=== PATIENT | female | born 1940 | race Caucasian/White ===

== ENCOUNTER 2021-02-04 18:06 | Emergency (ER) | payer OTHER, SELFPAY ==
[2021-02-04 18:15] VITALS: BP 142/61; PULSE 86; RESP 18; TEMP 37; O2SAT 100
--- NOTE | 2021-02-04 18:15 | ED.LOWEXIN ---
HPI - Extremity Injury (Lower) General Chief Complaint: Skin/Abscess/Foreign Body Stated Complaint: INFECTED FOOT Time Seen by Provider: 02/04/21 18:15 Source: patient, family and RN notes reviewed Mode of arrival: ambulatory Limitations: no limitations History of Present Illness HPI Narrative: 80-year-old female presents to the [facility] with her with complaints of a foot infection. Patient states approximately 3 months ago started having issues with a callused when it opened up. Had seen her primary care provider and then was seeing a specialist multiple times in the last 3 months. Thought it was healing well and then noticed redness and swelling since yesterday. There is a yellow pus filled area that is 4 x 4-1/2 cm on the plantar aspect just proximal to the great toe. Redness noted circumferential of the toes and the foot with streaking noted up the foot and into the leg. Edema noted to the ankle and foot area. Related Data Home Medications Medication Instructions Recorded Confirmed isosorbide mononitrate 30 mg 30 mg PO DAILY 09/28/19 02/04/21 tablet,extended release 24 hr metoprolol succinate 50 mg 50 mg PO DAILY 09/28/19 02/04/21 tablet,extended release 24 hr nitroglycerin 0.4 mg sublingual 0.4 mg SUBLINGUAL Q5M PRN 09/28/19 02/04/21 tablet clopidogrel 75 mg PO DAILY 02/04/21 02/04/21 gabapentin 300 mg PO TID 02/04/21 02/04/21 levothyroxine 50 mcg PO DAILY 02/04/21 02/04/21 losartan 100 mg PO DAILY 02/04/21 02/04/21 omeprazole 20 mg PO DAILY 02/04/21 02/04/21 simvastatin 20 mg PO DAILY 02/04/21 02/04/21 Allergies Allergy/AdvReac Type Severity Reaction Status Date / Time adhesive tape Allergy Severe BLISTERS/SKIN Verified 02/04/21 20:00 TEARS latex Allergy Unknown Unknown Verified 02/04/21 20:00 Review of Systems Review of Systems: All systems reviewed & are unremarkable except as noted in HPI and below Constitutional: Constitutional: Reports no additional constitutional complaints, Denies chills and Denies fever(s) Eyes: Eyes: Reports no additional eye complaints ENT: Reports system reviewed and no additional complaints, except as documented Cardiovascular: Cardiovascular: Reports no additional cardiovascular complaints and Denies chest pain Respiratory: Respiratory: Reports no additional respiratory complaints, Denies cough, Denies dyspnea and Denies wheezing Gastrointestinal: Gastrointestinal: Reports no additional gastrointestinal complaints, Denies abdominal pain, Denies nausea and Denies vomiting Musculoskeletal: Musculoskeletal: Reports as per HPI, Denies back pain, Denies myalgias, Reports joint swelling (Right lower leg, ankle and foot) and Denies muscle cramps Integumentary/Breasts: Skin/Breast: Reports as per HPI and Denies rash Comments: Redness to the right foot with streaking up the leg. 4 x 4.5 area with pus Neurologic: Reports system reviewed and no additional complaints, except as documented, Denies vertigo, Denies dizziness, Denies syncope, Denies headache(s), Denies focal weakness and Denies numbness Psychiatric: Psychiatric: Reports no additional psychiatric complaints Endocrine: Endocrine: Reports no additional endocrine complaints Allergic/Immunologic: Allergic/Immunologic: Reports no additional allergic/immunologic complaints [facility] Surgical History Surgical History H/O colonoscopy H/O heart artery stent H/O tooth extraction H/O: hysterectomy History of hip replacement History of knee replacement Family History Family History Mother Family history of pancreatic cancer Grandparent Diabetes mellitus Father Diabetes mellitus Hypertension Family history of cardiovascular disease Family history of chronic obstructive pulmonary disease Other Family history of elevated blood lipids Social History Social History (Reviewed 02/04/21 @ 19:59 by
[2021-02-04 18:48] VITALS: BP 142/61; PULSE 86; RESP 18; TEMP 37; O2SAT 100
== END 2021-02-04 18:33 | disposition short-term general hospital (02) ==
PROVIDERS: Emergency Provider Nurse Practitioner; PCP Internal Medicine
DX: L03.116 Cellulitis of left lower limb (principal); L03.115 Cellulitis of right lower limb; Z95.5 Presence of coronary angioplasty implant and graft; Z96.649 Presence of unspecified artificial hip joint; Z96.659 Presence of unspecified artificial knee joint
CPT/HCPCS: 99212; G0463

== ENCOUNTER 2021-02-04 18:49 | Inpatient (IN) | payer OTHER, SELFPAY ==
--- NOTE | ~2021-02-04 | XR_ITS ---
EXAMINATION: XR foot RT min 3V DATE: 02/04/2021 21:11 INDICATION: Neuropathy presenting with wound at the plantar right foot. TECHNIQUE: Dorsoplantar, two oblique and lateral views of the right foot were obtained. COMPARISON: None. FINDINGS: Mild hallux valgus. Alignment is otherwise normal. No fracture. Polyarticular osteoarthritis, moderat e severity at the naviculocuneiform and second and third tarsal metatarsal joints with subarticular l ucencies suggesting associated degenerative subchondral cystic changes. Mild osteoarthritis at the ta lonavicular, first metatarsophalangeal, remaining tarsal metatarsal and multiple interphalangeal join ts. Moderate-sized plantar calcaneal spur and small Achilles calcaneal spur. No cortical erosions or periosteal reaction to suggest osteomyelitis. Soft tissue swelling about the great toe and head of th e first metatarsal. No soft tissue gas or radiopaque foreign bodies. IMPRESSION: 1. 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 No acute osseous abnormality or ev ident osteoarthritis. Reviewed, dictated and finalized at location A. IMPRESSION: 1. 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 No acute oss eous abnormality or evident osteoarthritis.
--- NOTE | ~2021-02-04 | MR_ITS ---
EXAMINATION: MR foot RT wo con DATE: 02/05/2021 14:02 INDICATION: Osteomyelitis at the right foot. Open wound at the ball of the right foot near the great toe. TECHNIQUE: Magnetic resonance imaging (MRI) of the right fore/mid foot was performed without intraven ous contrast. Sequences included sagittal T1-weighted FSE, sagittal fluid sensitive FSE STIR, coronal PD-weighted FS FSE, coronal T1-weighted FSE, axial PD-weighted FS FSE, and axial PD-weighted FSE. COMPARISON: Right foot radiographs dated 02/04/2021 FINDINGS: Hallux valgus. Bone alignment is otherwise normal. There is moderate to severe polyarticular osteoart hritis, severe at multiple joints in the midfoot with prominent subarticular cystic change and early destructive changes most prominent at the second-fourth tarsal metatarsal joints and the navicular cu neiform joint suggesting neuropathic arthropathy. Additional less severe mild to moderate osteoarthri tis of the first metatarsal joint and mild osteoarthritis at many of the remaining joints in the visu alized forefoot. Physiologic amount fluid in the joint spaces. No joint effusions. Shallow skin ulcer ation suggested plantar to the head of the first metatarsal. No evident deeper sinus tract or evident cortical erosion or marrow signal changes suspicious for osteomyelitis at the underlying bones. Visu alized portions of the flexor and extensor tendons appear normal. Moderate diffuse fatty atrophy of t he intrinsic musculature of the foot also suggestive of chronic neuropathic changes. IMPRESSION: 1. Shallow skin ulceration plantar to the head of the first metatarsal. No evident associated septic arthritis or osteoarthritis. 2. Moderate to severe polyarticular osteoarthritis most prominent in the midfoot with appearance as w ell as a moderate fatty atrophy and intrinsic musculature suggesting neuropathic arthropathy. Reviewed, dictated and finalized at location A. IMPRESSION: 1. Shallow skin ulceration plantar to the head of the first metatarsal. No evid ent associated septic arthritis or osteoarthritis. 2. Moderate to severe polyarticular osteoarthritis most prominent in the midfoo t with appearance as well as a moderate fatty atrophy and intrinsic musculature suggesting neuropathic arthropathy.
[2021-02-04 18:57] VITALS: BP 141/69; PULSE 88; RESP 18; TEMP 36.2; O2SAT 98
[2021-02-04] MEDS: TETANUS,DIPHTHERIA,AC PERTUSSIS ADULT (0.5 ML) BOOSTRIX IM (21:25)
[2021-02-04 21:28] LABS: Basophils Absolute Auto 0.1 K/mm3 (0.0-0.1); Basophils Percent Auto 1.1 % (0.2-1.2); Eosinophils Absolute Auto 0.4 K/mm3 (0-0.3); Eosinophils Percent Auto 4.2 % (0-4.4); Hematocrit 42.2 % (37.0-47.0); Immature Granulocyte Absolute 0.05 K/mm3 (0.00-0.031); Immature Granulocyte Percent A 0.6 % (0-0.5); Lymphocytes Percent Auto 29.4 % (18.3-44.2); Mean Corpuscular HGB Conc 33.2 g/dl (32-36); Mean Corpuscular Hemoglobin 30.5 pg (26-34); Mean Corpuscular Volume 91.9 fl (80-100); Mean Platelet Volume 9.6 fl (7.4-10.4); Monocytes Absolute Auto 1.1 K/mm3 (0.1-0.6); Monocytes Percent Auto 12.6 % (2.6-8.5); Neutrophils Absolute Auto 4.4 K/mm3 (1.3-6.7); Neutrophils Percent Auto 52.1 % (45.5-73.1); Platelet Count Result 305 k/mm3 (150-375); Red Blood Count 4.59 M/mm3 (4.2-5.4); Red Cell Distribution Width 12.4 % (11.5-14.5); White Blood Count 8.5 K/mm3 (4.5-10.0)
[2021-02-04 21:51] LABS: Erythrocyte Sedimentation Rate 25 mm/hr (0-20)
--- NOTE | 2021-02-04 22:11 | ED.GENADULT ---
HPI - General Adult General Chief complaint: Extremity Injury, Lower Stated complaint: i have an infected foot Time Seen by Provider: 02/04/21 19:39 Source: patient Mode of arrival: ambulatory Limitations: no limitations History of Present Illness HPI narrative: Patient presents for evaluation of wound to the MTP joint of the first digit of the right foot. She indicates she has a history of a callus to the affected area. She was receiving an office debridement by her primary care provider and then manager heavy equipment, Dr Reagan, approximately 2 months ago. She states that the area was healing well but she then needed to have cardiac stents placed by Dr. Byrd at [place]. Therefore, her debridements were placed on hold. She states over the course the last 2 days she has noted a worsening appearance to the affected area. She noticed redness going up her right lower extremity today. She denies any fever, chills, nausea, vomiting. She denies any associated pain but she has underlying peripheral neuropathy. She thinks her last tetanus was about three years ago but she is not certain She states she has borderline diabetes and was on metformin in the past. She is unsure whether she is still taking metformin. It is not on the home med list that she provided me tonight. Related Data Home Medications Medication Instructions Recorded Confirmed isosorbide mononitrate 30 mg 30 mg PO DAILY 09/28/19 02/04/21 tablet,extended release 24 hr metoprolol succinate 50 mg 50 mg PO DAILY 09/28/19 02/04/21 tablet,extended release 24 hr nitroglycerin 0.4 mg sublingual 0.4 mg SUBLINGUAL Q5M PRN 09/28/19 02/04/21 tablet clopidogrel 75 mg PO DAILY 02/04/21 02/04/21 gabapentin 300 mg PO TID 02/04/21 02/04/21 levothyroxine 50 mcg PO DAILY 02/04/21 02/04/21 losartan 100 mg PO DAILY 02/04/21 02/04/21 omeprazole 20 mg PO DAILY 02/04/21 02/04/21 simvastatin 20 mg PO DAILY 02/04/21 02/04/21 Allergies Allergy/AdvReac Type Severity Reaction Status Date / Time adhesive tape Allergy Severe BLISTERS/SKIN Verified 02/04/21 20:00 TEARS latex Allergy Unknown Unknown Verified 02/04/21 20:00 Review of Systems Review of Systems: Narrative: CONSTITUTIONAL: Denies fever, chills, or sweats. EYES: Denies visual changes, redness, or discharge. ENT: Denies rhinorrhea, congestion, sore throat, or otalgia. CARDIOVASCULAR: Denies chest pain, palpitations, or edema. RESPIRATORY: Denies cough or dyspnea. GASTROINTESTINAL: Denies abdominal pain, nausea, vomiting, or diarrhea. GENITOURINARY: Denies dysuria or hematuria. SKIN: Reports wound to the right foot. Denies rash or itching. MUSCULOSKELETAL: Denies back pain, joint pain, or myalgia. NEUROLOGIC: Denies headache, numbness, dizziness, or weakness. PSYCHIATRIC: Denies anxiety or depression. [facility] Past Medical History Medical History Borderline diabetes Coronary artery disease Hyperlipidemia Hypertension Peripheral neuropathy Surgical History Surgical History H/O colonoscopy H/O heart artery stent H/O tooth extraction H/O: hysterectomy History of hip replacement History of knee replacement Family History Family History Mother Family history of pancreatic cancer Grandparent Diabetes mellitus Father Diabetes mellitus Hypertension Family history of cardiovascular disease Family history of chronic obstructive pulmonary disease Other Family history of elevated blood lipids Social History Social History Smoking status: Never smoker Alcohol intake: never Substance use: never Living arrangements: with family Gender identity (if verbalized by the patient): Female Sexual Orientation (if Verbalized by the Patient): Straight or Heterosexual S
[2021-02-04 22:31] LABS: Alanine Aminotransferase 16 U/L (4-35); Albumin Level 4.1 g/dL (3.5-5.1); Alkaline Phosphatase 82 U/L (38-126); Anion Gap 11 mmol/L (8-16); Aspartate Amino Transferase 24 U/L (14-36); Bilirubin,Total 0.9 mg/dL (0.2-1.3); Blood Urea Nitrogen 29 mg/dL (7-17); CRP 1.6 mg/dL (<1.0); Calcium 9.8 mg/dL (8.4-10.2); Carbon Dioxide 21 mmol/L (22-30); Chloride 106 mmol/L (98-107); Estimated CRCL calculation 29 ml/min; Estimated Glomerular Filt Rate 40; Glucose 110 mg/dL (65-105); Potassium 4.1 mmol/L (3.4-5.0); Sodium 138 mmol/L (137-145)
[2021-02-04 22:42] VITALS: BP 158/82; PULSE 73; RESP 16; O2SAT 99
[2021-02-05] VITALS (7 sets, daily range): BP systolic 143–178; BP diastolic 66–97; PULSE 68–77; RESP 16–18; TEMP 36.4–36.7; O2SAT 96–100; BMI 28.5
--- NOTE | 2021-02-05 01:37 | PC.NURSE ---
This patient, Emelia Heath, was admitted to [facility] Room 329-01. Patient/family oriented to hospital policies and general routines including ID bracelet, bed and alarms, visiting hours, pain management, procedures, bathroom and other care routines, personal items, smoking policy, room service/diet, and visiting hours. Information on how to activate the Rapid Response Team has been discussed. Patient/Family are encouraged to report perceived risks to care and to ask questions if they do not understand what they are told or what they should do.
[2021-02-05] MEDS: LACTATED RINGERS 1,000 ML 60 ML IV CONT (02:08)
--- NOTE | 2021-02-05 02:33 | PM.IMHP ---
H&P: HPI History of Present Illness Date/Time: 02/05/21 02:33 Chief Complaint: Left lower extremity redness Narrative: This is a 80-year-old female with past medical history significant for coronary artery disease status post stent placement, hypertension, dyslipidemia, hypothyroidism, angina. Patient presented to the emergency room after she had been going to the manager air for a callus at the 1st metatarsal joint that has been shaved however patient in the last couple of days notice increasingly painful to the touch and be weight-bearing in that area as well as redness and swelling of the foot tracking up her calf. However she denies any chills fevers rigors nausea vomiting pain or burning with urination no general malaise no muscle aches or pains. Preliminary workup was essentially nonrevealing. Review of Systems Review of Systems: Narrative: Left foot redness Constitutional: Constitutional: Denies chills, Denies fever(s), Denies lethargy and Denies malaise Eyes: Eyes: Denies change in vision ENT: Denies nasal congestion, Denies nasal discharge and Denies nasal obstruction Cardiovascular: Cardiovascular: Denies irregular heart rhythm, Denies lightheadedness, Denies radiating jaw, neck or arm pain, Denies palpitations and Denies dyspnea on exertion Respiratory: Respiratory: Denies cough and Denies dyspnea Gastrointestinal: Gastrointestinal: Denies diarrhea, Denies nausea and Denies vomiting Genitourinary: Genitourinary: Denies dysuria Musculoskeletal: Musculoskeletal: Reports arthralgias and Reports joint swelling PMF Past Medical History Medical History Borderline diabetes Coronary artery disease Hyperlipidemia Hypertension Peripheral neuropathy Surgical History Surgical History H/O colonoscopy H/O heart artery stent H/O tooth extraction H/O: hysterectomy History of hip replacement History of knee replacement Family History Family History Mother Family history of pancreatic cancer Grandparent Diabetes mellitus Father Diabetes mellitus Hypertension Family history of cardiovascular disease Family history of chronic obstructive pulmonary disease Other Family history of elevated blood lipids Social History Social History Smoking status: Never smoker Alcohol intake: never Substance use: never Living arrangements: with family Gender identity (if verbalized by the patient): Female Sexual Orientation (if Verbalized by the Patient): Straight or Heterosexual Spiritual care concerns: No Meds Home Medications and Allergies Home Medications Medication Instructions Recorded Confirmed Type isosorbide mononitrate 30 mg 30 mg PO DAILY 09/28/19 02/05/21 History tablet,extended release 24 hr metoprolol succinate 50 mg 50 mg PO DAILY 09/28/19 02/05/21 History tablet,extended release 24 hr nitroglycerin 0.4 mg sublingual 0.4 mg SUBLINGUAL Q5M PRN 09/28/19 02/05/21 History tablet clopidogrel 75 mg PO DAILY 02/04/21 02/05/21 History gabapentin 300 mg PO BID 02/04/21 02/05/21 History levothyroxine 50 mcg PO DAILY 02/04/21 02/05/21 History losartan 150 mg PO DAILY 02/04/21 02/05/21 History omeprazole 20 mg PO DAILY 02/04/21 02/05/21 History simvastatin 20 mg PO DAILY 02/04/21 02/05/21 History aspirin [Aspirin Low Dose] 81 mg PO DAILY 02/05/21 02/05/21 History Allergies Allergy/AdvReac Type Severity Reaction Status Date / Time adhesive tape Allergy Severe BLISTERS/SKIN Verified 02/04/21 20:00 TEARS latex Allergy Unknown Unknown Verified 02/04/21 20:00 Vital Signs Vital Signs - 24 hr 02/04/21 18:57 02/04/21 22:42 02/05/21 00:16 Temperature 97.2 F L Pulse Rate 88 73 69 Respiratory Rate 18 16 17 Blood Pressure 141
[2021-02-05] MEDS: LEVOTHYROXINE SODIUM 50 MCG TABLET PO (06:29)
[2021-02-05 06:52] LABS: Basophils Absolute Auto 0.1 K/mm3 (0.0-0.1); Basophils Percent Auto 1.3 % (0.2-1.2); Eosinophils Absolute Auto 0.3 K/mm3 (0-0.3); Eosinophils Percent Auto 4.4 % (0-4.4); Hematocrit 38.7 % (37.0-47.0); Hemoglobin 12.8 g/dL (12.0-15.0); Immature Granulocyte Absolute 0.02 K/mm3 (0.00-0.031); Immature Granulocyte Percent A 0.3 % (0-0.5); Lymphocytes Absolute Auto 2.15 K/mm3 (0.9-3.2); Lymphocytes Percent Auto 30.7 % (18.3-44.2); Mean Corpuscular HGB Conc 33.1 g/dl (32-36); Mean Corpuscular Hemoglobin 30.9 pg (26-34); Mean Corpuscular Volume 93.5 fl (80-100); Mean Platelet Volume 9.3 fl (7.4-10.4); Monocytes Absolute Auto 0.8 K/mm3 (0.1-0.6); Neutrophils Absolute Auto 3.7 K/mm3 (1.3-6.7); Neutrophils Percent Auto 52.3 % (45.5-73.1); Platelet Count Result 271 k/mm3 (150-375); Red Blood Count 4.14 M/mm3 (4.2-5.4); Red Cell Distribution Width 12.3 % (11.5-14.5)
[2021-02-05 07:04] LABS: Anion Gap 11 mmol/L (8-16); Blood Urea Nitrogen 21 mg/dL (7-17); Calcium 9.2 mg/dL (8.4-10.2); Carbon Dioxide 19 mmol/L (22-30); Chloride 107 mmol/L (98-107); Estimated CRCL calculation 34 ml/min; Estimated Glomerular Filt Rate 48; Glucose 116 mg/dL (65-105); Potassium 4.2 mmol/L (3.4-5.0); Sodium 137 mmol/L (137-145)
[2021-02-05] MEDS: SIMVASTATIN 20 MG TABLET PO (08:31)
[2021-02-05] MEDS: LOSARTAN POTASSIUM 50 MG TABLET 150 MG PO (08:31)
[2021-02-05] MEDS: METOPROLOL SUCCINATE EXT REL 50 MG TABCR PO (08:31)
[2021-02-05] MEDS: PANTOPRAZOLE 40 MG TABLET PO (08:31)
[2021-02-05] MEDS: GABAPENTIN 300 MG CAPSULE PO ×2 (08:35→20:57)
--- NOTE | 2021-02-05 09:01 | PM.CNOR ---
Assessment and Plan Assessment and plan (1) Callus of foot: Code(s): L84 - Corns and callosities Status: Acute (2) Peripheral neuropathy: Qualifiers: Peripheral neuropathy type: polyneuropathy associated with underlying disease Qualified Code(s): G63 - Polyneuropathy in diseases classified elsewhere Code(s): G62.9 - Polyneuropathy, unspecified Status: Acute (3) Foot ulcer, right: Qualifiers: Non-pressure ulcer stage: with muscle involvement without evidence of necrosis Qualified Code(s): L97.515 - Non-pressure chronic ulcer of other part of right foot with muscle involvement without evidence of necrosis Code(s): L97.519 - Non-pressure chronic ulcer of other part of right foot with unspecified severity Status: Acute Assessment and Plan: 80-year-old woman with chronic plantar right foot ulcer. Previous local debridements by outside providers. Worsening over the past 2 weeks. Noted purulence drainage in the emergency room. No drainage at this time. Complicated by foot and leg cellulitis. Radiographs show no bony involvement at this time. Plan for MRI today to evaluate soft tissue. Patient with hallux valgus deformity. May need correction in the future to effect definitive healing. Plan for debridement of right foot. Further treatment based on MRI and healing response. Discussed nonoperative and operative treatment options with the patient. Risks and benefits of each as well as alternatives were reviewed. All of the patient's questions were answered. The risks of surgery reviewed including but not limited to: Neurovascular damage, wound complication, infection, blood clot, pulmonary embolus, stroke, myocardial infarction, and anesthetic risks up to and including . Continued pain and possible dysfunction were explained. Specific risks of the procedure including later recurrence of deformity. No guarantees were offered. If complications occur, the patient understands the need for further treatment, possible further surgery. Patient verbalizes understanding and wishes to proceed. PLAN: Right foot debridement (4) Cellulitis: Qualifiers: Laterality: right Site of cellulitis: extremity Site of cellulitis of extremity: lower extremity Qualified Code(s): L03.115 - Cellulitis of right lower limb Code(s): L03.90 - Cellulitis, unspecified Status: Acute Assessment and Plan: started on intravenous antibiotics. Appears to be responding well. History of Present Illness HPI Consult date: 02/05/21 Requesting physician: Phong Oscar, [employer], [place] Chief complaint: Cellulitis Right Lower Leg, Callus Right Foot Narrative: 80-year-old woman with peripheral neuropathy and chronic callus/ulceration plantar right 1st metatarsophalangeal joint. Previous debridements by technology risk intern in office. By history, worsening over the past several weeks. Patient had recent stent placement. Review of Systems Constitutional: Constitutional: Denies fever(s) Eyes: Eyes: Denies blurry vision ENT: Reports Normal hearing present Cardiovascular: Cardiovascular: Denies chest pain and Denies dyspnea Respiratory: Respiratory: Denies dyspnea and Denies wheezing Gastrointestinal: Gastrointestinal: Denies abdominal pain Genitourinary: Genitourinary: Denies urinary urgency Musculoskeletal: Musculoskeletal: Reports as per HPI and Denies numbness Integumentary/Breasts: Skin/Breast: Denies changing lesions and Denies sores Neurologic: Reports Normal hearing present, Denies behavioral changes, Denies confusion, Reports numbness ( Bilateral feet) and Denies convulsions Psychiatric: Psychiatric: Denies behavioral changes, Denies confusion and Denies hallucinations Endocrine: Endocrine: Denies heat intolerance Hematologic/Lymphatic: Hematologic/Lymphatic: Denies easy bleeding Allergic/Immunologic: Allergic/Immunologic: Denies wheezing PMFSH Past Med
--- NOTE | 2021-02-05 12:47 | PM.IMPN ---
Progress Note: A&P Assessment and Plan (1) Cellulitis: Qualifiers: Laterality: right Site of cellulitis: extremity Site of cellulitis of extremity: lower extremity Qualified Code(s): L03.115 - Cellulitis of right lower limb Code(s): L03.90 - Cellulitis, unspecified Status: Acute Assessment and Plan: Started on Zosyn and vancomycin CT of the left foot Ortho consult 02/05/21 12:47 This is a 80-year-old female with past medical history significant for coronary artery disease status post stent placement, hypertension, dyslipidemia, hypothyroidism, angina. Patient presented to the emergency room after she had been going to the office machine repair shop supervisor for a callus at the 1st metatarsal joint that has been shaved however patient in the last couple of days notice increasingly painful to the touch and be weight-bearing in that area as well as redness and swelling of the foot tracking up her calf. However she denies any chills fevers rigors nausea vomiting pain or burning with urination no general malaise no muscle aches or pains. Preliminary workup was essentially nonrevealing. 02/05 patient states right pain and redness has improved since the start of IV antibiotic, and erythema is receding, today patient was seen orthopedic surgeon recommend debridement of the wound and patient has agreed as scheduled for possibly tomorrow, patient denies any fever or chills, denies any chest pain shortness of breath palpitation. Will have a PT OT evaluate the patient and further recommendation to follow (2) Callus of foot: Code(s): L84 - Corns and callosities Status: Acute Assessment and Plan: Worsening pain on weight-bearing (3) Peripheral neuropathy: Qualifiers: Peripheral neuropathy type: polyneuropathy associated with underlying disease Qualified Code(s): G63 - Polyneuropathy in diseases classified elsewhere Code(s): G62.9 - Polyneuropathy, unspecified Status: Acute Assessment and Plan: Continue home meds Continue to monitor (4) Hyperlipidemia: Code(s): E78.5 - Hyperlipidemia, unspecified Status: Acute Assessment and Plan: Continue home meds Continue to monitor (5) Coronary artery disease: Code(s): I25.10 - Atherosclerotic heart disease of [place] coronary artery without angina pectoris Status: Acute Assessment and Plan: Stable Continue home meds (6) Hypertension: Code(s): I10 - Essential (primary) hypertension Status: Acute Assessment and Plan: Stable Continue home meds Subjective Date/time seen: 02/05/21 12:47 This is a 80-year-old female with past medical history significant for coronary artery disease status post stent placement, hypertension, dyslipidemia, hypothyroidism, angina. Patient presented to the emergency room after she had been going to the office machine repair shop supervisor for a callus at the 1st metatarsal joint that has been shaved however patient in the last couple of days notice increasingly painful to the touch and be weight-bearing in that area as well as redness and swelling of the foot tracking up her calf. However she denies any chills fevers rigors nausea vomiting pain or burning with urination no general malaise no muscle aches or pains. Preliminary workup was essentially nonrevealing. 02/05 patient states right pain and redness has improved since the start of IV antibiotic, and erythema is receding, today patient was seen orthopedic surgeon recommend debridement of the wound and patient has agreed as scheduled for possibly tomorrow, patient denies any fever or chills, denies any chest pain shortness of breath palpitation. Will have a PT OT evaluate the patient and further recommendation to follow Review of Systems Review of Systems: All systems reviewed & are unremarkable except as noted in HPI and below Exam Narrative: Exam Narrative: Patient is comfortable, NAD HEENT: eyes are clear and none icteric
[2021-02-05] MEDS: ISOSORBIDE MONONITRATE 30 MG TAB.ER.24H PO (15:05)
[2021-02-05] MEDS: CLOPIDOGREL BISULFATE 75 MG TABLET PO (15:05)
[2021-02-05] MEDS: amLODIPine BESYLATE 5 MG TABLET PO (17:27)
[2021-02-05] MEDS: SILVERGEL (ELTA) 45 ML 1 APPLIC TOPICAL (18:09)
[2021-02-06] VITALS (13 sets, daily range): BP systolic 104–183; BP diastolic 62–81; PULSE 62–80; RESP 13–20; TEMP 36–37; O2SAT 94–100
[2021-02-06 06:46] LABS: Hemoglobin 12.8 g/dL (12.0-15.0); Mean Corpuscular HGB Conc 33.7 g/dl (32-36); Mean Corpuscular Hemoglobin 30.8 pg (26-34); Mean Corpuscular Volume 91.3 fl (80-100); Mean Platelet Volume 9.4 fl (7.4-10.4); Platelet Count Result 304 k/mm3 (150-375); Red Blood Count 4.16 M/mm3 (4.2-5.4); Red Cell Distribution Width 12.2 % (11.5-14.5); White Blood Count 6.9 K/mm3 (4.5-10.0)
[2021-02-06 06:51] LABS: Anion Gap 10 mmol/L (8-16); Blood Urea Nitrogen 18 mg/dL (7-17); Calcium 9.1 mg/dL (8.4-10.2); Carbon Dioxide 21 mmol/L (22-30); Chloride 106 mmol/L (98-107); Estimated CRCL calculation 41 ml/min; Estimated Glomerular Filt Rate 60; Glucose 121 mg/dL (65-105); Potassium 4.3 mmol/L (3.4-5.0); Sodium 137 mmol/L (137-145)
[2021-02-06 06:56] LABS: Hemoglobin A1C 6.3 % (<5.7)
--- NOTE | 2021-02-06 06:57 | WPDHPUPDATE1 ---
History and Physical Update Update Date/Time: 02/06/21 06:57 History and Physical has been reviewed, including an updated exam of the patient. There are NO changes in the patient's condition. Risks, benefits, and alternatives have been discussed and questions answered. Patient agrees to proceed with procedure.
[2021-02-06] MEDS: LACTATED RINGERS 1,000 ML 30 ML IV CONT ×2 (07:35→09:35)
--- NOTE | 2021-02-06 07:39 | WPDANESEPPF ---
Anes - Initial Pre Proc Eval Procedure: Operation Date: 02/06/21 08:30 Proposed Procedures p Right Foot Debridement - Brian Sumner MD Date/Time: 02/06/21 07:39 Surgeon: Loly Aldana MD Pre Op Diagnosis: Cellulitis Right Lower Leg, Callus Right Foot Patient Data Age: 80 Gender: F Height: 1.57 m Weight: 70.7 kg Last Vital Signs Temp 36.1 C L 02/06/21 05:57 Pulse 78 02/06/21 05:57 Resp 16 02/06/21 05:57 BP 151/76 H 02/06/21 05:57 Pulse Ox 98 02/06/21 05:57 Allergies Allergy/AdvReac Type Severity Reaction Status Date / Time adhesive tape Allergy Severe BLISTERS/SKIN Verified 02/04/21 20:00 TEARS latex Allergy Unknown Unknown Verified 02/04/21 20:00 Home Medications Medication Instructions Recorded Confirmed Type isosorbide mononitrate 30 mg 30 mg PO DAILY 09/28/19 02/05/21 History tablet,extended release 24 hr metoprolol succinate 50 mg 50 mg PO DAILY 09/28/19 02/05/21 History tablet,extended release 24 hr nitroglycerin 0.4 mg sublingual 0.4 mg SUBLINGUAL Q5M PRN 09/28/19 02/05/21 History tablet clopidogrel 75 mg PO DAILY 02/04/21 02/05/21 History gabapentin 300 mg PO BID 02/04/21 02/05/21 History levothyroxine 50 mcg PO DAILY 02/04/21 02/05/21 History losartan 150 mg PO DAILY 02/04/21 02/05/21 History omeprazole 20 mg PO DAILY 02/04/21 02/05/21 History simvastatin 20 mg PO DAILY 02/04/21 02/05/21 History aspirin [Aspirin Low Dose] 81 mg PO DAILY 02/05/21 02/05/21 History Laboratory Tests 02/06/21 02/06/21 02/06/21 06:14 06:14 06:14 WBC 6.9 K/mm3 K/mm3 (4.5-10.0) RBC 4.16 M/mm3 L M/mm3 (4.2-5.4) Hgb 12.8 g/dL g/dL (12.0-15.0) Hct 38.0 % % (37.0-47.0) MCV 91.3 fl fl (80-100) MCH 30.8 pg pg (26-34) MCHC 33.7 g/dl g/dl (32-36) RDW 12.2 % % (11.5-14.5) Plt Count 304 k/mm3 k/mm3 (150-375) MPV 9.4 fl fl (7.4-10.4) Sodium 137 mmol/L mmol/L (137-145) Potassium 4.3 mmol/L mmol/L (3.4-5.0) Chloride 106 mmol/L mmol/L (98-107) Carbon Dioxide 21 mmol/L L mmol/L (22-30) Anion Gap 10 mmol/L mmol/L (8-16) BUN 18 mg/dL H mg/dL (7-17) Creatinine 0.90 mg/dL mg/dL (0.7-1.0) Estim Creat Clear Calc 41 ml/min ml/min Estimated GFR 60 (59 - ) Glucose 121 mg/dL H mg/dL (65-105) Hemoglobin A1c 6.3 % H % (<5.7) Calcium 9.1 mg/dL mg/dL (8.4-10.2) Patient hx anesthesia problems: none Family hx anesthesia problems: none PMFSH Past Medical History Medical History (Updated 02/05/21 @ 09:09 by Brian Sumner MD) Borderline diabetes Coronary artery disease Foot ulcer, right Hyperlipidemia Hypertension Peripheral neuropathy Surgical History Surgical History H/O colonoscopy H/O heart artery stent H/O tooth extraction H/O: hysterectomy History of hip replacement History of knee replacement Family History Family History Mother Family history of pancreatic cancer Grandparent Diabetes mellitus Father Diabetes mellitus Hypertension Family history of cardiovascular disease Family history of chronic obstructive pulmonary disease Other Family history of elevated blood lipids Social History Social History Smoking status: Never smoker Alcohol intake: never Substance use: never Living arrangements: with family Gender identity (if verbalized by the patient): Female Sexual Orientation (if Verbalized by the Patient): Straight or Heterosexual Spiritual care concerns: No Anes - Eval Final PreProcedure Day of Procedure 02/06/21 07:39 Patient weight: overweight Heart: regular rate and rhythm Lungs: clear to auscultat
--- NOTE | 2021-02-06 08:33 | SUR.PREOP ---
0830-DISCUSSED ANTIBIOTICS WITH DR. STOCKTON-HE WILL FOLLOW UP.
--- NOTE | 2021-02-06 09:14 | PCWOUND ---
WOCN NOTE received referral to see ulcer to patient foot, patient has consult for orthopedic surgeon and went to surgery.
[2021-02-06] MEDS: ceFAZolin SODIUM 1 GM VIAL 2 GM IV PUSH (09:16)
[2021-02-06] MEDS: BUPIVACAINE HCL 0.5% PF 30 ML VIAL INFILTRATE (09:23)
--- NOTE | 2021-02-06 09:47 | W.PM.PROC2 ---
Procedure Note - Detailed Date of Procedure 02/06/21 Pre-op Diagnosis Cellulitis Right Lower Leg, Callus Right Foot Right diabetic foot ulcer Post-op Diagnosis same Procedure Performed Incisional debridement right diabetic foot ulcer 4 x 3.5 cm Surgeon Brian Sumner MD [employer] 1st assistant front end manager Anesthesia MAC and local Indications 80-year-old woman with diabetes and peripheral neuropathy admitted with cellulitis of the right leg and right diabetic foot ulcer. Presents for operative debridement. Findings 4 x 3.5 cm x 0.2 cm depth ulcer right plantar 1st metatarsophalangeal joint. Involvement of skin, subcutaneous tissue and muscle. No exposed bone or tendon. Description of Procedure What was done: Patient identified in the preoperative holding. Informed consent given. Operative extremity marked. Patient received intravenous antibiotics. Patient brought to the operating room where underwent sedation by anesthesia team. Positioned supine on operating room table. Time-out performed confirming the patient, site of the surgery and the plan. Right foot prepped draped usual sterile surgical fashion using a Betadine prep solution. Fifteen blade knife used to sharply excise skin, subcutaneous tissue, muscle that was nonviable, devitalized, infected from the right plantar foot. All nonviable tissue sharply excised and passed off. Good bleeding viable tissue left in place. Adequate blood flow appeared to be present to the right foot. Final ulcer measured 4 x 3.5 cm with 0.2 cm depth. Antibiotic ointment and sterile dressing applied. The patient was then woken from anesthesia and taken to the recovery room in stable condition. All sponge, needle, instrument counts were correct at the end of the case. Estimated Blood Loss 2 Tourniquet Time 0 Drains No Packing Yes Pathology none sent Complications None Condition stable Disposition PACU
[2021-02-06] MEDS: GABAPENTIN 300 MG CAPSULE PO ×2 (10:20→21:29)
[2021-02-06] MEDS: CLOPIDOGREL BISULFATE 75 MG TABLET PO (10:20)
[2021-02-06] MEDS: SIMVASTATIN 20 MG TABLET PO (10:20)
[2021-02-06] MEDS: SILVERGEL (ELTA) 45 ML 1 APPLIC TOPICAL (10:21)
[2021-02-06] MEDS: LOSARTAN POTASSIUM 50 MG TABLET 150 MG PO (10:21)
[2021-02-06] MEDS: ISOSORBIDE MONONITRATE 30 MG TAB.ER.24H PO (10:22)
[2021-02-06] MEDS: METOPROLOL SUCCINATE EXT REL 50 MG TABCR PO (10:22)
[2021-02-06] MEDS: amLODIPine BESYLATE 5 MG TABLET PO (10:22)
[2021-02-06] MEDS: PANTOPRAZOLE 40 MG TABLET PO (10:22)
[2021-02-06] MEDS: KCL 20 MEQ/D5/0.45% SOD CHL 1,000 ML 80 ML IV CONT (10:22)
--- NOTE | 2021-02-06 11:17 | PM.IMPN ---
Progress Note: A&P Assessment and Plan (1) Cellulitis: Qualifiers: Laterality: right Site of cellulitis: extremity Site of cellulitis of extremity: lower extremity Qualified Code(s): L03.115 - Cellulitis of right lower limb Code(s): L03.90 - Cellulitis, unspecified Status: Acute Assessment and Plan: Started on Zosyn and vancomycin CT of the left foot Ortho consult 02/06/21 11:17 This is a 80-year-old female with past medical history significant for coronary artery disease status post stent placement, hypertension, dyslipidemia, hypothyroidism, angina. Patient presented to the emergency room after she had been going to the toolmaker helper for a callus at the 1st metatarsal joint that has been shaved however patient in the last couple of days notice increasingly painful to the touch and be weight-bearing in that area as well as redness and swelling of the foot tracking up her calf. However she denies any chills fevers rigors nausea vomiting pain or burning with urination no general malaise no muscle aches or pains. Preliminary workup was essentially nonrevealing. 02/05 patient states right pain and redness has improved since the start of IV antibiotic, and erythema is receding, today patient was seen orthopedic surgeon recommend debridement of the wound and patient has agreed as scheduled for possibly tomorrow, patient denies any fever or chills, denies any chest pain shortness of breath palpitation. Will have a PT OT evaluate the patient and further recommendation to follow. 02/06 patient had MRI of the foot did not show any osteomyelitis or any infection, showed superficial ulceration along 1st metatarsal patient was seen by orthopedic surgeon and had a debridement of the wound this morning, patient does not complain of any pain currently, will have PT OT work with the patient patient will benefit with acute rehab, patient with history of coronary artery disease her blood pressure was trending up added amlodipine to her regimen will continue to monitor (2) Callus of foot: Code(s): L84 - Corns and callosities Status: Acute Assessment and Plan: Worsening pain on weight-bearing (3) Peripheral neuropathy: Qualifiers: Peripheral neuropathy type: polyneuropathy associated with underlying disease Qualified Code(s): G63 - Polyneuropathy in diseases classified elsewhere Code(s): G62.9 - Polyneuropathy, unspecified Status: Acute Assessment and Plan: Continue home meds Continue to monitor (4) Hyperlipidemia: Code(s): E78.5 - Hyperlipidemia, unspecified Status: Acute Assessment and Plan: Continue home meds Continue to monitor (5) Coronary artery disease: Code(s): I25.10 - Atherosclerotic heart disease of [place] coronary artery without angina pectoris Status: Acute Assessment and Plan: Stable Continue home meds (6) Hypertension: Code(s): I10 - Essential (primary) hypertension Status: Acute Assessment and Plan: Stable Continue home meds Subjective Date/time seen: 02/06/21 11:17 This is a 80-year-old female with past medical history significant for coronary artery disease status post stent placement, hypertension, dyslipidemia, hypothyroidism, angina. Patient presented to the emergency room after she had been going to the toolmaker helper for a callus at the 1st metatarsal joint that has been shaved however patient in the last couple of days notice increasingly painful to the touch and be weight-bearing in that area as well as redness and swelling of the foot tracking up her calf. However she denies any chills fevers rigors nausea vomiting pain or burning with urination no general malaise no muscle aches or pains. Preliminary workup was essentially nonrevealing. 02/05 patient states right pain and redness has improved since the start of IV antibiotic, and erythema is receding, today patient was seen orthopedic s
[2021-02-07] MEDS: KCL 20 MEQ/D5/0.45% SOD CHL 1,000 ML 80 ML IV CONT (02:06)
[2021-02-07 03:50] VITALS: BP 153/74; PULSE 66; RESP 18; TEMP 36.5; O2SAT 97
[2021-02-07] MEDS: LEVOTHYROXINE SODIUM 50 MCG TABLET PO (05:47)
[2021-02-07 06:17] LABS: Hematocrit 37.1 % (37.0-47.0); Hemoglobin 12.6 g/dL (12.0-15.0); Mean Corpuscular Hemoglobin 30.7 pg (26-34); Mean Corpuscular Volume 90.3 fl (80-100); Mean Platelet Volume 9.2 fl (7.4-10.4); Platelet Count Result 285 k/mm3 (150-375); Red Blood Count 4.11 M/mm3 (4.2-5.4); Red Cell Distribution Width 11.9 % (11.5-14.5); White Blood Count 6.5 K/mm3 (4.5-10.0)
[2021-02-07 06:37] LABS: Anion Gap 9 mmol/L (8-16); Blood Urea Nitrogen 12 mg/dL (7-17); Calcium 9.3 mg/dL (8.4-10.2); Carbon Dioxide 23 mmol/L (22-30); Chloride 107 mmol/L (98-107); Estimated CRCL calculation 41 ml/min; Estimated Glomerular Filt Rate 60; Glucose 129 mg/dL (65-105); Potassium 4.5 mmol/L (3.4-5.0); Sodium 139 mmol/L (137-145)
--- NOTE | 2021-02-07 07:34 | WPDANESPN ---
Anes - Prog Note Post-Op Date/Time: 02/07/21 07:34 Cardiovascular status: normal Respiratory status: normal Airway patency: baseline Mental status: baseline Post-Op hydration status: normal Vital Signs: Last Vital Signs Temp 36.5 C 02/07/21 03:50 Pulse 66 02/07/21 03:50 Resp 18 02/07/21 03:50 BP 153/74 H 02/07/21 03:50 Pulse Ox 97 02/07/21 03:50 Pain Score (VAS): 0/10. Patient resting in bed at time of assessment, appears comfortable. I/O: Intake & Output 02/06/21 02/06/21 02/07/21 15:59 23:59 07:59 Intake Total 590 1840 250 Balance 590 1840 250 Laboratory Tests 02/07/21 05:55 02/07/21 05:55 02/07/21 02/07/21 05:55 05:55 WBC 6.5 RBC 4.11 L Hgb 12.6 Hct 37.1 MCV 90.3 MCH 30.7 MCHC 34.0 RDW 11.9 Plt Count 285 MPV 9.2 Sodium 139 Potassium 4.5 Chloride 107 Carbon Dioxide 23 Anion Gap 9 BUN 12 D Creatinine 0.90 Estim Creat Clear Calc 41 Estimated GFR 60 Glucose 129 H Calcium 9.3 Microbiology 02/04/21 22:28 Blood Blood Culture - Preliminary 02/04/21 22:28 Blood Blood Culture - Preliminary Post-procedural complaints: none Patient Feedback: Patient satisfied with anesthetic care.
[2021-02-07 07:50] VITALS: BP 167/68; PULSE 75; RESP 18; TEMP 36.5; O2SAT 95
--- NOTE | 2021-02-07 08:40 | PM.IMPN ---
Progress Note: A&P Assessment and Plan (1) Cellulitis: Qualifiers: Laterality: right Site of cellulitis: extremity Site of cellulitis of extremity: lower extremity Qualified Code(s): L03.115 - Cellulitis of right lower limb Code(s): L03.90 - Cellulitis, unspecified Status: Acute Assessment and Plan: Started on Zosyn and vancomycin CT of the left foot Ortho consult 02/06/21 11:17 This is a 80-year-old female with past medical history significant for coronary artery disease status post stent placement, hypertension, dyslipidemia, hypothyroidism, angina. Patient presented to the emergency room after she had been going to the marine habitat resource specialist for a callus at the 1st metatarsal joint that has been shaved however patient in the last couple of days notice increasingly painful to the touch and be weight-bearing in that area as well as redness and swelling of the foot tracking up her calf. However she denies any chills fevers rigors nausea vomiting pain or burning with urination no general malaise no muscle aches or pains. Preliminary workup was essentially nonrevealing. 02/05 patient states right pain and redness has improved since the start of IV antibiotic, and erythema is receding, today patient was seen orthopedic surgeon recommend debridement of the wound and patient has agreed as scheduled for possibly tomorrow, patient denies any fever or chills, denies any chest pain shortness of breath palpitation. Will have a PT OT evaluate the patient and further recommendation to follow. 02/06 patient had MRI of the foot did not show any osteomyelitis or any infection, showed superficial ulceration along 1st metatarsal patient was seen by orthopedic surgeon and had a debridement of the wound this morning, patient does not complain of any pain currently, will have PT OT work with the patient patient will benefit with acute rehab, patient with history of coronary artery disease her blood pressure was trending up added amlodipine to her regimen will continue to monitor 02/07: s/p operative debridement. ortho following. continue vancomycin and zosyn. eating well. will sto pivf. recent CAD s/p stents placement .on aspirin and plavix. cellulitis of righ leg is improving. blood cutlrues has been negative. i am not sure if operative cutlrues were taken. will have ID consult for antibitoics recommenations. further woudn care per orthopedics. (2) Callus of foot: Code(s): L84 - Corns and callosities Status: Acute Assessment and Plan: Worsening pain on weight-bearing (3) Peripheral neuropathy: Qualifiers: Peripheral neuropathy type: polyneuropathy associated with underlying disease Qualified Code(s): G63 - Polyneuropathy in diseases classified elsewhere Code(s): G62.9 - Polyneuropathy, unspecified Status: Acute Assessment and Plan: Continue home meds Continue to monitor (4) Hyperlipidemia: Code(s): E78.5 - Hyperlipidemia, unspecified Status: Acute Assessment and Plan: Continue home meds Continue to monitor (5) Coronary artery disease: Code(s): I25.10 - Atherosclerotic heart disease of [place] coronary artery without angina pectoris Status: Acute Assessment and Plan: Stable Continue home meds (6) Hypertension: Code(s): I10 - Essential (primary) hypertension Status: Acute Assessment and Plan: Stable Continue home meds Subjective Date/time seen: 02/07/21 08:40 Interval history: feels good. wound is wrapped. awaiti orth evaluatio nof wound today. no fever, chills. Review of Systems Review of Systems: All systems reviewed & are unremarkable except as noted in HPI and below Constitutional: Constitutional: Denies chills, Denies fever(s), Denies lethargy and Denies malaise Eyes: Eyes: Denies change in vision ENT: Denies nasal congestion, Denies nasal discharge and Denies nasal obstruction Cardiovascular: Card
[2021-02-07] MEDS: SIMVASTATIN 20 MG TABLET PO (08:47)
[2021-02-07] MEDS: ASPIRIN 81 MG ENTERIC TABLET PO (08:47)
[2021-02-07] MEDS: CLOPIDOGREL BISULFATE 75 MG TABLET PO (08:47)
[2021-02-07 08:48] VITALS: PULSE 73
[2021-02-07] MEDS: METOPROLOL SUCCINATE EXT REL 50 MG TABCR PO (08:48)
[2021-02-07] MEDS: LOSARTAN POTASSIUM 50 MG TABLET 150 MG PO (08:49)
[2021-02-07] MEDS: PANTOPRAZOLE 40 MG TABLET PO (08:50)
[2021-02-07] MEDS: amLODIPine BESYLATE 5 MG TABLET PO (08:50)
[2021-02-07] MEDS: GABAPENTIN 300 MG CAPSULE PO ×2 (08:50→20:02)
[2021-02-07] MEDS: SILVERGEL (ELTA) 45 ML 1 APPLIC TOPICAL (08:50)
[2021-02-07] MEDS: ISOSORBIDE MONONITRATE 30 MG TAB.ER.24H PO (08:50)
--- NOTE | 2021-02-07 13:05 | PM.PNORT ---
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 Okay to transition to oral antibiotics from ortho standpoint. Continue daily dressing changes with silver gel, transfer and cover dry. PWB with post op shoe. Follow up in the outpatient ortho clinic. Dispo: Home when medically cleared. (2) Peripheral neuropathy: Qualifiers: Peripheral neuropathy type: polyneuropathy associated with underlying disease Qualified Code(s): G63 - Polyneuropathy in diseases classified elsewhere Code(s): G62.9 - Polyneuropathy, unspecified Status: Acute (3) Callus of foot: Code(s): L84 - Corns and callosities Status: Acute (4) Cellulitis: Qualifiers: Laterality: right Site of cellulitis: extremity Site of cellulitis of extremity: lower extremity Qualified Code(s): L03.115 - Cellulitis of right lower limb Code(s): L03.90 - Cellulitis, unspecified Status: Acute Assessment and Plan: Okay to transition to oral antibiotics per medicine team. Follow up to be scheduled. Subjective Subjective Date/Time Seen: 02/07/21 13:05 Post Op day: 1 Interval history: POD#1: Incisional debridement right diabetic foot ulcer 4 x 3.5 cm No new complaints. Pain well controlled. Hopeful for discharge home today. Review of Systems Review of Systems: All systems reviewed & are unremarkable except as noted in HPI and below Constitutional: Constitutional: Denies chills, Denies fever(s), Denies lethargy and Denies malaise Eyes: Eyes: Denies change in vision ENT: Denies nasal congestion, Denies nasal discharge and Denies nasal obstruction Cardiovascular: Cardiovascular: Denies irregular heart rhythm, Denies lightheadedness, Denies radiating jaw, neck or arm pain, Denies palpitations, Denies dyspnea and Denies dyspnea on exertion Respiratory: Respiratory: Denies cough, Denies dyspnea and Denies dyspnea on exertion Gastrointestinal: Gastrointestinal: Denies diarrhea, Denies nausea and Denies vomiting Genitourinary: Genitourinary: Denies dysuria Musculoskeletal: Musculoskeletal: Reports arthralgias and Reports joint swelling Endocrine: Endocrine: Denies palpitations Exam Const: General: healthy appearing; No in distress or confusion Orientation/consciousness: oriented to person, oriented to place, oriented to time and No confusion HENMT: Head: normal to inspection, normocephalic and atraumatic Eyes: Conjunctivae: conjunctivae normal Sclera: sclerae normal Neck: Neck: supple and nontender Resp: Effort & Inspection: normal respiratory effort and no audible wheezes Cardio: Rhythm: regular rhythm Skin: General skin exam: no rashes or lesions noted Neuro: General: oriented to person, oriented to place, oriented to time and No confusion Extrem: Right upper extremity: normal to inspection Left upper extremity: normal to inspection Right lower extremity: ankle Details: normal to inspection, normal ROM ( dorsiflexion 5?, plantar flexion 45?, inversion 20?, eversion 10?) and other ( good stability all directions); no tenderness, no swelling and no ecchymosis and foot Details: abnormal to inspection Details: a deformity Location: of the hallux valgus ( moderate), abnormal ROM of toe ( hallux MTP dorsiflexion 20, plantar flexion 50?) Details: no pain with active ROM and no pain with passive ROM, vascular exam Details: normal capillary refill; posterior tibial pulse absent, tendon exam Details: active flexion abnormal Location: of the great toe and ac
[2021-02-07 14:00] VITALS: BP 113/57; PULSE 75; RESP 16; TEMP 36.2; O2SAT 96
[2021-02-07 22:00] VITALS: BP 180/81; PULSE 71; RESP 18; TEMP 36.5; O2SAT 98
[2021-02-07 23:31] VITALS: O2SAT 96
[2021-02-07 23:58] LABS: Vancomycin Trough < 5.0 ug/mL (10.0-20.0)
[2021-02-08] MEDS: LEVOTHYROXINE SODIUM 50 MCG TABLET PO (05:08)
[2021-02-08 06:00] VITALS: BP 153/84; PULSE 59; RESP 16; TEMP 36.4; O2SAT 99
[2021-02-08 06:04] LABS: Hematocrit 38.6 % (37.0-47.0); Mean Corpuscular HGB Conc 33.7 g/dl (32-36); Mean Corpuscular Hemoglobin 30.4 pg (26-34); Mean Corpuscular Volume 90.4 fl (80-100); Mean Platelet Volume 9.2 fl (7.4-10.4); Platelet Count Result 310 k/mm3 (150-375); Red Blood Count 4.27 M/mm3 (4.2-5.4); White Blood Count 6.7 K/mm3 (4.5-10.0)
[2021-02-08 07:07] LABS: Anion Gap 9 mmol/L (8-16); Blood Urea Nitrogen 12 mg/dL (7-17); Calcium 9.5 mg/dL (8.4-10.2); Carbon Dioxide 24 mmol/L (22-30); Chloride 105 mmol/L (98-107); Estimated CRCL calculation 41 ml/min; Estimated Glomerular Filt Rate 60; Glucose 110 mg/dL (65-105); Potassium 4.5 mmol/L (3.4-5.0); Sodium 138 mmol/L (137-145)
--- NOTE | 2021-02-08 08:54 | PM.DS ---
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 without evidence of necrosis Code(s): L97.519 - Non-pressure chronic ulcer of other part of right foot with unspecified severity Status: Acute (2) Cellulitis: Qualifiers: Laterality: right Site of cellulitis: extremity Site of cellulitis of extremity: lower extremity Qualified Code(s): L03.115 - Cellulitis of right lower limb Code(s): L03.90 - Cellulitis, unspecified Status: Acute (3) Callus of foot: Code(s): L84 - Corns and callosities Status: Acute (4) Peripheral neuropathy: Qualifiers: Peripheral neuropathy type: polyneuropathy associated with underlying disease Qualified Code(s): G63 - Polyneuropathy in diseases classified elsewhere Code(s): G62.9 - Polyneuropathy, unspecified Status: Acute (5) Hyperlipidemia: Code(s): E78.5 - Hyperlipidemia, unspecified Status: Acute (6) Borderline diabetes: Code(s): R73.03 - Prediabetes Status: Acute (7) Coronary artery disease: Code(s): I25.10 - Atherosclerotic heart disease of [place] coronary artery without angina pectoris Status: Acute (8) Hypertension: Code(s): I10 - Essential (primary) hypertension Status: Acute DS: Summary Hospital Course Hospital Course: This is a 80-year-old female with past medical history significant for coronary artery disease status post stent placement, hypertension, dyslipidemia, hypothyroidism, angina. Patient presented to the emergency room after she had been going to the insulation supervisor for a callus at the 1st metatarsal joint that has been shaved however patient in the last couple of days notice increasingly painful to the touch and be weight-bearing in that area as well as redness and swelling of the foot tracking up her calf. However she denies any chills fevers rigors nausea vomiting pain or burning with urination no general malaise no muscle aches or pains. Preliminary workup was essentially nonrevealing. The aptent started on iv antibioics. erythema for cellutils improved. orthopedic swas consulted an she underwent debridement with improvement in her owund. blood culture revealed no growth. no other operative cultures were taken but the wuond was healing well. carlos dto switch to oral antibtoics and dc for follow up as o pbaiss on oral antibioics planned. she is agreeable. MRI foot done and was negative for arthritis or osteomyelitis. she will continue with dressing changes on daily basis. Status at Discharge Overall status at discharge: patient is back to baseline Time Spent with Patient Time attestation: Total time spent providing and/or coordinating discharge services:35 mins Exam Narrative: Exam Narrative: Const: General: healthy appearing; No in distress or confusion Orientation/consciousness: oriented to person, oriented to place, oriented to time and No confusion HENMT: Head: normal to inspection, normocephalic and atraumatic Eyes: Conjunctivae: conjunctivae normal Sclera: sclerae normal Neck: Neck: supple and nontender Resp: Effort & Inspection: normal respiratory effort and no audible wheezes Cardio: Rhythm: regular rhythm Skin: General skin exam: no rashes or lesions noted Neuro: General: oriented to person, oriented to place, oriented to time and No confusion Extrem: right foot: 2st MTP joint of left foot with 01 x 0.1 x 0.1 cm size ulcer with sacnty serous drainage. no surrounding erythema, warmth. no sign sof cellulitis. Psych: Affect: normal affect DS: Data Data Completed and Pending Labs on day of discharge: Carly
[2021-02-08 09:18] VITALS: PULSE 64
[2021-02-08] MEDS: LOSARTAN POTASSIUM 50 MG TABLET 150 MG PO (09:18)
[2021-02-08] MEDS: METOPROLOL SUCCINATE EXT REL 50 MG TABCR PO (09:18)
[2021-02-08] MEDS: ISOSORBIDE MONONITRATE 30 MG TAB.ER.24H PO (09:19)
[2021-02-08] MEDS: amLODIPine BESYLATE 5 MG TABLET PO (09:19)
[2021-02-08] MEDS: SIMVASTATIN 20 MG TABLET PO (09:19)
[2021-02-08] MEDS: GABAPENTIN 300 MG CAPSULE PO (09:19)
[2021-02-08] MEDS: PANTOPRAZOLE 40 MG TABLET PO (09:20)
[2021-02-08] MEDS: CLOPIDOGREL BISULFATE 75 MG TABLET PO (09:20)
[2021-02-08] MEDS: ASPIRIN 81 MG ENTERIC TABLET PO (09:20)
--- NOTE | 2021-02-08 11:03 | WPDINFPN2 ---
Progress Note: A&P Assessment and Plan (1) Cellulitis: Qualifiers: Laterality: right Site of cellulitis: extremity Site of cellulitis of extremity: lower extremity Qualified Code(s): L03.115 - Cellulitis of right lower limb Code(s): L03.90 - Cellulitis, unspecified Status: Acute Assessment and Plan: cellulitis of R leg, nearly resolved REC Cephalexin x 3 days, ok home Subjective Date/time seen: 02/08/21 11:03 Objective Data Vital Signs Vital Signs: Vital Signs - 24 hr 02/07/21 14:00 02/07/21 22:00 02/07/21 23:31 Temperature 36.2 C L 36.5 C Pulse Rate 75 71 Respiratory Rate 16 18 Blood Pressure 113/57 L 180/81 H Pulse Oximetry 96 98 96 02/08/21 06:00 02/08/21 09:18 Temperature 36.4 C L Pulse Rate 59 L 64 Respiratory Rate 16 Blood Pressure 153/84 H Pulse Oximetry 99 Intake/Output Intake/Output: Intake & Output 02/05/21 02/06/21 02/07/21 02/08/21 23:59 23:59 23:59 23:59 Intake Total 2190 2730 1980 350 Balance 2190 2730 1980 350 Meds/Results Medications: Active Medications Generic Name Dose Route Start Last Admin Trade Name Freq PRN Reason Stop Dose Admin Acetaminophen 650 mg 02/04/21 22:47 Acetaminophen 325 Mg Tablet PO Q4H PRN Fever Acetaminophen 650 mg 02/06/21 10:05 Acetaminophen 325 Mg Tablet PO Q6H PRN Pain Rated 1-3 Amlodipine Besylate 5 mg 02/05/21 16:55 02/08/21 09:19 Amlodipine Besylate 5 Mg Tablet PO 5 mg QAM CASA Administration Aspirin 81 mg 02/05/21 09:00 02/08/21 09:20 Aspirin 81 Mg Enteric Tablet PO 81 mg DAILY [facility] Administration Cephalexin HCl 500 mg 02/08/21 12:00 Cephalexin 500 Mg Capsule PO 02/11/21 06:01 Q6HR CASA Clopidogrel Bisulfate 75 mg 02/05/21 09:00 02/08/21 09:20 Clopidogrel Bisulfate 75 Mg Tablet PO 75 mg DAILY [facility] Administration Gabapentin 300 mg 02/05/21 09:00 02/08/21 09:19 Gabapentin 300 Mg Capsule PO 300 mg Q12HR [facility] Administration Isosorbide Mononitrate 30 mg 02/05/21 09:00 02/08/21 09:19 Isosorbide Mononitrate 30 Mg Tab.Er.24h PO 30 mg DAILY [facility] Administration Levothyroxine Sodium 50 mcg 02/05/21 06:30 02/08/21 05:08 Levothyroxine Sodium 50 Mcg Tablet PO 50 mcg DAILY@0630 [facility] Administration Losartan Potassium 150 mg 02/05/21 09:00 02/08/21 09:18 Losartan Potassium 50 Mg Tablet PO 150 mg DAILY [facility] Administration Metoprolol Succinate 50 mg 02/05/21 09:00 02/08/21 09:18 Metoprolol Succinate Ext Rel 50 Mg Tabcr PO 50 mg DAILY [facility] Administration Nitroglycerin 0.4 mg 02/05/21 02:29 Nitroglycerin Sl 0.4 Mg Tablet SUBLINGUAL Q5M PRN Chest Pain Ondansetron HCl 4 mg 02/04/21 22:47 Ondansetron Inj 4 Mg/2 Ml Vial IV PUSH Q4H PRN Nausea Pantoprazole Sodium 40 mg 02/05/21 09:00 02/08/21 09:20 Pantoprazole 40 Mg Tablet PO 40 mg QAM [facility] Administration Silver Nitrate 1 applic 02/05/21 13:50 02/07/21 08:50 Silvergel (Elta) 45 Ml TOPICAL 1 applic DAILY [facility] Administration Simvastatin 20 mg 02/05/21 09:00 02/08/21 09:19 Simvastatin 20 Mg Tablet PO 20 mg DAILY [facility] Administration Wound Care/Dressing Products 1 patch 02/07/21 09:00 02/07/21 14:07 Mepilex Transfer Drsg 6x8 TOPICAL 1 patch QAM [facility] Administration Radiology Results: ITS Impressions Foot X-Ray 02/04/21 21:30 IMPRESSION: 1. 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 No acute osseous abnormality or evident osteoarthritis. Foot MRI 02/05/21 16:38 IMPRESSION: 1. Shallow skin ulceration plantar to the head of the first metatarsal. No evident associated septic arthritis or osteoarthritis. 2. Moderate to severe polyarticular osteoarthritis most prominent in the midfoot with appearance as well as a moderate fatty atrophy and intrinsic musculature suggesting neuropathic arthropathy. Labs Labs: Laboratory Results - last 24 h
--- NOTE | 2021-02-08 16:01 | CONS_ITS ---
DATE OF CONSULTATION: 02/08/2021 REASON FOR CONSULTATION: Cellulitis, right leg. HISTORY OF PRESENT ILLNESS: A 80-year-old female who has had a callus over her medial distal right foot for approximately 6 months. She has had debridement by her primary care physician as well as a health care aide that has been done in the office and apparently very superficial. She is on no antibiotics prior to admission. [facility] of [facility] with 2 days of a blood blister, which had opened draining cloudy fluid to the skin surface. Here she has been given vancomycin and consultation requested. She was taken to the operating room [address] Sumner and had superficial debridement of skin and subcutaneous tissue not violating the fascia. No operative cultures were collected. I was not notified of the consult until this morning. She denies fever, chills, or sweats. She did have some erythema over the distal right ramires in the day prior to admission. She had peripheral neuropathy at least in part, has had no pain in the foot nor the leg. She has had no previous surgery to the left foot, knows of no vascular compromise. She has had an opposite left total knee arthroplasty and hip replacement as well. No other prosthetic devices. ALLERGIES: NONE PERTINENT. HABITS: No tobacco. No alcohol. PRESENT MEDICATIONS: As above. No immunosuppressants. PAST MEDICAL HISTORY: Diabetes mellitus, hysterectomy, coronary stents, colonoscopy, hyperlipidemia, and hypertension. FAMILY HISTORY: Diabetes, hyperlipidemia, cancer, COPD. SOCIAL HISTORY: She is . Lives locally. Does not work outside the home. Has a garden with dennis and vegetables. She is never outside barefoot. REVIEW OF SYSTEMS: 14-point review otherwise negative. PHYSICAL EXAMINATION: GENERAL: Elderly female appears her actual age, in no acute distress. VITAL SIGNS: Afebrile since arrival, 153/84, 59, 16, 99% on room air. SKIN: Senescent changes. No rashes. Warm and dry. NODES: She has no right femoral nor axillary nor cervical adenopathy. EENT: The oropharynx, oral mucosa normal. Teeth in excellent repair. The conjunctivae are normal. No paranasal sinus erythema, edema or tenderness. NECK: No meningismus or mass. LUNGS: Clear to auscultation and percussion. Chest equal expansion. Normal AP diameter. CARDIAC: Regular rate and rhythm. No murmur, gallop, or rub. Dorsalis pedis pulses 1+. Radial pulses 2+. ABDOMEN: No bruits. Nontender. No masses. No organomegaly. Normal bowel sounds. EXTREMITIES: She has a superficial wound over the first metatarsal head, plantar aspect, right foot. There is no purulence, surrounding erythema, sinus tracts, necrosis, or odor. She has faint erythema over the right anterior ankle. Otherwise, no erythema, warmth, or tenderness over the foot nor the leg. LABORATORY DATA: Blood cultures, no growth 5 days. White count consistently normal. Chemistry panel normal other than glucose in the 110 to 129 range. CRP 1.6. Remainder of the CBC is also normal as is the differential. RADIOLOGY: Foot MRI was performed, which showed degenerative changes and neuropathic changes. No infection seen. Foot x-ray prior day same findings. ASSESSMENT: 1. Diabetic foot infection with cellulitis of the right leg and foot, now doing well other than minimal erythema. She has no evidence of infection at this time. There is no positive microbiology. No operative specimens sent for microbiology and I discussed with the patient that her organism cannot be identified, but likely is a cutaneous bacteria such as staphylococci or various streptococci. I doubt opportunistic pathogens, multidrug-resistant pathogens, deep space infection. 2. Di
== END 2021-02-08 12:40 | disposition home or self-care (01) | DRG 623 ==
LOC: ANHED 22:51 → ANH3MEDSUR 02-05 08:03
PROVIDERS: Family Medicine; Orthopaedic Surgery; Admitting Provider Internal Medicine; Emergency Provider Nurse Practitioner; PCP Internal Medicine; Visit Provider Internal Medicine
PROC: 0KBV0ZZ Excision of Right Foot Muscle, Open Approach (ICD-10-PCS; principal; 2021-02-06 08:30)
DX: E11.621 Type 2 diabetes mellitus with foot ulcer (principal); L03.115 Cellulitis of right lower limb; L97.515 Non-pressure chronic ulcer of other part of right foot with muscle involvement without evidence of necrosis; E11.628 Type 2 diabetes mellitus with other skin complications; L84 Corns and callosities; E11.42 Type 2 diabetes mellitus with diabetic polyneuropathy; E78.5 Hyperlipidemia, unspecified; J44.9 Chronic obstructive pulmonary disease, unspecified; I10 Essential (primary) hypertension; E03.9 Hypothyroidism, unspecified; I25.10 Atherosclerotic heart disease of native coronary artery without angina pectoris; Z96.652 Presence of left artificial knee joint; Z96.642 Presence of left artificial hip joint; Z95.5 Presence of coronary angioplasty implant and graft; Z90.710 Acquired absence of both cervix and uterus
CPT/HCPCS: 36415; 73630; 73718; 80048; 80053; 80202; 83036; 85025; 85027; 85652; 86140; 87040; 90471; 90715; 96361; 96365; 96375; 97110; 97116; 97161; 97165; 97535; 99285; A9270; G0378; J0690; J1100; J2405; J2543; J2704; J3010; J3370; J3480; J7120

== ENCOUNTER 2021-04-19 09:30 | Outpatient (RCR) | payer OTHER, SELFPAY ==
--- NOTE | 2021-02-23 14:00 | PC.NURSE ---
SPOKE TO NURSE AT DR. STOCKTON'S OFFICE ABOUT PATIENT ABILITY TO RETURN TO CARDIAC REHAB. PT DOES NOT HAVE ANY RESTRICTIONS FOR WEIGHT BEARING AND CAN UTILIZE TREADMILL EXERCISE TOLERATED. PT AWARE AND WILL RETURN TO CARDIAC REHAB NEXT Saturday03/01/21.
== END 2021-04-26 23:59 | disposition home or self-care (01) ==
PROVIDERS: PCP Internal Medicine; Visit Provider Internal Medicine Cardiovascular Disease
DX: Z95.5 Presence of coronary angioplasty implant and graft (principal)
CPT/HCPCS: 93798

== ENCOUNTER 2021-07-03 10:20 | Outpatient (CLI) | payer MEDICARE, SELFPAY ==
[2021-07-03 11:00] LABS: Anion Gap 6 mmol/L (8-16); Blood Urea Nitrogen 16 mg/dL (7-17); Calcium 9.6 mg/dL (8.4-10.2); Carbon Dioxide 29 mmol/L (22-30); Chloride 103 mmol/L (98-107); Estimated Glomerular Filt Rate 53; Glucose 110 mg/dL (65-110); Potassium 4.6 mmol/L (3.4-5.0); Sodium 138 mmol/L (137-145)
== END 2021-07-03 10:21 | disposition home or self-care (01) ==
LOC: ANHSURGERY 10:24
PROVIDERS: Anesthesiology; PCP Internal Medicine; Visit Provider Orthopaedic Surgery
DX: E11.9 Type 2 diabetes mellitus without complications (principal); Z01.818 Encounter for other preprocedural examination
CPT/HCPCS: 36415; 80048

== ENCOUNTER 2021-07-06 02:29 | Day surgery (SDC) | payer MEDICARE, SELFPAY ==
[2021-06-30 10:18] VITALS: BMI 29.7
--- NOTE | 2021-06-30 10:40 | PC.NURSE ---
Report to the Outpatient Waiting Room, entrance under the green pavilion located off [facility], at time _0600__ on date _07/06/21__. OR Time: _0730__. - You and your visitor will be asked a series of questions to screen for COVID 19 for your protection. - A mask is required within the hospital. - Only one visitor is allowed at this time. Patient visitors will be guided where to wait when not with patient. Preoperative COVID Testing Requirements: No COVID Test needed if: (proof is required; if not received patient will have Rapid Test prior to entry) - Patient has received COVID Vaccine at least 14 days prior to procedure date or - Patient has positive COVID test result within last 90 days of surgery date. COVID Test needed if above criteria is not met If not COVID vaccinated a COVID test must be conducted within 72 hours of surgery and patient is asked to isolate self from time of testing until procedure. You will go to the [facility] for your COVID testing. The [facility] site is located at the corner of [address] [facility]. You will only be called if COVID results are positive and your surgeon may reschedule your elective surgery date. Patients may have clear liquids (water, carbonated beverages, clear teas, apple juice) until 3 hours prior to surgery with a maximum of 20 ounces. - No food from midnight until time of surgery - Infants may have breast milk until 4 hours before surgery, infant formula 6 hours prior to surgery. - Children will be allowed to drink immediately following surgery. If applicable, please bring a bottle or sippy cup to assist with drinking. Juice, water, soda, and popsicles are readily available. For infants on formula, please bring formula the day of surgery. Pacifiers are allowed. Take the following medications with a SIP of water the morning of surgery: _AMLODIPINE, GABAPENTIN, NITROGLYCERIN IF NEEDED_ Medications to discontinue per physician __PLAVIX - PER DR. STOCKTON'S INSTRUCTIONS Date to take last dose Please no make-up, nail spanish, hairspray, perfume, deodorant, or body powder the day of surgery. No jewelry (including any body piercings) or valuables the day of surgery, leave them at home. Please take a shower or bath the night before, or the morning of, surgery with an antibacterial soap. Wear comfortable, loose fitting clothing. Children are encouraged to wear pajamas. - Jewelry must be removed prior to entering the operating room. Rings and piercings that are not removed may be cut off. - The hospital will not accept responsibility for valuables. - Please leave all valuables, including medications, at home the day of surgery. If you are going home after surgery, a licensed frontload driver must drive you home. - NO public transportation without another adult. - We recommend that an adult stay with you for 24 hours following discharge. - We also recommend that you do not drive, make important decision, drink alcoholic beverages, or take any drugs that were not prescribed by your health care provider for at least 24 hours after your discharge time. For Pediatric surgeries, we recommend two adults accompany the child home (only one inside the building at this time). Follow any additional instructions given to you from your surgeon. Telephone instructions given to __PT___and asked if any additional questions and then verbalized understanding. Patient advised to call surgeon office or pre surgery nurse liaison [phone] if any additional questions.
--- NOTE | ~2021-07-06 | XR_ITS ---
EXAMINATION: XR surgery orthopedic DATE: 07/06/2021 08:15 INDICATION: Right foot sesamoiditis. TECHNIQUE: 5 intraoperative fluoroscopic views of right foot were obtained. I was not present. Fluoro scopy exposure time was 5 seconds. COMPARISON: Right foot radiograph 02/04/2021 FINDINGS: There is moderate hallux valgus. Images demonstrate resection of the tibial sesamoid. IMPRESSION: 1. Resection of the tibial sesamoid. 2. Moderate hallux valgus. Reviewed, dictated and finalized at location A. TIC CNC MACHINE OPERATOR
[2021-07-06 06:42] LABS: Glucose Point of Care 116 mg/dl (65-105)
[2021-07-06] MEDS: KETOROLAC 15 MG/ML VIAL (*BKC) IV PUSH (06:50)
[2021-07-06] MEDS: ACETAMINOPHEN 500 MG TABLET 1000 MG PO (06:50)
[2021-07-06 07:03] VITALS: BP 157/68; PULSE 78; RESP 14; TEMP 36.6; O2SAT 99; BMI 29.5
[2021-07-06] MEDS: LACTATED RINGERS 1,000 ML 30 ML IV CONT (07:18)
--- NOTE | 2021-07-06 07:18 | PM.IMHP ---
H&P: HPI History of Present Illness Date/Time: 07/06/21 07:18 Chief Complaint: RT DFU Narrative: 81-year-old woman with chronic right diabetic foot ulcer plantar 1st metatarsophalangeal joint. Unable to heal with standard of care wound treatment. Exposed bone at this point. Risk of infection. Presents now for operative treatment. Current symptoms: Reports drainage, ulceration and numbness; Denies odor Location: foot ( Right) Duration: >1 year Review of Systems Review of Systems: All systems reviewed & are unremarkable except as noted in HPI and below Constitutional: Constitutional: Denies chills, Denies fever(s), Denies lethargy and Denies malaise Eyes: Eyes: Denies change in vision ENT: Denies nasal congestion, Denies nasal discharge and Denies nasal obstruction Cardiovascular: Cardiovascular: Denies irregular heart rhythm, Denies lightheadedness, Denies radiating jaw, neck or arm pain, Denies palpitations, Denies dyspnea and Denies dyspnea on exertion Respiratory: Respiratory: Denies cough, Denies dyspnea and Denies dyspnea on exertion Gastrointestinal: Gastrointestinal: Denies diarrhea, Denies nausea and Denies vomiting Genitourinary: Genitourinary: Denies dysuria Musculoskeletal: Musculoskeletal: Reports arthralgias and Reports joint swelling Endocrine: Endocrine: Denies palpitations PMFSH Past Medical History Medical History Borderline diabetes Coronary artery disease Foot ulcer, right Hyperlipidemia Hypertension Peripheral neuropathy Sesamoiditis of right foot Urinary frequency Surgical History Surgical History H/O colonoscopy H/O heart artery stent H/O tooth extraction H/O: hysterectomy History of breast surgery History of hip replacement History of knee replacement Family History Family History Mother Family history of pancreatic cancer Grandparent Diabetes mellitus Father Diabetes mellitus Hypertension Family history of cardiovascular disease Family history of chronic obstructive pulmonary disease Other Family history of elevated blood lipids Social History Social History Smoking status: Never smoker Second hand tobacco smoke exposure: No Alcohol intake: never Substance use: never Substance use type: does not use Living arrangements: with family Gender identity (if verbalized by the patient): Female Sexual Orientation (if Verbalized by the Patient): Straight or Heterosexual Spiritual care concerns: No Meds Home Medications and Allergies Home Medications Medication Instructions Recorded Confirmed Type isosorbide mononitrate 30 mg 30 mg PO HS 09/28/19 06/30/21 History tablet,extended release 24 hr metoprolol succinate 50 mg 75 mg PO HS 09/28/19 06/30/21 History tablet,extended release 24 hr nitroglycerin 0.4 mg sublingual 0.4 mg SUBLINGUAL Q5M PRN 09/28/19 06/30/21 History tablet clopidogrel 75 mg PO DAILY 02/04/21 06/30/21 History gabapentin 300 mg PO BID 02/04/21 06/30/21 History losartan 150 mg PO DAILY 02/04/21 06/30/21 History omeprazole 20 mg PO QAM 02/04/21 06/30/21 History simvastatin 20 mg PO DAILY 02/04/21 06/30/21 History aspirin [Aspirin Low Dose] 81 mg PO DAILY 02/05/21 06/30/21 History amlodipine [Norvasc] 5 mg PO QAM 30 Days #30 tablet 02/08/21 06/30/21 Rx metformin 500 mg PO TID 06/30/21 06/30/21 History Allergies Allergy/AdvReac Type Severity Reaction Status Date / Time adhesive tape Allergy Severe BLISTERS/SKIN Verified 06/05/21 09:30 TEARS latex Allergy Unknown Anaphylaxis Verified 06/30/21 10:08 Vital Signs Vital Signs - 24 hr 07/06/21 07:03 Temperature 98 F Pulse Rate 78 Respiratory Rate 14 Blood Pressure 157/68 H Pulse Oximetry 99 Exam Const: General: healthy appea
--- NOTE | 2021-07-06 07:22 | WPDANESEPPF ---
Anes - Initial Pre Proc Eval Procedure: Operation Date: 07/06/21 07:30 Proposed Procedures p Excision Right Foot Sesamoid And Debridement Ulcer Right Foot - Brian Sumner MD Date/Time: 07/06/21 07:22 Surgeon: Brian Sumner MD Pre Op Diagnosis: Rt Foot Sesamoiditis Patient Data Age: 81 Gender: F Height: 1.56 m Weight: 71.9 kg Last Vital Signs Temp 36.6 C 07/06/21 07:03 Pulse 78 07/06/21 07:03 Resp 14 07/06/21 07:03 BP 157/68 H 07/06/21 07:03 Pulse Ox 99 07/06/21 07:03 Allergies Allergy/AdvReac Type Severity Reaction Status Date / Time adhesive tape Allergy Severe BLISTERS/SKIN Verified 06/05/21 09:30 TEARS latex Allergy Unknown Anaphylaxis Verified 06/30/21 10:08 Home Medications Medication Instructions Recorded Confirmed Type isosorbide mononitrate 30 mg 30 mg PO HS 09/28/19 06/30/21 History tablet,extended release 24 hr metoprolol succinate 50 mg 75 mg PO HS 09/28/19 06/30/21 History tablet,extended release 24 hr nitroglycerin 0.4 mg sublingual 0.4 mg SUBLINGUAL Q5M PRN 09/28/19 06/30/21 History tablet clopidogrel 75 mg PO DAILY 02/04/21 06/30/21 History gabapentin 300 mg PO BID 02/04/21 06/30/21 History losartan 150 mg PO DAILY 02/04/21 06/30/21 History omeprazole 20 mg PO QAM 02/04/21 06/30/21 History simvastatin 20 mg PO DAILY 02/04/21 06/30/21 History aspirin [Aspirin Low Dose] 81 mg PO DAILY 02/05/21 06/30/21 History amlodipine [Norvasc] 5 mg PO QAM 30 Days #30 tablet 02/08/21 06/30/21 Rx metformin 500 mg PO TID 06/30/21 06/30/21 History Laboratory Tests 07/06/21 06:39 POC Capillary Glucose 116 mg/dl H mg/dl (65-105) Patient hx anesthesia problems: none Family hx anesthesia problems: none Results Review: All pre-operative results and documents have been reviewed as part of the pre-operative evaluation. [facility] Past Medical History Medical History Borderline diabetes Coronary artery disease Foot ulcer, right Hyperlipidemia Hypertension Peripheral neuropathy Sesamoiditis of right foot Urinary frequency Surgical History Surgical History H/O colonoscopy H/O heart artery stent H/O tooth extraction H/O: hysterectomy History of breast surgery History of hip replacement History of knee replacement Family History Family History Mother Family history of pancreatic cancer Grandparent Diabetes mellitus Father Diabetes mellitus Hypertension Family history of cardiovascular disease Family history of chronic obstructive pulmonary disease Other Family history of elevated blood lipids Social History Social History Smoking status: Never smoker Second hand tobacco smoke exposure: No Alcohol intake: never Substance use: never Substance use type: does not use Living arrangements: with family Gender identity (if verbalized by the patient): Female Sexual Orientation (if Verbalized by the Patient): Straight or Heterosexual Spiritual care concerns: No Anes - Eval Final PreProcedure Day of Procedure 07/06/21 07:22 Patient weight: obese Heart: regular rate and rhythm Lungs: clear to auscultation Airway: Mallampati scale class II Neurological: alert and oriented Last oral intake: >/= 8 hours ASA classification: III Emergent: no Anesthetic plan: proceed Anesthesia type and monitoring: general LMA and standard monitoring Results Review: All pre-operative results and documents have been reviewed as part of the pre-operative evaluation. Informed Consent: The patient's anesthetic plan and its attendant risks and benefits were discussed with the patient/family/POA. Questions were solicited and answers provided to the satisfaction of the patient/family/POA.
--- NOTE | 2021-07-06 07:25 | WPDHPUPDATE1 ---
History and Physical Update Update Date/Time: 07/06/21 07:25 History and Physical has been reviewed, including an updated exam of the patient. There are NO changes in the patient's condition. Risks, benefits, and alternatives have been discussed and questions answered. Patient agrees to proceed with procedure.
[2021-07-06] MEDS: ceFAZolin 2 GM/D5W 50 ML 2 GM/50 ML BAG IVPB (07:33)
[2021-07-06 08:20] VITALS: BP 158/82; PULSE 70; RESP 16; O2SAT 100
--- NOTE | 2021-07-06 08:37 | P.OP_ITS ---
Procedure Note - Detailed Date of Procedure 07/06/21 Pre-op Diagnosis Rt Foot Sesamoiditis, diabetic foot ulcer Post-op Diagnosis same Procedure Performed Excision right tibial sesamoid, excisional debridement diabetic foot ulcer 2 centimeter squared to muscle layer. 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 Pain of the foot with prominence of the tibial sesamoid and sesamoid itis. Failed conservative treatment. At risk for further ulceration and infection. Presents for operative treatment. Findings 1.5 x 1 cm ulcer plantar right foot 1st metatarsal. Prominence of tibial sesamoid. No evidence of infection. Description of Procedure What was done: Patient identified in the preoperative holding. Informed consent given. Operative extremity marked. Patient received intravenous antibiotics. Patient brought to the operating room where underwent IV sedation by anesthesia team. Positioned supine on operating room table. Time-out performed confirming the patient, site of the surgery and the plan. Right foot prepped and draped usual sterile surgical fashion using a ChloraPrep skin solution. An Esmarch bandage was used as a tourniquet at the ankle. The ulcer measured 1.5 x 1 cm with 9 mm depth. Fifteen blade knife used to sharply excise skin, subcutaneous tissue, muscle that was devitalized and nonviable. This was passed off. Rongeur used to finish the resection. Wound thoroughly irrigated with antibiotic solution. Closure with 0 Prolene interrupted suture. Tibial sesamoid then addressed. Longitudinal incision made over the sesamoid with a 15 blade knife. Hemostasis controlled electrocautery. Sharp dissection carried down around the sesamoid. Sesamoid further freed up from the soft tissue with care to avoid injury to the flexor hallucis longus tendon. Sesamoid completely removed and passed off. Fluoroscopy used to confirm the sesamoid and resection. Wound thoroughly irrigated with antibiotic solution. The soft tissue defect was meticulously repaired with 2-0 Vicryl interrupted suture. Skin repaired with 0 Prolene interrupted suture. Esmarch bandage released. Sterile dressing applied. The patient was then woken from anesthesia, extubated and taken to the recovery room in stable condition. All sponge, needle, instrument counts were correct at the end of the case. Estimated Blood Loss 10 Tourniquet Time 15 Drains No Packing No Pathology yes (Tibial sesamoid right foot) Complications None Condition stable Disposition PACU
[2021-07-06 08:50] VITALS: BP 171/79; PULSE 71; RESP 20
== END 2021-07-06 09:04 | disposition home or self-care (01) ==
PROVIDERS: PCP Internal Medicine; Visit Provider Orthopaedic Surgery
PROC: (CPT 11043; principal; 2021-07-06 07:30)
DX: M25.871 Other specified joint disorders, right ankle and foot (principal); E11.621 Type 2 diabetes mellitus with foot ulcer; L97.519 Non-pressure chronic ulcer of other part of right foot with unspecified severity; I25.10 Atherosclerotic heart disease of native coronary artery without angina pectoris; I10 Essential (primary) hypertension; E78.5 Hyperlipidemia, unspecified; E11.40 Type 2 diabetes mellitus with diabetic neuropathy, unspecified; Z95.5 Presence of coronary angioplasty implant and graft; E66.9 Obesity, unspecified; Z68.29 Body mass index [BMI] 29.0-29.9, adult; Z79.02 Long term (current) use of antithrombotics/antiplatelets; Z79.82 Long term (current) use of aspirin; Z79.84 Long term (current) use of oral hypoglycemic drugs
CPT/HCPCS: 11043; 28315; 36415; 80048; 82948; 88304; 88309; 88311; A9270; J0690; J1885; J2001; J2405; J2704; J3010; J3370; J7120

== ENCOUNTER 2021-07-17 07:35 | Outpatient (CLI) | payer MEDICARE, SELFPAY ==
--- NOTE | ~2021-07-17 | XR_ITS ---
EXAMINATION: XR foot RT min 3V DATE: 07/17/2021 07:53 INDICATION: Follow-up heart surgery at the right first metatarsal one week prior TECHNIQUE: Dorsoplantar, two oblique and lateral views of the right foot were obtained. COMPARISON: 02/04/2021 FINDINGS: Unchanged hallux valgus. Interval resection of the tibial sesamoid of the first metatarsal. Likely un related minimally distracted avulsion fracture at the lateral base of the first proximal phalanx whic h involves a minimal portion of the articular cortex. No other fractures identified. Polyarticular os teoarthritis, moderate to severe at the naviculocuneiform and second and third tarsal metatarsal join ts, moderate at the first tarsal metatarsal and first metatarsophalangeal joints and mild at many of the remaining joints in the mid and forefoot. Moderate-sized plantar calcaneal spur. Soft tissue swel ling in the forefoot greatest about the great toe. IMPRESSION: 1. Minimally displaced avulsion fracture at the lateral base of the right first metatarsal. 2. Interval resection of the first metatarsal tibial sesamoid. 2. 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 Reviewed, dictated and finalized at location A. ING TRACTOR OPERATOR
== END 2021-07-17 07:36 | disposition home or self-care (01) ==
LOC: CHSIMG 07:38
PROVIDERS: PCP Internal Medicine; Visit Provider Orthopaedic Surgery
DX: Z47.89 Encounter for other orthopedic aftercare (principal)
CPT/HCPCS: 73630

== ENCOUNTER 2021-10-31 07:32 | Outpatient (RCR) | payer MEDICARE, SELFPAY ==
[2021-08-15 12:10] VITALS: BMI 28.3
--- NOTE | 2021-08-15 12:52 | PM.PNORT ---
Progress Note: A&P Assessment and Plan (1) Postoperative wound dehiscence: Qualifiers: Encounter type: subsequent encounter Qualified Code(s): T81.31XD - Disruption of external operation (surgical) wound, not elsewhere classified, subsequent encounter Code(s): T81.31XA - Disruption of external operation (surgical) wound, not elsewhere classified, initial encounter Status: Acute Assessment and Plan: Patient presents to the [facility]. She has a nonhealing postoperative wound and ulcer on the right foot. Evaluated with the wound care team. Plan for dressing changes to switch to silver rope for packing in the wound and open space with Mepilex foam over this. Daily dressing change. May continue to wash and cleanse the area. One remaining suture removed today. Also indicated for debridement today given the amount of devitalized tissue and slough present. Follow-up in 1 week for re-evaluation. Continue with fracture boot offloading protected weight-bearing in the interim. (2) Sesamoiditis of right foot: Code(s): M25.871 - Other specified joint disorders, right ankle and foot Status: Acute (3) Peripheral neuropathy: Qualifiers: Peripheral neuropathy type: polyneuropathy associated with underlying disease Qualified Code(s): G63 - Polyneuropathy in diseases classified elsewhere Code(s): G62.9 - Polyneuropathy, unspecified Status: Acute (4) Foot ulcer, right: Qualifiers: Non-pressure ulcer stage: with necrosis of muscle Qualified Code(s): L97.513 - Non-pressure chronic ulcer of other part of right foot with necrosis of muscle Code(s): L97.519 - Non-pressure chronic ulcer of other part of right foot with unspecified severity Status: Acute Subjective Subjective Date/Time Seen: 08/15/21 12:52 Post Op day: 6 weeks Principal diagnosis: right diabetic foot ulcer Interval history: 6 weeks status post excision of medial sesamoid and debridement of foot ulcer. Patient presents to the [facility] wound clinic today for evaluation of her persistent wound dehiscence right foot. She has not noted any fever, chills or changes. She was seen yesterday in the orthopedic office were a sterile dressing was placed. She has left this in position. She is using a fracture boot for offloading with pressure on her heel only. Exam Const: General: healthy appearing; No in distress or confusion Orientation/consciousness: oriented to person, oriented to place, oriented to time and No confusion HENMT: Head: normal to inspection, normocephalic and atraumatic Eyes: Conjunctivae: conjunctivae normal Sclera: sclerae normal Neck: Neck: supple and nontender Resp: Effort & Inspection: normal respiratory effort and no audible wheezes Cardio: Rhythm: regular rhythm Skin: General skin exam: no rashes or lesions noted Neuro: General: oriented to person, oriented to place, oriented to time and No confusion Extrem: Right upper extremity: normal to inspection Left upper extremity: normal to inspection Right lower extremity: ankle Details: normal to inspection, normal ROM ( dorsiflexion 5?, plantar flexion 45?, inversion 20?, eversion 10?) and other ( good stability all directions); no tenderness, no swelling and no ecchymosis and foot Details: abnormal to inspection Details: a deformity Location: of the hallux valgus ( moderate), abnormal ROM of toe ( hallux MTP dorsiflexion 20, plantar flexion 50?) Details: no pain with active ROM and no pain with passive ROM, vascular exam Details: normal capillary refill; posterior tibial pulse absent, tendon exam Details: active flexion abnormal Location: of the great toe and active extension abnormal Location: of the great toe and motor-sensory exam Details: light-touch abnormal Location: in all toes; no tenderness Left lower extremity: ankle and foot Details: normal capillary refill, toes w
--- NOTE | 2021-08-22 13:37 | PM.PNORT ---
Progress Note: A&P Assessment and Plan (1) Postoperative wound dehiscence: Qualifiers: Encounter type: subsequent encounter Qualified Code(s): T81.31XD - Disruption of external operation (surgical) wound, not elsewhere classified, subsequent encounter Code(s): T81.31XA - Disruption of external operation (surgical) wound, not elsewhere classified, initial encounter Status: Acute Assessment and Plan: Seven weeks status post right foot surgery. Patient presents to the [facility] For re-evaluation. She has a nonhealing postoperative wound and ulcer on the right foot. Evaluated with the wound care team. continue with silver rope for packing in the wound and open space with Mepilex foam over this. Daily dressing change. May continue to wash and cleanse the area. Follow-up in 10days for re-evaluation. Continue with fracture boot offloading / protected weight-bearing in the interim. will add gentamicin ointment for double coverage. Notify office if any changes. (2) Sesamoiditis of right foot: Code(s): M25.871 - Other specified joint disorders, right ankle and foot Status: Acute (3) Peripheral neuropathy: Qualifiers: Peripheral neuropathy type: polyneuropathy associated with underlying disease Qualified Code(s): G63 - Polyneuropathy in diseases classified elsewhere Code(s): G62.9 - Polyneuropathy, unspecified Status: Acute (4) Foot ulcer, right: Qualifiers: Non-pressure ulcer stage: with necrosis of muscle Qualified Code(s): L97.513 - Non-pressure chronic ulcer of other part of right foot with necrosis of muscle Code(s): L97.519 - Non-pressure chronic ulcer of other part of right foot with unspecified severity Status: Acute Subjective Subjective Date/Time Seen: 08/22/21 13:37 Post Op day: 7weeks Principal diagnosis: right diabetic foot ulcer Interval history: 7 weeks status post excision of sesamoid and debridement right foot. Returns for follow-up in [facility]. One week ago started silver rope and Mepilex foam. Patient reports no interval problems. Exam Const: General: healthy appearing; No in distress or confusion Orientation/consciousness: oriented to person, oriented to place, oriented to time and No confusion HENMT: Head: normal to inspection, normocephalic and atraumatic Eyes: Conjunctivae: conjunctivae normal Sclera: sclerae normal Neck: Neck: supple and nontender Resp: Effort & Inspection: normal respiratory effort and no audible wheezes Cardio: Rhythm: regular rhythm Skin: General skin exam: no rashes or lesions noted Neuro: General: oriented to person, oriented to place, oriented to time and No confusion Extrem: Right upper extremity: normal to inspection Left upper extremity: normal to inspection Right lower extremity: ankle Details: normal to inspection, normal ROM ( dorsiflexion 5?, plantar flexion 45?, inversion 20?, eversion 10?) and other ( good stability all directions); no tenderness, no swelling and no ecchymosis and foot Details: abnormal to inspection Details: a deformity Location: of the hallux valgus ( moderate), abnormal ROM of toe ( hallux MTP dorsiflexion 20, plantar flexion 50?) Details: no pain with active ROM and no pain with passive ROM, vascular exam Details: normal capillary refill; posterior tibial pulse absent, tendon exam Details: active flexion abnormal Location: of the great toe and active extension abnormal Location: of the great toe and motor-sensory exam Details: light-touch abnormal Location: in all toes; no tenderness Left lower extremity: ankle and foot Details: normal capillary refill, toes with normal ROM, vascular exam (2+DP pulse, good cap refill all toes), tendon exam (FHL/EHL 5/5) and motor-sensory exam light-touch abnormal in all toes; no tenderness and no crepitus Other: Ulcer right plantar foot measures 2.0 x 1.5 cm wit
--- NOTE | 2021-09-01 08:59 | PM.PNORT ---
Progress Note: A&P Assessment and Plan (1) Postoperative wound dehiscence: Qualifiers: Encounter type: subsequent encounter Qualified Code(s): T81.31XD - Disruption of external operation (surgical) wound, not elsewhere classified, subsequent encounter Code(s): T81.31XA - Disruption of external operation (surgical) wound, not elsewhere classified, initial encounter Status: Acute (2) Encounter for postoperative care: Code(s): Z48.89 - Encounter for other specified surgical aftercare Status: Acute Assessment and Plan: Eight weeks status post right foot debridement. Still with wound dehiscence which probes through metatarsophalangeal joint to the dorsum foot. Overall, however, the swelling and erythema improved with use of gentamicin. The wound itself has improved granulation. No signs of infection. She is indicated for allograft application to the wound to assist with healing. Continue with silver rope and gentamicin in. Continue to offload with fracture boot. Discussed operative treatment with the patient however due to her postoperative care requirements she is unable to proceed at this time. Discussed urgent surgical indications if condition should worsen. She verbalizes understanding. Follow-up in 1 week for graft application. (3) Foot ulcer, right: Qualifiers: Non-pressure ulcer stage: with necrosis of muscle Qualified Code(s): L97.513 - Non-pressure chronic ulcer of other part of right foot with necrosis of muscle Code(s): L97.519 - Non-pressure chronic ulcer of other part of right foot with unspecified severity Status: Acute Subjective Subjective Date/Time Seen: 09/01/21 08:59 Post Op day: 8weeks Principal diagnosis: RT DFU Interval history: 8 weeks status post excision of sesamoid and debridement right foot. Returns for follow-up in [facility]. 2 weeks ago started silver rope and Mepilex foam. 1 week ago added gentamicin ointment. Patient reports no interval problems. Exam Const: General: healthy appearing; No in distress or confusion Orientation/consciousness: oriented to person, oriented to place, oriented to time and No confusion HENMT: Head: normal to inspection, normocephalic and atraumatic Eyes: Conjunctivae: conjunctivae normal Sclera: sclerae normal Neck: Neck: supple and nontender Resp: Effort & Inspection: normal respiratory effort and no audible wheezes Cardio: Rhythm: regular rhythm Skin: General skin exam: no rashes or lesions noted Neuro: General: oriented to person, oriented to place, oriented to time and No confusion Extrem: Right upper extremity: normal to inspection Left upper extremity: normal to inspection Right lower extremity: ankle Details: normal to inspection, normal ROM ( dorsiflexion 5?, plantar flexion 45?, inversion 20?, eversion 10?) and other ( good stability all directions); no tenderness, no swelling and no ecchymosis and foot Details: abnormal to inspection Details: a deformity Location: of the hallux valgus ( moderate), abnormal ROM of toe ( hallux MTP dorsiflexion 20, plantar flexion 50?) Details: no pain with active ROM and no pain with passive ROM, vascular exam Details: normal capillary refill; posterior tibial pulse absent, tendon exam Details: active flexion abnormal Location: of the great toe and active extension abnormal Location: of the great toe and motor-sensory exam Details: light-touch abnormal Location: in all toes; no tenderness Left lower extremity: ankle and foot Details: normal capillary refill, toes with normal ROM, vascular exam (2+DP pulse, good cap refill all toes), tendon exam (FHL/EHL 5/5) and motor-sensory exam light-touch abnormal in all toes; no tenderness and no crepitus Other: Ulcer right plantar foot measures 1.9 x 1.8 cm with 3.3cm depth to the plantar metatarsophalangeal joint. Devitalized tissue and slough Improved. 98% granulation tissue with mi
--- NOTE | 2021-09-08 10:09 | P.HP_ITS ---
H&P: HPI History of Present Illness Date/Time: 09/08/21 10:09 [facility] Past Medical History Medical History (Updated 08/14/21 @ 11:25 by Brian Sumner MD) Borderline diabetes Coronary artery disease Encounter for postoperative care Foot ulcer, right Hyperlipidemia Hypertension Peripheral neuropathy Postoperative wound dehiscence Sesamoiditis of right foot Urinary frequency Surgical History Surgical History H/O colonoscopy H/O heart artery stent H/O tooth extraction H/O: hysterectomy History of breast surgery History of hip replacement History of knee replacement Family History Family History Mother Family history of pancreatic cancer Grandparent Diabetes mellitus Father Diabetes mellitus Hypertension Family history of cardiovascular disease Family history of chronic obstructive pulmonary disease Other Family history of elevated blood lipids Social History Social History Second hand tobacco smoke exposure: No Alcohol intake: never Substance use: never Substance use type: does not use Gender identity (if verbalized by the patient): Female Sexual Orientation (if Verbalized by the Patient): Straight or Heterosexual Spiritual care concerns: No Meds Home Medications and Allergies Home Medications Medication Instructions Recorded Confirmed Type isosorbide mononitrate 30 mg 30 mg PO HS 09/28/19 08/14/21 History tablet,extended release 24 hr metoprolol succinate 50 mg 75 mg PO HS 09/28/19 08/14/21 History tablet,extended release 24 hr nitroglycerin 0.4 mg sublingual 0.4 mg SUBLINGUAL Q5M PRN 09/28/19 08/14/21 History tablet clopidogrel 75 mg PO DAILY 02/04/21 08/14/21 History gabapentin 300 mg PO BID 02/04/21 08/14/21 History losartan 150 mg PO DAILY 02/04/21 08/14/21 History omeprazole 20 mg PO QAM 02/04/21 08/14/21 History simvastatin 20 mg PO DAILY 02/04/21 08/14/21 History aspirin [Aspirin Low Dose] 81 mg PO DAILY 02/05/21 08/14/21 History amlodipine [Norvasc] 5 mg PO QAM 30 Days #30 tablet 02/08/21 08/14/21 Rx metformin 500 mg PO TID 06/30/21 08/14/21 History hydrocodone-acetaminophen 1 tablet PO Q6H PRN #14 tablet 07/06/21 08/14/21 Rx silver 200 mcg/gram topical gel 1 applic TOPICAL DAILY #90 g 07/17/21 08/14/21 Rx Allergies Allergy/AdvReac Type Severity Reaction Status Date / Time adhesive tape Allergy Severe BLISTERS/SKIN Verified 08/14/21 09:29 TEARS latex Allergy Unknown Anaphylaxis Verified 08/14/21 09:29
--- NOTE | 2021-09-08 13:52 | PM.PNORT ---
Progress Note: A&P Assessment and Plan (1) Postoperative wound dehiscence: Qualifiers: Encounter type: subsequent encounter Qualified Code(s): T81.31XD - Disruption of external operation (surgical) wound, not elsewhere classified, subsequent encounter Code(s): T81.31XA - Disruption of external operation (surgical) wound, not elsewhere classified, initial encounter Status: Acute (2) Encounter for postoperative care: Code(s): Z48.89 - Encounter for other specified surgical aftercare Status: Acute Assessment and Plan: Patient is now 9 weeks status post right foot debridement. She still has a wound dehiscence which probes through the 1st metatarsophalangeal joint at the dorsum of the foot. She has had only minimal improvement in swelling and erythema. She is currently using gentamicin, Aquacel rope, Mepilex foam and gauze and Kerlix for daily dressing changes. She has been indicated for graft application. After long discussion with patient and her , they are not comfortable moving forward with graft application due to [id number] costs. Plan to continue with daily dressing changes at this time and return to the operating room in approximately 3 weeks for 1st MTP joint fusion. Reviewed signs and symptoms of infection to report to the emergency room immediately. Patient to follow-up in 1 week for re-evaluation. (3) Foot ulcer, right: Qualifiers: Non-pressure ulcer stage: with necrosis of muscle Qualified Code(s): L97.513 - Non-pressure chronic ulcer of other part of right foot with necrosis of muscle Code(s): L97.519 - Non-pressure chronic ulcer of other part of right foot with unspecified severity Status: Acute Subjective Subjective Date/Time Seen: 09/08/21 13:52 Interval history: 9 weeks, 1 day status post excision of sesamoid and debridement right foot. Returns for follow-up in [facility]. 3 weeks ago started silver rope and Mepilex foam. 2 week ago added gentamicin ointment. Patient reports no interval problems. Presents today to discuss graft application. Review of Systems Review of Systems: All systems reviewed & are unremarkable except as noted in HPI and below Constitutional: Constitutional: Denies chills, Denies fever(s), Denies lethargy and Denies malaise Eyes: Eyes: Denies change in vision ENT: Denies nasal congestion, Denies nasal discharge and Denies nasal obstruction Cardiovascular: Cardiovascular: Denies irregular heart rhythm, Denies lightheadedness, Denies radiating jaw, neck or arm pain, Denies palpitations, Denies dyspnea and Denies dyspnea on exertion Respiratory: Respiratory: Denies cough, Denies dyspnea and Denies dyspnea on exertion Gastrointestinal: Gastrointestinal: Denies diarrhea, Denies nausea and Denies vomiting Genitourinary: Genitourinary: Denies dysuria Musculoskeletal: Musculoskeletal: Reports arthralgias and Reports joint swelling Endocrine: Endocrine: Denies palpitations Exam Const: General: healthy appearing; No in distress or confusion Orientation/consciousness: oriented to person, oriented to place, oriented to time and No confusion HENMT: Head: normal to inspection, normocephalic and atraumatic Eyes: Conjunctivae: conjunctivae normal Sclera: sclerae normal Neck: Neck: supple and nontender Resp: Effort & Inspection: normal respiratory effort and no audible wheezes Cardio: Rhythm: regular rhythm Skin: General skin exam: no rashes or lesions noted Neuro: General: oriented to person, oriented to place, oriented to time and No confusion Extrem: Right upper extremity: normal to inspection Left upper extremity: normal to inspection Right lower extremity: ankle Details: normal to inspection, normal ROM ( dorsiflexion 5?, plantar flexion 45?, inversion 20?, eversion 10?) and other ( good stability all directions); no tenderness, no swelling and no ecchymosis and foot Detai
--- NOTE | 2021-09-19 14:37 | PM.PNORT ---
Progress Note: A&P Assessment and Plan (1) Encounter for postoperative care: Code(s): Z48.89 - Encounter for other specified surgical aftercare Status: Acute Assessment and Plan: Patient is now 10 weeks status post right foot debridement. She still has a wound dehiscence which probes through the 1st metatarsophalangeal joint at the dorsum of the foot. marked improvement in swelling and erythema noted today. Abundant hypergranulation tissue extruding from the wound bed. Treated with silver nitrate. Patient to resume daily dressing changes in 2 days. Patient return turn in 1 week for re-evaluation. She would like to avoid surgical intervention however she understands that is a potential need to prevent refer current infection. Patient follow-up in 1 week for re-evaluation and discussion of surgical intervention options with Dr. Sumner. (2) Postoperative wound dehiscence: Qualifiers: Encounter type: subsequent encounter Qualified Code(s): T81.31XD - Disruption of external operation (surgical) wound, not elsewhere classified, subsequent encounter Code(s): T81.31XA - Disruption of external operation (surgical) wound, not elsewhere classified, initial encounter Status: Acute (3) Foot ulcer, right: Qualifiers: Non-pressure ulcer stage: with necrosis of muscle Qualified Code(s): L97.513 - Non-pressure chronic ulcer of other part of right foot with necrosis of muscle Code(s): L97.519 - Non-pressure chronic ulcer of other part of right foot with unspecified severity Status: Acute Time Spent With Patient Time with patient: less than 15 minutes Subjective Subjective Date/Time Seen: 09/19/21 0930 Interval history: 10 weeks, 5 days status post excision of sesamoid and debridement right foot. Returns for follow-up in [facility]. 4 weeks ago patient started silver rope and Mepilex foam. 3 weeks ago added gentamicin ointment. Patient reports no interval problems. Review of Systems Review of Systems: All systems reviewed & are unremarkable except as noted in HPI and below Constitutional: Constitutional: Denies chills, Denies fever(s), Denies lethargy and Denies malaise Eyes: Eyes: Denies change in vision ENT: Denies nasal congestion, Denies nasal discharge and Denies nasal obstruction Cardiovascular: Cardiovascular: Denies irregular heart rhythm, Denies lightheadedness, Denies radiating jaw, neck or arm pain, Denies palpitations, Denies dyspnea and Denies dyspnea on exertion Respiratory: Respiratory: Denies cough, Denies dyspnea and Denies dyspnea on exertion Gastrointestinal: Gastrointestinal: Denies diarrhea, Denies nausea and Denies vomiting Genitourinary: Genitourinary: Denies dysuria Musculoskeletal: Musculoskeletal: Reports arthralgias and Reports joint swelling Endocrine: Endocrine: Denies palpitations Exam Const: General: healthy appearing; No in distress or confusion Orientation/consciousness: oriented to person, oriented to place, oriented to time and No confusion HENMT: Head: normal to inspection, normocephalic and atraumatic Eyes: Conjunctivae: conjunctivae normal Sclera: sclerae normal Neck: Neck: supple and nontender Resp: Effort & Inspection: normal respiratory effort and no audible wheezes Cardio: Rhythm: regular rhythm Skin: General skin exam: no rashes or lesions noted Neuro: General: oriented to person, oriented to place, oriented to time and No confusion Extrem: Right upper extremity: normal to inspection Left upper extremity: normal to inspection Right lower extremity: ankle Details: normal to inspection, normal ROM ( dorsiflexion 5?, plantar flexion 45?, inversion 20?, eversion 10?) and other ( good stability all directions); no tenderness, no swelling and no ecchymosis and foot Details: abnormal to inspection Details: a deformity Location: of the hallux valgus ( moderate), abnormal ROM of toe ( robert
--- NOTE | 2021-09-26 10:14 | PM.PNORT ---
Progress Note: A&P Assessment and Plan (1) Encounter for postoperative care: Code(s): Z48.89 - Encounter for other specified surgical aftercare Status: Acute Assessment and Plan: Patient is now 11.5 weeks status post right foot debridement. She still has a wound dehiscence which probes through the 1st metatarsophalangeal joint at the dorsum of the foot. marked improvement in swelling and erythema noted today. Abundant hypergranulation tissue extruding from the wound bed. Treated with silver nitrate. Patient to resume daily dressing changes in 2 days. Patient return turn in 1 week for re-evaluation. Patient is indicated for graft application however due to neuropathy she does not feel like she would be able to tolerate this. Injection performed today for right ankle and tibial nerve to try and improve neuropathy. If this is successful she may be a candidate for graft application. We will re-evaluate in 1 week. In the interim continue with her dressing routine and fracture boot for offloading. Discussed risk for deep wound infection, osteomyelitis, septic arthritis. Discussed risk of loss of toe or foot. Discussed option prophylactic hallux amputation. Patient verbalized understanding of risk and has declined amputation at this time. (2) Postoperative wound dehiscence: Qualifiers: Encounter type: subsequent encounter Qualified Code(s): T81.31XD - Disruption of external operation (surgical) wound, not elsewhere classified, subsequent encounter Code(s): T81.31XA - Disruption of external operation (surgical) wound, not elsewhere classified, initial encounter Status: Acute (3) Foot ulcer, right: Qualifiers: Non-pressure ulcer stage: with necrosis of muscle Qualified Code(s): L97.513 - Non-pressure chronic ulcer of other part of right foot with necrosis of muscle Code(s): L97.519 - Non-pressure chronic ulcer of other part of right foot with unspecified severity Status: Acute Time Spent With Patient Time with patient: less than 15 minutes Subjective Subjective Date/Time Seen: 09/26/21 10:14 Post Op day: 11.5 wks Principal diagnosis: Right diabetic foot ulcer Interval history: patient returns to [facility] for follow-up of right foot. Outpatient surgery on July 06, 2021 with sesamoid excision debridement and graft application. Complicated by postoperative wound dehiscence. Patient has continued with the silver rope and Mepilex foam. No interval complaints. Fracture boot for protected weight-bearing. Exam Const: General: healthy appearing; No in distress or confusion Orientation/consciousness: oriented to person, oriented to place, oriented to time and No confusion HENMT: Head: normal to inspection, normocephalic and atraumatic Eyes: Conjunctivae: conjunctivae normal Sclera: sclerae normal Neck: Neck: supple and nontender Resp: Effort & Inspection: normal respiratory effort and no audible wheezes Cardio: Rhythm: regular rhythm Skin: General skin exam: no rashes or lesions noted Neuro: General: oriented to person, oriented to place, oriented to time and No confusion Extrem: Right upper extremity: normal to inspection Left upper extremity: normal to inspection Right lower extremity: ankle Details: normal to inspection, normal ROM ( dorsiflexion 5?, plantar flexion 45?, inversion 20?, eversion 10?) and other ( good stability all directions); no tenderness, no swelling and no ecchymosis and foot Details: abnormal to inspection Details: a deformity Location: of the hallux valgus ( moderate), abnormal ROM of toe ( hallux MTP dorsiflexion 20, plantar flexion 50?) Details: no pain with active ROM and no pain with passive ROM, vascular exam Details: normal capillary refill; posterior tibial pulse absent, tendon exam Details: active flexion abnormal Location: of the great toe and active extension abnormal Location: of the great toe
--- NOTE | 2021-09-26 10:21 | P.OP_ITS ---
Procedure Note - Detailed Date of Procedure 09/26/21 Pre-op Diagnosis L97.513 nonpres ulcer R foot w/necrosis of muscle Peripheral neuropathy, diabetes. Post-op Diagnosis same Procedure Performed Right ankle joint injection. . Surgeon Brian Sumner MD Anesthesia local ( 0.5% Marcaine 2 cc.) Indications 81-year-old with diabetes and peripheral neuropathy. Neuropathy pain right ankle and plantar foot. Indicated for cortisone injection to try and improve nerve pain and ankle. Description of Procedure Informed consent given. Correct procedure site verified. Sterilized with alcohol prep. 25 gauge needle used to inject right ankle with 80 mg of Depo- Medrol and Marcaine. Sterile dressing applied. Patient tolerated without incident. Complications None Condition stable Disposition other ( Home, home care)
--- NOTE | 2021-10-03 08:54 | PM.PNORT ---
Progress Note: A&P Assessment and Plan (1) Encounter for postoperative care: Code(s): Z48.89 - Encounter for other specified surgical aftercare Status: Acute Assessment and Plan: 12 weeks s/p debridement. Wound bed with improvement in dimensions today. Surrounding tissue with minimal erythema, swelling. Patient reports only 2 hours relief of pain s/p injection by Dr. Sumner last week for neuropathic pain. She refuses total contact case. Continues to refuse graft application. Hypergranulation tissue treated with silver nitrate today. Await 48 hours before resuming dressing changes. Recommend adding lisa to depth of wound and Aquacel AG rope tipped into wound bed. Discussed risk for deep wound infection, osteomyelitis, septic arthritis. Discussed risk of loss of toe or foot. Discussed option prophylactic hallux amputation. Patient verbalized understanding of risk and has declined amputation at this time. Follow up in 2 weeks. (2) Postoperative wound dehiscence: Qualifiers: Encounter type: subsequent encounter Qualified Code(s): T81.31XD - Disruption of external operation (surgical) wound, not elsewhere classified, subsequent encounter Code(s): T81.31XA - Disruption of external operation (surgical) wound, not elsewhere classified, initial encounter Status: Acute (3) Foot ulcer, right: Qualifiers: Non-pressure ulcer stage: with necrosis of muscle Qualified Code(s): L97.513 - Non-pressure chronic ulcer of other part of right foot with necrosis of muscle Code(s): L97.519 - Non-pressure chronic ulcer of other part of right foot with unspecified severity Status: Acute Subjective Subjective Date/Time Seen: 10/03/21 08:54 Interval history: Patient returns to [facility] for follow-up of right foot. Outpatient surgery on July 06, 2021 with sesamoid excision debridement and graft application. Complicated by postoperative wound dehiscence. Patient has continued with the silver rope and Mepilex foam. No interval complaints. Fracture boot for protected weight-bearing. Review of Systems Review of Systems: All systems reviewed & are unremarkable except as noted in HPI and below Exam Const: General: healthy appearing; No in distress or confusion Orientation/consciousness: oriented to person, oriented to place, oriented to time and No confusion HENMT: Head: normal to inspection, normocephalic and atraumatic Eyes: Conjunctivae: conjunctivae normal Sclera: sclerae normal Neck: Neck: supple and nontender Resp: Effort & Inspection: normal respiratory effort and no audible wheezes Cardio: Rhythm: regular rhythm Skin: General skin exam: no rashes or lesions noted Neuro: General: oriented to person, oriented to place, oriented to time and No confusion Extrem: Right upper extremity: normal to inspection Left upper extremity: normal to inspection Right lower extremity: ankle Details: normal to inspection, normal ROM ( dorsiflexion 5?, plantar flexion 45?, inversion 20?, eversion 10?) and other ( good stability all directions); no tenderness, no swelling and no ecchymosis and foot Details: abnormal to inspection Details: a deformity Location: of the hallux valgus ( moderate), abnormal ROM of toe ( hallux MTP dorsiflexion 20, plantar flexion 50?) Details: no pain with active ROM and no pain with passive ROM, vascular exam Details: normal capillary refill; posterior tibial pulse absent, tendon exam Details: active flexion abnormal Location: of the great toe and active extension abnormal Location: of the great toe and motor-sensory exam Details: light-touch abnormal Location: in all toes; no tenderness Left lower extremity: ankle and foot Details: normal capillary refill, toes with normal ROM, vascular exam (2+DP pulse, good cap refill all toes), tendon exam (FHL/EHL 5/5) and motor-sensory exam light-touch abnormal in all toes; no tenderness
--- NOTE | 2021-10-17 08:29 | PM.IMHP ---
H&P: HPI History of Present Illness Date/Time: 10/17/21 08:29 Chief Complaint: Right DFU Narrative: 81 year old woman follows up in the [facility] wound clinic for reevvaluation of the right foot ulcer. Patient has refused surgical intervention despite risks of infection. She is performing daily dressing changes without difficulty. No new concerns today. Review of Systems Review of Systems: All systems reviewed & are unremarkable except as noted in HPI and below PMFSH Past Medical History Medical History Borderline diabetes Coronary artery disease Encounter for postoperative care Foot ulcer, right Hyperlipidemia Hypertension Peripheral neuropathy Postoperative wound dehiscence Sesamoiditis of right foot Urinary frequency Surgical History Surgical History H/O colonoscopy H/O heart artery stent H/O tooth extraction H/O: hysterectomy History of breast surgery History of hip replacement History of knee replacement Family History Family History Mother Family history of pancreatic cancer Grandparent Diabetes mellitus Father Diabetes mellitus Hypertension Family history of cardiovascular disease Family history of chronic obstructive pulmonary disease Other Family history of elevated blood lipids Social History Social History Second hand tobacco smoke exposure: No Alcohol intake: never Substance use: never Substance use type: does not use Gender identity (if verbalized by the patient): Female Sexual Orientation (if Verbalized by the Patient): Straight or Heterosexual Spiritual care concerns: No Meds Home Medications and Allergies Home Medications Medication Instructions Recorded Confirmed Type isosorbide mononitrate 30 mg 30 mg PO HS 09/28/19 08/14/21 History tablet,extended release 24 hr metoprolol succinate 50 mg 75 mg PO HS 09/28/19 08/14/21 History tablet,extended release 24 hr nitroglycerin 0.4 mg sublingual 0.4 mg SUBLINGUAL Q5M PRN 09/28/19 08/14/21 History tablet clopidogrel 75 mg PO DAILY 02/04/21 08/14/21 History gabapentin 300 mg PO BID 02/04/21 08/14/21 History losartan 150 mg PO DAILY 02/04/21 08/14/21 History omeprazole 20 mg PO QAM 02/04/21 08/14/21 History simvastatin 20 mg PO DAILY 02/04/21 08/14/21 History aspirin [Aspirin Low Dose] 81 mg PO DAILY 02/05/21 08/14/21 History amlodipine [Norvasc] 5 mg PO QAM 30 Days #30 tablet 02/08/21 08/14/21 Rx metformin 500 mg PO TID 06/30/21 08/14/21 History hydrocodone-acetaminophen 1 tablet PO Q6H PRN #14 tablet 07/06/21 08/14/21 Rx silver 200 mcg/gram topical gel 1 applic TOPICAL DAILY #90 g 07/17/21 08/14/21 Rx Allergies Allergy/AdvReac Type Severity Reaction Status Date / Time adhesive tape Allergy Severe BLISTERS/SKIN Verified 08/14/21 09:29 TEARS latex Allergy Unknown Anaphylaxis Verified 08/14/21 09:29 Exam Const: General: healthy appearing; No in distress or confusion Orientation/consciousness: oriented to person, oriented to place, oriented to time and No confusion HENMT: Head: normal to inspection, normocephalic and atraumatic Eyes: Conjunctivae: conjunctivae normal Sclera: sclerae normal Neck: Neck: supple and nontender Resp: Effort & Inspection: normal respiratory effort and no audible wheezes Cardio: Rhythm: regular rhythm Skin: General skin exam: no rashes or lesions noted Neuro: General: oriented to person, oriented to place, oriented to time and No confusion Extrem: Right upper extremity: normal to inspection Left upper extremity: normal to inspection Right lower extremity: ankle Details: normal to inspection, normal ROM ( dorsiflexion 5?, plantar flexion 45?, inversion 20?, eversion 10?) and other ( good stability all directions); no tenderness, no swelling a
--- NOTE | 2021-10-31 09:33 | PM.IMHP ---
H&P: HPI History of Present Illness Date/Time: 10/31/21 09:33 Chief Complaint: Right DFU Narrative: 81 year old woman follows up in the [facility] wound clinic for reevvaluation of the right foot ulcer. Patient has refused surgical intervention despite risks of infection. She is performing daily dressing changes without difficulty. No new concerns today. Feels wound is improving. Review of Systems Review of Systems: All systems reviewed & are unremarkable except as noted in HPI and below PMFSH Past Medical History Medical History Borderline diabetes Coronary artery disease Encounter for postoperative care Foot ulcer, right Hyperlipidemia Hypertension Peripheral neuropathy Postoperative wound dehiscence Sesamoiditis of right foot Urinary frequency Surgical History Surgical History H/O colonoscopy H/O heart artery stent H/O tooth extraction H/O: hysterectomy History of breast surgery History of hip replacement History of knee replacement Family History Family History Mother Family history of pancreatic cancer Grandparent Diabetes mellitus Father Diabetes mellitus Hypertension Family history of cardiovascular disease Family history of chronic obstructive pulmonary disease Other Family history of elevated blood lipids Social History Social History Second hand tobacco smoke exposure: No Alcohol intake: never Substance use: never Substance use type: does not use Gender identity (if verbalized by the patient): Female Sexual Orientation (if Verbalized by the Patient): Straight or Heterosexual Spiritual care concerns: No Meds Home Medications and Allergies Home Medications Medication Instructions Recorded Confirmed Type isosorbide mononitrate 30 mg 30 mg PO HS 09/28/19 08/14/21 History tablet,extended release 24 hr metoprolol succinate 50 mg 75 mg PO HS 09/28/19 08/14/21 History tablet,extended release 24 hr nitroglycerin 0.4 mg sublingual 0.4 mg SUBLINGUAL Q5M PRN 09/28/19 08/14/21 History tablet clopidogrel 75 mg PO DAILY 02/04/21 08/14/21 History gabapentin 300 mg PO BID 02/04/21 08/14/21 History losartan 150 mg PO DAILY 02/04/21 08/14/21 History omeprazole 20 mg PO QAM 02/04/21 08/14/21 History simvastatin 20 mg PO DAILY 02/04/21 08/14/21 History aspirin [Aspirin Low Dose] 81 mg PO DAILY 02/05/21 08/14/21 History amlodipine [Norvasc] 5 mg PO QAM 30 Days #30 tablet 02/08/21 08/14/21 Rx metformin 500 mg PO TID 06/30/21 08/14/21 History hydrocodone-acetaminophen 1 tablet PO Q6H PRN #14 tablet 07/06/21 08/14/21 Rx silver 200 mcg/gram topical gel 1 applic TOPICAL DAILY #90 g 07/17/21 08/14/21 Rx Allergies Allergy/AdvReac Type Severity Reaction Status Date / Time adhesive tape Allergy Severe BLISTERS/SKIN Verified 08/14/21 09:29 TEARS latex Allergy Unknown Anaphylaxis Verified 08/14/21 09:29 Exam Const: General: healthy appearing; No in distress or confusion Orientation/consciousness: oriented to person, oriented to place, oriented to time and No confusion HENMT: Head: normal to inspection, normocephalic and atraumatic Eyes: Conjunctivae: conjunctivae normal Sclera: sclerae normal Neck: Neck: supple and nontender Resp: Effort & Inspection: normal respiratory effort and no audible wheezes Cardio: Rhythm: regular rhythm Skin: General skin exam: no rashes or lesions noted Neuro: General: oriented to person, oriented to place, oriented to time and No confusion Extrem: Right upper extremity: normal to inspection Left upper extremity: normal to inspection Right lower extremity: ankle Details: normal to inspection, normal ROM ( dorsiflexion 5?, plantar flexion 45?, inversion 20?, eversion 10?) and other ( good stability all directions);
== END 2021-11-13 23:59 | disposition home or self-care (01) ==
LOC: ANHWOC 07:32
PROVIDERS: PCP Internal Medicine; Visit Provider Nurse Practitioner Family
DX: L97.513 Non-pressure chronic ulcer of other part of right foot with necrosis of muscle (principal); G63 Polyneuropathy in diseases classified elsewhere
CPT/HCPCS: 11042; 99212; A9270; G0463

== ENCOUNTER 2021-11-28 07:57 | Outpatient (RCR) | payer MEDICARE, SELFPAY ==
[2021-11-14 00:04] VITALS: BMI 28.3
--- NOTE | 2021-11-14 09:33 | PM.IMHP ---
H&P: HPI History of Present Illness Date/Time: 11/14/21 09:33 Chief Complaint: Right diabetic foot ulcer Narrative: 81 year old woman follows up in the [facility] wound clinic for reevvaluation of the right foot ulcer. Patient has refused surgical intervention despite risks of infection. She is performing daily dressing changes without difficulty. No new concerns today. Feels wound is improving. Review of Systems Review of Systems: All systems reviewed & are unremarkable except as noted in HPI and below PMFSH Past Medical History Medical History Borderline diabetes Coronary artery disease Encounter for postoperative care Foot ulcer, right Hyperlipidemia Hypertension Peripheral neuropathy Postoperative wound dehiscence Sesamoiditis of right foot Urinary frequency Surgical History Surgical History H/O colonoscopy H/O heart artery stent H/O tooth extraction H/O: hysterectomy History of breast surgery History of hip replacement History of knee replacement Family History Family History Mother Family history of pancreatic cancer Grandparent Diabetes mellitus Father Diabetes mellitus Hypertension Family history of cardiovascular disease Family history of chronic obstructive pulmonary disease Other Family history of elevated blood lipids Social History Social History Second hand tobacco smoke exposure: No Alcohol intake: never Substance use: never Substance use type: does not use Gender identity (if verbalized by the patient): Female Sexual Orientation (if Verbalized by the Patient): Straight or Heterosexual Spiritual care concerns: No Meds Home Medications and Allergies Home Medications Medication Instructions Recorded Confirmed Type isosorbide mononitrate 30 mg 30 mg PO HS 09/28/19 08/14/21 History tablet,extended release 24 hr metoprolol succinate 50 mg 75 mg PO HS 09/28/19 08/14/21 History tablet,extended release 24 hr nitroglycerin 0.4 mg sublingual 0.4 mg SUBLINGUAL Q5M PRN 09/28/19 08/14/21 History tablet clopidogrel 75 mg PO DAILY 02/04/21 08/14/21 History gabapentin 300 mg PO BID 02/04/21 08/14/21 History losartan 150 mg PO DAILY 02/04/21 08/14/21 History omeprazole 20 mg PO QAM 02/04/21 08/14/21 History simvastatin 20 mg PO DAILY 02/04/21 08/14/21 History aspirin [Aspirin Low Dose] 81 mg PO DAILY 02/05/21 08/14/21 History amlodipine [Norvasc] 5 mg PO QAM 30 Days #30 tablet 02/08/21 08/14/21 Rx metformin 500 mg PO TID 06/30/21 08/14/21 History hydrocodone-acetaminophen 1 tablet PO Q6H PRN #14 tablet 07/06/21 08/14/21 Rx silver 200 mcg/gram topical gel 1 applic TOPICAL DAILY #90 g 07/17/21 08/14/21 Rx Allergies Allergy/AdvReac Type Severity Reaction Status Date / Time adhesive tape Allergy Severe BLISTERS/SKIN Verified 08/14/21 09:29 TEARS latex Allergy Unknown Anaphylaxis Verified 08/14/21 09:29 Exam Const: General: healthy appearing; No in distress or confusion Orientation/consciousness: oriented to person, oriented to place, oriented to time and No confusion HENMT: Head: normal to inspection, normocephalic and atraumatic Eyes: Conjunctivae: conjunctivae normal Sclera: sclerae normal Neck: Neck: supple and nontender Resp: Effort & Inspection: normal respiratory effort and no audible wheezes Cardio: Rhythm: regular rhythm Skin: General skin exam: no rashes or lesions noted Neuro: General: oriented to person, oriented to place, oriented to time and No confusion Extrem: Right upper extremity: normal to inspection Left upper extremity: normal to inspection Right lower extremity: ankle Details: normal to inspection, normal ROM ( dorsiflexion 5?, plantar flexion 45?, inversion 20?, eversion 10?) and other ( good stability
--- NOTE | 2021-11-28 09:35 | PM.IMHP ---
H&P: HPI History of Present Illness Date/Time: 11/28/21 09:35 Chief Complaint: Right diabetic foot ulcer Narrative: 81 year old woman follows up in the [facility] wound clinic for reevvaluation of the right foot ulcer. Patient has refused surgical intervention despite risks of infection. She is performing daily dressing changes without difficulty. No new concerns today. She has transitioned to a custom orthotics and shoes. Feels wound is improving. Review of Systems Review of Systems: All systems reviewed & are unremarkable except as noted in HPI and below PMFSH Past Medical History Medical History Borderline diabetes Coronary artery disease Encounter for postoperative care Foot ulcer, right Hyperlipidemia Hypertension Peripheral neuropathy Postoperative wound dehiscence Sesamoiditis of right foot Urinary frequency Surgical History Surgical History H/O colonoscopy H/O heart artery stent H/O tooth extraction H/O: hysterectomy History of breast surgery History of hip replacement History of knee replacement Family History Family History Mother Family history of pancreatic cancer Grandparent Diabetes mellitus Father Diabetes mellitus Hypertension Family history of cardiovascular disease Family history of chronic obstructive pulmonary disease Other Family history of elevated blood lipids Social History Social History Second hand tobacco smoke exposure: No Alcohol intake: never Substance use: never Substance use type: does not use Gender identity (if verbalized by the patient): Female Sexual Orientation (if Verbalized by the Patient): Straight or Heterosexual Spiritual care concerns: No Meds Home Medications and Allergies Home Medications Medication Instructions Recorded Confirmed Type isosorbide mononitrate 30 mg 30 mg PO HS 09/28/19 08/14/21 History tablet,extended release 24 hr metoprolol succinate 50 mg 75 mg PO HS 09/28/19 08/14/21 History tablet,extended release 24 hr nitroglycerin 0.4 mg sublingual 0.4 mg SUBLINGUAL Q5M PRN 09/28/19 08/14/21 History tablet clopidogrel 75 mg PO DAILY 02/04/21 08/14/21 History gabapentin 300 mg PO BID 02/04/21 08/14/21 History losartan 150 mg PO DAILY 02/04/21 08/14/21 History omeprazole 20 mg PO QAM 02/04/21 08/14/21 History simvastatin 20 mg PO DAILY 02/04/21 08/14/21 History aspirin [Aspirin Low Dose] 81 mg PO DAILY 02/05/21 08/14/21 History amlodipine [Norvasc] 5 mg PO QAM 30 Days #30 tablet 02/08/21 08/14/21 Rx metformin 500 mg PO TID 06/30/21 08/14/21 History hydrocodone-acetaminophen 1 tablet PO Q6H PRN #14 tablet 07/06/21 08/14/21 Rx silver 200 mcg/gram topical gel 1 applic TOPICAL DAILY #90 g 07/17/21 08/14/21 Rx Allergies Allergy/AdvReac Type Severity Reaction Status Date / Time adhesive tape Allergy Severe BLISTERS/SKIN Verified 08/14/21 09:29 TEARS latex Allergy Unknown Anaphylaxis Verified 08/14/21 09:29 Exam Const: General: healthy appearing; No in distress or confusion Orientation/consciousness: oriented to person, oriented to place, oriented to time and No confusion HENMT: Head: normal to inspection, normocephalic and atraumatic Eyes: Conjunctivae: conjunctivae normal Sclera: sclerae normal Neck: Neck: supple and nontender Resp: Effort & Inspection: normal respiratory effort and no audible wheezes Cardio: Rhythm: regular rhythm Skin: General skin exam: no rashes or lesions noted Neuro: General: oriented to person, oriented to place, oriented to time and No confusion Extrem: Right upper extremity: normal to inspection Left upper extremity: normal to inspection Right lower extremity: ankle Details: normal to inspection, normal ROM ( dorsiflexion 5?, plantar flexion 45?, inversi
== END 2022-01-29 08:28 | disposition home or self-care (01) ==
LOC: ANHWOC 07:57
PROVIDERS: PCP Internal Medicine; Visit Provider Nurse Practitioner Family
DX: L97.513 Non-pressure chronic ulcer of other part of right foot with necrosis of muscle (principal); G63 Polyneuropathy in diseases classified elsewhere
CPT/HCPCS: 99212; G0463

== ENCOUNTER 2022-05-09 14:28 | Outpatient (CLI) | payer MEDICARE, SELFPAY ==
--- NOTE | ~2022-05-09 | XR_ITS ---
EXAM: XR foot RT min 3V DATE: 05/09/2022 14:53 HISTORY: wound to base of RT first digit x 1 month, post bone removal . COMPARISON: 07/17/2021. FINDINGS: Decreased mineralization. No acute fracture or dislocation. No lytic or blastic lesion. Ex tensive midfoot arthropathy. Erosive changes on both sides of the first MTP joint. Soft tissue swelli ng about the first MTP joint, first digit, and medial forefoot. Likely soft tissue ulceration medial to the first MTP. Plantar enthesopathy. Surgically absent medial sesamoid bone. Old proximal and late ral first phalanx avulsion. IMPRESSION: Findings concerning for septic arthritis of the first MTP joint, with osteomyelitis of the distal fir st metatarsal and proximal first phalanx. Results reported telephonically to Dr. Jeffery by Dr. Arboleda at 5:36 PM on 05/09/2022. Reviewed, dictated and finalized at location K. IMPRESSION: Findings concerning for septic arthritis of the first MTP joint, with osteomyel itis of the distal first metatarsal and proximal first phalanx. Results reported telephonically to Dr. Jeffery by Dr. Arboleda at 5:36 PM on 05/09/20.
[2022-05-09 18:30] LABS: Hematocrit 40.1 % (37.0-47.0); Hemoglobin 13.6 g/dL (12.0-15.0); Mean Corpuscular HGB Conc 33.9 g/dl (32-36); Mean Corpuscular Hemoglobin 31.3 pg (26-34); Mean Corpuscular Volume 92.2 fl (80-100); Mean Platelet Volume 9.7 fl (7.4-10.4); Platelet Count Result 360 k/mm3 (150-375); Red Blood Count 4.35 M/mm3 (4.2-5.4); Red Cell Distribution Width 12.4 % (11.5-14.5); White Blood Count 8.3 K/mm3 (4.5-10.0)
[2022-05-09 18:38] LABS: Alanine Aminotransferase 18 U/L (6-35); Albumin Level 4.4 g/dL (3.5-5.1); Alkaline Phosphatase 63 U/L (38-126); Anion Gap 15 mmol/L (8-16); Aspartate Amino Transferase 82 U/L (14-36); Bilirubin,Total 0.9 mg/dL (0.2-1.3); Blood Urea Nitrogen 16 mg/dL (7-17); Calcium 8.8 mg/dL (8.4-10.2); Carbon Dioxide 24 mmol/L (22-30); Chloride 97 mmol/L (98-107); Cholesterol 104 mg/dL (0-200); Estimated Glomerular Filt Rate 48; Glucose 182 mg/dL (65-110); HDL Direct 31 mg/dL; Sodium 136 mmol/L (137-145); Triglycerides 187 mg/dL (<150)
[2022-05-09 18:41] LABS: Hemoglobin A1C 6.3 % (<5.7)
[2022-05-09 18:49] LABS: LDL Cholesterol Direct 37 mg/dL
[2022-05-09 19:03] LABS: MALB Creatinine Ratio 76.8 mg/g (0-30); Microalbumin Urine Random 14.6 mg/L (0-16.7)
[2022-05-12 01:55] LABS: Thyroid Peroxidase Antibodies 63 IU/mL (<9)
== END 2022-05-09 14:29 | disposition home or self-care (01) ==
PROVIDERS: PCP Family Medicine; Visit Provider Family Medicine
DX: Z00.00 Encounter for general adult medical examination without abnormal findings (principal); E78.5 Hyperlipidemia, unspecified; G63 Polyneuropathy in diseases classified elsewhere; I10 Essential (primary) hypertension; E11.9 Type 2 diabetes mellitus without complications; Z86.39 Personal history of other endocrine, nutritional and metabolic disease; I25.10 Atherosclerotic heart disease of native coronary artery without angina pectoris; I25.84 Coronary atherosclerosis due to calcified coronary lesion; L03.115 Cellulitis of right lower limb; L84 Corns and callosities; L97.513 Non-pressure chronic ulcer of other part of right foot with necrosis of muscle; M25.871 Other specified joint disorders, right ankle and foot; M79.671 Pain in right foot
CPT/HCPCS: 36415; 73630; 80053; 80061; 82043; 83036; 84443; 85027; 86376

== ENCOUNTER 2022-05-14 22:15 | Inpatient (IN) | payer MEDICARE, SELFPAY ==
--- NOTE | ~2022-05-14 | XR_ITS ---
EXAMINATION: XR foot RT min 3V DATE: 05/15/2022 02:03 INDICATION: Right foot osteomyelitis. TECHNIQUE: 4 views of right foot were obtained. COMPARISON: Right foot radiographs 05/09/2022, 07/17/2021 FINDINGS: Bone alignment is normal. No fracture. Again seen are erosions of base of first proximal ph alanx and head of first metatarsal. 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 There is mild osteoarthritis of some of the other midfoot joints and some of the interphalangeal bettina nts. There are enthesophytes at the posterior and plantar aspects of calcaneal tuberosity. IMPRESSION: 1. Osteomyelitis and septic arthritis at first metatarsophalangeal joint, stable from 05/09/2022. Reviewed, dictated and finalized at location A. IMPRESSION: 1. Osteomyelitis and septic arthritis at first metatarsophalangeal joint, stabl e from 05/09/2022.
[2022-05-14 23:31] VITALS: BP 134/68; PULSE 90; RESP 18; TEMP 36.6; O2SAT 98
[2022-05-15] VITALS (14 sets, daily range): BP systolic 128–157; BP diastolic 70–79; PULSE 65–81; RESP 13–22; TEMP 35.6–36.5; O2SAT 97–100; BMI 28.5
[2022-05-15 02:32] LABS: Basophils Absolute Auto 0.1 K/mm3 (0.0-0.1); Eosinophils Absolute Auto 0.3 K/mm3 (0-0.3); Eosinophils Percent Auto 4.4 % (0-4.4); Hematocrit 41.6 % (37.0-47.0); Immature Granulocyte Absolute 0.02 K/mm3 (0.00-0.031); Immature Granulocyte Percent A 0.3 % (0-0.5); Lymphocytes Absolute Auto 2.27 K/mm3 (0.9-3.2); Lymphocytes Percent Auto 29.5 % (18.3-44.2); Mean Corpuscular HGB Conc 33.7 g/dl (32-36); Mean Corpuscular Hemoglobin 31.2 pg (26-34); Mean Corpuscular Volume 92.7 fl (80-100); Mean Platelet Volume 9.4 fl (7.4-10.4); Monocytes Absolute Auto 0.8 K/mm3 (0.1-0.6); Monocytes Percent Auto 9.8 % (2.6-8.5); Neutrophils Absolute Auto 4.2 K/mm3 (1.3-6.7); Platelet Count Result 304 k/mm3 (150-375); Red Blood Count 4.49 M/mm3 (4.2-5.4); Red Cell Distribution Width 12.4 % (11.5-14.5); White Blood Count 7.7 K/mm3 (4.5-10.0)
[2022-05-15 02:47] LABS: Anion Gap 14 mmol/L (8-16); Blood Urea Nitrogen 20 mg/dL (7-17); CRP < 0.5 mg/dL (<1.0); Calcium 9.3 mg/dL (8.4-10.2); Carbon Dioxide 22 mmol/L (22-30); Chloride 100 mmol/L (98-107); Estimated CRCL calculation 32 ml/min; Estimated Glomerular Filt Rate 48; Glucose 121 mg/dL (65-110); Potassium 4.2 mmol/L (3.4-5.0); Sodium 136 mmol/L (137-145)
[2022-05-15 04:14] LABS: SARS-CoV-2 RNA PCR Negative
--- NOTE | 2022-05-15 04:57 | ADMGEN ---
This patient, Emelia Heath, was admitted to [facility] Surg Room 317-02. Patient/family oriented to hospital policies and general routines including ID bracelet, bed and alarms, visiting hours, pain management, procedures, bathroom and other care routines, personal items, smoking policy, room service/diet, and visiting hours. Information on how to activate the Rapid Response Team has been discussed. Patient/Family are encouraged to report perceived risks to care and to ask questions if they do not understand what they are told or what they should do.
--- NOTE | 2022-05-15 05:05 | ED.GENADULT ---
HPI - General Adult General Chief complaint: Extremity Injury, Lower Stated complaint: RIGHT FOOT INFECTION Time Seen by Provider: 05/15/22 01:39 History of Present Illness HPI narrative: This is an 82-year-old female presenting to ED after being sent to the hospital by her primary care physician for osteomyelitis. Patient has a nonhealing ulcer at the base of her great toe on the plantar surface of her foot. Outside x-rays were obtained which showed significant erosion at the MTP joint that is concerning for osteomyelitis. The patient has no physical complaints at this time. She denies fever, chills, nausea vomiting or diarrhea. She denies foot pain.. Related Data Home Medications Medication Instructions Recorded Confirmed isosorbide mononitrate 30 mg 30 mg PO HS 09/28/19 08/14/21 tablet,extended release 24 hr metoprolol succinate 50 mg 75 mg PO HS 09/28/19 08/14/21 tablet,extended release 24 hr nitroglycerin 0.4 mg sublingual 0.4 mg sublingual Q5M PRN Chest 09/28/19 08/14/21 tablet (Nitrostat) Pain clopidogrel 75 mg tablet 75 mg PO DAILY 02/04/21 08/14/21 gabapentin 300 mg capsule 300 mg PO BID 02/04/21 08/14/21 losartan 100 mg tablet 150 mg PO DAILY 02/04/21 08/14/21 omeprazole 20 mg capsule,delayed 20 mg PO QAM 02/04/21 08/14/21 release simvastatin 20 mg tablet 20 mg PO DAILY 02/04/21 08/14/21 aspirin 81 mg tablet,delayed 81 mg PO DAILY 02/05/21 08/14/21 release (Jocelyn Low Dose Aspirin) metformin 500 mg tablet 500 mg PO TID 06/30/21 08/14/21 Allergies Allergy/AdvReac Type Severity Reaction Status Date / Time adhesive tape Allergy Severe BLISTERS/SKIN Verified 05/14/22 23:37 TEARS latex Allergy Unknown Anaphylaxis Verified 05/14/22 23:37 Review of Systems Review of Systems: CONSTITUTIONAL: Denies night sweats. EYES: No eye pain ENT: Denies rhinorrhea CARDIOVASCULAR: Denies palpitations RESPIRATORY: Denies hemoptysis GASTROINTESTINAL: Denies hematemesis GENITOURINARY: Denies hematuria. SKIN: Denies rash MUSCULOSKELETAL: Denies myalgia. NEUROLOGIC: Denies weakness. PSYCHIATRIC: Denies delusions PMFSH Past Medical History Medical History Borderline diabetes Coronary artery disease Encounter for postoperative care Foot ulcer, right Hyperlipidemia Hypertension Peripheral neuropathy Postoperative wound dehiscence Sesamoiditis of right foot Urinary frequency Surgical History Surgical History H/O colonoscopy H/O heart artery stent H/O tooth extraction H/O: hysterectomy History of breast surgery History of hip replacement History of knee replacement Family History Family History Mother Family history of pancreatic cancer Grandparent Diabetes mellitus Father Diabetes mellitus Hypertension Family history of cardiovascular disease Family history of chronic obstructive pulmonary disease Other Family history of elevated blood lipids Social History Social History Smoking status: Never smoker Second hand tobacco smoke exposure: No Alcohol intake: never Substance use: never Substance use type: does not use Gender identity (if verbalized by the patient): Female Sexual Orientation (if Verbalized by the Patient): Straight or Heterosexual Spiritual care concerns: No Agree to blood products: Yes Exam Narrative: APPEARANCE: No apparent distress. Head atraumatic. EYES: PERRLA/EOMI, NOSE: Normal no drainage NECK: Supple, Trachea midline RESPIRATORY: CTAB, No increased work of breathing. CARDIOVASCULAR: S1S2 appreciated ABDOMINAL: Soft, nontender, nondistended, MUSCULOSKELETAl: No obvious deformities NEURO: Alert. Moving 4/4 extremities SKIN:: Patient has a small healing ulcer over the MTP joint of her right foot. There is
[2022-05-15 07:47] LABS: Glucose Point of Care 104 mg/dl (65-105)
--- NOTE | 2022-05-15 09:00 | PM.IMHP ---
H&P: HPI History of Present Illness Date/Time: 05/15/22 09:00 Chief Complaint: Abnormal foot xray Narrative: 82yo female with hx of borderline DM, HTN, peripheral neuropathy and CAD who was sent into the ED due to an abnormal xray of her right foot. In January of 2021, patient was hospitalized for cellulitis of the right foot after a callus at the 1st metatarsal joint had been shaved down. She did undergo incisional debridement during that hospital course. She was treated with IV antibiotics and completed a course. Wound however did not heal as expected. Patient was admitted in June 2021 for excision of a right tibial sesamoid and excisional debridement the diabetic foot ulcer. Patient was followed by Orthopedics. She did receive a right ankle injection in September 2021. She was refusing graft application. Risks were discussed including osteomyelitis and septic arthritis. Patient was last seen by Orthopedics on 11/28/2021. She again refused surgical intervention. Patient states since that time she has been doing daily dressing changes with the gauze. Initially there was large amount of drainage from the right plantar ulcer but this slowly has improved. She presented to her primary care doctor on 05/09/22 and he did routine lab work including an x-ray of the right foot. The right foot x-ray shows findings concerning septic arthritis of the 1st MTP joint with osteomyelitis of the distal 1st metatarsal and proximal 1st phalanx. For this reason patient was sent in to the emergency room for evaluation. Patient denies any fever or chills. She has a peripheral neuropathy with numbness in her feet. She denies any pain in her feet. She denies any excessive discharge from the right foot wound. No redness, warmth or strong odor. At present she only has asmall spot of blood noted on the dressing on a daily basis. Again patient has no complaints. Complete review of systems was negative. She does complain of hearing loss and tinnitus which is chronic. She also complains of dysuria but this also is been going on for several months but no hematuria. She has had urinalysis in the past that have been negative. In the emergency room, she was hemodynamically stable. Cbc was normal. CRP was negative. COVID test was negative. Right foot x-ray shows again osteomyelitis and septic arthritis of the 1st metatarsophalangeal joint without change from initial x-ray. Review of Systems Review of Systems: All systems reviewed & are unremarkable except as noted in HPI and below PMFSH Past Medical History Medical History Borderline diabetes Coronary artery disease Encounter for postoperative care Foot ulcer, right Hyperlipidemia Hypertension Peripheral neuropathy Postoperative wound dehiscence Sesamoiditis of right foot Urinary frequency Surgical History Surgical History H/O colonoscopy H/O heart artery stent H/O tooth extraction H/O: hysterectomy History of breast surgery History of hip replacement History of knee replacement Family History Family History Mother Family history of pancreatic cancer Grandparent Diabetes mellitus Father Diabetes mellitus Hypertension Family history of cardiovascular disease Family history of chronic obstructive pulmonary disease Other Family history of elevated blood lipids Social History Social History (Updated 05/15/22 @ 09:17 by Deepak Trevino MD) Social History: Lives with her , daughter and son-in-law. Son-in-law has dementia and they are helping the daughter care for him. She is a lifelong nonsmoker. No alcohol or drug use. She is a full code. She nominates her to be the individual would make medical decisions for her if she is unable Smoking status: Never smoker Second hand tobac
[2022-05-15] MEDS: LOSARTAN POTASSIUM 50 MG TABLET 150 MG PO (11:29)
[2022-05-15] MEDS: SIMVASTATIN 20 MG TABLET PO (11:29)
[2022-05-15 11:30] LABS: Glucose Point of Care 124 mg/dl (65-105)
[2022-05-15] MEDS: amLODIPine BESYLATE 5 MG TABLET PO (11:30)
[2022-05-15] MEDS: PANTOPRAZOLE 40 MG TABLET PO (11:30)
--- NOTE | 2022-05-15 15:36 | PC.NURSE ---
Today, 05/15/22, we had some communication issues regarding a new orthopedic consult order. ER Provider ordered a orthopedic consult at 0301 but did not contact the consulting provider. Patient was admitted to [address] [place] [address] around 0500. First attempt to contact Orthopedic provider, Dr. Cordon at 0924. Voicemail was left to Dr Cordon's cellphone (Contact # [employer] One). Dr. Cordon was in surgery at the time of contact. RN called Dr. Cordon's cell phone at 1445 to get an updated timeframe when consulting provider planned on visiting the patient. Dr. Cordon states that the patient was [facility] and not [facility]. RN called Burak for an update at 1449 but [facility] had been uninformed of consult and patient's reason for consultation. RN informed Burak of patient's situation. Burak stressed his concerns in regards to lack of communication, informing the correct provider, and consultations need to be provided to the provider in a timely manner. Dr. Sumner visited patient at 1526.
--- NOTE | 2022-05-15 15:45 | PM.CNOR ---
Assessment and Plan Assessment and plan (1) Foot ulcer, right: Qualifiers: Non-pressure ulcer stage: with necrosis of muscle Qualified Code(s): L97.513 - Non-pressure chronic ulcer of other part of right foot with necrosis of muscle Code(s): L97.519 - Non-pressure chronic ulcer of other part of right foot with unspecified severity Status: Acute Assessment and Plan: 82-year-old woman known to the Orthopedic service for right foot ulcer. Was last seen in the Wound Clinic and noted to have a healed callus on the plantar aspect of the metatarsophalangeal joint. Now with unchanged physical exam findings. No erythema or drainage. No other evidence of infection. Radiograph changes noted to be post surgical and from previous debridements. No new findings. Discussed with patient and her . No evidence of infection at this time. May be discharged home. Continue with conservative care for the foot including Betadine and a Band-Aid. Follow up in the Wound Clinic. (2) Callus of foot: Code(s): L84 - Corns and callosities Status: Acute History of Present Illness HPI Consult date: 05/15/22 Requesting physician: Deepak Trevino MD Chief complaint: Osteo Narrative: 82-year-old woman known to the Orthopedic service for right foot plantar hallux ulcer and prolonged healing time. At 1 point had quarter-sized ulceration which probed through the joint to the dorsum the foot. Has finally responded to surgical and conservative measures and at last visit in the wound clinic had a healed eschar on the plantar aspect. Patient notes no changes since then. She had a recent x-ray of the foot which showed changes of the metatarsophalangeal joint and she was admitted for further care. Review of Systems Review of Systems: All systems reviewed & are unremarkable except as noted in HPI and below Constitutional: Constitutional: Denies chills, Denies fever(s), Denies lethargy and Denies malaise Eyes: Eyes: Denies change in vision ENT: Denies nasal congestion, Denies nasal discharge and Denies nasal obstruction Cardiovascular: Cardiovascular: Denies irregular heart rhythm, Denies lightheadedness, Denies radiating jaw, neck or arm pain, Denies palpitations, Denies dyspnea and Denies dyspnea on exertion Respiratory: Respiratory: Denies cough, Denies dyspnea and Denies dyspnea on exertion Gastrointestinal: Gastrointestinal: Denies diarrhea, Denies nausea and Denies vomiting Genitourinary: Genitourinary: Denies dysuria Musculoskeletal: Musculoskeletal: Reports arthralgias and Reports joint swelling Endocrine: Endocrine: Denies palpitations PMFSH Past Medical History Medical History Borderline diabetes Coronary artery disease Encounter for postoperative care Foot ulcer, right Hyperlipidemia Hypertension Peripheral neuropathy Postoperative wound dehiscence Sesamoiditis of right foot Urinary frequency Surgical History Surgical History H/O colonoscopy H/O heart artery stent H/O tooth extraction H/O: hysterectomy History of breast surgery History of hip replacement History of knee replacement Family History Family History Mother Family history of pancreatic cancer Grandparent Diabetes mellitus Father Diabetes mellitus Hypertension Family history of cardiovascular disease Family history of chronic obstructive pulmonary disease Other Family history of elevated blood lipids Social History Social History Social History: Lives with her , daughter and son-in-law. Son-in-law has dementia and they are helping the daughter care for him. She is a lifelong nonsmoker. No alcohol or drug use. She is a full code. She nominates her to be the individu
[2022-05-15 16:20] LABS: Glucose Point of Care 106 mg/dl (65-105)
--- NOTE | 2022-05-15 16:34 | PM.DS ---
DS: Admitting Diagnosis Discharge Date 05/15/22 Admitting Diagnosis Foot ulcer DS: Discharge Diagnosis Discharge Diagnosis (1) Septic arthritis: Code(s): M00.9 - Pyogenic arthritis, unspecified Status: Acute (2) Osteomyelitis: Code(s): M86.9 - Osteomyelitis, unspecified Status: Acute (3) Borderline diabetes: Code(s): R73.03 - Prediabetes Status: Acute (4) Hypertension: Code(s): I10 - Essential (primary) hypertension Status: Acute (5) Coronary artery disease: Qualifiers: Coronary Disease-Associated Artery/Lesion type: due to calcified coronary lesion Qualified Code(s): I25.10 - Atherosclerotic heart disease of hoopa coronary artery without angina pectoris; I25.84 - Coronary atherosclerosis due to calcified coronary lesion Code(s): I25.10 - Atherosclerotic heart disease of ho[place] coronary artery without angina pectoris Status: Acute (6) Peripheral neuropathy: Qualifiers: Peripheral neuropathy type: polyneuropathy associated with underlying disease Qualified Code(s): G63 - Polyneuropathy in diseases classified elsewhere Code(s): G62.9 - Polyneuropathy, unspecified Status: Acute (7) Dysuria: Code(s): R30.0 - Dysuria Status: Acute DS: Summary Hospital Course Reason for hospitalization: 82yo female with hx of borderline DM, HTN, peripheral neuropathy and CAD who was sent into the ED due to an abnormal xray of her right foot.??Please see H&P for details Hospital Course: Patient was admitted to [address] [place] [address]. On routine x-ray, patient was found to have septic arthritis and osteomyelitis. She is asymptomatic from this. Antibiotics were not started. Orthopedics was consulted and did not feel the patietn had active infection but that these xray findings were chronic. She did well and was discharged home on 05/15/22 Status at Discharge Cognitive/behavioral status at discharge: stable Time Spent with Patient Time attestation: Total time spent providing and/or coordinating discharge services:45 minutes Time spent: Greater than 30 minutes Exam Narrative: AF 97.3 150/79 69 17 98% ra Gen - well-nourished, well-developed female in no acute respiratory distress who is nontoxic-appearing lying semi recumbent in bed HEENT - normocephalic. Atraumatic. Pupils equal round and reactive. Extraocular motions intact. Sclera clear and anicteric. Nares patent. Oropharynx was clear. No oral lesions. Moist mucous membranes. Tongue was midline. Palate hanny symmetrically. No facial asymmetry. Neck - neck was supple. No dominant adenopathy, thyromegaly or masses. Chest - lungs are clear to auscultation bilaterally. No wheezes or crackles. Breast exam was deferred. CV - heart was regular rate and rhythm. S1-S2. No murmurs gallops or rubs. Abd - abdomen was soft. Nontender. Nondistended. Positive bowel sounds. No organomegaly or masses. Ext - no clubbing, cyanosis or edema. 2+ DP pulses bilaterally. Neuro - patient is alert and oriented x4. Strength is 5/5 in both upper and lower extremities. Cranial nerves 2-12 are intact. Speech is clear. Psych - normal mood and affect. Patient is pleasant and cooperative. Skin - warm and dry. No rashes noted. Small dried right plantar eschar overlying the 1st MTP joint without drainage, redness or warmth. DS: Data Data Completed and Pending Labs on day of discharge: Labs from last 24 hours 05/15/22 05/15/22 05/15/22 16:17 11:27 07:44 WBC RBC Hgb Hct MCV MCH MCHC RDW Plt Count MPV Immature Gran % (Auto) Neut % (Auto) Lymph % (Auto) [place] % (Auto) Eos % (Auto) Baso % (Auto) Lymph # (Auto) [place] # (Auto) Eos # (Auto) Baso # (Auto) Abs Immat Gran (auto) Absolute Neuts (auto) Absolute Nucleated RBC Nucleated RBC % Sodium Potassium Chloride Carbon Dioxid
--- NOTE | 2022-05-23 07:57 | PC.NURSE ---
Blood cx is negative. Dr. Uriel huerta.
== END 2022-05-15 17:20 | disposition home or self-care (01) | DRG 540 ==
LOC: ANHED 05-15 02:03 → ANH3MEDSUR 05-15 05:10
PROVIDERS: Admitting Provider Internal Medicine; Emergency Provider Emergency Medicine; PCP Family Medicine; Visit Provider Internal Medicine
DX: M86.671 Other chronic osteomyelitis, right ankle and foot (principal); M00.871 Arthritis due to other bacteria, right ankle and foot; L97.519 Non-pressure chronic ulcer of other part of right foot with unspecified severity; R73.03 Prediabetes; I25.10 Atherosclerotic heart disease of native coronary artery without angina pectoris; G62.9 Polyneuropathy, unspecified; R30.0 Dysuria; I10 Essential (primary) hypertension; Z20.822 Contact with and (suspected) exposure to COVID-19; E78.5 Hyperlipidemia, unspecified; Z96.659 Presence of unspecified artificial knee joint; Z96.649 Presence of unspecified artificial hip joint; Z95.5 Presence of coronary angioplasty implant and graft; Z90.710 Acquired absence of both cervix and uterus
CPT/HCPCS: 36415; 73630; 80048; 82948; 85025; 86140; 87040; 99285; A9270; C9803; J1650; U0003; U0005

== ENCOUNTER 2022-06-29 07:44 | Outpatient (CLI) | payer MEDICARE, SELFPAY | END 2022-06-29 07:45 | disposition home or self-care (01) | LOC: ANHAUDASC 07:45 | PROVIDERS: PCP Family Medicine; Visit Provider Family Medicine | DX: Z01.10 Encounter for examination of ears and hearing without abnormal findings (principal); H90.3 Sensorineural hearing loss, bilateral | CPT/HCPCS: 92557; 92567 ==

== ENCOUNTER 2022-07-25 15:42 | Outpatient (CLI) | payer MEDICARE, SELFPAY ==
--- NOTE | ~2022-07-25 | MM_ITS ---
EXAMINATION: MM screening [place] BI w shaquille HISTORY: Screening mammogram TECHNIQUE: Craniocaudal and mediolateral oblique 3-D tomosynthesis images were obtained and synthetic 2-D images were generated. CAD analysis was submitted and interpreted. COMPARISON: 08/13/2019, 07/18/2019, 07/09/2018 BREAST PARENCHYMAL COMPOSITION: There are scattered areas of fibroglandular density. FINDINGS: Scattered benign-appearing calcifications are present. No suspicious mass, calcification, o r architectural distortion are identified in either breast to suggest malignancy. There has been no s uspicious interval change. IMPRESSION: 1. No mammographic evidence of malignancy. 2. Recommend routine screening mammography while the patient remains in good health. BI-RADS Category 2: Benign finding(s). Reviewed, dictated and finalized at location A. RAFT PAINTER IMPRESSION: 1. No mammographic evidence of malignancy. 2. Recommend routine screening mammography while the patient remains in good he alth. BI-RADS Category 2: Benign finding(s).
--- NOTE | ~2022-07-25 | DEXA_ITS ---
Bone Density Report Name: BRUCE VICTOR Age: 82 Sex: Female Ethnicity: White Date of : 1940 Indication: postmenopausal; screening for osteoporosis; height loss; hysterectomy; Referring Provider: ALLI LI Study: Bone densitometry was performed. Exam Date: July 25, 2022 Accession number: [id number] Bone Density: Region BMD T-score Z-score Classification AP Spine(L1-L4) 0.935 -1.0 1.7 Normal Femoral Neck (Right) 0.579 -2.4 -0.1 Osteopenia Total Hip (Right) 0.834 -0.9 1.3 Normal World Health Organization criteria for BMD impression classify patients as: Normal (T-score at or above -1.0), Osteopenia (T-score between -1.0 and -2.5), or Osteoporosis (T-score at or below -2.5). 10-year Fracture Risk(1): Major Osteoporotic Fracture 17% Hip Fracture 5.8% Reported Risk Factors: [place] (), Neck BMD=0.579, BMI=29.4 (1) FRAX(R) Version 3.08. Fracture probability calculated for an untreated patient. Fracture probability may be lower if the patient has received treatment. Previous Exams: Region Exam Age BMD T-score BMD Change BMD Change Date g/cm2 vs Baseline vs Previous AP Spine (L1-L4) 07/25/2022 82 0.935 -1.0 -0.023 (-2.4%) -0.023 (-2.4%) 02/22/2016 75 0.958 -0.8 Total Hip(Right) 07/25/2022 82 0.834 -0.9 -0.113 (-11.9% -0.113 (-11.9% 02/22/2016 75 0.947 0.0 *Denotes significance at 95% confidence level, LSC for AP Spine = 0.022 g/cm2, LSC for Total Hip = 0.027 g/cm2 Clinical Information Provided by Patient: Has the following medical conditions: Hysterectomy Patient maximum height was 62 Menopause Age: 46 Onset of menses at age 10 Number of children 2 Impression: The patient has low bone mass, based on the Right Femoral Neck T-score. The patient has an estimated ten-year risk of hip fracture of 5.8% and an estimated ten-year risk of major fracture of 17%, based on the WHO FRAX algorithm. The BMD for the AP Spine (L1-L4) decreased, changing by -2.4% since the last DXA exam. The BMD for the Total Hip(Right) decreased, changing by -11.9% since the last DXA exam. Discussion: BONE DENSITY IS LOW AT ONE OR MORE SKELETAL SITES. THE PATIENT'S BMD AND CLINICAL RISK FACTORS CONTRIBUTE TO THIS PATIENT'S INCREASED RISK OF FRACTURE. This patient's lowest T-score is low at one or more skeletal sites. It meets the World Health Organization's (WHO) criteria for ?low bone mass? (T-score between -1.0 and -2.5). The patient's 10-year risk of hip fracture as calculated by FRAX exceeds the threshold
== END 2022-07-25 15:43 | disposition home or self-care (01) ==
PROVIDERS: PCP Family Medicine; Visit Provider Family Medicine
DX: Z12.31 Encounter for screening mammogram for malignant neoplasm of breast (principal); Z78.0 Asymptomatic menopausal state; M85.851 Other specified disorders of bone density and structure, right thigh
CPT/HCPCS: 77063; 77067; 77080

== ENCOUNTER 2022-08-07 14:38 | Outpatient (CLI) | payer MEDICARE, SELFPAY ==
[2022-08-07 19:53] LABS: Alanine Aminotransferase 23 U/L (6-35); Albumin Level 4.7 g/dL (3.5-5.1); Alkaline Phosphatase 89 U/L (38-126); Aspartate Amino Transferase 65 U/L (14-36); Bilirubin,Total 1.4 mg/dL (0.2-1.3)
[2022-08-07 20:57] LABS: Hepatitis B Surface Antigen Negative (Negative)
[2022-08-07 21:02] LABS: HAV RESULT Negative (Negative); Hepatitis B Core IgM Result Negative (Negative)
[2022-08-07 21:14] LABS: Hepatitis C Virus Antibody Negative (Negative)
== END 2022-08-07 14:39 | disposition home or self-care (01) ==
PROVIDERS: PCP Family Medicine; Visit Provider Family Medicine
DX: R74.8 Abnormal levels of other serum enzymes (principal); R74.01 Elevation of levels of liver transaminase levels; Z68.39 Body mass index [BMI] 39.0-39.9, adult
CPT/HCPCS: 36415; 80074; 80076; 84443

== ENCOUNTER 2022-08-21 07:25 | Outpatient (CLI) | payer MEDICARE, SELFPAY ==
--- NOTE | ~2022-08-21 | US_ITS ---
EXAMINATION: US abdomen limited DATE: 08/21/2022 08:06 INDICATION: Right upper quadrant pain TECHNIQUE: Multiple grayscale and Doppler ultrasound images of the abdomen were obtained. COMPARISON: None available FINDINGS: The head and body of the pancreas are normal. The pancreatic tail is obscured by bowel gas. Pancreatic duct measures up to 5 mm. The liver is normal with normal echogenicity and echotexture. N o surface nodularity. Normal hepatopetal flow in the main portal vein. Stones are present in the nond istended gallbladder. There is no pericholecystic fluid or gallbladder wall thickening. The normal co mmon bile duct measures 5 mm. There was no sonographic Olivera sign. IMPRESSION: 1. Cholelithiasis without evidence of cholecystitis. 2. Mild enlargement of the pancreatic duct of unclear significance or etiology. Reviewed, dictated and finalized at location L. RY COOK APPRENTICE
== END 2022-08-21 07:26 | disposition home or self-care (01) ==
PROVIDERS: PCP Family Medicine; Visit Provider Family Medicine
DX: E03.9 Hypothyroidism, unspecified (principal); R74.01 Elevation of levels of liver transaminase levels; R74.8 Abnormal levels of other serum enzymes; K80.20 Calculus of gallbladder without cholecystitis without obstruction
CPT/HCPCS: 36415; 76705; 84443

== ENCOUNTER 2023-01-22 11:19 | Outpatient (CLI) | payer MEDICARE, SELFPAY ==
[2023-01-22 19:36] LABS: Basophils Absolute Auto 0.1 K/mm3 (0.0-0.1); Basophils Percent Auto 0.4 % (0.2-1.2); Eosinophils Absolute Auto 0.1 K/mm3 (0-0.3); Eosinophils Percent Auto 0.4 % (0-4.4); Hematocrit 45.5 % (37.0-47.0); Hemoglobin 15.1 g/dL (12.0-15.0); Immature Granulocyte Absolute 0.08 K/mm3 (0.00-0.031); Immature Granulocyte Percent A 0.6 % (0-0.5); Lymphocytes Absolute Auto 1.02 K/mm3 (0.9-3.2); Lymphocytes Percent Auto 7.5 % (18.3-44.2); Mean Corpuscular HGB Conc 33.2 g/dl (32-36); Mean Corpuscular Hemoglobin 31.1 pg (26-34); Mean Corpuscular Volume 93.6 fl (80-100); Mean Platelet Volume 10.3 fl (7.4-10.4); Monocytes Absolute Auto 1.4 K/mm3 (0.1-0.6); Monocytes Percent Auto 10.6 % (2.6-8.5); Neutrophils Absolute Auto 10.9 K/mm3 (1.3-6.7); Neutrophils Percent Auto 80.5 % (45.5-73.1); Platelet Count Result 292 k/mm3 (150-375); Red Blood Count 4.86 M/mm3 (4.2-5.4); Red Cell Distribution Width 13.2 % (11.5-14.5); White Blood Count 13.6 K/mm3 (4.5-10.0)
[2023-01-22 19:42] LABS: Alanine Aminotransferase 23 U/L (6-35); Albumin Level 4.4 g/dL (3.5-5.1); Alkaline Phosphatase 102 U/L (38-126); Anion Gap 16 mmol/L (8-16); Aspartate Amino Transferase 64 U/L (14-36); Blood Urea Nitrogen 33 mg/dL (7-17); Calcium 9.4 mg/dL (8.4-10.2); Carbon Dioxide 17 mmol/L (22-30); Chloride 96 mmol/L (98-107); Estimated Glomerular Filt Rate 24; Glucose 158 mg/dL (65-110); Lipase 64 U/L (23-300); Sodium 129 mmol/L (137-145)
[2023-01-22 20:09] LABS: Appearance Urine Cloudy (Clear); Bacteria Urine 4+ /hpf; Bilirubin Urine Negative (Negative); Blood Urine 1+ (Negative); Color Urine Yellow (Yellow); Glucose Urine UA Negative (Negative); Ketones Urine Trace mg/dL (Negative); Leukocyte Esterase Ur 2+ LEU/UL (NEGATIVE); Nitrate Urine Negative (Negative); Protein Urine 2+ mg/dL (Negative); RBC Urine 0-2 /hpf (0-2); Specific Grav Ur 1.014 (1.001-1.035); Squamous Epithelial Cell Urine Moderate /hpf (Few); Urobilinogen Urine 0.2 mg/dL (<2.0); WBC Urine 51-100 /hpf (0-3); pH Urine 5.5 (5.0-9.0)
[2023-01-22 20:17] LABS: Add Urine Microscopic? YES
== END 2023-01-22 11:20 | disposition home or self-care (01) ==
PROVIDERS: PCP Family Medicine; Visit Provider Nurse Practitioner
DX: R10.9 Unspecified abdominal pain (principal); R74.8 Abnormal levels of other serum enzymes; R11.2 Nausea with vomiting, unspecified
CPT/HCPCS: 36415; 80053; 81001; 83690; 85025

== ENCOUNTER 2023-02-06 15:08 | Outpatient (CLI) | payer MEDICARE, SELFPAY ==
--- NOTE | ~2023-02-06 | CT_ITS ---
CT of the Abdomen and Pelvis: Indication: Abdominal pain Technique: 2.5 mm axial scans were obtained through the abdomen and pelvis following intravenous adm inistration of 100 cc of Omnipaque 350. Dose reduction technique was used on this scan by utilizing a utomated exposure control and iterative reconstruction technique. The dose-length product (DLP) was 5 96.90 mGy-cm. Findings: Scans through the lung bases demonstrate small hiatal hernia. The liver, spleen, pancreas, adrenals and kidneys are within normal limits. Multiple small gallstones and layering gallbladder sludge are present. No gallbladder wall thickening or pericholecystic infla mmatory change. There are atherosclerotic calcifications of the aorta. No lymphadenopathy. No bowel obstruction or bowel wall thickening. There is no evidence to suggest acute appendicitis. Images through the pelvis are degraded by streak artifact from left hip arthroplasty. Urinary bladder appears unremarkable. No pelvic mass seen. No ascites. Impression: Cholelithiasis and gallbladder sludge. Small hiatal hernia. Reviewed, dictated and finalized at [facility]. Impression: Cholelithiasis and gallbladder sludge. Small hiatal hernia.
[2023-02-07 13:40] LABS: Estimated Glomerular Filt Rate 36
== END 2023-02-06 15:09 | disposition home or self-care (01) ==
LOC: ANHIMG 15:11
PROVIDERS: PCP Family Medicine; Visit Provider Nurse Practitioner
DX: E80.6 Other disorders of bilirubin metabolism (principal); K80.20 Calculus of gallbladder without cholecystitis without obstruction; K86.89 Other specified diseases of pancreas; R11.2 Nausea with vomiting, unspecified; R74.01 Elevation of levels of liver transaminase levels; K44.9 Diaphragmatic hernia without obstruction or gangrene
CPT/HCPCS: 74177; Q9967

== ENCOUNTER 2023-02-27 06:10 | Day surgery (SDC) | payer MEDICARE, SELFPAY ==
[2023-02-19 10:53] VITALS: BMI 29.7
--- NOTE | 2023-02-25 15:05 | PM.HPGS ---
History of Present Illness History of Present Illness Consent: Risks, benefits, and alternatives have been discussed and questions answered. Patient agrees to proceed with procedure. Chief complaint: nausea with vomiting,Other disorders of bilirubin Narrative: Emelia Heath is a 82 year old female who has been dealing with nausea vomiting for the past several weeks. She gets full very fast. She brings up phlegm and mucus. She denies dysphagia for solid food. She has lost upwards of 40 lb but has gained a little that back and she is no longer nauseated. She did have a CT scan that was normal except it did show gallstones. Review of Systems Review of Systems: All systems reviewed & are unremarkable except as noted in HPI and below PMFSH Past Medical History Medical History Borderline diabetes Coronary artery disease Dystrophic nail Early satiety Encounter for postoperative care Foot ulcer, right Hyperlipidemia Hypertension Peripheral neuropathy Postoperative wound dehiscence Sesamoiditis of right foot Urinary frequency Surgical History Surgical History H/O colonoscopy H/O heart artery stent H/O tooth extraction H/O: hysterectomy History of breast surgery History of hip replacement History of knee replacement Family History Family History Mother Family history of pancreatic cancer Grandparent Diabetes mellitus Father Diabetes mellitus Hypertension Family history of cardiovascular disease Family history of chronic obstructive pulmonary disease Other Family history of elevated blood lipids Social History Social History Social History: Lives with her , daughter and son-in-law. Son-in-law has dementia and they are helping the daughter care for him. She is a lifelong nonsmoker. No alcohol or drug use. She is a full code. She nominates her to be the individual would make medical decisions for her if she is unable Smoking status: Never smoker Second hand tobacco smoke exposure: No Alcohol intake: current Substance use: never Substance use type: does not use Lack of Transportation: No Lack of Food: Never True Current Housing: I Have Housing Concerned About Future Housing: No Difficulty Paying Gas/Electric Bills: No Difficulty Paying for Meds: No Currently Unemployed: No Education: High School Diploma/GED Difficulty w/ Childcare or Family Care: No Living arrangements: with family Occupation/Education: retired Gender identity (if verbalized by the patient): Female Sexual Orientation (if Verbalized by the Patient): Straight or Heterosexual Spiritual care concerns: No Agree to blood products: Yes Meds Home Medications and Allergies Home Medications Medication Instructions Recorded Confirmed Type isosorbide mononitrate 30 mg 30 mg PO HS 09/28/19 02/19/23 History tablet,extended release 24 hr nitroglycerin 0.4 mg sublingual 0.4 mg sublingual Q5M PRN Chest 09/28/19 02/19/23 History tablet (Nitrostat) Pain clopidogrel 75 mg tablet 75 mg PO DAILY 02/04/21 02/27/23 History losartan 100 mg tablet 100 mg PO DAILY 02/04/21 02/19/23 History simvastatin 20 mg tablet 20 mg PO DAILY 02/04/21 02/19/23 History aspirin 81 mg tablet,delayed 81 mg PO HS 02/05/21 02/19/23 History release (Jocelyn Low Dose Aspirin) amlodipine 5 mg tablet (Norvasc) 5 mg PO QAM 30 days #30 tabs 02/08/21 02/19/23 Rx gabapentin 300 mg capsule 300 mg PO BID #60 caps 01/22/23 02/19/23 Rx pantoprazole 20 mg tablet,delayed 20 mg PO BID #60 tabs 02/04/23 Rx release (Protonix) metoprolol succinate 50 mg 75 mg PO HS 02/19/23 02/19/23 History tablet,extended release 24 hr levothyroxine 25 mcg tablet 25 mcg PO DAILY #90 tabs 02/20/23 02/20/23 Rx metform
[2023-02-27 08:43] VITALS: BP 154/65; PULSE 79; RESP 18; TEMP 36.4; O2SAT 100
[2023-02-27] MEDS: LACTATED RINGERS 1,000 ML 150 ML IV CONT (08:58)
[2023-02-27 09:00] LABS: Glucose Point of Care 125 mg/dl (65-105)
--- NOTE | 2023-02-27 09:04 | WPDANESEPPF ---
Anes - Initial Pre Proc Eval Procedure: Operation Date: 02/27/23 10:00 Proposed Procedures p Esophagogastroduodenoscopy - Felice Wu MD Date/Time: 02/27/23 09:04 Surgeon: Felice Wu MD Pre Op Diagnosis: nausea with vomiting,Other disorders of bilirubin Patient Data Age: 82 Gender: F Height: 1.56 m Weight: 67.5 kg Last Vital Signs Temp 97.5 F L 02/27/23 08:43 Pulse 79 02/27/23 08:43 Resp 18 02/27/23 08:43 BP 154/65 H 02/27/23 08:43 Pulse Ox 100 02/27/23 08:43 O2 Del Method Room Air 02/27/23 08:43 Allergies Allergy/AdvReac Type Severity Reaction Status Date / Time adhesive tape Allergy Severe BLISTERS/SKIN Verified 02/27/23 08:42 TEARS latex Allergy Severe Anaphylaxis Verified 02/27/23 08:42 Home Medications Medication Instructions Recorded Confirmed Type isosorbide mononitrate 30 mg 30 mg PO HS 09/28/19 02/19/23 History tablet,extended release 24 hr nitroglycerin 0.4 mg sublingual 0.4 mg sublingual Q5M PRN Chest 09/28/19 02/19/23 History tablet (Nitrostat) Pain clopidogrel 75 mg tablet 75 mg PO DAILY 02/04/21 02/27/23 History losartan 100 mg tablet 100 mg PO DAILY 02/04/21 02/19/23 History simvastatin 20 mg tablet 20 mg PO DAILY 02/04/21 02/19/23 History aspirin 81 mg tablet,delayed 81 mg PO HS 02/05/21 02/19/23 History release (Jocelyn Low Dose Aspirin) amlodipine 5 mg tablet (Norvasc) 5 mg PO QAM 30 days #30 tabs 02/08/21 02/19/23 Rx gabapentin 300 mg capsule 300 mg PO BID #60 caps 01/22/23 02/19/23 Rx pantoprazole 20 mg tablet,delayed 20 mg PO BID #60 tabs 02/04/23 Rx release (Protonix) metoprolol succinate 50 mg 75 mg PO HS 02/19/23 02/19/23 History tablet,extended release 24 hr levothyroxine 25 mcg tablet 25 mcg PO DAILY #90 tabs 02/20/23 02/20/23 Rx metformin 500 mg tablet 500 mg PO TIDWMEAL #270 tabs 02/20/23 02/20/23 Rx Laboratory Tests 02/27/23 08:56 POC Capillary Glucose 125 H mg/dl (65-105) Patient hx anesthesia problems: none Family hx anesthesia problems: none Results Review: All pre-operative results and documents have been reviewed as part of the pre-operative evaluation. [facility] Past Medical History Medical History (Updated 02/04/23 @ 19:59 by Judah Jeffery MD) Borderline diabetes Coronary artery disease Dystrophic nail Early satiety Encounter for postoperative care Foot ulcer, right Hyperlipidemia Hypertension Peripheral neuropathy Postoperative wound dehiscence Sesamoiditis of right foot Urinary frequency Surgical History Surgical History H/O colonoscopy H/O heart artery stent H/O tooth extraction H/O: hysterectomy History of breast surgery History of hip replacement History of knee replacement Family History Family History Mother Family history of pancreatic cancer Grandparent Diabetes mellitus Father Diabetes mellitus Hypertension Family history of cardiovascular disease Family history of chronic obstructive pulmonary disease Other Family history of elevated blood lipids Social History Social History Social History: Lives with her , daughter and son-in-law. Son-in-law has dementia and they are helping the daughter care for him. She is a lifelong nonsmoker. No alcohol or drug use. She is a full code. She nominates her to be the individual would make medical decisions for her if she is unable Smoking status: Never smoker Second hand tobacco smoke exposure: No Alcohol intake: current Substance use: never Substance use type: does not use Lack of Transportation: No Lack of Food: Never True Current Housing: I Have Housing Concerned About Future Housing: No Difficulty Paying Gas/Electric Bills: No Difficulty Paying for Meds: No Currently Unemployed: No Edu[employer]
[2023-02-27 09:26] VITALS: BP 94/45; PULSE 81; RESP 18; O2SAT 96
[2023-02-27 09:36] VITALS: BP 115/64; PULSE 88; RESP 18; O2SAT 97
[2023-02-27 09:46] VITALS: BP 118/56; PULSE 77; RESP 20; O2SAT 98
== END 2023-02-27 10:06 | disposition home or self-care (01) ==
PROVIDERS: PCP Family Medicine; Visit Provider Internal Medicine Gastroenterology
PROC: 0DJ08ZZ Inspection of Upper Intestinal Tract, Via Natural or Artificial Opening Endoscopic (ICD-10-PCS; CPT 43235; principal; 2023-02-27 10:00)
DX: K29.70 Gastritis, unspecified, without bleeding (principal); K44.9 Diaphragmatic hernia without obstruction or gangrene; K31.7 Polyp of stomach and duodenum; I25.10 Atherosclerotic heart disease of native coronary artery without angina pectoris; I10 Essential (primary) hypertension; E78.5 Hyperlipidemia, unspecified; G62.9 Polyneuropathy, unspecified; R73.03 Prediabetes; Z95.5 Presence of coronary angioplasty implant and graft; Z79.02 Long term (current) use of antithrombotics/antiplatelets; Z79.82 Long term (current) use of aspirin; Z79.84 Long term (current) use of oral hypoglycemic drugs
CPT/HCPCS: 43239; 82948; 88305; J2704; J7120

== ENCOUNTER 2023-03-06 11:05 | Emergency (ER) | payer MEDICARE, SELFPAY ==
--- NOTE | ~2023-03-06 | XR_ITS ---
EXAMINATION: XR foot RT min 3V DATE: 03/06/2023 12:54 INDICATION: Neuropathy with ulceration at the right third toe TECHNIQUE: Dorsoplantar, two oblique and lateral views of the right foot were obtained. COMPARISON: 05/15/2022, 05/09/2022 and 07/17/2021 FINDINGS: Hallux valgus. No fracture. Severe arthritis with associated chronic large erosions at the first meta tarsophalangeal joint likely related to prior septic arthritis occurring between 07/17/2021 and 2021. Additional moderate to severe osteoarthritis at the tarsal metatarsal joints. Mild osteoarthrit is at the talonavicular, naviculocuneiform and multiple interphalangeal joints. Moderate-sized planta r calcaneal spur. Soft tissue swelling about the third toe. No new erosions or periosteal reaction id entified. No soft tissue gas. IMPRESSION: 1. Chronic osteoarthritis with destructive changes both sides of the first metatarsophalangeal joint likely secondary to chronic septic arthritis and osteoarthritis. 2. No new erosions to suggest acute ostomy myelitis. 3. Additional polyarticular osteoarthritis, moderate to severe at the tarsal metatarsal joints. Reviewed, dictated and finalized at location A. IMPRESSION: 1. Chronic osteoarthritis with destructive changes both sides of the first meta tarsophalangeal joint likely secondary to chronic septic arthritis and osteoart hritis. 2. No new erosions to suggest acute ostomy myelitis. 3. Additional polyarticular osteoarthritis, moderate to severe at the tarsal me tatarsal joints.
[2023-03-06 11:14] VITALS: BP 125/57; PULSE 72; RESP 16; TEMP 36.1; O2SAT 99
--- NOTE | 2023-03-06 13:01 | ED.GENADULT ---
HPI - General Adult General Chief complaint: Wound/Laceration Stated complaint: right foot wound - diabetic Time Seen by Provider: 03/06/23 12:18 History of Present Illness HPI narrative: 82-year-old female history of diabetic neuropathy presented the ED for evaluation of some redness to the base of her third right toe. Patient states approximate 2 days ago she had redness of her right foot but the redness has since improved. Patient was concerned that part of her toe had fallen off but suspects it may have been part of her toenail. Related Data Home Medications Medication Instructions Recorded Confirmed isosorbide mononitrate 30 mg 30 mg PO HS 09/28/19 02/28/23 tablet,extended release 24 hr nitroglycerin 0.4 mg sublingual 0.4 mg sublingual Q5M PRN Chest 09/28/19 02/28/23 tablet (Nitrostat) Pain clopidogrel 75 mg tablet 75 mg PO DAILY 02/04/21 02/28/23 losartan 100 mg tablet 100 mg PO DAILY 02/04/21 02/28/23 simvastatin 20 mg tablet 20 mg PO DAILY 02/04/21 02/28/23 aspirin 81 mg tablet,delayed 81 mg PO HS 02/05/21 02/28/23 release (Jocelyn Low Dose Aspirin) metoprolol succinate 50 mg 75 mg PO HS 02/19/23 02/28/23 tablet,extended release 24 hr Allergies Allergy/AdvReac Type Severity Reaction Status Date / Time adhesive tape Allergy Severe BLISTERS/SKIN Verified 03/06/23 11:06 TEARS latex Allergy Severe Anaphylaxis Verified 03/06/23 11:06 Review of Systems Review of Systems: All systems reviewed & are unremarkable except as noted in HPI and below PMFSH Past Medical History Medical History Borderline diabetes Coronary artery disease Dystrophic nail Early satiety Encounter for postoperative care Foot ulcer, right Hyperlipidemia Hypertension Peripheral neuropathy Postoperative wound dehiscence Sesamoiditis of right foot Urinary frequency Surgical History Surgical History H/O colonoscopy H/O heart artery stent H/O tooth extraction H/O: hysterectomy History of breast surgery History of hip replacement History of knee replacement Family History Family History Mother Family history of pancreatic cancer Grandparent Diabetes mellitus Father Diabetes mellitus Hypertension Family history of cardiovascular disease Family history of chronic obstructive pulmonary disease Other Family history of elevated blood lipids Social History Social History Social History: Lives with her , daughter and son-in-law. Son-in-law has dementia and they are helping the daughter care for him. She is a lifelong nonsmoker. No alcohol or drug use. She is a full code. She nominates her to be the individual would make medical decisions for her if she is unable Smoking status: Never smoker Second hand tobacco smoke exposure: No Alcohol intake: current Substance use: never Substance use type: does not use Lack of Transportation: No Lack of Food: Never True Current Housing: I Have Housing Concerned About Future Housing: No Difficulty Paying Gas/Electric Bills: No Difficulty Paying for Meds: No Currently Unemployed: No Education: High School Diploma/GED Difficulty w/ Childcare or Family Care: No Living arrangements: with family Occupation/Education: retired Gender identity (if verbalized by the patient): Female Sexual Orientation (if Verbalized by the Patient): Straight or Heterosexual Spiritual care concerns: No Agree to blood products: Yes Exam Narrative: APPEARANCE: Well appearing, no pain, no distress, well-nourished. HEAD: normocephalic, atraumatic. EYES: PERRLA/EOMI, conjunctivae clear. NOSE: Normal no drainage EARS:TMS clear with good light reflex. THROAT: Pharynx clear, no exudate. NECK: Supple. No adenopathy, no masses
[2023-03-06] MEDS: CLINDAMYCIN HCL 150 MG CAP PO (14:10)
[2023-03-06 14:12] VITALS: BP 133/65; PULSE 70; RESP 18; O2SAT 98
== END 2023-03-06 14:40 | disposition home or self-care (01) ==
PROVIDERS: Emergency Provider Emergency Medicine; PCP Family Medicine
DX: E11.621 Type 2 diabetes mellitus with foot ulcer (principal); L97.519 Non-pressure chronic ulcer of other part of right foot with unspecified severity; Z79.82 Long term (current) use of aspirin; I25.10 Atherosclerotic heart disease of native coronary artery without angina pectoris; E78.5 Hyperlipidemia, unspecified; I10 Essential (primary) hypertension; E11.42 Type 2 diabetes mellitus with diabetic polyneuropathy; R68.81 Early satiety; Z95.5 Presence of coronary angioplasty implant and graft; Z96.649 Presence of unspecified artificial hip joint; Z96.659 Presence of unspecified artificial knee joint; Z90.710 Acquired absence of both cervix and uterus; Z79.84 Long term (current) use of oral hypoglycemic drugs
CPT/HCPCS: 73630; 99283; A9270

== ENCOUNTER 2023-07-16 07:20 | Outpatient (CLI) | payer MEDICARE, SELFPAY ==
--- NOTE | ~2023-07-16 | NM_ITS ---
EXAM: NM gastric emptying study DATE: 07/16/2023 12:06 INDICATION: Early satiety. Nausea. TECHNIQUE: A gastric emptying study was performed using the methodology of Chana GALVEZ, et al. J Nucl Med 2007; 48:568-572. The patient was given a meal consisting of 2 scrambled eggs labeled with 1.039 mCi Tc-99m sulfur colloid, 2 slices of toast, two packages of jam, and approximately 120 mL of water . Simultaneous anterior and posterior 1-min images of the abdomen were obtained with the patient supi ne at multiple time points over a total period of 4 hours. The geometric mean of anterior and posteri or views was determined, and the percentage retention was calculated for each time point. COMPARISON: CT abdomen and pelvis 02/06/2023 FINDINGS: Gastric retention of the radiotracer-labeled meal was 36%, 10%, and 1% at the 1-hour, 2-ho ur, and 4-hour time points, respectively. With this technique, apparent rapid gastric emptying is sug gested by <30% gastric retention at 1 hour. Delayed gastric emptying is defined by gastric retention of >90% at 1 hour, >60% retention at 2 hours, or >10% retention at 4 hours. IMPRESSION: 1. Normal gastric emptying. Reviewed, dictated and finalized at location E. ENT MENDER IMPRESSION: 1. Normal gastric emptying.
== END 2023-07-16 07:21 | disposition home or self-care (01) ==
PROVIDERS: PCP Family Medicine; Visit Provider Nurse Practitioner
DX: E11.22 Type 2 diabetes mellitus with diabetic chronic kidney disease (principal); K29.70 Gastritis, unspecified, without bleeding; R10.13 Epigastric pain; R11.0 Nausea; R68.81 Early satiety
CPT/HCPCS: 78264; A9541

== ENCOUNTER 2023-10-01 11:05 | Outpatient (CLI) | payer MEDICARE, SELFPAY ==
[2023-10-01 11:37] LABS: Hematocrit 42.7 % (37.0-47.0); Hemoglobin 14.5 g/dL (12.0-15.0); Mean Corpuscular Hemoglobin 31.1 pg (26-34); Mean Corpuscular Volume 91.6 fl (80-100); Platelet Count Result 385 k/mm3 (150-375); Red Blood Count 4.66 M/mm3 (4.2-5.4); Red Cell Distribution Width 12.2 % (11.5-14.5); White Blood Count 6.5 K/mm3 (4.5-10.0)
[2023-10-01 11:38] LABS: Basophils Absolute Auto 0.1 K/mm3 (0.0-0.1); Basophils Percent Auto 1.4 % (0.2-1.2); Eosinophils Absolute Auto 0.2 K/mm3 (0-0.3); Eosinophils Percent Auto 2.9 % (0-4.4); Immature Granulocyte Absolute 0.03 K/mm3 (0.00-0.031); Immature Granulocyte Percent A 0.5 % (0-0.5); Lymphocytes Absolute Auto 2.18 K/mm3 (0.9-3.2); Lymphocytes Percent Auto 33.6 % (18.3-44.2); Mean Platelet Volume 9.2 fl (7.4-10.4); Monocytes Absolute Auto 0.4 K/mm3 (0.1-0.6); Monocytes Percent Auto 6.3 % (2.6-8.5); Neutrophils Absolute Auto 3.6 K/mm3 (1.3-6.7); Neutrophils Percent Auto 55.3 % (45.5-73.1)
[2023-10-01 12:37] LABS: Alanine Aminotransferase 16 U/L (6-35); Albumin Level 4.4 g/dL (3.5-5.1); Alkaline Phosphatase 77 U/L (38-126); Anion Gap 13 mmol/L (8-16); Aspartate Amino Transferase 21 U/L (14-36); Blood Urea Nitrogen 21 mg/dL (7-17); Calcium 9.7 mg/dL (8.4-10.2); Carbon Dioxide 19 mmol/L (22-30); Chloride 102 mmol/L (98-107); Estimated Glomerular Filt Rate 48; Glucose 136 mg/dL (65-110); Potassium 3.8 mmol/L (3.4-5.0); Sodium 134 mmol/L (137-145)
[2023-10-01 16:37] LABS: Immunoglobulin A 394 mg/dL (70-400); Immunoglobulin G 1772 mg/dL (700-1600); Immunoglobulin M 86 mg/dL (40-230)
[2023-10-03 11:15] LABS: Lambda Light Chain 45.7 mg/L (5.7-26.3)
[2023-10-04 16:53] LABS: Abnormal Protein Band 1 0.4 g/dL; Albumin 3.8 g/dL (3.8-4.8); Alpha 1 Globulin 0.3 g/dL (0.2-0.3); Alpha 2 Globulin 0.9 g/dL (0.5-0.9); Beta 1 Globulin 0.5 g/dL (0.4-0.6); Gamma Globulin 1.6 g/dL (0.8-1.7); Protein, Total 7.6 g/dL (6.1-8.1)
== END 2023-10-01 11:06 | disposition home or self-care (01) ==
LOC: ANHLAB 11:08
PROVIDERS: PCP Family Medicine; Visit Provider Internal Medicine Hematology & Oncology
DX: D72.9 Disorder of white blood cells, unspecified (principal)
CPT/HCPCS: 36415; 80053; 82784; 83883; 84155; 84165; 85025

== ENCOUNTER 2024-04-15 10:57 | Outpatient (CLI) | payer OTHER, SELFPAY ==
[2024-04-15 11:14] LABS: Basophils Absolute Auto 0.1 K/mm3 (0.0-0.1); Basophils Percent Auto 0.9 % (0.2-1.2); Eosinophils Absolute Auto 0.3 K/mm3 (0-0.3); Eosinophils Percent Auto 3.3 % (0-4.4); Hematocrit 42.8 % (37.0-47.0); Hemoglobin 14.4 g/dL (12.0-15.0); Immature Granulocyte Absolute 0.02 K/mm3 (0.00-0.031); Immature Granulocyte Percent A 0.2 % (0-0.5); Lymphocytes Absolute Auto 2.62 K/mm3 (0.9-3.2); Lymphocytes Percent Auto 32.1 % (18.3-44.2); Mean Corpuscular HGB Conc 33.6 g/dl (32-36); Mean Corpuscular Hemoglobin 31.6 pg (26-34); Mean Corpuscular Volume 94.1 fl (80-100); Mean Platelet Volume 9.5 fl (7.4-10.4); Monocytes Absolute Auto 0.8 K/mm3 (0.1-0.6); Monocytes Percent Auto 9.2 % (2.6-8.5); Neutrophils Absolute Auto 4.4 K/mm3 (1.3-6.7); Neutrophils Percent Auto 54.3 % (45.5-73.1); Platelet Count Result 354 k/mm3 (150-375); Red Blood Count 4.55 M/mm3 (4.2-5.4); Red Cell Distribution Width 11.9 % (11.5-14.5); White Blood Count 8.2 K/mm3 (4.5-10.0)
[2024-04-15 14:50] LABS: Alanine Aminotransferase 13 U/L (6-35); Albumin Level 4.7 g/dL (3.5-5.1); Alkaline Phosphatase 62 U/L (38-126); Anion Gap 17 mmol/L (4-12); Aspartate Amino Transferase 21 U/L (14-36); Bilirubin,Total 0.8 mg/dL (0.2-1.3); Blood Urea Nitrogen 46 mg/dL (7-17); Calcium 9.9 mg/dL (8.4-10.2); Carbon Dioxide 19 mmol/L (22-30); Chloride 99 mmol/L (98-107); Estimated Glomerular Filt Rate 22; Glucose 109 mg/dL (65-110); Potassium 4.3 mmol/L (3.4-5.0); Sodium 135 mmol/L (137-145)
[2024-04-15 15:10] LABS: Immunoglobulin A 379 mg/dL (70-400); Immunoglobulin G 1709 mg/dL (700-1600); Immunoglobulin M 80 mg/dL (40-230)
[2024-04-16 14:33] LABS: Kappa\\Lambda Light Chains 1.43 (0.26-1.65); Lambda Light Chain 52.3 mg/L (5.7-26.3)
[2024-04-17 03:51] LABS: Protein, Total 8.1 g/dL (6.1-8.1)
[2024-04-17 12:03] LABS: Abnormal Protein Band 1 0.5 g/dL (NONE DETECTED); Albumin 4.3 g/dL (3.8-4.8); Alpha 1 Globulin 0.3 g/dL (0.2-0.3); Alpha 2 Globulin 0.9 g/dL (0.5-0.9); Beta 1 Globulin 0.5 g/dL (0.4-0.6); Gamma Globulin 1.6 g/dL (0.8-1.7)
== END 2024-04-15 10:58 | disposition home or self-care (01) ==
LOC: ANHLAB 10:58
PROVIDERS: PCP Family Medicine; Visit Provider Internal Medicine Hematology & Oncology
DX: D72.9 Disorder of white blood cells, unspecified (principal)
CPT/HCPCS: 36415; 80053; 82784; 83883; 84155; 84165; 85025

== ENCOUNTER 2024-05-26 10:30 | Outpatient (CLI) | payer MEDICARE, SELFPAY ==
--- NOTE | ~2024-05-26 | PE_ITS ---
EXAMINATION: PET skull to mid thigh DATE: 05/26/2024 13:05 INDICATION: Multiple myeloma TECHNIQUE: Blood glucose level was 75 mg/dL. 10.546 mCi of 18-fluorodeoxyglucose (18-FDG) was adminis tered i.v. Low dose computed tomography (CT) images were acquired from the base of the brain to the p roximal thighs for attenuation correction and anatomic localization. Positron emission tomography (PE T) images were acquired in the same distribution beginning 65 minutes after injection. Images includi ng fused PET/CT images were reconstructed in axial, coronal, and sagittal planes. Automated exposure control technique was employed. The dose-length product was 793.98mGy-cm. COMPARISON: CT dated 02/06/2023 FINDINGS: Head/neck: There is symmetric increased activity in the oral cavity, palatine and lingual tonsils, laryngeal mus cles and ocular muscles without CT correlate, likely physiologic. There is additional asymmetric incr eased uptake without radiologic correlate in the left lateral pterygoid muscles also likely physiolog ic. Nonspecific diffuse bilateral increased uptake throughout the relatively small thyroid gland with out discrete nodules. No pathologically enlarged cervical lymphadenopathy or suspicious foci of incre ased FDG uptake in the visualized head or neck. Chest: Normal variant azygos lobe and fissure. There is mild bibasilar atelectasis. No suspicious pulmonary nodules, pneumonia, pulmonary edema or pleural effusion. Borderline heart size. Atherosclerotic coron alxi artery calcifications and possible coronary artery stenting. Aortic valve and dense mitral annula r calcification. No pericardial effusion. Thoracic aorta is normal in caliber. Small to moderate-size d sliding-type hiatal hernia. No pathologically enlarged or FDG avid thoracic lymphadenopathy. Abdomen/pelvis/proximal thighs: Physiologic renal accumulation and excretion of FDG activity in the kidneys, bladder and along portio ns of ureters. There are couple small regions of decreased parenchymal uptake at the upper poles of b oth kidneys without radiologic correlate which could be seen with infection or infarction. Multiple t iny gallstones layering throughout the dependent aspect of the otherwise normal gallbladder with no w all thickening or pericholecystic inflammatory stranding to suggest acute cholecystitis. Normal degre e and heterogenous pattern of increased uptake throughout the liver without radiologic correlate or d ominant FDG avid lesion. A few tiny scattered splenic calcifications consistent with old granulomatou s disease. The pancreas and bilateral adrenal glands are normal. Moderate uptake scattered throughout the bowels without radiologic correlate, also likely physiologic. No other abnormal foci of increase d FDG uptake or pathologically enlarged lymphadenopathy in the abdomen, pelvis or proximal thighs. 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 Small focus of intense uptake at the left forearm consistent with extravasation at the site of injection. There is mild uptake in the mus culature at the bilateral hands without radiologic correlate which is also likely physiologic. Modera te to severe spondylosis scattered throughout the spine. There is approximately 1.2 cm low soft tissu e density lesion in the medullary space at the right humeral head underlying the greater trochanter w hich could represent a focus of reported multiple myeloma. There is however no evident corresponding FDG uptake. No other evident suspicious lytic, blastic or FDG avid bone lesions. IMPRESSION: 1. 1.2 cm low soft tissue density lesion in the joint space the right humeral head which could relate to reported known multiple myeloma but which is without evident FDG uptake. No other suspicious lyti c, blastic or abnormally FDG avid bone lesions. 2. Nonspecific diffuse bilateral increased FDG uptake at the thyroid which appears relative
[2024-05-26 10:58] LABS: Glucose Point of Care 75 mg/dl (65-105)
== END 2024-05-26 10:31 | disposition home or self-care (01) ==
LOC: ANHIMG 10:31
PROVIDERS: PCP Family Medicine; Visit Provider Internal Medicine Hematology & Oncology
DX: C90.00 Multiple myeloma not having achieved remission (principal)
CPT/HCPCS: 78815; A9552

== ENCOUNTER 2024-09-24 03:09 | Emergency (ER) | payer MEDICARE, SELFPAY ==
--- OUTSIDE RECORDS SUMMARY | 2024-09-24 03:10 | XMS_ITS | Clinical Summary ---
Author Organization [facility] Address [address] [place] [address]. [place] [address] [place] [address] Care Team Providers Care Collection Systems Technician Name Role Phone Unavailable Primary Care Provider Unavailabl e Allergies Active Allergy Reactions Criticality Noted Date Comments Latex Rash Medium 09/26/2012 MOUTH BROKE OUT, SWELLING Tape Hives Medium 10/28/2012 BREAKS OUT SKIN, SWELLING Medications aspirin EC 81 MG tablet Take 81 mg by mouth daily. Active isosorbide mononitrate ER 30 MG 24 hr tablet Take 30 mg by mouth daily. 0 Active triamcinolone 0.1 % creamIndications: Rash Apply topically 2 (two) times daily. 45 g 2 0 Active hydroCHLOROthiazi de 25 MG tablet Take 25 mg by mouth daily. Active amLODIPine 5 MG tablet Take 5 mg by mouth daily. Active clopidogrel 75 MG tablet Take 75 mg by mouth daily. Active losartan 100 MG tablet Take 100 mg by mouth daily. 1 Active nitroglycerin 0.4 MG SL tabletIndications :Angina pectoris associated with type 2 diabetes mellitus ([facility]) Place 1 tablet (0.4 mg total) under the tongue every 5 (five) minutes as needed for Chest Pain. 30 tablet 5 1 Active Alcohol Swabs (B-D SINGLE USE SWABS REGULAR) Pads 2 Active Blood Glucose Monitoring Suppl (TRUE METRIX METER) w/Device Kit 2 Active TRUEplus Lancets 33G Misc 2 Active gabapentin 300 MG capsuleIndication s:Neuropathy due to type 2 diabetes mellitus ([facility]) Take 1 capsule (300 mg total) by mouth 3 (three) times daily. 270 capsule 1 2 Active levothyroxine 75 MCG tabletIndications :Hypothyroidism, unspecified type Take 1 tablet (75 mcg total) by mouth every morning. 90 tablet 1 2 Active TRUE METRIX BLOOD GLUCOSE TEST test stripIndications: Controlled type 2 diabetes mellitus with diabetic autonomic neuropathy, without long-term current use of insulin ([facility]) USE DIRECTED 100 strip 3 2 Active metFORMIN (GLUCOPHAGE) 500 MG tabletIndications :Type 2 diabetes mellitus with stage 3a chronic kidney disease, without long-term current use of insulin ([facility]) TAKE 1 TABLET THREE TIMES DAILY BEFORE MEALS 270 tablet 2 Active omeprazole (PRILOSEC) 20 MG capsuleIndication s:Gastroesophagea l reflux disease without esophagitis TAKE 1 CAPSULE EVERY DAY 90 capsule 2 Active rosuvastatin (CRESTOR) 20 MG tabletIndications :Dyslipidemia TAKE 1 TABLET EVERY NIGHT AT BEDTIME (REPLACES SIMVASTATIN) 90 tablet 2 Active oxybutynin XL (DITROPAN-XL) 5 MG 24 hr tabletIndications :Urge incontinence TAKE 1 TABLET EVERY DAY 90 tablet 2 Active metoprolol succinate ER (TOPROL-XL) 50 MG 24 hr tabletIndications :Essential hypertension TAKE 1 AND 1/2 TABLETS AT BEDTIME 135 tablet 3 Active Active Problems Problem Noted Date Diagnosed Date Type 2 diabetes mellitus wit h stage 3a chronic kidney disease, without long-term current use of insulin ([facility]) 12/26/2021 Controlled type 2 diabetes m ellitus with diabetic autonomic neuropathy, without long-term current use of insulin ([facility]) 06/26/2021 Dyslipidemia 06/26/2021 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 ([facility]) 06/26/2021 BMI 29.0-29.9,adult 02/08/2020 Abnormal cardiovascular stress test 04/24/2016 Knee joint replacement by other means 08/17/2014 Two-vessel coronary artery disease 01/11/2013 Essential hypertension 11/29/2012 Hypercholesterolemia 11/29/2012 Chest pain 11/28/2012 Osteoarthrosis involving lower leg 09/26/2012 Overview (02/08/2020): 2015 IMO Updt Immunizations Name Administration Dates Next Due Flublok (Quadrivalent) 06/08/2020,06/11/2019 Fluzone High Dose - >Age 65 (Prefilled Syringe) 06/26/2021,07/08/2018,05/26/2015 Influenza (Generic) 06/08/2020,05/26/2020,2018 Influenza Adult (Generic) 07/08/2018,05/26/2015 PFIZER COVID-19 (ORIGINAL FO RMULATION, PURPLE CAP) mRNA, LNP-S, PF, 30 MCG/0.3 ML DOSE 10/28/2020,09/30/2020 Pneumococcal (Pneumovax 23) 07/11/2014 Pneumococcal (Prevnar 13) 06/23/2015 Tdap (Adacel) 02/17/2016 Tdap (Boostrix) 02/04/2021 Tdap (Generic) 02/04/2021,02/17/2016 Zoster (Zostavax) 79798 Unt/0.65Ml 05/19/2015 Family History Medical History Relation Comments Emphysema Father Cancer Mother Relation Status Comments Father Mother Social History Tobacco Use Types Packs/Day Years Used Date Smoking Tobacco: Never Smokeless Tobacco: Never Tobacco Cessation:Counseling Given: No Alcohol Use Standard Drinks/Week Comments Not Currently 0 (1 standard drink = 0.6 oz pur e alcohol) PHQ-2 Answer Date Recorded PHQ-2 Score - If the patient scores above 3, please move on to questions 3-9 0 03/27/2022 Comments No Sex and Gender Information Value Date Recorded Sex Assigned at Not on file Legal Sex Female 1:51 PM CDT Gender Identity Not on file Sexual Orientation Not on file Last Filed Vital Signs Vital Sign Reading Time Taken Comments Blood Pressure 137/79 03/27/2022 8:27 AM CDT Pulse 77 03/27/2022 8:27 AM CDT Temperature 35.9 ??C (96.6 ??F) 03/27/2022 8:18 AM CD T Respiratory Rate 16 03/27/2022 8:18 AM CDT Oxygen Saturation 98% 03/27/2022 8:18 AM CDT Inhaled Oxygen Concentration - - Weight 69.7 kg (153 lb 9.6 oz) 03/27/2022 8:18 A M CDT Height 157.5 cm (5' 2 ) 03/27/2022 8:18 AM CDT Body Mass Index 28.09 03/27/2022 8:18 AM CDT Plan of Treatment Health Maintenance Due Date Last Done Comments ASCVD Statin 1941 Kidney Health Evaluation 1941 PHQ-2 (Physician [place]) 1953 Diabetes: Retinopathy Eye Exam 1959 Annual Medicare Wellness Visit 2006 Dexa Scan (General) 2006 Zoster Vaccines (2 of 3) 07/14/2015 05/19/2015 RSV Immunization or 60+ Years (1 - 1-dose 75+ series) 2016 Hemoglobin A1C 06/17/2022 12/16/2021, 12/24, 07/25/2020, Additional history exists ASCVD LDL 12/16/2022 12/16/2021, 05/26, 07/25/2020, Additional history exists Lipid Panel 03/05/2023 03/05/2022, 11/25, 06/07/2021, Additional history exists COVID-19 Vaccine ( - 2023- season) 2024 05/22/2022, 05/23/2021, 10/28/2020, Additional history exists Influenza Adult (#1) 2024 06/26/2021, 06/08/2020, 06/08/2020, Additional history exists PHQ-2 (Phys[facility] [place]) 08/26/2024 DTaP, Tdap and Td Vaccines (5 - Td or Tdap) 02/04/2031 02/04/2021, 02/04/2021, 02/17/2016, Additional history exists Pneumococcal Vaccine: 65+ Years Completed 06/23/2015, 07/11/2014 Meningococcal B Vaccine Aged Out No l onger eligible based on patient's age to complete this topic Meningococcal Vaccine Aged Out No stanley krzysztof eligible based on patient's age to complete this topic RSV Immunizations Under 20 Months Aged Out No longer eligible based on patient's age to complete this topic Procedures Procedure Name Priority Date/Time Associated Diagnosis Comments LIPID PANEL Routine 03/05/2022 8:38 AM CDT Controlled type 2 diabetes mellitus with diabetic autonomic neuropathy, without long-term current use of insulin ([facility]) LIPID PANEL Routine 12/16/2021 9:40 AM CDT HEMOGLOBIN, GLYCOSYLATED Routine 12/16/2021 9:40 AM CDT from Last 3 Months or Most Recently Relevant to Health Maintenance Results * LIPID PANEL (03/05/2022 8:38 AM CDT) Only the most recent of2 resultswithin the time period is included. CHOLESTEROL TNP mg/dL [facility] Comment: TEST NOT PERFORMED ?? Due to a laboratory error, we are unable to perform this test. Specimen exceeded stability due to incorrect storage. HDL TNP mg/dL [facility] Comment: TEST NOT PERFORMED ?? Due to a laboratory error, we are unable to perform this test. Specimen exceeded stability due to incorrect storage. TRIGLYCERIDES TNP mg/dL [facility] Comment: TEST NOT PERFORMED ?? Due to a laboratory error, we are unable to perform this test. Specimen exceeded stability due to incorrect storage. LDL (CALCULATED) TNP mg/dL (calc) [facility] Comment: TEST NOT PERFORMED ?? Due to a laboratory error, we are unable to perform this test. Specimen exceeded stability due to incorrect storage. CHOL/HDL RATIO TNP (calc) [facility] Comment: TEST NOT PERFORMED ?? Due to a laboratory error, we are unable to perform this test. Specimen exceeded stability due to incorrect storage. NON HDL CHOLESTEROL TNP mg/dL (calc) [facility] Comment: TEST NOT PERFORMED ?? Due to a laboratory error, we are unable to perform this test. Specimen exceeded stability due to incorrect storage. 03/05/2022 8:38 AM CDT 03/06/2022 7:24 AM CDT us Romina Silveira MD LABORATORY Final Result [facility] [id number] [phone] * (ABNORMAL) HEMOGLOBIN, GLYCOSYLATED (12/16/2021 9:40 AM CDT) HGB A1C 6.6(H) <5.7 % of total Hgb [facility] Comment: For someone without known diabetes, a hemoglobin A1c value of 6.5% or greater indicates that they may have diabetes and this should be confirmed with a follow-up test. For someone with known diabetes, a value <7% indicates that their diabetes is well controlled and a value greater than or equal to 7% indicates suboptimal control. A1c targets should be individualized based on duration of diabetes, age, comorbid conditions, and other considerations. Currently, no consensus exists regarding use of hemoglobin A1c for diagnosis of diabetes for children. ?? 12/16/2021 9:40 AM CDT 12/16/2021 9:40 AM CDT Narrative [facility] - 12/18/2021 1:34 PM CDT SPLIT 12/15/2021 FROM [id number] FASTING:YES FASTING: YES us Romina Silveira MD LABORATORY Final Result Performing Organization Address [facility] Co de Phone Number [facility] [address] [place] [address] from Last 3 Months or Most Recently Relevant to Health Maintenance Insurance [employer]
--- OUTSIDE RECORDS SUMMARY | 2024-09-24 03:10 | XMS_ITS | Referral Summary ---
Author Organization [facility] Address [address] [place] [address] Care Team Providers Care Sales Audit Clerk Name Role Phone Judah Jeffery MD Primary Care Provider [phone] Encounters Date Type Department Care Team Description 08/04/2024 10:45 AM NUT TIGHTENER Office Visit [facility] Cardiology [address] [facility] [address] [place] [address] Rodger Gillis MD Atherosclerosis of [place] coronary artery of [place] heart without angina pectoris (Primary Dx); Hypercholesterolemia from Last 3 Months Allergies Active Allergy Reactions Criticality Noted Date Comments Adhesive Hives Medium 10/28/2012 BREAKS OUT SKIN, SWELLING Latex Rash Medium 09/26/2012 MOUTH BROKE OUT, SWELLING Medications aspirin 81 mg tablet daily. Active gabapentin (NEURONTIN) 300 mg capsule Take 1 capsule (300 mg total) by mouth 2 (two) times a day Active nitroglycerin (NITROSTAT) 0.[address] under the tongue. 3 Active hydroCHLOROthiazid e (HYDRODIURIL) 25 mg tablet Take 1 tablet (25 mg total) by mouth turkey farmer before breakfast Active metoprolol XL (TOPROL-XL) 50 mg extended release tablet TAKE 1.5 TABLETS BY MOUTH EVERY NIGHT AT BEDTIME 135 tablet 1 Active metFORMIN (GLUCOPHAGE) 1,000 mg tablet 1 tablet (1,000 mg total) 2 (two) times a day with meals 1 Active isosorbide mononitrate ER (IMDUR) 30 mg 24 hr tablet TAKE 1 TABLET EVERY DAY 90 tablet 3 2 Active amLODIPine (NORVASC) 5 mg tablet TAKE 1 TABLET EVERY DAY 90 tablet 1 2 Active True Metrix Glucose Test Strip strip 2 Active oxybutynin XL (DITROPAN-XL) 5 mg 24 hr tablet 2 Active rosuvastatin (CRESTOR) 20 mg tablet Take 1 tablet (20 mg total) by mouth nightly 2 Active losartan (COZAAR) 100 mg tablet TAKE 1 TABLET EVERY DAY 90 tablet 3 2 Active levothyroxine (SYNTHROID) 25 mcg tablet Take 1 tablet (25 mcg total) by mouth daily 3 Active escitalopram (LEXAPRO) 10 mg tablet Take 1 tablet (10 mg total) by mouth daily 3 Active amitriptyline (ELAVIL) 10 mg tablet Take 1 tablet (10 mg total) by mouth nightly Active OneTouch Verio Flex meter [facility] CHECK BLOOD GLUCOSE ONE TIME DAY DIRECTED 4 Active sucralfate (CARAFATE) 1 gram tablet Take 1 tablet (1 g total) by mouth 4 (four) times a day [address] (PROTONIX) 40 mg EC tablet Take 1 tablet (40 mg total) by mouth daily Active ondansetron ODT (ZOFRAN-ODT) 4 mg disintegrating tablet Take 1 tablet (4 mg total) by mouth every 8 (eight) hours as needed for nausea or vomiting 10 tablet 4 Active clopidogreL (PLAVIX) 75 mg tablet 4 Active Active Problems Problem Noted Date Diagnosed Date Moderate protein-calorie malnutrition (CMS/HCC) 04/29/2024 Acute renal failure superimp osed on stage 3b chronic kidney disease 04/28/2024 Hyperkalemia 04/28/2024 Nausea and vomiting, unspecified vomiting type 0 04/27/2024 Abnormal findings on cardiac catheterization Overview (11/16/2020): Added automatically from request for surgery [id number] Coronary artery disease of n ative artery of [place] heart with stable angina pectoris 11/03/2020 Overview (11/03/2020): Added automatically from request for surgery [id number] Abnormal EKG 11/03/2020 Overview (11/03/2020): Added automatically from request for surgery [id number] Atherosclerosis of coronary artery 06/03/2016 Obesity with body mass index 30 or greater 05/31 Abnormal cardiovascular stress test 04/24/2016 Two-vessel coronary artery disease 01/11/2013 Simple obesity 11/29/2012 Hypercholesterolemia 11/29/2012 Essential hypertension 11/29/2012 Chest pain 11/28/2012 Immunizations Name Administration Dates Next Due Influenza, Unspecified 05/26/2020 Pfizer Sars-Cov-2 Bivalent Vaccination (12+ YRS) 05/22/2022 Social History Tobacco Use Types Packs/Day Years Used Date Smoking Tobacco: Never Smokeless Tobacco: Never Tobacco Cessation:Counseling Given: Not Answered [facility] Utilities Answer Date Recorded In the past 12 months has [employer], [employer], oil, or water [employer] threatened to shut off services in your home? No 04/29/2024 Social Connection and Isolat ion Panel [NHANES] Answer Date Recorded In a typical week, how many times do you talk on the phone with family, friends, or neighbors? More than three times a week 04/29/2024 How often do you get togethe r with friends or relatives? More than three times a week 04/29/2024 How often do you attend chur or church services? 1 to 4 times per year 04/29/2024 Do you belong to any clubs o r organizations such as uatsdin groups, unions, fraternal or athletic groups, or school groups? No 04/29/2024 How often do you attend meet ings of the clubs or organizations you belong to? Never 04/29/2024 Are you , , di vorced, , never , or living with a partner? 04/29/2024 AUDIT-C Answer Date Recorded Q1: How often do you have a drink containing alcohol? Never 04/23/2024 Q2: How many drinks containi ng alcohol do you have on a typical day when you are drinking? Patient does not drink Q3: How often do you have si x or more drinks on one occasion? Never 04/23/2024 Overall Financial Resource Strain (CARDIA) Answe r Date Recorded How hard is it for you to pa y for the very basics like food, housing, medical care, and heating? Not very hard 04/29/2024 Hunger Vital Sign Answer Date Recorded Within the past 12 months, y ou worried that your food would run out before you got the money to buy more. Never true 05/07/20 24 Within the past 12 months, t he food you bought just didn't last and you didn't have money to get more. Never true 05/07/2024 PRAPARE - Transportation Answer Date Re corded In the past 12 months, has l ack of transportation kept you from medical appointments or from getting medications? No 11/2023 In the past 12 months, has l ack of transportation kept you from meetings, work, or from getting things needed for daily living? No 04/29/2024 Housing Stability Vital Sign Answer Santos e Recorded In the last 12 months, was t here a time when you were not able to pay the mortgage or rent on time? No 04/29/2024 In the past 12 months, how m any times have you moved where you were living? 0 04/29/2024 At any time in the past 12 m [facility], were you homeless or living in a senior care (including now)? No 04/29/2024 Personal Safety Answer Date Recorded Have you ever been in or are you currently in a harmful physical or emotional relationship or is someone making you feel afraid or unsafe? Denies 04/27/2024 Comments No Sex and Gender Information Value Date Recorded Sex Assigned at Not on file Legal Sex Female 2:52 AM NUT TIGHTENER Gender Identity Not on file Sexual Orientation Not on file Last Filed Vital Signs Vital Sign Reading Time Taken Comments Blood Pressure 147/78 08/04/2024 10:40 AM NUT TIGHTENER Pulse 70 08/04/2024 10:40 AM NUT TIGHTENER Temperature 36.8 ??C (98.3 ??F) 08/04/2024 10:[address] Respiratory Rate 18 05/07/2024 9:05 AM CDT Oxygen Saturation 97% 08/04/2024 10:40 AM NUT TIGHTENER Inhaled Oxygen Concentration - - Weight 62.1 kg (137 lb) 08/04/2024 10:40 AM NUT TIGHTENER Height 157.5 cm (5' 2 ) 08/04/2024 10:40 AM NUT TIGHTENER Body Mass Index 25.06 08/04/2024 10:40 AM NUT TIGHTENER Plan of Treatment Not on file Medical Devices Implanted Type Area Merchant Seaman Device Identifier Shelf Expiration Date Model / Serial / Lot [employer] [id number] Stent Drug Eluting S [employer] Us Mr [id number] - [id number] - [id number] Implanted:Qty: 1 on 11/23/2020 by Marisol Kenney MD at [facility] Stent [employer] 07/27/2021 [id number] 350 / [id number] / [id number] [employer] [id number] Stent Drug Eluting S [employer] Us Mr [id number] - [id number] - [id number] Implanted:Qty: 1 on 11/23/2020 by Marisol Kenney MD at [facility] [employer]ite 07/25/2021 [id number] 400 / [id number] / [id number] Daig Marguerite/[employer] [id number] Angio-Seal Evolution 8fr .038in Guidewire Bypass Tube Suture - [id number] - [id number] Implanted:Qty: 1 on 11/23/2020 by Marisol Kenney MD at [facility] [employer]uerite 08/25/2021 [id number] / [id number] / [id number] Procedures Procedure Name Priority Date/Time Associated Diagnosis Comments EGFR Routine 04/30/2024 5:34 AM CDT HEMOGLOBIN A1C Routine 04/09/2024 1:00 PM CDT Cellulitis of right foot Type 2 diabetes mellitus with foot ulcer (CODE) (HCC) Diabetic polyneuropathy associated with type 2 diabetes mellitus (CMS/HCC) (HCC) LIPID PANEL Routine 04/09/2024 1:00 PM CDT Essential hypertension Coronary artery disease of [place] artery of [place] heart with stable angina pectoris (HCC) from Last 3 Months or Most Recently Relevant to Health Maintenance Results * (ABNORMAL) eGFR (04/30/2024 5:34 AM CDT) eGFR 37(L) >=60 mL/min/1. 73 m2 Comment: Interpretive Data Reference Interval Normal ?>/= 90 mL/min/1.73m2 Mildly decreased* ? 60 - 89 mL/min/1.73m2 Mildly to moderately decreased ?45 - 59 mL/min/1.73m2 Moderately to severely decreased ??30 - 44 mL/min/1.73m2 Severely decreased ?15 - 29 mL/min/1.73m2 Kidney Failure ?< 15 ??mL/min/1.73m2 *Relative to young adult level Estimated glomerular filtration rate is determined by the 2020 CKD-EPI equation recommended by the National Kidney Foundation (A Unifying Approach to GFR Estimation: Recommendations of the NKF-ASK Task Force on Reassessing the Inclusion of Race in Diagnosing Kidney Disease, JASN 2020). The CKD-EPI equation should not be used for patients with unstable renal function and has not been validated in children and those over 70. Current interpretive data was last reviewed 2021. Testing performed by: [facility], [address] [place] [address]., [address] Blood 04/30/2024 5:34 AM CDT 04/30/2024 5:54 AM CDT us Chantelle Kenney MD LAB BLOOD ORDERABLES Final Resu lt [facility] [address] [facility] Department [place] [address] * (ABNORMAL) Hemoglobin A1c (04/09/2024 1:00 PM CDT) Hgb A1C 6.0(H) 4.0 - 5.6 % Estimated Average Glucose 126 mg/dL [facility] Comment: The ADA recommends reporting an estimated Average Glucose (eAG) with all Hemoglobin A1c results using the equation derived from a study of 507 normal and diabetic adults. ??Minority populations were underrepresented and children were not included. ?? (Diabetes Care 2020; 43(S1): S66-S76). ??The eAG is not equivalent to a fasting glucose. Blood 04/09/2024 1:00 PM CDT 04/09/2024 1:49 PM CDT us Mack Espinal DPM LAB BLOOD ORDERABLES Final Result [facility] [address] [facility] Department [place] [address] * (ABNORMAL) Lipid panel (04/09/2024 1:00 PM CDT) Cholesterol 213(H) 30 - 199 mg/dL Comment: Interpretive Data Ages < or = 19 years ??Acceptable: ? <170 mg/dL ??Borderline high: ??170-199 mg/dL ??High: ? >or= 200 mg/dL Ages > or = 20 years ??Desirable: ?<200 mg/dL ??Borderline high: ??200-239 mg/dL ??High: ? >or= 240 mg/dL Literature References: 1. Expert Panel on Integrated Guidelines for Cardiovascular Health and Risk Reduction in Children and Adolescents. Pediatrics 2011;128:S213 2. NCEP Expert Panel. Circulation 2004;110:227 Current Interpretive Data was last revised on 2018. Triglycerides 236(H) <=149 mg/dL [facility] Comment: Interpretive Data Ages < or = 9 years ??Acceptable: ? <75 mg/dL ??Borderline high: ??75-99 mg/dL ??High: ? >or= 100 mg/dL Ages 10 to 20 years ??Acceptable: ? <90 mg/dL ??Borderline high: ??90-129 mg/dL ??High: ? >or= 130 mg/dL Ages > or = 20 years ??Desirable: ?<150 mg/dL ??Borderline high: ??150-199 mg/dL ??High: ? 200-499 mg/dL ?Very high: ?? >or= 499 mg/dL Literature References: 1. Expert Panel on Integrated Guidelines for Cardiovascular Health and Risk Reduction in Children and Adolescents. Pediatrics 2011;128:S213 2. NCEP Expert Panel. Circulation 2004;110:227 Current Interpretive Data was last revised on 2018. HDL 33(L) >=40 mg/dL [facility] Comment: Interpretive Data Ages < or = 19 years ??Acceptable: ? >45 mg/dL ??Borderline low: ?? 40-45 mg/dL ??Low: ? <40 mg/dL Ages > or = 20 years ??Desirable: ?>or= 60 mg/dL ??Low: ? <40 mg/dL Literature References: 1. Expert Panel on Integrated Guidelines for Cardiovascular Health and Risk Reduction in Children and Adolescents. Pediatrics 2011;128:S213 2. NCEP Expert Panel. Circulation 2004;110:227 Current Interpretive Data was last revised on 2018. LDL, calculated 133(H) <=129 mg/dL [facility] Comment: Interpretive Data Ages < or = 19 years ??Acceptable: ? <110 mg/dL ??Borderline high: ??110-129 mg/dL ??High: ?>or= 130 mg/dL Ages > or = 20 years ??Optimal: ? <100 mg/dL ??Near optimal: ?100-129 mg/dL ??Borderline high: ?? 130-159 mg/dL ??High: ?>160 mg/dL Literature References: 1. Expert Panel on Integrated Guidelines for Cardiovascular Health and Risk Reduction in Children and Adolescents. Pediatrics 2011;128:S213 2. NCEP Expert Panel. Circulation 2004;110:227 Current Interpretive Data was last revised on 2018. Non-HDL Cholesterol 180 mg/dL [facility] Comment: Interpretive Data Ages < or = 19 years ??Acceptable: ?<120 mg/dL ??Borderline high: ??120-144 mg/dL ??High: ?>145 mg/dL Ages > or = 20 years ??When triglycerides are >200 mg/dL, Non-HDL cholesterol is a secondary target of ? therapy with treatment goals that are 30 mg/dL greater than the LDL cholesterol target. ? Literature References: 1. Expert Panel on Integrated Guidelines for Cardiovascular Health and Risk Reduction in Children and Adolescents. Pediatrics 2011;128:S213 2. NCEP Expert Panel. Circulation 2004;110:227 Current Interpretive Data was last revised on 2018. Chol/HDL ratio 6 [facility] Blood 04/09/2024 1:00 PM CDT 04/09/2024 1:49 PM CDT us Rodger Gillis MD LAB BLOOD ORDERABLES Final Res ult [facility] [address] [facility] Department of Laboratories [place], [place] [id number] from Last 3 Months or Most Recently Relevant to Health Maintenance Insurance [facility] MDCR HMO REF Advance Directives For more information, please contact: [phone] * Full Code (Latest Code Status on File) Date Activated Date Inactivated Comments 04/28/2024 12:47 AM 04/30/2024 6:19 PM * Full Code Date Activated Date Inactivated Comments 11/23/2020 11:44 AM 11/23/2020 7:58 PM * Full Code Date Activated Date Inactivated Comments 11/16/2020 2:29 PM 11/16/2020 8:07 PM Care Teams Sales Audit Clerk Relationship Specialty Start Date End Date Judah Jeffery MD PCP - General Family Practice 08/10/22
--- OUTSIDE RECORDS SUMMARY | 2024-09-24 03:10 | XMS_ITS | Clinical Summary ---
Author Organization [facility] Address [address] [place] [address] Care Team Providers Care Minor League Baseball Player Name Role Phone Judah Jeffery MD Primary Care Provider [phone] Allergies Active Allergy Reactions Criticality Noted Date [...] 1 tablet (25 mg total) by mouth sales consultant residential manager before breakfast Active metoprolol XL (TOPROL-XL) 50 [...] mouth nightly Active OneTouch Verio Flex meter misc CHECK BLOOD GLUCOSE ONE TIME DAY DIRECTED [...] (11/16/2020): Added automatically from request for surgery [id number] Coronary artery disease of n ative artery of [place] heart with stable angina pectoris 11/03/2020 Overview (11/03/2020): Added automatically from request for surgery [id number] Abnormal EKG 11/03/2020 Overview (11/03/2020): Added automatically from request for surgery [id number] Atherosclerosis of coronary artery 06/03/2016 Obesity with body mass index 30 or greater 05/31 Abnormal cardiovascular stress test 04/24/2016 Two-vessel coronary artery disease 01/11/2013 Simple obesity 11/29/2012 Hypercholesterolemia 11/29/2012 Essential hypertension 11/29/2012 Chest pain 11/28/2012 Encounters Date Type Department Care Team Description 08/04/2024 10:45 AM RADIO STATION ENGINEER Office Visit [facility] Cardiology [address] [facility] [address] [place] [address] Rogder Gillis MD Atherosclerosis of [place] coronary artery of [place] heart without angina pectoris (Primary Dx); Hypercholesterolemia from Last 3 Months Immunizations Name Administration Dates Next Due Influenza, Unspecified 05/26/2020 Pfizer Sars-Cov-2 Bivalent Vaccination (12+ YRS) 05/22/2022 Surgical History Surgery Date Site/Laterality Comments CARDIAC CATHETERIZATION CORONARY STENT PLACEMENT TOTAL HIP ARTHROPLASTY Left TOTAL KNEE ARTHROPLASTY Left HYSTERECTOMY BREAST LUMPECTOMY Bilateral benign Medical History Medical History Date Comments Hyperlipidemia Hypertension Diabetes mellitus (HCC) Coronary artery disease Thyroid disease Family History Medical History Relation Name Comments Cancer Mother Family history of cancer - (Added by TW Conv) Relation Name Status Comments Mother Social History Tobacco Use Types Packs/Day Years Used Date Smoking Tobacco: Never Smokeless Tobacco: Never Tobacco Cessation:Counseling Given: Not Answered [facility] Utilities Answer Date Recorded In the past 12 months has [employer], gas, oil, or water [employer] threatened to shut off services in your [...] 04/29/2024 How often do you attend chur ch or uatsdin services? 1 to 4 times per year 04/29/2024 Do you belong to any clubs o r organizations such as jew groups, unions, fraternal or athletic groups, or [...] any time in the past 12 m [facility], were you homeless or living in a nursing home (including now)? No 04/29/2024 Personal Safety Answer Date Recorded Have you ever been in or are you currently in a harmful physical or emotional relationship or is someone making you feel afraid or unsafe? Denies 04/27/2024 Comments No Sex and Gender Information Value Date Recorded Sex Assigned at Not on file Legal Sex Female 2:52 AM RADIO STATION ENGINEER Gender Identity Not on file Sexual Orientation Not on file Obstetrics History Last Filed Vital Signs Vital Sign Reading Time Taken Comments Blood Pressure 147/78 08/04/2024 10:40 AM RADIO STATION ENGINEER Pulse 70 08/04/2024 10:40 AM RADIO STATION ENGINEER Temperature 36.8 ??C (98.3 ??F) 08/04/2024 10:[address] Respiratory Rate 18 05/07/2024 9:05 AM CDT Oxygen Saturation 97% 08/04/2024 10:40 AM RADIO STATION ENGINEER Inhaled Oxygen Concentration - - Weight 62.1 kg (137 lb) 08/04/2024 10:40 AM RADIO STATION ENGINEER Height 157.5 cm (5' 2 ) 08/04/2024 10:40 AM RADIO STATION ENGINEER Body Mass Index 25.06 08/04/2024 10:40 AM RADIO STATION ENGINEER Plan of Treatment Health Maintenance Due Date Last Done Comments Albumin Creatinine Ratio, Urine 1941 Depression Screening 1941 Osteoporosis Screening-Bone Density Scan 1941 Dilated Eye Exam 1941 Foot Exam 1941 Hepatitis B Screening 1959 Well Visit 65+ 2006 Zoster Vaccine (1 of 2) 07/14/2015 05/19/2015 Covid-19 Vaccine (4 - 2023-2 5 season) 2024 05/22/2022, 10/28/2020, 09/30/2020 Influenza Vaccine (#1) 2024 , 05/26/2020, 06/11/2019, Additional history exists Hemoglobin A1C 10/10/2024 04/09/2024 Lipid Panel 04/09/2025 04/09/2024, 0708/2021, 12/16/2021, Additional history exists Fall Risk Assessment 04/30/2025 04/30/2024 eGFR 04/30/2025 04/30/2024, 090 11/2023, 04/28/2024, Additional history exists DTaP/Tdap/Td Vaccine (3 - Td or Tdap) 02/04/2031 02/04/2021, 02/17/2016 Pneumococcal vaccine 65+ Completed 06/23/2015, 06/26 Medical Devices Implanted Type Area Dealer Sales Rep Device Identifier Shelf Expiration Date Model / Serial / Lot [employer]ite [id number] Stent Drug Eluting S [facility] Mr 3.46j85aq - [id number] - [id number] Implanted:Qty: 1 on 11/23/2020 by Marisol Kenney MD at [facility] Stent [employer] Marguerite 07/27/2021 [id number] 350 / [id number] / [id number] [employer]uer[employer] [id number] Stent Drug Eluting S [employer] Us Mr 4.70q31ug - [id number] - [id number] Implanted:Qty: 1 on 11/23/2020 by Marisol Kenney MD at [facility] [employer]uerite 07/25/2021 [id number] 400 / [id number] / [id number] [employer] Marguerite[employer] [id number] Angio-Seal Evolution 8fr .038in Guidewire Bypass Tube Suture - [id number] - [id number] Implanted:Qty: 1 on 11/23/2020 by Marisol Kenney MD at [facility] [employer] Marguerite 08/25/2021 [id number] / [id number] / [id number] Procedures Procedure Name Priority Date/Time Associated Diagnosis Comments EGFR Routine 04/30/2024 5:34 AM CDT HEMOGLOBIN A1C Routine 04/09/2024 1:00 PM CDT Cellulitis of right foot Type 2 diabetes mellitus with foot ulcer (CODE) (HCC) Diabetic polyneuropathy associated with type 2 diabetes mellitus (CMS/HCC) (HCC) LIPID PANEL Routine 04/09/2024 1:00 PM CDT Essential hypertension Coronary artery disease of [place] artery of [place] heart with stable angina pectoris (HCC) from [...] was last reviewed 2021. Testing performed by: [facility], [address] [place] [address]., [address] Blood 04/30/2024 5:34 AM CDT 04/30/2024 5:54 AM CDT us Chantelle Kenney MD LAB BLOOD ORDERABLES Final Resu lt [facility] [address] [facility] Department [place] [address] * (ABNORMAL) Hemoglobin A1c (04/09/2024 1:00 PM CDT) Hgb A1C 6.0(H) 4.0 - 5.6 % Estimated Average Glucose 126 mg/dL [facility] Comment: The ADA recommends reporting an estimated Average Glucose (eAG) with all Hemoglobin A1c results using the equation derived from a study of 507 normal and diabetic adults. ??Minority populations were underrepresented and children were not included. ?? (Diabetes Care 2020; 43(S1): S66-S76). ??The eAG is not equivalent to a fasting glucose. Blood 04/09/2024 1:00 PM CDT 04/09/2024 1:49 PM CDT us Mack DunbarNya Teddy DPM LAB BLOOD ORDERABLES Final Result [facility] One [facility] Department [place] [address] * (ABNORMAL) Lipid panel (04/09/2024 1:00 PM [...] revised on 2018. HDL 33(L) >=40 mg/dL [facility] Comment: Interpretive Data Ages < or = [...] on 2018. LDL, calculated 133(H) <=129 mg/dL [facility] Comment: Interpretive Data Ages < or = [...] revised on 2018. Non-HDL Cholesterol 180 mg/dL [facility] Comment: Interpretive Data Ages < or = [...] last revised on 2018. Chol/HDL ratio 6 [facility] Blood 04/09/2024 1:00 PM CDT 04/09/2024 1:49 PM CDT us Rodger Gillis MD LAB BLOOD ORDERABLES Final Res ult [facility] [address] [facility] Department [place] [address] from Last 3 Months or Most Recently Relevant to Health Maintenance Insurance [facility] MDCR HMO REF MEDICARE SOLUTIONS MEDICARE SOLUTIONS Advance Directives For more information, please contact: [phone] * Full Code (Latest Code Status on File) Date Activated Date Inactivated Comments 04/28/2024 12:47 AM 04/30/2024 6:19 PM * Full Code Date Activated Date Inactivated Comments 11/23/2020 11:44 AM 11/23/2020 7:58 PM * Full Code Date Activated Date Inactivated Comments 11/16/2020 2:29 PM 11/16/2020 8:07 PM Care Teams Minor League Baseball Player Relationship Specialty Start Date End Date Judah Jeffery MD PCP - General Family Practice 08/10/22
--- OUTSIDE RECORDS SUMMARY | 2024-09-24 03:10 | XMS_ITS | Encounter Summary ---
Author Organization [facility] Address [address] [place] [address]. [place] [address] [place] [address] Care Team Providers Care Pig Machine Operator Helper Name Role Phone Romina Silveira MD Primary Care Provider [phone] Deshawn Ghosh MD Primary Care Pr ovider [facility] Patrick Penny MD Primary Care Provider [phone] Encounter Details Date Type Department Care Team (Late st Contact Info) Description 06/28/2022 Therapy Plan [facility] Outpatient Therapy [place], [place] [id number] Norma Boles, PT [place], [place] [id number] Social History Tobacco Use Types Packs/Day Years Used Date Smoking Tobacco: Never Smokeless Tobacco: Never Alcohol Use Standard Drinks/Week Comments Not Currently [...] on file Sexual Orientation Not on file documented as of this encounter Plan of Treatment Not on file documented as of this encounter Visit Diagnoses Not on filedocumented in this encounter Additional Health Concerns Assessment Noted Time PHQ-9 Depression Total Score: 0 03/27/20 22 8:24 AM CDT documented as of this encounter Care Teams Pig Machine Operator Helper Relationship Specialty Start Date End Date Romina Silveira MD PCP - General INTERNAL MEDICINE 02/08/20 11/29/22 Deshawn Ghosh MD PCP - General FAMILY PRACTICE 11/30/22 01/01/23 Patrick Penny MD [address] [address] PCP - General INTERNAL MEDICINE 01/02/23 02/23/24 documented as of this encounter
--- OUTSIDE RECORDS SUMMARY | 2024-09-24 03:11 | XMS_ITS | Patient Health Summary ---
Author Organization [facility] Address [address] [place] [address] Care Team Providers Care Lens Cutter Name Role Phone Quoc Chino MD Primary Care Provider [phone] Perico Parham MD Unavailable [phone] Note [address] [facility],non-owned Affiliates and Associated Physician Practices is amultiple site organization consisting of ambulatory clinics and hospital sitesin [place], [place], [place] and [place]. This disclosure is being madepursuant to the Care Everywhere program and may not contain all information available regarding this patient. Last updated 18.[facility] Allergies * Adhesive Sensitivity(BREAKS OUT SKIN, SWELLING) * Latex(MOUTH BROKE OUT, SWELLING) Medications * Be aware that medications may not be up to date on this document. Alwaysverify current medications with the patient. * metFORMIN (GLUCOPHAGE) 500 MG tablet Take 500 mg by mouth 2 times daily with morning and evening meal. * gabapentin (NEURONTIN) 800 MG tablet Take 800 mg by mouth 3 times daily. Instructed to take AM of surgery * simvastatin (ZOCOR) 20 MG tablet Take 20 mg by mouth at bedtime. * metoprolol succinate XL 24hr (TOPROL XL) 50 MG tablet Take 50 mg by mouth once daily. Instructed to take AM of surgery * OMEPRAZOLE PO Take 20 mg by mouth once daily after breakfast. Instructed to take AM of surgery * lisinopril (PRINIVIL; ZESTRIL) 10 MG tablet Take 10 mg by mouth once daily after breakfast. * levothyroxine (SYNTHROID) 100 MCG tablet Take 100 mcg by mouth daily before breakfast. Instructed to take AM of surgery * clopidogrel (PLAVIX) 75 MG tablet Take 75 mg by mouth once daily. * isosorbide mononitrate CR 24hr (IMDUR) 30 MG tablet Take 30 mg by mouth once daily. Take am of OR * hydrocodone-acetaminophen (NORCO) 5-325 MG tablet(Started 08/17/2014) Take 1-2 Tabs by mouth every 6 hours as needed for Pain. Active Problems Problem Noted Date Diagnosed Date Knee joint replacement by other means 08/17/2014 Osteoarthrosis involving lower leg 09/26/2012 Immunizations * PNEUMOCOCCAL PPSV23(Given 07/11/2014) Social History Tobacco Use Types Packs/Day Years Used Date Smoking Tobacco: Never Smokeless Tobacco: Never Alcohol Use Standard Drinks/Week Comments No 0 (1 standard drink = 0.6 oz pur e alcohol) Sex and Gender Information Value Date Recorded Sex Assigned at Not on file Gender Identity Not on file Sexual Orientation Not on file Last Filed Vital Signs Vital Sign Reading Time Taken Comments Blood Pressure 140/80 08/09/2014 2:00 PM CLERICAL TRANSCRIBER Pulse 100 08/09/2014 2:00 PM CLERICAL TRANSCRIBER Temperature 36.5 ??C (97.7 ??F) 08/09/2014 2:00 PM CS T Respiratory Rate 18 08/09/2014 2:00 PM CLERICAL TRANSCRIBER Oxygen Saturation 97% 08/09/2014 2:00 PM CLERICAL TRANSCRIBER Inhaled Oxygen Concentration - - Weight 68.9 kg (152 lb) 08/09/2014 2:00 PM CLERICAL TRANSCRIBER Height 157.5 cm (5' 2 ) 08/09/2014 2:00 PM CLERICAL TRANSCRIBER Body Mass Index 27.8 08/09/2014 2:00 PM CLERICAL TRANSCRIBER Medical Devices Implanted Type Area Vehicle Fuel Systems Converter Device Identifier Shelf Expiration Date Model / Serial / Lot Gavin Bone Willard Hv Implanted:Qty: 1 on 07/08/2014 by Perico Parham MD at [facility] Left: [employer] 04/24/2016 [id number] / / [id number] Butn Ruma Arcom Wire Polyeth Xsm 28 X 8 Implanted:Qty: 1 on 07/08/2014 by Perico Parham MD at [facility] Left: [employer] 05/25/2019 [id number] / / [id number] Ins Kn Marilyn Fem Cocr L-Intlok 60.0mm Implanted:Qty: 1 on 07/08/2014 by Perico Parham MD at [facility] Left: [employer] 07/25/2023 [id number] / / [id number] Tibial I Beam Fix Bar 67mm Implanted:Qty: 1 on 07/08/2014 by Perico Parham MD at [facility] Left: [employer] 01/23/2024 [id number] / / [id number] Vangrd Ant Stblzd Brg 10mm X 67mm Implanted:Qty: 1 on 07/08/2014 by Perico Parham MD at [facility] Left: [employer] 06/24/2018 [id number] / / [id number] Procedures * XR KNEE LEFT 3VW(Performed 08/01/2015) Performed for Primary osteoarthritis of left knee * XR KNEE LEFT 3VW(Performed 08/17/2014) Performed for Osteoarthrosis, unspecified whether generalized or localized, lower leg, Aftercare following joint replacement, Knee joint replacement by other means * CARDIAC PROCEDURE ORDER(Performed 07/12/2014) * CARDIAC EKG ORDER(Performed 07/12/2014) * CARDIAC STRESS TEST ORDER(Performed 07/12/2014) * LAB RESULTS ORDER(Performed 07/12/2014) * GLUCOSE - POINT OF CARE(Performed 07/11/2014) * GLUCOSE - POINT OF CARE(Performed 07/10/2014) * GLUCOSE - POINT OF CARE(Performed 07/10/2014) * HGB HCT PANEL(Performed 07/10/2014) * GLUCOSE - POINT OF CARE(Performed 07/09/2014) * GLUCOSE - POINT OF CARE(Performed 07/09/2014) * GLUCOSE - POINT OF CARE(Performed 07/09/2014) * HGB HCT PANEL(Performed 07/09/2014) * ARTHROPLASTY TOTAL KNEE(Performed 07/08/2014) Performed for Osteoarthrosis, unspecified whether generalized or localized, lower leg * GLUCOSE - POINT OF CARE(Performed 07/08/2014) * GLUCOSE - POINT OF CARE(Performed 07/08/2014) * NEURAXIAL BLOCK(Performed 07/08/2014) * GLUCOSE - POINT OF CARE(Performed 07/08/2014) * CULTURE MSSA/MRSA(Performed 06/16/2014) Performed for Preop examination * EKG 12-LEAD(Performed 06/16/2014) Performed for Preop examination * XR KNEE BILAT 3VW(Performed 05/18/2014) Performed for Osteoarthrosis, unspecified whether generalized or localized, lower leg * FIBRILLARIN (U3 STOCKROOM CLERK)(Performed 03/26/2014) * PM/SCL-100 ANTIBODY IGG(Performed 03/26/2014) * RNA POLYMERASE III ANTIBODY IGG(Performed 03/26/2014) * HISTONE ANTIBODY(Performed 03/26/2014) * DNA ANTIBODY DS CRITHIDIA IFA(Performed 03/26/2014) * MPO + PR3 W/ REFLEX ANCA(Performed 03/26/2014) * VITAMIN D 25-HYDROXY D2+D3(Performed 03/26/2014) * LUPUS ERYTHEMATOSUS PANEL(Performed 03/26/2014) * RHEUMATOID ARTHRITIS PANEL(Performed 03/26/2014) * ALDOLASE(Performed 03/26/2014) * THYROGLOBULIN ANTIBODY(Performed 03/26/2014) * THYROID PEROXIDASE ANTIBODY(Performed 03/26/2014) * CENTROMERE B ANTIBODIES(Performed 03/26/2014) * SCLERODERMA 70 (SCL) ANTIBODY(Performed 03/26/2014) * C-REACTIVE PROTEIN(Performed 03/26/2014) * HEPATITIS SCREEN ACUTE(Performed 03/26/2014) * TSH(Performed 03/26/2014) * T4 FREE(Performed 03/26/2014) * URINALYSIS W/MICROSCOPIC REFLEX TO CULTURE(Performed 03/26/2014) * LDH BLOOD(Performed 03/26/2014) * CK BLOOD(Performed 03/26/2014) * COMPREHENSIVE METABOLIC PANEL(Performed 03/26/2014) * ERYTHROCYTE SEDIMENTATION RATE(Performed 03/26/2014) * CBC W AUTO DIFFERENTIAL(Performed 03/26/2014) * CULTURE URINE REFLEXED(Performed 03/26/2014) * CULTURE MSSA/MRSA(Performed 10/28/2012) Performed for Preoperative examination * COMPREHENSIVE METABOLIC PANEL(Performed 10/28/2012) Performed for Preoperative examination * CBC W AUTO DIFFERENTIAL(Performed 10/28/2012) Performed for Preoperative examination * EKG 12-LEAD(Performed 10/28/2012) Performed for Preop examination * XR KNEE LEFT 2VW OR LESS(Performed 09/26/2012) Performed for Pain in joint, lower leg * XR KNEE BILAT STANDING 1VW(Performed 09/26/2012) Performed for Pain in joint, lower leg Results * XR KNEE 3 VW LEFT (08/01/2015 4:29 PM CLERICAL TRANSCRIBER) Only the most recent of2 resultswithin the time period is included. Anatomical Region Laterality Modality Lower Extremity Radiographic Ashely ging Narrative 08/01/2015 5:12 PM CLERICAL TRANSCRIBER Irene Martinez, RT(R) ? 08/01/2015 ??5:12 PM See progress notes for results Perico Parham MD DIAGNOSTIC IMAGING O RDERABLES * CARDIAC PROCEDURE ORDER (07/12/2014 9:22 PM CLERICAL TRANSCRIBER) Narrative 07/12/2014 9:22 PM CLERICAL TRANSCRIBER Ordered by an unspecified provider. Scanned Document CARDIAC SERVICES ORD ERABLES * CARDIAC EKG ORDER (07/12/2014 9:22 PM CLERICAL TRANSCRIBER) Narrative 07/12/2014 9:22 PM CLERICAL TRANSCRIBER Ordered by an unspecified provider. Scanned Document CARDIAC SERVICES ORD ERABLES * LAB RESULTS ORDER (07/12/2014 9:22 PM CLERICAL TRANSCRIBER) Narrative 07/12/2014 9:22 PM CLERICAL TRANSCRIBER Ordered by an unspecified provider. Scanned Document LAB - THERAPEUTIC DR UG MONITORING ORDERABLES * CARDIAC STRESS TEST ORDER (07/12/2014 9:22 PM CLERICAL TRANSCRIBER) Narrative 07/12/2014 9:22 PM CLERICAL TRANSCRIBER Ordered by an unspecified provider. Scanned Document CARDIAC SERVICES ORD ERABLES * (ABNORMAL) GLUCOSE - POINT OF CARE (07/11/2014 7:44 AM CLERICAL TRANSCRIBER) Only the most recent of12 resultswithin the time period is included. Glucose WB/POC 127(H) 70 - 106 mg/dL 07/11/2014 12:12 PM CLERICAL TRANSCRIBER [facility] Blood BLOOD SPECIMEN / Unknown 07/11/2014 7:44 AM CLERICAL TRANSCRIBER 07/11/2014 12:12 PM CLERICAL TRANSCRIBER Perico Parham MD LAB - POINT OF CARE ORDERABLES Performing Organization Address [facility] de Phone Number [facility] [address] [place] [address] * (ABNORMAL) HGB HCT PANEL (07/10/2014 4:46 AM CLERICAL TRANSCRIBER) Only the most recent of2 resultswithin the time period is included. Hemoglobin 10.7(L) 12.0 - 15.6 gm/dL 07/10/2014 5:03 AM CLERICAL TRANSCRIBER [facility] Hematocrit 30.6(L) 35.9 - 45.5 % 07/10/2014 5:03 AM CLERICAL TRANSCRIBER [facility] Blood BLOOD SPECIMEN / Unknown 07/10/2014 4:46 AM CLERICAL TRANSCRIBER 07/10/2014 4:53 AM CLERICAL TRANSCRIBER Perico Parham MD LAB - HEMATOLOGY ORD ERABLES Performing Organization Address [facility] de Phone Number [facility] [address] [place] [address] * NEURAXIAL BLOCK (07/08/2014 10:51 AM CLERICAL TRANSCRIBER) Narrative Summer Cotton APRN-CRNA - 07/08/2014 10:51 AM CLERICAL TRANSCRIBER ANA Lee ? 07/08/2014 10:51 AM NEURAXIAL BLOCK Patient Location: ??OR Pre Procedure Indication: ??at patient's request and at surgeon's request Anticoagulation /Antithrombosis Status Confirmed: Yes Preanesthetic Checklist: ??patient identified, IV checked, site marked, risks and benefits discussed, surgical consent verified, monitors and equipment checked, pre-op evaluation done, timeout performed, informed consent obtained and questions answered / anesthesia plan accepted Monitors: ??BP, Pulse Ox, EKG and ETCO2 Patient Condition: ??sedated, meaningful contact maintained Patient Position: ??sitting Procedure Block Performed: ??spinal Prep: ??Betadine Sterile Field: ??sterile gloves, sterile field established, cap/hat and mask Approach: ??midline Skin Numbed with: ??lidocaine 1% Spinal Needle Type: ??Quincke Needle Gauge: ??25 G Needle Length: ??5 in Placement Site: ??L3-4 CSF: ??free flow Local Anesthetic: ??bupivacaine 0.75% in dextrose 2 Spinal Additive: ?fentanyl 0.5 ? Events CSF return injection not painful no paresthesia no other event Degree of Difficulty: ??none Position Post Procedure: ??supine Vital signs monitored and stable throughout. ??See Anesthesia Intraop record for details. Block Start Time: ??07/08/2014 10:28 AM Block End Time: ??07/08/2014 10:32 AM Block Performed by: ??Samir Churchill RRNA Summer Cotton HUMAN RESOURCES CONSULTANT-DIRECTOR OF REHABILITATION AND WELLNESS GENERAL ANESTHE PATRICK ORDERABLES * CULTURE MSSA/MRSA (06/16/2014 8:20 AM CDT) Only the most recent of2 resultswithin the time period is included. Culture Negative for MRSA/MSSA MOHAMUD 06/17/2014 2:12 PM CDT [facility] Microbiology SPECIMEN FROM NASAL FOSSAE / Unknown 06/16/2014 8:20 AM CDT 06/16/2014 10:09 AM CDT Perico Parham MD LAB - MICROBIOLOGY O RDERABLES [facility] [address] [facility] [address] [facility] * EKG 12-LEAD (06/16/2014 7:17 AM CDT) Only the most recent of2 resultswithin the time period is included. Ventricular Rate 72 BPM [facility] Atrial Rate 72 BPM [facility] P-R Interval 154 ms [facility] QRS Duration ms 80 ms [facility] Q-T Interval ms 410 ms [facility] QTC Calculation (Bezet) 448 ms [facility] Calculated P [place] 40 degrees [facility] Calculated R [place] -10 degrees [facility] Calculated T [place] 8 degrees [facility] Interpretation EKG Normal sinus rhythm Possible Left atrial enlargement Left ventricular hypertrophy Inferior infarct , age undetermined Abnormal ECG When compared with ECG of 28-OCT-2012 15:48, Inferior infarct is now Present Confirmed by MARIA R HASSAN, LENORE ([id number]) on 06/16/2014 2:38:14 PM [facility] M[facility] 06/16/2014 7:17 AM CDT 06/16/2014 2:38 PM CDT Perico Parham MD ECG ORDERABLES Performing Organization Address [facility] Co de Phone Number [facility] * XR KNEE BILAT 3 VIEWS (05/18/2014 4:04 PM CDT) Anatomical Region Laterality Modality Lower Extremity Radiographic Ashely ging Narrative 05/18/2014 4:10 PM CDT Irene Martinez, RT(R) ? 05/18/2014 ??4:10 PM See progress notes for results Perico Parham MD DIAGNOSTIC IMAGING O RDERABLES * ANCA SCREEN W/ REFLX MPO+PR3+TITER (03/26/2014 9:13 AM CDT) ANCA Screen Negative Negative [facility] Comment: ANCA Screen includes evaluation for p-ANCA, c-ANCA, and atypical p-ANCA. REPORT COMMENT: SPECIMEN TYPE->URINE FASTING Test Performed at: [facility] [address] ??[phone] CHAPIS STAPLETON MD 03/26/2014 9:13 AM CDT 03/26/2014 9:14 AM CDT Javier Li MD LAB - CHEMISTRY DORI FRANCIS Performing Organization Address [facility] Co de Phone Number [facility] * VITAMIN D 25-HYDROXY D2+D3 BY TANDEM MASS (03/26/2014 9:13 AM CDT) Vitamin D, 25 Hydroxy Total 37 30 - 100 ng/mL [facility] Comment: 25-OHD3 indicates both endogenous production and supplementation. 25-OHD2 is an indicator of exogenous sources, such as diet or supplementation. Therapy is based on measurement of Total 25-OHD, with levels <20 ng/mL indicative of Vitamin D deficiency, while levels between 20 ng/mL and 30 ng/mL suggest insufficiency. Optimal levels are > or = 30 ng/mL. Vitamin D, 25 Hydroxy D3 37 See Below ng/mL [facility] ([facility]) Comment:Reference Range: Not established Vitamin D, 25 Hydroxy D2 <4 See Below ng/mL [facility] ([facility]) Comment: Reference Range: Not established REPORT COMMENT: SPECIMEN TYPE->URINE FASTING Test Performed at: [facility] [address] [place], [place] ??[address] TAYLOR MCNEIL MD,[facility] Blood specimen (specimen) BLOOD SPECIMEN / Unknown 03/26/2014 9:13 AM CDT 03/26/2014 9:14 AM CDT Javier Li MD LAB - CHEMISTRY DORI FRANCIS Performing Organization Address [facility] de Phone Number [facility] ([facility]) * DNA ANTIBODY DS CRITHIDIA IFA (03/26/2014 9:13 AM CDT) dsDNA Antibody Crithidia IFA NEGATIVE NEGATIVE [facility] ([facility]) Comment: This test was developed and its performance characteristics have been determined by [employer] [facility]. It has not been cleared or approved by the U.S. Food and Drug Administration. The FDA has determined that such clearance or approval is not necessary. Performance characteristics refer to the analytical performance of the test. dsDNA Antibody Crithidia Titer TNP-Reflex testing not required. [facility] ([facility]) Comment: REPORT COMMENT: SPECIMEN TYPE->URINE FASTING Test Performed at: [facility] [address] [place], [place] ??[phone] ROSA MARTINEZ MD PHD 03/26/2014 9:13 AM CDT 03/26/2014 9:14 AM CDT Javier Li MD LAB - SEROLOGY SWETHA PIPPA Performing Organization Address [facility] Co de Phone Number [facility] ([facility]) * CENTROMERE B ANTIBODIES (03/26/2014 9:13 AM CDT) Centromere B Antibody <1.0 NEG <1.0 NEG AI [facility] ([facility]) Comment: Test Performed at: [facility] [address] [place], [place] ??[phone] PERICO TAYLOR DO,MPH Blood specimen (specimen) BLOOD SPECIMEN / Unknown 03/26/2014 9:13 AM CDT 03/26/2014 9:14 AM CDT Javier Li MD LAB - SEROLOGY ORDER PIPPA [facility]) * RNA POLYMERASE III ANTIBODY IGG (03/26/2014 9:13 AM CDT) Pathologist [facility] RNA Polymerase III Antibody <20 <20 Units [facility]) Comment: REPORT COMMENT: SPECIMEN TYPE->URINE FASTING Test Performed at: [facility] [address] [place], [place] ??[address] ROSA MARTINEZ MD PHD Blood specimen (specimen) BLOOD SPECIMEN / Unknown 03/26/2014 9:13 AM CDT 03/26/2014 9:14 AM CDT Javier Li MD LAB - SEROLOGY ORDER PIPPA Performing Organization Address [facility]/ZIP Co de Phone Number [facility]) * FIBRILLARIN (U3 STOCKROOM CLERK) (03/26/2014 9:13 AM CDT) [facility] Fibrillarin (U3 STOCKROOM CLERK) NEGATIVE [facility]) Comment: These tests were developed and their performance characteristics validated by [facility]. The FDA has determined that approval for this test is not necessary. This is an Analyte Specific Reagent (ASR) test. REPORT COMMENT: SPECIMEN TYPE->URINE FASTING Test Performed at: [facility] [address] [place], [place] ??[address] FRANKIE GILL MD ?? 03/26/2014 9:13 AM CDT 03/26/2014 9:14 AM CDT Javier Li MD LAB - CHEMISTRY DORI FRANCIS Performing Organization Address City/[facility]/ZIP Co de Phone Number [facility]) * CULTURE URINE REFLEXED (03/26/2014 9:13 AM CDT) [facility] Culture Urine Comprehensive NO CULTURE INDICATED [facility]) Comment: Test Performed at: [facility] [address] [place], [place] ??[address] PERICO TAYLOR DO,MPH 03/26/2014 9:13 AM CDT 03/26/2014 9:14 AM CDT Javier Li MD LAB - MICROBIOLOGY O RDERABLES Performing Organization Address [facility] Co de Phone Number [facility] * (ABNORMAL) URINALYSIS W/MICROSCOPIC REFLEX TO CULTURE (03/26/2014 9:13 AM CDT) Pathologist [facility] Color UA YELLOW YELLOW [facility]) Appearance CLOUDY(A) CLEAR [facility]) Specific [place] UA 1.017 1.001 - 1.035 [facility] pH Urine 6.0 5.0 - 8.0 [facility] Glucose UA NEGATIVE NEGATIVE [facility]) Bilirubin UA NEGATIVE NEGATIVE [facility]) Ketone UA NEGATIVE NEGATIVE [facility]) Occult Blood 1+(A) NEGATIVE [facility]) Protein UA NEGATIVE NEGATIVE [facility]) Nitrite UA POSITIVE(A) NEGATIVE [facility]) Leukocyte Esterase NEGATIVE NEGATIVE [facility]) WBC Urine 0-5 < OR = 5 /HPF [facility] RBC Urine NONE SEEN < OR = 3 /HPF [facility]) Squamous Epithelial Cells UA 0-5 < OR = 5 /HPF [facility]) Bacteria UA MANY(A) NONE SEEN /HPF [facility]) Hyaline Casts UA NONE SEEN NONE SEEN /LPF [facility]) Comment: REPORT COMMENT: SPECIMEN TYPE->URINE FASTING Test Performed at: [facility] [address] [place], [place] ??[phone] PERICO TAYLOR DO,MPH Urine specimen (specimen) 03/26/2014 9:13 AM CDT 03/26/2014 9:14 AM CDT Narrative [facility]) - 03/27/2014 6:00 AM CDT Specimen Type->Urine Javier Li MD LAB - URINALYSIS ORD ERABLES Performing Organization Address [facility] de Phone Number [facility] * LUPUS ERYTHEMATOSUS PANEL (03/26/2014 9:13 AM CDT) SUSU Screen NEGATIVE NEGATIVE [facility] ([facility]) Comment: REPORT COMMENT: SPECIMEN TYPE->URINE FASTING Test Performed at: [facility] [address] [place], [place] ??[phone] PERICO TAYLOR DO,MPH 03/26/2014 9:13 AM CDT 03/26/2014 9:14 AM CDT Javier Li MD LAB - SEROLOGY ORDER PIPPA Performing Organization Address [facility] Phone Number [facility] * C-REACTIVE PROTEIN (03/26/2014 9:13 AM CDT) Pathologist [facility] C-Reactive Protein <0.10 <0.80 mg/dL [facility] ([facility]) Comment: Please be advised that patients taking Carboxypenicillins may exhibit falsely decreased C-Reactive Protein levels due to an analytical interference in this assay. REPORT COMMENT: SPECIMEN TYPE->URINE FASTING Test Performed at: [facility] [address] [place], [place] ??[phone] PERICO TAYLOR DO,MPH Blood specimen (specimen) BLOOD SPECIMEN / Unknown 03/26/2014 9:13 AM CDT 03/26/2014 9:14 AM CDT Javier Li MD LAB - CHEMISTRY ORDE RABLES Performing Organization Address [facility] de Phone Number [facility] * (ABNORMAL) THYROID PEROXIDASE ANTIBODY (03/26/2014 9:13 AM CDT) Thyroid Peroxidase TPO Antibody 32(H) <9 IU/mL [facility] ([facility]) Comment: REPORT COMMENT: SPECIMEN TYPE->URINE FASTING Test Performed at: [facility] [address] [place], [place] ??[address] PERICO TAYLOR DO,MPH Blood specimen (specimen) BLOOD SPECIMEN / Unknown 03/26/2014 9:13 AM CDT 03/26/2014 9:14 AM CDT Javier Li MD LAB - CHEMISTRY DORI FRANCIS Performing Organization Address [facility] de Phone Number [facility] * (ABNORMAL) THYROGLOBULIN ANTIBODY (03/26/2014 9:13 AM CDT) Thyroglobulin Antibody 2(H) < or = 1 IU/mL [facility]) Comment: Test Performed at: [facility] ??[phone] PERICO TAYLOR DO,MPH Blood specimen (specimen) BLOOD SPECIMEN / Unknown 03/26/2014 9:13 AM CDT 03/26/2014 9:14 AM CDT Javier Li MD LAB - CHEMISTRY DORI FRANCIS Performing Organization Address [facility] de Phone Number [facility] * PM/SCL-100 ANTIBODY IGG (03/26/2014 9:13 AM CDT) Pathologist [facility] PM/Scl Antibody NEGATIVE NEGATIVE [facility]) Comment: This test was developed and its performance characteristics have been determined by [employer] [facility]. Performance characteristics refer to the analytical performance of the test. REPORT COMMENT: SPECIMEN TYPE->URINE FASTING Test Performed at: [facility] [address] [place], [place] ??[phone] ROSA MARTINEZ MD PHD 03/26/2014 9:13 AM CDT 03/26/2014 9:14 AM CDT Javier Li MD LAB - SEROLOGY ORDER PIPPA Performing Organization Address [facility] de Phone Number [facility] * HISTONE ANTIBODY (03/26/2014 9:13 AM CDT) Histone Antibody <1.0 <1.0 U [facility]) Comment: REFERENCE RANGE: ? <1.0 ? Negative ?1.0 to 1.5 ?Weak Positive ?1.6 to 2.5 ?Moderate Positive ?>2.5 ?Strong Positive ? REPORT COMMENT: SPECIMEN TYPE->URINE FASTING Test Performed at: [facility] & Away/[address] ??[phone] CHAPIS STAPLETON MD 03/26/2014 9:13 AM CDT 03/26/2014 9:14 AM CDT Javier Li MD LAB - CHEMISTRY DORI FRANCIS Performing Organization Address [facility] de Phone Number [facility] * SCLERODERMA 70 (SCL) ANTIBODY (03/26/2014 9:13 AM CDT) KELLIE SCL-70 Antibody <1.0 NEG <1.0 NEG AI [facility]) Comment: Test Performed at: [facility] [address] [place], [place] ??[phone] PERICO TAYLOR DO,MPH Blood specimen (specimen) BLOOD SPECIMEN / Unknown 03/26/2014 9:13 AM CDT 03/26/2014 9:14 AM CDT Javier Li MD LAB - CHEMISTRY DORI FRANCIS Performing Organization Address [facility] de Phone Number [facility] * ALDOLASE (03/26/2014 9:13 AM CDT) Aldolase 4.0 < OR = 8.1 U/L [facility] Comment: REPORT COMMENT: SPECIMEN TYPE->URINE FASTING Test Performed at: [facility] [place] [address] [place], [place] ??[address] PERICO TAYLOR DO,MPH Blood specimen (specimen) BLOOD SPECIMEN / Unknown 03/26/2014 9:13 AM CDT 03/26/2014 9:14 AM CDT Javier Li MD LAB - CHEMISTRY DORI FRANCIS Performing Organization Address [facility] de Phone Number [facility] ([facility]) * RHEUMATOID ARTHRITIS PANEL (03/26/2014 9:13 AM CDT) Pathologist [facility] Cyclic Citrullinated Peptide Antibody <16 UNITS [facility]) Comment: Reference Range Negative: ?<20 Weak Positive: ? 20-39 Moderate Positive: ?? 40-59 Strong Positive: ? >59 Interpretation These serologic results may be found in 10-20% of patients with polyarthritis that is [facility] Interpretation clinically and radiologically indistinguishable from RA. [facility] Comment: REPORT COMMENT: SPECIMEN TYPE->URINE FASTING Test Performed at: [facility] [address] ??[phone] PERICO TAYLOR DO,MPH 03/26/2014 9:13 AM CDT 03/26/2014 9:14 AM CDT Javier Li MD LAB - SEROLOGY ORDER PIPPA Performing Organization Address [facility] de Phone Number [facility] * (ABNORMAL) ERYTHROCYTE SEDIMENTATION RATE (03/26/2014 9:13 AM CDT) Pathologist [facility] Erythrocyte Sedimentation Rate Westergren 34(H) < OR = 30 mm/h [facility]) Comment: REPORT COMMENT: SPECIMEN TYPE->URINE FASTING Test Performed at: [facility] ??[phone] SAYDA CLEMENT MD Blood specimen (specimen) BLOOD SPECIMEN / Unknown 03/26/2014 9:13 AM CDT 03/26/2014 9:14 AM CDT Javier Li MD LAB - HEMATOLOGY ORD ERABLES Performing Organization Address City/[facility]/ZIP Co de Phone Number [facility] * CBC W AUTO DIFFERENTIAL (03/26/2014 9:13 AM CDT) Only the most recent of2 resultswithin the time period is included. [facility] WBC 6.5 3.8 - 10.8 Thousand/u L [facility] RBC 4.26 3.80 - 5.10 Million/uL [facility] Hemoglobin 13.4 11.7 - 15.5 g/dL [facility] Hematocrit 39.2 35.0 - 45.0 % [facility] MCV 92.1 80.0 - 100.0 fL [facility] MCH 31.4 27.0 - 33.0 pg [facility] MCHC 34.1 32.0 - 36.0 g/dL [facility] RDW-CV 12.7 11.0 - 15.0 % [facility] Platelet 293 140 - 400 Thousand/u L [facility] Neutrophils Absolute 3,770 1,500 - 7,800 cells/uL [facility]) Lymphocyte Absolute Manual 1,840 850 - 3,900 cells/uL [facility]) Monocytes Absolute 540 200 - 950 cells/uL [facility] Eosinophils Absolute 299 15 - 500 cells/uL [facility]) Basophil Absolute Manual 52 0 - 200 cells/uL [facility] Neutrophils % 58.0 % [facility] Lymphocytes % 28.3 % [facility] Monocytes % 8.3 % [facility] Eosinophils % 4.6 % [facility] Basophil % 0.8 % [facility] Comment: REPORT COMMENT: SPECIMEN TYPE->URINE FASTING Test Performed at: [facility] ??[phone] SAYDA CLEMENT MD Blood specimen (specimen) BLOOD SPECIMEN / Unknown 03/26/2014 9:13 AM CDT 03/26/2014 9:14 AM CDT Javier Li MD LAB - HEMATOLOGY ORD ERABLES [facility] Organization Address City/State/ZIP Co de Phone Number [facility] ([facility]) * (ABNORMAL) COMPREHENSIVE METABOLIC PANEL (03/26/2014 9:13 AM CDT) Only the most recent of2 resultswithin the time period is included. Glucose 118(H) 65 - 99 mg/dL [facility] Comment: ? Fasting reference interval BUN 16 7 - 25 mg/dL [facility]) Creatinine 0.69 0.60 - 0.93 mg/dL [facility] Comment: For patients >49 years of age, the reference limit for Creatinine is approximately 13% higher for people identified as -[place]. eGFR non- 86 > OR = 60 mL/min/1 .73m2 [facility] eGFR 100 > OR = 60 mL/min/1 .73m2 [facility] BUN/Creatinine Ratio NOT APPLICABLE 6 - 22 (calc) [facility] Sodium 139 135 - 146 mmol/L [facility] Potassium 4.6 3.5 - 5.3 mmol/L [facility] Chloride 104 98 - 110 mmol/L [facility] CO2 25 19 - 30 mmol/L [facility] Calcium 9.5 8.6 - 10.4 mg/dL [facility] Protein Total 7.1 6.1 - 8.1 g/dL [facility] Albumin 4.1 3.6 - 5.1 g/dL [facility] Globulin 3.0 1.9 - 3.7 g/dL (calc) [facility] Albumin/Globulin Ratio 1.4 1.0 - 2.5 (calc) [facility] Bilirubin Total 0.9 0.2 - 1.2 mg/dL [facility] Alkaline Phosphatase 54 33 - 130 U/L [facility] AST 17 10 - 35 U/L [facility] ALT 20 6 - 29 U/L [facility] Comment: Test Performed at: [facility] [place] [address] [place], [place] ??[phone] PERICO TAYLOR DO,MPH Blood specimen (specimen) BLOOD SPECIMEN / Unknown 03/26/2014 9:13 AM CDT 03/26/2014 9:14 AM CDT Javier Li MD LAB - CHEMISTRY DORI FRANCIS [facility] Organization Address City/State/ZIP Co de Phone Number [facility] * LDH BLOOD (03/26/2014 9:13 AM CDT) Pathologist [facility] LDH Total 138 120 - 250 U/L [facility]) Comment: Test Performed at: [facility] [address] [place], [place] ??[phone] PERICO TAYLOR DO,MPH Blood specimen (specimen) BLOOD SPECIMEN / Unknown 03/26/2014 9:13 AM CDT 03/26/2014 9:14 AM CDT Javier Li MD LAB - CHEMISTRY DORI FRANCIS Performing Organization Address [facility] de Phone Number [facility] * CK BLOOD (03/26/2014 9:13 AM CDT) [facility] CK Total 41 29 - 143 U/L [facility]) Comment: REPORT COMMENT: SPECIMEN TYPE->URINE FASTING Test Performed at: [facility] [address] ??[phone] PERICO TAYLOR DO,MPH Blood specimen (specimen) BLOOD SPECIMEN / Unknown 03/26/2014 9:13 AM CDT 03/26/2014 9:14 AM CDT Javier Li MD LAB - CHEMISTRY DORI FRANCIS Performing Organization Address [facility] de Phone Number [facility] * TSH (03/26/2014 9:13 AM CDT) [facility] TSH 1.11 0.40 - 4.50 mIU/L [facility]) Comment: REPORT COMMENT: SPECIMEN TYPE->URINE FASTING Test Performed at: [facility] ??[phone] PERICO TAYLOR DO,MPH Blood specimen (specimen) BLOOD SPECIMEN / Unknown 03/26/2014 9:13 AM CDT 03/26/2014 9:14 AM CDT Javier Li MD LAB - CHEMISTRY DORI FRANCIS Performing Organization Address [facility] de Phone Number [facility] * T4 FREE (03/26/2014 9:13 AM CDT) Pathologist [facility] T4 Free 1.8 0.8 - 1.8 ng/dL [facility]) Comment: Test Performed at: [facility] [address] ??[phone] PERICO TAYLOR DO,MPH Blood specimen (specimen) BLOOD SPECIMEN / Unknown 03/26/2014 9:13 AM CDT 03/26/2014 9:14 AM CDT Javier Li MD LAB - CHEMISTRY DORI FRANCIS [facility] * HEPATITIS SCREEN ACUTE (03/26/2014 9:13 AM CDT) [facility] Hepatitis A Virus Antibody IgM NON-REACTI VE NON-REACT ETHAN [facility] Hepatitis B Virus Surface Antigen NON-REACTI VE NON-REACT ETHAN [facility] Hepatitis B Core Virus Antibody IgM NON-REACTI VE NON-REACT ETHAN [facility] Hepatitis C Antibody NON-REACTI VE NON-REACT ETHAN [facility] Signal/Cutoff 0.04 <1.00 [facility] Comment: REPORT COMMENT: SPECIMEN TYPE->URINE FASTING Test Performed at: [facility] [address] ??[phone] PERICO TAYLOR DO,MPH Blood specimen (specimen) BLOOD SPECIMEN / Unknown 03/26/2014 9:13 AM CDT 03/26/2014 9:14 AM CDT Javier Li MD LAB - CHEMISTRY DORI FRANCIS [facility] * XR KNEES AP BILATERAL STANDING (09/26/2012 9:15 AM CLERICAL TRANSCRIBER) Anatomical Region Laterality Modality Lower Extremity Other Narrative 09/26/2012 9:15 AM CLERICAL TRANSCRIBER Evelio Brody RT ? 09/26/2012 ??9:15 AM See progress notes for results Procedure Note Evelio Brody, RT - 09/26/2012 9:15 AM CST See progress notes for results Perico Parham MD DI[facility]NOST[facility] * XR KNEE 1 OR 2 VW LEFT (09/26/2012 9:15 AM CLERICAL TRANSCRIBER) Anatomical Region Laterality Modality Lower Extremity Other Narrative 09/26/2012 9:15 AM CLERICAL TRANSCRIBER Evelio Brody, RT ? 09/26/2012 ??9:15 AM See progress notes for results Procedure Note Evelio Brody, RT - 09/26/2012 9:15 AM CST See progress notes for results Perico Parham MD DI[facility]NOST[facility] [place] Care Teams Lens Cutter Relationship Specialty Start Date End Date Quoc Chino MD [address] [place] [id number] PCP - General Family Medicine 09/26/12 Perico Parham MD [address] [place] [id number] Orthopedic Surgery 09/26/12
--- OUTSIDE RECORDS SUMMARY | 2024-09-24 03:11 | XMS_ITS | Encounter Summary ---
Author Organization [facility] Address [address] [place] [address] Phone Care Team Providers Care Customer Relationship Specialist Name Role Phone Quoc Chino MD Primary Care Provider [phone] Rashawn Silveira MD Primary Care Provider Judah Jeffery MD Primary Care Provider [phone] Encounter Details Date Type Department Care Team (Latest Contact Info) Description 01/06/2019 Orders Only [facility] Scanning, Provider Social History Tobacco Use Types Packs/Day Years Used Date Smoking Tobacco: Never Smokeless Tobacco: Never Comments Unknown Sex and Gender Information Value Date Recorded Sex Assigned at Not on file 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 Gender Identity Not on file Sexual Orientation Not on file documented as of this encounter Plan of Treatment Not on file documented as of this encounter Procedures Procedure Name Priority Date/Time Associated Diagnosis Comments SCAN - LABS 01/06/2019 documented in this encounter Results * SCAN - LABS (01/06/2019) us Provider Scanning Final Result documented in this encounter Visit Diagnoses Not on filedocumented in this encounter Care Teams Customer Relationship Specialist Relationship Specialty Start Date End Date Quoc Chino MD [address] [place] [address] PCP - General 04/10/17 11/02/20 [place] [address] [place] [address] PCP - General Internal Medicine 11/03/20 08/09/22 [place] [address] [place] [address] PCP - General Family Practice 08/10/22 documented as of this encounter
--- OUTSIDE RECORDS SUMMARY | 2024-09-24 03:11 | XMS_ITS | Clinical Summary ---
Author Organization [facility] Address [address], [address] [address] Phone Care Team Providers Care Informatics Specialist Name Role Phone Quoc Chino MD Primary Care Provider [phone] Medications polyethylene glycol (MIRALAX) Powder Use entire 255g bottle with 64oz of clear liquid as directed for colonoscopy prep. 255 g 7 Active Social History Tobacco Use Types Packs/Day Years Used Date Smoking Tobacco: Never Assessed Comments Unknown Sex and Gender Information Value Date Recorded Sex Assigned at Not on file Legal Sex Female 3:15 PM CDT Gender Identity Not on file Sexual Orientation Not on file Plan of Treatment Health Maintenance Due Date Last Done Comments DEXA Bone Density 1940 Hepatitis C Virus (HCV) Screening 1940 TdaP Immunization 1940 Pneumococcal Immunization (5 0+ years) (1 of 1 - PCV) 1991 Zoster Immunization (1 of 2) 1991 Respiratory Syncytial Virus (RSV) Immunization (Adult) (1 - 1-dose 75+ series) 2016 Influenza Immunization (#1) 2024 SARS-COV-2 Immunization ( - 2023- season) 2024 Hepatitis B Immunization Aged Out No longer eligible based on patient's age to complete this topic Meningococcal Immunization (ACWY) Aged Out No longer eligible based on patient's age to complete this topic Rotavirus Immunization Aged Out No lo nger eligible based on patient's age to complete this topic Care Teams Informatics Specialist Relationship Specialty Start Date End Date Quoc Chino MD [address] [place] [address] PCP - General Family Medicine 02/11/17
--- OUTSIDE RECORDS SUMMARY | 2024-09-24 03:11 | XMS_ITS | Referral Summary ---
Author Organization [facility] Address [address] [place] [address] Care Team Providers Care Funeral Professional Name Role Phone Quoc Chino MD Primary Care Provider [phone] Oliver Parham MD Unavailable [phone] Source Comments [facility],non-owned Affiliates and Associated Physician Practices is amultiple site organization consisting of ambulatory clinics and hospital sitesin [place], [place], [place]. This disclosure is being madepursuant to the Care Everywhere program and may not contain all information available regarding this patient. Last updated 18.[facility] Allergies Active Allergy Reactions Criticality Noted Date Comments Adhesive Sensitivity 10/28/2012 BREAKS OUT SKIN, SWELLING Latex 09/26/2012 MOUTH BROKE OUT, SWELLING Medications * Be aware that medications may not be up to date on this document. Alwaysverify current medications with the patient. Medication Sig Dispensed Refills Start Date End Date Status metFORMIN (GLUCOPHAGE) 500 MG tablet Take 500 mg by mouth 2 times daily with morning and evening meal. Active gabapentin (NEURONTIN) 800 MG tablet Take 800 mg by mouth 3 times daily. Instructed to take AM of surgery Active simvastatin (ZOCOR) 20 MG tablet Take 20 mg by mouth at bedtime. Active metoprolol succinate XL 24hr (TOPROL XL) 50 MG tablet Take 50 mg by mouth once daily. Instructed to take AM of surgery Active OMEPRAZOLE PO Take 20 mg by mouth once daily after breakfast. Instructed to take AM of surgery Active lisinopril (PRINIVIL; ZESTRIL) 10 MG tablet Take 10 mg by mouth once daily after breakfast. Active levothyroxine (SYNTHROID) 100 MCG tablet Take 100 mcg by mouth daily before breakfast. Instructed to take AM of surgery Active clopidogrel (PLAVIX) 75 MG tablet Take 75 mg by mouth once daily. Active isosorbide mononitrate CR 24hr (IMDUR) 30 MG tablet Take 30 mg by mouth once daily. Take am of OR Active hydrocodone-acetamino phen (NORCO) 5-325 MG tablet Take 1-2 Tabs by mouth every 6 hours as needed for Pain. 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 No 07/11/2014 Is person blind or have serious difficulty seein g? No 07/11/2014 Does person have serious dif ficulty walking/climbing stairs? No 07/11/2014 Does person have difficulty dressing/bathing? No 07/11/2014 Does person have difficulty doing errands alone? No 07/11/2014 Cognitive Status Response Date of Assessm ent Does person have difficulty concentrating/remembering/making decisions? No 07/11/2014 Plan of Treatment Not on file Medical Devices Implanted Type Area Warning Coordination Meteorologist Device Identifier Shelf Expiration Date Model / Serial / Lot Gavin Bone [place] Hv Implanted:Qty: 1 on 07/08/2014 by Oliver Parham MD at [facility] Left: [employer] 04/24/2016 [id number] / / [id number] Fady Hendrix Arcom Wire Polyeth Xsm 28 X 8 Implanted:Qty: 1 on 07/08/2014 by Oliver Parham MD at [facility] Left: [employer]nee [employer] 05/25/2019 [id number] / / [id number] Ins Kn Vangurd Fem Cocr L-Intlok 60.0mm Implanted:Qty: 1 on 07/08/2014 by Oliver Parham MD at [facility] Left: [employer] 07/25/2023 [id number] / / [id number] Ty Tibial I Beam Fix Bar 67mm Implanted:Qty: 1 on 07/08/2014 by Oliver Parham MD at [facility] Left: [employer] 01/23/2024 [id number] / / [id number] Vanmeird Ant Stblzd Brg 10mm X 67mm Implanted:Qty: 1 on 07/08/2014 by Oliver Parham MD at [facility] Left: [employer] 06/24/2018 [id number] / / [id number] Administered Medications Advance Directives * Full Code (Latest Code Status on File) Date Activated Date Inactivated Comments 07/08/2014 4:09 PM 07/11/2014 11:37 AM Care Teams Funeral Professional Relationship Specialty Start Date End Date Quoc Chino MD [address] [place] [address] PCP - General Family Medicine 09/26/12 Oliver Parham MD [address] [place] [address] Orthopedic Surgery 09/26/12
--- OUTSIDE RECORDS SUMMARY | 2024-09-24 03:11 | XMS_ITS | Clinical Summary ---
Author Organization [facility] Address [address] [place] [address] Care Team Providers Care Sole Tier Name Role Phone Quoc Chino MD Primary Care Provider [phone] Oliver Parham MD Unavailable [phone] Source Comments [facility],non-owned Affiliates and Associated Physician Practices is amultiple site organization consisting of ambulatory clinics and hospital sitesin [place], [place], [place] and [place]. This disclosure is being madepursuant to the Care Everywhere program and may not contain all information available regarding this patient. Last updated 18.[facility] Allergies Active Allergy Reactions Criticality Noted Date [...] Comments Blood Pressure 140/80 08/09/2014 2:00 PM RF MICROWAVE ENGINEER Pulse 100 08/09/2014 2:00 PM RF MICROWAVE ENGINEER Temperature 36.5 ??C (97.7 ??F) 08/09/2014 2:00 PM CS T Respiratory Rate 18 08/09/2014 2:00 PM RF MICROWAVE ENGINEER Oxygen Saturation 97% 08/09/2014 2:00 PM RF MICROWAVE ENGINEER Inhaled Oxygen Concentration - - Weight 68.9 kg (152 lb) 08/09/2014 2:00 PM RF MICROWAVE ENGINEER Height 157.5 cm (5' 2 ) 08/09/2014 2:00 PM RF MICROWAVE ENGINEER Body Mass Index 27.8 08/09/2014 2:00 PM RF MICROWAVE ENGINEER Plan of Treatment Health Maintenance Due Date Last Done Comments BONE DENSITY TESTING 1940 DTAP/TDAP/TD VACCINES (1 - Tdap) 1960 ZOSTER VACCINE (1 of 2) 1991 PNEUMOCOCCAL VACCINE 50+ (2 of 2 - PCV) 07/11/2015 07/11/2014 Respiratory Syncytial Virus (RSV) Vaccine Pt: or over 60 yrs (1 - 1-dose 75+ series) 2016 COVID-19 VACCINE ( - season) 2024 05/22/2022, 10/28/2020, 09/30/2020 INFLUENZA VACCINE (#1) 2024 , 05/26/2020, 06/11/2019, Additional history exists DEPRESSION SCREENING 08/26/2024 HEPATITIS B VACCINE Aged Out No longe r eligible based on patient's age to complete this topic HIB VACCINE Aged Out No longer eligi ble based on patient's age to complete this topic HPV VACCINE Aged Out No longer eligi ble based on patient's age to complete this topic MENINGOCOCCAL (Group B) VACCINE Aged Out No longer eligible based on patient's age to complete this topic MENINGOCOCCAL VACCINE Aged Out No stanley krzysztof eligible based on patient's age to complete this topic Medical Devices Implanted Type Area Complaint Specialist Device Identifier Shelf Expiration Date Model / Serial / Lot Gavin Bone [place] Hv Implanted:Qty: 1 on 07/08/2014 by Oliver Parham MD at [facility] Left: [employer]nee [employer] 04/24/2016 [id number] / / [id number] Fady Hendrix Arcom Wire Polyeth Xsm 28 X 8 Implanted:Qty: 1 on 07/08/2014 by Oliver Parham MD at [facility] Left: [employer] 05/25/2019 [id number] / / [id number] Ins Kn Vangurd Fem Cocr L-Intlok 60.0mm Implanted:Qty: 1 on 07/08/2014 by Oliver Parham MD at [facility] Left: [employer] 07/25/2023 [id number] / / [id number] Ty Tibial I Beam Fix Bar 67mm Implanted:Qty: 1 on 07/08/2014 by Oliver Parham MD at [facility] Left: [employer] 01/23/2024 [id number] / / [id number] Vangrd Ant Stblzd Brg 10mm X 67mm Implanted:Qty: 1 on 07/08/2014 by Oliver Parham MD at [facility] Left: [employer] 06/24/2018 [id number] / / [id number] Advance Directives * Full Code (Latest Code Status on File) Date Activated Date Inactivated Comments 07/08/2014 4:09 PM 07/11/2014 11:37 AM Care Teams Sole Tier Relationship Specialty Start Date End Date Quoc Chino MD [address] [place] [address] PCP - General Family Medicine 09/26/12 Oliver Parham MD [address] [place] [address] Orthopedic Surgery 09/26/12
[2024-09-24 03:21] VITALS: BP 138/72; PULSE 77; RESP 18; TEMP 35.9; O2SAT 99
--- NOTE | 2024-09-24 03:26 | ED_ITS ---
HPI - SOB/Dyspnea General Chief Complaint: Shortness of Breath/Dyspnea Stated Complaint: throwing up short of breathe Time Seen by Provider: 09/24/24 03:26 Related Data Home Medications ?Medication ?Instructions ?Recorded ?Confirmed ?Last Taken ?Type nitroglycerin 0.4 mg sublingual 0.4 mg sublingual Q5M PRN Chest 09/28/19 06/11/24 Unknown History tablet (Nitrostat) Pain aspirin 81 mg tablet,delayed 81 mg PO HS 02/05/21 06/11/24 Unknown History release (Jocelyn Low Dose Aspirin) doxycycline hyclate 100 mg capsule mg PO 07/16/24 Unknown History Allergies Allergy/AdvReac Type Severity Reaction Status Date / Time adhesive tape Allergy Severe BLISTERS/SKIN Verified 07/16/24 11:18 TEARS latex Allergy Severe Anaphylaxis Verified 07/16/24 11:18 [facility] Past Medical History Medical History BMI 27.0-27.9,adult Borderline diabetes Coronary artery disease Diabetic ulcer of right foot located base 3rd toe Dyspepsia Dystrophic nail Early satiety Encounter for postoperative care Foot ulcer, right Hyperlipidemia Hypertension Nausea Peripheral neuropathy Postoperative wound dehiscence Sesamoiditis of right foot Urinary frequency Surgical History Surgical History H/O colonoscopy H/O heart artery stent H/O tooth extraction H/O: hysterectomy History of breast surgery History of hip replacement History of knee replacement Family History Family History Mother Family history of pancreatic cancer Heart disease Grandparent Diabetes mellitus Father Diabetes mellitus Hypertension Family history of cardiovascular disease Family history of chronic obstructive pulmonary disease Sibling No problems noted. Other Family history of elevated blood lipids Social History Social History Social History: Lives with her , daughter and son-in-law. Son-in-law has dementia and they are helping the daughter care for him. She is a lifelong nonsmoker. No alcohol or drug use. She is a full code. She nominates her to be the individual would make medical decisions for her if she is unable Smoking status: Never smoker Second hand tobacco smoke exposure: Yes Alcohol intake: current Substance use: never Substance use type: does not use Do You Feel Safe in your Home?: Yes Lack of Transportation: No Lack of Food: Never True Current Housing: I Have Housing Concerned About Future Housing: No Difficulty Paying Gas/Electric Bills: No Difficulty Paying for Meds: No Currently Unemployed: No Education: High School Diploma/GED Difficulty w/ Childcare or Family Care: No Living arrangements: with family Occupation/Education: retired 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[employer] Gender identity (if verbalized by the patient): Female Sexual Orientation (if Verbalized by the Patient): Straight or Heterosexual Spiritual care concerns: No Agree to blood products: Yes Course Vital Signs Vital signs: Vital Signs Temperature 35.9 C L 09/24/24 03:21 Pulse Rate 77 09/24/24 03:21 Respiratory Rate 18 09/24/24 03:21 Blood Pressure 138/72 09/24/24 03:21 Pulse Oximetry 99 09/24/24 03:21 Oxygen Delivery Room Air 09/24/24 03:21 Temperature 35.9 C L 09/24/24 03:21 Pulse Rate 77 09/24/24 03:21 Respiratory Rate 18 09/24/24 03:21 Blood Pressure 138/72 09/24/24 03:21 Pulse Oximetry 99 09/24/24 03:21 Oxygen Delivery Room Air 09/24/24 03:21 Discharge Plan Discharge Patient Language: Panamanian Prescriptions: No Action nitroglycerin [Nitrostat] 0.4 mg tablet, sublingual 0.4 mg SUBLINGUAL Q5M PRN (Reason: Chest Pain) Rx Instructions: until response; do not exceed 3 doses per episode cholecalciferol (vitamin D3) 1,250 mcg (50,000 unit) capsule 1,250 mcg PO WEEKLY Qty: 14 1RF doxycycline hyclate 100 mg capsule PO aspirin [Jocelyn Low Dose Aspirin] 81 mg Tablet,Delayed Release (Dr/Ec) 81 mg PO HS gabapentin 300 mg capsule 300 mg PO BID Qty: 60 1RF hydrochlorothiazide 25 mg tablet 25 mg PO DAILY Qty: 90 1RF isosorbide mononitrate 30 mg tablet extended release 24 hr 30 mg PO DAILY Qty: 90 1RF (DME) FreeStyle Lite Strips Strip See Rx Instructions .Route Qty: 100 2RF Rx Instructions: Check blood glucose once daily As directed (DME) OneTouch Verio test strips Strip See Rx Instructions .Route Qty: 100 1RF Rx Instructions: Check daily or as needed. metformin 1,000 mg tablet See Rx Instructions .ROUTE .COMPLEX Qty: 200 2RF Dose Instruction: TAKE 1 TABLET BY MOUTH TWICE DAILY Rx Instructions: TAKE 1 TABLET BY MOUTH TWICE DAILY levothyroxine 25 mcg tablet 25 mcg PO DAILY Qty: 90 1RF (DME) blood-glucose meter [OneTouch Verio Flex meter] Misc See Rx Instructions .Route Qty: 1 0RF Rx Instructions: check blood glucose 1xday As directed escitalopram oxalate 10 mg tablet 10 mg PO DAILY Qty: 90 1RF ondansetron 4 mg tablet,disintegrating See Rx Instructions .ROUTE .COMPLEX Qty: 15 5RF Dose Instruction: DISSOLVE 1 TABLET BY MOUTH THREE TIMES A DAY NEEDED FOR NAUSEA AND VOMITING FOR 5 DAYS Rx Instructions: DISSOLVE 1 TABLET BY MOUTH UP TO TWICE A DAY NEEDED FOR NAUSEA AND VOMITING clopidogrel 75 mg tablet See Rx Instructions .ROUTE .COMPLEX Qty: 100 1RF Dose Instruction: TAKE 1 TABLET BY MOUTH DAILY Rx Instructions: TAKE 1 TABLET BY MOUTH DAILY oxybutynin chloride 5 mg tablet extended release 24hr See Rx Instructions .ROUTE .COMPLEX Qty: 100 1RF Dose Instruction: TAKE 1 TABLET BY MOUTH DAILY Rx Instructions: TAKE 1 TABLET BY MOUTH DAILY rosuvastatin 20 mg tablet See Rx Instructions .ROUTE .COMPLEX Qty: 100 1RF Dose Instruction: TAKE 1 TABLET BY MOUTH DAILY Rx Instructions: TAKE 1 TABLET BY MOUTH DAILY amlodipine 5 mg tablet See Rx Instructions .ROUTE .COMPLEX Qty: 100 1RF Dose Instruction: TAKE 1 TABLET BY MOUTH EVERY MORNING Rx Instructions: TAKE 1 TABLET BY MOUTH EVERY MORNING metoprolol succinate 50 mg tablet extended release 24 hr See Rx Instructions .ROUTE .COMPLEX Qty: 150 1RF Dose Instruction: TAKE 1 AND 1/2 TABLETS BY MOUTH AT BEDTIME Rx Instructions: TAKE 1 AND 1/2 TABLETS BY MOUTH AT BEDTIME losartan 100 mg tablet See Rx Instructions .ROUTE .COMPLEX Qty: 100 1RF Dose Instruction: TAKE 1 TABLET BY MOUTH DAILY Rx Instructions: TAKE 1 TABLET BY MOUTH DAILY Follow-up/Referrals: UNKNOWN,DOCTOR [Primary Care Provider] -
[2024-09-24 03:30] VITALS: BP 136/73; PULSE 82; RESP 14; O2SAT 99
--- NOTE | 2024-09-24 03:30 | PC.NURSE ---
RESTING ON STRETCHER IN ROOM. CLOTHING MAN IN PLACE. CALL LIGHT IN REACH. DENIES ANY NEEDS AT THIS TIME
--- NOTE | 2024-09-24 03:41 | ED_ITS ---
HPI - Nausea/Vomiting/Diarrhea General Chief complaint: Shortness of Breath/Dyspnea Stated complaint: throwing up short of breathe Time Seen by Provider: 09/24/24 03:26 Source: patient Mode of arrival: ambulatory Limitations: no limitations History of Present Illness HPI Narrative: 84-year-old female with a history of hypertension, dyslipidemia, diabetes mellitus with neuropathy, hypothyroidism, CAD status post stents, CKD with a baseline creatinine of 2.4, gallstones presents to the ED with a 1 day history of -- nausea with multiple episodes of vomiting -- diarrhea. no blood or mucus noted no fever or chills. No abdominal pain. No hematemesis or melena MD elicited complaint: nausea, vomiting and diarrhea Onset (ago): day(s) ( 1 day) Description of vomiting: watery Description of diarrhea: watery Associated nausea: Yes Associated abdominal pain: No Exacerbating factors: none Relieving factors: none Associated symptoms: denies other symptoms Related Data Home Medications ?Medication ?Instructions ?Recorded ?Confirmed ?Last Taken ?Type nitroglycerin 0.4 mg sublingual 0.4 mg sublingual Q5M PRN Chest 09/28/19 06/11/24 Unknown History tablet (Nitrostat) Pain aspirin 81 mg tablet,delayed 81 mg PO HS 02/05/21 06/11/24 Unknown History release (Jocelyn Low Dose Aspirin) doxycycline hyclate 100 mg capsule mg PO 07/16/24 Unknown History Allergies Allergy/AdvReac Type Severity Reaction Status Date / Time adhesive tape Allergy Severe BLISTERS/SKIN Verified 07/16/24 11:18 TEARS latex Allergy Severe Anaphylaxis Verified 07/16/24 11:18 Review of Systems 2 Review of Systems: All systems reviewed & are unremarkable except as noted in HPI and below Constitutional: Constitutional: Reports as per HPI and Reports no additional constitutional complaints Eyes: Eyes: Reports as per HPI and Reports no additional eye complaints ENT: Reports system reviewed and no additional complaints, except as documented and Reports as per HPI Cardiovascular: Cardiovascular: Reports as per HPI and Reports no additional cardiovascular complaints Respiratory: Respiratory: Reports as per HPI and Reports no additional respiratory complaints Gastrointestinal: Gastrointestinal: Reports as per HPI, Reports no additional gastrointestinal complaints, Reports diarrhea, Reports nausea and Reports vomiting Genitourinary: Genitourinary: Reports no additional female genitourinary complaints Musculoskeletal: Musculoskeletal: Reports no additional musculoskeletal complaints and Reports as per HPI Integumentary/Breasts: Skin/Breast: Reports system reviewed and no additional complaints, except as docu and Reports as per HPI Neurologic: Reports system reviewed and no additional complaints, except as documented and Reports as per HPI Psychiatric: Psychiatric: Reports no additional psychiatric complaints and Reports as per HPI Endocrine: Endocrine: Reports no additional endocrine complaints and Reports as per HPI Hematologic/Lymphatic: Hematologic/Lymphatic: Reports no additional hematologic/lymphatic complaints and Reports as per HPI Allergic/Immunologic: Allergic/Immunologic: Reports no additional allergic/immunologic complaints and Reports as per HPI [facility] Past Medical History Medical History Dyspepsia Nausea BMI 27.0-27.9,adult Diabetic ulcer of right foot located base 3rd toe Early satiety Dystrophic nail Postoperative wound dehiscence Encounter for postoperative care Sesamoiditis of right foot Urinary frequency Foot ulcer, right Peripheral neuropathy Hyperlipidemia Borderline diabetes Coronary artery disease Hypertension Surgical History Surgical History History of breast surgery H/O heart artery stent History of hip replacement H/O: hysterectomy H/O colonoscopy H/O tooth extraction History of knee replacement Family History Family History Mother Family history of pancreatic cancer Heart disease Grandparent Diabetes mellitus Father Diabetes mellitus Hypertension Family history of cardiovascular disease Family history of chronic obstructive pulmonary disease Sibling No problems noted. Other Family history of elevated blood lipids Social History Social History Social History: Lives with her , daughter and son-in-law. Son-in-law has dementia and they are helping the daughter care for him. She is a lifelong nonsmoker. No alcohol or drug use. She is a full code. She nominates her to be the individual would make medical decisions for her if she is unable Smoking status: Never smoker Second hand tobacco smoke exposure: Yes Alcohol intake: current Substance use: never Substance use type: does not use Do You Feel Safe in your Home?: Yes Lack of Transportation: No Lack of Food: Never True Current Housing: I Have Housing Concerned About Future Housing: No Difficulty Paying Gas/Electric Bills: No Difficulty Paying for Meds: No Currently Unemployed: No Education: High School Diploma/GED Difficulty w/ Childcare or Family Care: No Living arrangements: with family Occupation/Education: retired 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 Blood pressure 138/72. Pulse of 77. Oxygen saturation of 99% on room air. Const: General: no acute distress Orientation/consciousness: patient oriented x3 Limitations: no limitations HENMT: Head: normal to inspection Ears: external ears normal F trudy/Nose/Sinus: Normal external nose present Face and sinus: normal facial exam Mouth: Yes Normal oral and palatal mucosa present Throat: posterior oropharynx normal Eyes: Conjunctivae: conjunctivae normal Cornea: corneas normal Pupils: E qual, round and reactive pupils present EOM: EOMs intact bilaterally D irect Ophthalmoscopy: no photophobia Neck: Neck: normal visual inspection, no lymphadenopathy and no meningeal signs Chest: Chest palpation & inspection: normal inspection of the chest Resp: Effort & Inspection: normal respiratory effort Auscultation: clear to auscultation bilaterally Cardio: Rate: regular rate Rhythm: regular rhythm GI: GI Palp: Yes Soft to palpation Auscultation: normal bowel sounds O ther: No tenderness/ rigidity / rebound. : General: Yes no CVA tenderness Back/Spine/Pelvis: Back: no CVA tenderness Skin: General skin exam: normal color Rashes: no rashes Wounds: no wounds Neuro: General: patient oriented x3, moves all extremities, no meningeal signs, no focal motor deficits and CN's II-XI intact bilaterally Cranial nerves: Yes Nystagmus not present Speech: normal speech Gait exam (Neuro): Normal gait present Extrem: General: normal to inspection and no clubbing, cyanosis or edema Psych: Mental Status: mental status grossly normal Affect: normal affect Attitude: cooperative Course Course Emergency Course: Gastroenteritis CKD with a BUN/creatinine of 31/1.89. Vital Signs Vital signs: Vital Signs Temperature 35.9 C L 09/24/24 03:21 Pulse Rate 77 09/24/24 03:21 Respiratory Rate 18 09/24/24 03:21 Blood Pressure 138/72 09/24/24 03:21 Pulse Oximetry 99 09/24/24 03:21 Oxygen Delivery Room Air 09/24/24 03:21 Temperature 35.9 C L 09/24/24 03:21 Pulse Rate 78 09/24/24 04:15 Respiratory Rate 16 09/24/24 04:15 Blood Pressure 125/68 09/24/24 04:15 Pulse Oximetry 98 09/24/24 04:15 Oxygen Delivery Room Air 09/24/24 04:15 MDM - Nausea/Vomiting/Diarrhea MDM Narrative Medical decision making narrative: Gastroenteritis CKD Differential Diagnosis Differential diagnosis: Likely traveler's diarrhea, food poisoning and gastroenteritis Medical Records Attestation: I reviewed the patient's medical records. Lab Data Attestation: I reviewed the patient's lab results. 09/24/24 03:50 09/24/24 03:50 Labs: Lab Results 09/24/24 09/24/24 Range/Units 03:50 03:57 WBC 5.7 (4.8-10.8) K/mm3 RBC 3.77 L (4.20-5.40) M/mm3 Hgb 11.5 L (11.7-13.8) g/dL Hct 35.4 (35.0-42.0) % MCV 93.9 (78.0-102.0) fL MCH 30.5 (27.0-31.0) pg MCHC 32.5 (32-36) g/dL RDW 12.1 (11.6-14.4) % Plt Count 258 (150-420) K/mm3 MPV 9.8 (9.2-11.8) fl Immature Gran % (Auto) 0.4 H (0.0-0.0) % Neut % (Auto) 60.0 (50.0-70.0) % Lymph % (Auto) 21.8 (18.0-42.0) % [place] % (Auto) 14.8 H (2.0-11.0) % Eos % (Auto) 2.5 (1.0-6.0) % Baso % (Auto) 0.5 (0.0-1.0) % Lymph # (Auto) 1.24 (1.10-4.50) K/mm3 [place] # (Auto) 0.84 (0.10-0.90) K/mm3 Eos # (Auto) 0.14 (0.02-0.50) K/mm3 Baso # (Auto) 0.03 (0.00-0.10) K/mm3 Abs Immat Gran (auto) 0.02 H (0.00-0.00) K/mm3 Absolute Neuts (auto) 3.42 (1.70-7.20) K/mm3 Absolute Nucleated RBC 0.00 (0.00-0.00) K/mm3 Nucleated RBC % 0.0 (0-0.0) % Sodium 137 (136-145) mmol/L Potassium 3.7 (3.5-5.1) mmol/L Chloride 101 (98-108) mmol/L Carbon Dioxide 23 (21-32) mmol/L Anion Gap 13 H (4-12) mmol/L BUN 31 H (7-18) mg/dL Creatinine 1.89 H (0.55-1.02) mg/dL Estim Creat Clear Calc 16 ml/min Estimated GFR 25 L (59 - ) Glucose 115 H (70-99) mg/dL Calculated Osmolality 291 (285-295) mOsm/kg Lactic Acid 1.2 (0.4-2.0) mmol/L Calcium 8.7 (8.5-10.1) mg/dL Total Bilirubin 1.0 (0.00-1.00) mg/dL AST 18 (15-37) U/L ALT 21 (14-59) U/L Alkaline Phosphatase 59 (46-116) U/L Total Protein 7.5 (6.4-8.2) g/dL Albumin 3.7 (3.4-5.0) g/dL Lipase 44 (16-77) U/L Influenza A (RT-PCR) Negative (Negative) Influenza B (RT-PCR) Negative (Negative) RSV (RT-PCR) Negative (Negative) SARS-CoV-2 RNA (RT-PCR) Negative (Negative) Discharge Plan Discharge Clinical Impression: Gastroenteritis CKD (chronic kidney disease) Qualifiers: Chronic kidney disease stage: stage 4 (GFR 15-29) Qualified Code(s): N18.4 - Chronic kidney disease, stage 4 (severe) Patient Disposition: Home, Self-Care Condition: Stable Instructions: Antibiotic Form, Chronic Kidney Disease (ED), Gastroenteritis (ED) Patient Language: Tamazight Prescriptions: New ondansetron HCl 4 mg tablet 4 mg PO Q8H PRN (Reason: nausea and vomiting) 4 Days Qty: 10 0RF No Action nitroglycerin [Nitrostat] 0.4 mg tablet, sublingual 0.4 mg SUBLINGUAL Q5M PRN (Reason: Chest Pain) Rx Instructions: until response; do not exceed 3 doses per episode cholecalciferol (vitamin D3) 1,250 mcg (50,000 unit) capsule 1,250 mcg PO WEEKLY Qty: 14 1RF doxycycline hyclate 100 mg capsule PO aspirin [Jocelyn Low Dose Aspirin] 81 mg Tablet,Delayed Release (Dr/Ec) 81 mg PO HS gabapentin 300 mg capsule 300 mg PO BID Qty: 60 1RF hydrochlorothiazide 25 mg tablet 25 mg PO DAILY Qty: 90 1RF isosorbide mononitrate 30 mg tablet extended release 24 hr 30 mg PO DAILY Qty: 90 1RF (DME) FreeStyle Lite Strips Strip See Rx Instructions .Route Qty: 100 2RF Rx Instructions: Check blood glucose once daily As directed (DME) OneTouch Verio test strips Strip See Rx Instructions .Route Qty: 100 1RF Rx Instructions: Check daily or as needed. metformin 1,000 mg tablet See Rx Instructions .ROUTE .COMPLEX Qty: 200 2RF Dose Instruction: TAKE 1 TABLET BY MOUTH TWICE DAILY Rx Instructions: TAKE 1 TABLET BY MOUTH TWICE DAILY levothyroxine 25 mcg tablet 25 mcg PO DAILY Qty: 90 1RF (DME) blood-glucose meter [OneTouch Verio Flex meter] [facility] See Rx Instructions .Route Qty: 1 0RF Rx Instructions: check blood glucose 1xday As directed escitalopram oxalate 10 mg tablet 10 mg PO DAILY Qty: 90 1RF ondansetron 4 mg tablet,disintegrating See Rx Instructions .ROUTE .COMPLEX Qty: 15 5RF Dose Instruction: DISSOLVE 1 TABLET BY MOUTH THREE TIMES A DAY NEEDED FOR NAUSEA AND VOMITING FOR 5 DAYS Rx Instructions: DISSOLVE 1 TABLET BY MOUTH UP TO TWICE A DAY NEEDED FOR NAUSEA AND VOMITING clopidogrel 75 mg tablet See Rx Instructions .ROUTE .COMPLEX Qty: 100 1RF Dose Instruction: TAKE 1 TABLET BY MOUTH DAILY Rx Instructions: TAKE 1 TABLET BY MOUTH DAILY oxybutynin chloride 5 mg tablet extended release 24hr See Rx Instructions .ROUTE .COMPLEX Qty: 100 1RF Dose Instruction: TAKE 1 TABLET BY MOUTH DAILY Rx Instructions: TAKE 1 TABLET BY MOUTH DAILY rosuvastatin 20 mg tablet See Rx Instructions .ROUTE .COMPLEX Qty: 100 1RF Dose Instruction: TAKE 1 TABLET BY MOUTH DAILY Rx Instructions: TAKE 1 TABLET BY MOUTH DAILY amlodipine 5 mg tablet See Rx Instructions .ROUTE .COMPLEX Qty: 100 1RF Dose Instruction: TAKE 1 TABLET BY MOUTH EVERY MORNING Rx Instructions: TAKE 1 TABLET BY MOUTH EVERY MORNING metoprolol succinate 50 mg tablet extended release 24 hr See Rx Instructions .ROUTE .COMPLEX Qty: 150 1RF Dose Instruction: TAKE 1 AND 1/2 TABLETS BY MOUTH AT BEDTIME Rx Instructions: TAKE 1 AND 1/2 TABLETS BY MOUTH AT BEDTIME losartan 100 mg tablet See Rx Instructions .ROUTE .COMPLEX Qty: 100 1RF Dose Instruction: TAKE 1 TABLET BY MOUTH DAILY Rx Instructions: TAKE 1 TABLET BY MOUTH DAILY Follow-up/Referrals: UNKNOWN,DOCTOR [Primary Care Provider] - Time of Disposition: 04:47
[2024-09-24 04:07] LABS: Basophils Absolute Auto 0.03 K/mm3 (0.00-0.10); Basophils Percent Auto 0.5 % (0.0-1.0); Eosinophils Absolute Auto 0.14 K/mm3 (0.02-0.50); Eosinophils Percent Auto 2.5 % (1.0-6.0); Hematocrit 35.4 % (35.0-42.0); Hemoglobin 11.5 g/dL (11.7-13.8); Immature Granulocyte Absolute 0.02 K/mm3 (0.00-0.00); Immature Granulocyte Percent A 0.4 % (0.0-0.0); Lymphocytes Absolute Auto 1.24 K/mm3 (1.10-4.50); Lymphocytes Percent Auto 21.8 % (18.0-42.0); Mean Corpuscular HGB Conc 32.5 g/dL (32-36); Mean Corpuscular Hemoglobin 30.5 pg (27.0-31.0); Mean Corpuscular Volume 93.9 fL (78.0-102.0); Mean Platelet Volume 9.8 fl (9.2-11.8); Monocytes Absolute Auto 0.84 K/mm3 (0.10-0.90); Monocytes Percent Auto 14.8 % (2.0-11.0); Neutrophils Absolute Auto 3.42 K/mm3 (1.70-7.20); Platelet Count Result 258 K/mm3 (150-420); Red Blood Count 3.77 M/mm3 (4.20-5.40); Red Cell Distribution Width 12.1 % (11.6-14.4); White Blood Count 5.7 K/mm3 (4.8-10.8)
--- OUTSIDE RECORDS SUMMARY | 2024-09-24 04:07 | XMS_ITS | Encounter Summary ---
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 Name Role Phone Quoc Chino MD Primary Care Provider [phone] Rashawn Silveira MD Primary Care Provider Judah Jeffery MD Primary Care Provider [phone] Encounter Details Date Type Department Care Team (Latest Contact Info) Description 01/06/2019 Orders Only [facility] Scanning, Provider Social History Tobacco Use Types Packs/Day Years Used Date Smoking Tobacco: Never Smokeless Tobacco: Never Comments Unknown Sex and Gender Information Value Date Recorded Sex Assigned at Not on file Legal Sex Female 2:52 AM [employer]PER[employer] Gender Identity Not on file Sexual Orientation [...] on filedocumented in this encounter Care Teams Garden Tractor Mechanic Relationship Specialty Start Date End Date Quoc Chino MD [address] [place] [address] PCP - General 04/10/17 11/02/20 [place] [id number] [place] [address] PCP - General Internal Medicine 11/03/20 08/09/22 [place] [id number] [place] [address] PCP - General Family Practice 08/10/22 documented as of this encounter
--- OUTSIDE RECORDS SUMMARY | 2024-09-24 04:07 | XMS_ITS | Patient Health Summary ---
Author Organization [facility] Address [address] [facility] [place] [address] Care Team Providers Care Behavior Specialist Name Role Phone Quoc Chino MD Primary Care Provider [phone] Perico Parham MD Unavailable [phone] Note from [facility],non-owned Affiliates and Associated Physician Practices is amultiple site organization consisting of ambulatory clinics and hospital sitesin [place], [place], [place] and [place]. This disclosure is being madepursuant to the Care Everywhere program and may not contain all information available regarding this patient. Last updated 18.[facility] Allergies * Adhesive Sensitivity(BREAKS OUT SKIN, [...] Comments Blood Pressure 140/80 08/09/2014 2:00 PM SOUND TRUCK OPERATOR Pulse 100 08/09/2014 2:00 PM SOUND TRUCK OPERATOR Temperature 36.5 ??C (97.7 ??F) 08/09/2014 2:00 PM CS T Respiratory Rate 18 08/09/2014 2:00 PM SOUND TRUCK OPERATOR Oxygen Saturation 97% 08/09/2014 2:00 PM SOUND TRUCK OPERATOR Inhaled Oxygen Concentration - - Weight 68.9 kg (152 lb) 08/09/2014 2:00 PM SOUND TRUCK OPERATOR Height 157.5 cm (5' 2 ) 08/09/2014 2:00 PM SOUND TRUCK OPERATOR Body Mass Index 27.8 08/09/2014 2:00 PM SOUND TRUCK OPERATOR Medical Devices Implanted Type Area Javascript Front End Developer Device Identifier Shelf Expiration Date Model / Serial / Lot Gavin Bone Mentone Hv Implanted:Qty: 1 on 07/08/2014 by Perico Parham MD at [facility] Left: [employer] 04/24/2016 [id number] / / [id number] Butn Ruma Arcom Wire Polyeth Xsm 28 X 8 Implanted:Qty: 1 on 07/08/2014 by Perico Parham MD at [facility] Left: [employer] 05/25/2019 [id number] / / [id number] Ins Kn Marilyn Fem Cocr L-Intlok 60.0mm Implanted:Qty: 1 on 07/08/2014 by Perico Parham MD at [facility] Left: [employer] 07/25/2023 [id number] / / [id number] Ty Tibial I Beam Fix Bar 67mm Implanted:Qty: 1 on 07/08/2014 by Perico Parham MD at [facility] Left: [employer] 01/23/2024 [id number] / / [id number] Vangrd Ant Stblzd Brg 10mm X 67mm Implanted:Qty: 1 on 07/08/2014 by Perico Parham MD at [facility] Left: [employer] 06/24/2018 [id number] / / [id number] Procedures * XR KNEE LEFT 3VW(Performed 08/01/2015) [...] or localized, lower leg * FIBRILLARIN (U3 DIRECTOR STYLE)(Performed 03/26/2014) * PM/SCL-100 ANTIBODY IGG(Performed 03/26/2014) * [...] KNEE 3 VW LEFT (08/01/2015 4:29 PM SOUND TRUCK OPERATOR) Only the most recent of2 resultswithin the time period is included. Anatomical Region Laterality Modality Lower Extremity Radiographic Ashely ging Narrative 08/01/2015 5:12 PM SOUND TRUCK OPERATOR Irene Martinez, RT(R) ? 08/01/2015 ??5:12 PM See progress notes for results Perico Parham MD DIAGNOSTIC IMAGING O RDERABLES * CARDIAC PROCEDURE ORDER (07/12/2014 9:22 PM SOUND TRUCK OPERATOR) Narrative 07/12/2014 9:22 PM SOUND TRUCK OPERATOR Ordered by an unspecified provider. Scanned Document CARDIAC SERVICES ORD ERABLES * CARDIAC EKG ORDER (07/12/2014 9:22 PM SOUND TRUCK OPERATOR) Narrative 07/12/2014 9:22 PM SOUND TRUCK OPERATOR Ordered by an unspecified provider. Scanned Document CARDIAC SERVICES ORD ERABLES * LAB RESULTS ORDER (07/12/2014 9:22 PM SOUND TRUCK OPERATOR) Narrative 07/12/2014 9:22 PM SOUND TRUCK OPERATOR Ordered by an unspecified provider. Scanned Document LAB - THERAPEUTIC DR UG MONITORING ORDERABLES * CARDIAC STRESS TEST ORDER (07/12/2014 9:22 PM SOUND TRUCK OPERATOR) Narrative 07/12/2014 9:22 PM SOUND TRUCK OPERATOR Ordered by an unspecified provider. Scanned Document CARDIAC SERVICES ORD ERABLES * (ABNORMAL) GLUCOSE - POINT OF CARE (07/11/2014 7:44 AM SOUND TRUCK OPERATOR) Only the most recent of12 resultswithin the time period is included. Glucose WB/POC 127(H) 70 - 106 mg/dL 07/11/2014 12:12 PM SOUND TRUCK OPERATOR [facility] Blood BLOOD SPECIMEN / Unknown 07/11/2014 7:44 AM SOUND TRUCK OPERATOR 07/11/2014 12:12 PM SOUND TRUCK OPERATOR Perico Parham MD LAB - POINT OF CARE ORDERABLES Performing Organization Address [facility] de Phone Number [facility] [address] [place] [address] * (ABNORMAL) HGB HCT PANEL (07/10/2014 4:46 AM SOUND TRUCK OPERATOR) Only the most recent of2 resultswithin the time period is included. Hemoglobin 10.7(L) 12.0 - 15.6 gm/dL 07/10/2014 5:03 AM SOUND TRUCK OPERATOR [facility] Hematocrit 30.6(L) 35.9 - 45.5 % 07/10/2014 5:03 AM SOUND TRUCK OPERATOR [facility] Blood BLOOD SPECIMEN / Unknown 07/10/2014 4:46 AM SOUND TRUCK OPERATOR 07/10/2014 4:53 AM SOUND TRUCK OPERATOR Perico Parham MD LAB - HEMATOLOGY ORD ERABLES Performing Organization Address [facility] de Phone Number [facility] [address] [place] [address] * NEURAXIAL BLOCK (07/08/2014 10:51 AM SOUND TRUCK OPERATOR) Narrative Summer Cotton APRN-CRNA - 07/08/2014 10:51 AM SOUND TRUCK OPERATOR ANA Lee ? 07/08/2014 10:51 AM NEURAXIAL [...] Performed by: ??Samir Churchill RRNA Summer Cotton CO F[employer] GENER[employer] ANESTHE PATRICK ORDERABLES * CULTURE MSSA/MRSA (06/16/2014 8:20 AM CDT) Only the most recent of2 resultswithin the time period is included. Culture Negative for MRSA/MSSA MOHAMUD 06/17/2014 2:12 PM CDT [facility] MICROBIOLOGY Microbiology SPECIMEN FROM NASAL FOSSAE / Unknown 06/16/2014 8:20 AM CDT 06/16/2014 10:09 AM CDT Perico Parham MD LAB - MICROBIOLOGY O RDERABLES [facility] MICROBIOLOGY [address] [place] * EKG 12-LEAD (06/16/2014 7:17 AM CDT) Only the most recent of2 resultswithin the time period is included. Ventricular Rate 72 BPM [facility] Atrial Rate 72 BPM [facility] P-R Interval 154 ms [facility] QRS Duration ms 80 ms [facility] Q-T Interval ms 410 ms [facility] QTC Calculation (Bezet) 448 ms [facility] Calculated P [place] 40 degrees [facility] Calculated R [place] -10 degrees [facility] Calculated T [place] 8 degrees [facility] Interpretation EKG Normal [...] Parham MD ECG ORDERABLES Performing Organization Address [facility] Co de Phone Number [facility] * [...] AM CDT) ANCA Screen Negative Negative [facility] ([facility]) Comment: ANCA Screen includes evaluation for p-ANCA, c-ANCA, and atypical p-ANCA. REPORT COMMENT: SPECIMEN TYPE->URINE FASTING Test Performed at: [employer] [address] ??[phone] CHAPIS STAPLETON MD 03/26/2014 9:13 AM CDT 03/26/2014 9:14 AM CDT Javier Li MD LAB - CHEMISTRY DORI FRANCIS Performing Organization Address [facility] Co de Phone Number [facility] ([facility]) * VITAMIN D 25-HYDROXY D2+D3 BY TANDEM MASS (03/26/2014 9:13 AM CDT) Vitamin D, 25 Hydroxy Total 37 30 - 100 ng/mL [facility] ([facility]) Comment: 25-OHD3 indicates both endogenous production and [...] 25 Hydroxy D3 37 See Below ng/mL [facility] ([facility]) Comment:Reference Range: Not established Vitamin D, 25 Hydroxy D2 <4 See Below ng/mL [facility] ([facility]) Comment: Reference Range: Not established REPORT COMMENT: SPECIMEN TYPE->URINE FASTING Test Performed at: [employer] [facility] [address] [place], [place] ??[phone] TAYLOR MCNEIL MD,[facility] Blood specimen (specimen) BLOOD SPECIMEN / Unknown 03/26/2014 9:13 AM CDT 03/26/2014 9:14 AM CDT Javier Li MD LAB - CHEMISTRY DORI FRANCIS Performing Organization Address [facility] de Phone Number [facility] ([facility]) * DNA ANTIBODY DS CRITHIDIA IFA (03/26/2014 9:13 AM CDT) dsDNA Antibody Crithidia IFA NEGATIVE NEGATIVE [facility] ([facility]) Comment: This test was developed and its performance characteristics have been determined by [employer] [facility]. It has not been cleared or approved by the U.S. Food and Drug Administration. The FDA has determined that such clearance or approval is not necessary. Performance characteristics refer to the analytical performance of the test. dsDNA Antibody Crithidia Titer TNP-Reflex testing not required. [facility] ([facility]) Comment: REPORT COMMENT: SPECIMEN TYPE->URINE FASTING Test Performed at: [employer]/[facility] [address] [place], [place] ??[address] ROSA MARTINEZ MD PHD 03/26/2014 9:13 AM CDT 03/26/2014 9:14 AM CDT Javier Li MD LAB - SEROLOGY SWETHA PIPPA Performing Organization Address [facility] Co de Phone Number [facility] ([facility]) * CENTROMERE B ANTIBODIES (03/26/2014 9:13 AM CDT) Centromere B Antibody <1.0 NEG <1.0 NEG AI [facility] ([facility]) Comment: Test Performed at: [employer] [facility] [address] [place], [place] ??[address] PERICO TAYLOR DO,MPH Blood specimen (specimen) BLOOD SPECIMEN / Unknown 03/26/2014 9:13 AM CDT 03/26/2014 9:14 AM CDT Javier Li MD LAB - SEROLOGY ORDER PIPPA [facility] ([facility]) * RNA POLYMERASE III ANTIBODY IGG (03/26/2014 9:13 AM CDT) Pathologist [facility] RNA Polymerase III Antibody <20 <20 Units [facility] ([facility]) Comment: REPORT COMMENT: SPECIMEN TYPE->URINE FASTING Test Performed at: [employer] [address] [place], [place] ??[address] ROSA MARTINEZ MD PHD Blood specimen (specimen) BLOOD SPECIMEN / Unknown 03/26/2014 9:13 AM CDT 03/26/2014 9:14 AM CDT Javier Li MD LAB - SEROLOGY ORDER PIPPA Performing Organization Address [facility]/ZIP Co de Phone Number [facility] ([facility]) * FIBRILLARIN (U3 DIRECTOR STYLE) (03/26/2014 9:13 AM CDT) [facility] Fibrillarin (U3 DIRECTOR STYLE) NEGATIVE [facility] ([facility]) Comment: These tests were developed and their performance characteristics validated by [employer]. The FDA has determined that approval for this test is not necessary. This is an Analyte Specific Reagent (ASR) test. REPORT COMMENT: SPECIMEN TYPE->URINE FASTING Test Performed at: [facility] [address] [place], [place] ??[address] FRANKIE GILL MD ?? 03/26/2014 9:13 AM CDT 03/26/2014 9:14 AM CDT Javier Li MD LAB - CHEMISTRY DORI FRANCIS Performing Organization Address City/[facility]/ZIP Co de Phone Number [facility] ([facility]) * CULTURE URINE REFLEXED (03/26/2014 9:13 AM CDT) [facility] Culture Urine Comprehensive NO CULTURE INDICATED [facility] ([facility]) Comment: Test Performed at: [employer] [facility] [address] [place], [place] ??[phone] PERICO TAYLOR DO,MPH 03/26/2014 9:13 AM CDT 03/26/2014 9:14 AM CDT Javier Li MD LAB - MICROBIOLOGY O RDERABLES Performing Organization Address [facility] Co de Phone Number [facility] ([facility]) * (ABNORMAL) URINALYSIS W/MICROSCOPIC REFLEX TO CULTURE (03/26/2014 9:13 AM CDT) Pathologist [facility] Color UA YELLOW YELLOW [facility] ([facility]) Appearance CLOUDY(A) CLEAR [facility] ([facility]) Specific [place] UA 1.017 1.001 - 1.035 [facility] ([facility]) pH Urine 6.0 5.0 - 8.0 [facility] ([facility]) Glucose UA NEGATIVE NEGATIVE [facility] ([facility]) Bilirubin UA NEGATIVE NEGATIVE [facility] ([facility]) Ketone UA NEGATIVE NEGATIVE [facility] ([facility]) Occult Blood 1+(A) NEGATIVE [facility] ([facility]) Protein UA NEGATIVE NEGATIVE [facility] ([facility]) Nitrite UA POSITIVE(A) NEGATIVE [facility] ([facility]) Leukocyte Esterase NEGATIVE NEGATIVE [facility] ([facility]) WBC Urine 0-5 < OR = 5 /HPF [facility] ([facility]) RBC Urine NONE SEEN < OR = 3 /HPF [facility] ([facility]) Squamous Epithelial Cells UA 0-5 < OR = 5 /HPF [facility] ([facility]) Bacteria UA MANY(A) NONE SEEN /HPF [facility] ([facility]) Hyaline Casts UA NONE SEEN NONE SEEN /LPF [facility] ([facility]) Comment: REPORT COMMENT: SPECIMEN TYPE->URINE FASTING Test Performed at: [employer] [facility] [address] [place], [place] ??[address] PERICO TAYLOR DO,MPH Urine specimen (specimen) 03/26/2014 9:13 AM CDT 03/26/2014 9:14 AM CDT Narrative [facility] ([facility]) - 03/27/2014 6:00 AM CDT Specimen Type->Urine Javier Li MD LAB - URINALYSIS ORD ERABLES Performing Organization Address [facility] de Phone Number [facility] ([facility]) * LUPUS ERYTHEMATOSUS PANEL (03/26/2014 9:13 AM CDT) SUSU Screen NEGATIVE NEGATIVE [facility] ([facility]) Comment: REPORT COMMENT: SPECIMEN TYPE->URINE FASTING Test Performed at: [employer] [facility] [address] [place], [place] ??[address] PERICO TAYLOR DO,MPH 03/26/2014 9:13 AM CDT 03/26/2014 9:14 AM CDT Javier Li MD LAB - SEROLOGY ORDER PIPPA Performing Organization Address [facility] Phone Number [facility] ([facility]) * C-REACTIVE PROTEIN (03/26/2014 9:13 AM CDT) Pathologist [facility] C-Reactive Protein <0.10 <0.80 mg/dL [facility] ([facility]) Comment: Please be advised that patients taking Carboxypenicillins may exhibit falsely decreased C-Reactive Protein levels due to an analytical interference in this assay. REPORT COMMENT: SPECIMEN TYPE->URINE FASTING Test Performed at: [employer] [facility] [address] [place], [place] ??[phone] PERICO TAYLOR DO,MPH Blood specimen (specimen) BLOOD SPECIMEN / Unknown 03/26/2014 9:13 AM CDT 03/26/2014 9:14 AM CDT Javier Li MD LAB - CHEMISTRY ORDE RABLES Performing Organization Address [facility] de Phone Number [facility] ([facility]) * (ABNORMAL) THYROID PEROXIDASE ANTIBODY (03/26/2014 9:13 AM CDT) Thyroid Peroxidase TPO Antibody 32(H) <9 IU/mL [facility] ([facility]) Comment: REPORT COMMENT: SPECIMEN TYPE->URINE FASTING Test Performed at: [employer] [facility] [address] [place], [place] ??[phone] PERICO TAYLOR DO,MPH Blood specimen (specimen) BLOOD SPECIMEN / Unknown 03/26/2014 9:13 AM CDT 03/26/2014 9:14 AM CDT Javier Li MD LAB - CHEMISTRY DORI FRANCIS Performing Organization Address [facility] de Phone Number [facility] ([facility]) * (ABNORMAL) THYROGLOBULIN ANTIBODY (03/26/2014 9:13 AM CDT) Thyroglobulin Antibody 2(H) < or = 1 IU/mL [facility] ([facility]) Comment: Test Performed at: [employer] [facility] ??[phone] PERICO TAYLOR DO,MPH Blood specimen (specimen) BLOOD SPECIMEN / Unknown 03/26/2014 9:13 AM CDT 03/26/2014 9:14 AM CDT Javier Li MD LAB - CHEMISTRY DORI FRANCIS Performing Organization Address [facility] de Phone Number [facility] ([facility]) * PM/SCL-100 ANTIBODY IGG (03/26/2014 9:13 AM CDT) Pathologist [facility] PM/Scl Antibody NEGATIVE NEGATIVE [facility] ([facility]) Comment: This test was developed and its performance characteristics have been determined by [employer] [facility]. Performance characteristics refer to the analytical performance of the test. REPORT COMMENT: SPECIMEN TYPE->URINE FASTING Test Performed at: [employer]/[facility] [address] [place], [place] ??[phone] ROSA MARTINEZ MD PHD 03/26/2014 9:13 AM CDT 03/26/2014 9:14 AM CDT Javier Li MD LAB - SEROLOGY ORDER PIPPA Performing Organization Address [facility] de Phone Number [facility] ([facility]) * HISTONE ANTIBODY (03/26/2014 9:13 AM CDT) Histone Antibody <1.0 <1.0 U [facility] ([facility]) Comment: REFERENCE RANGE: ? <1.0 ? Negative ?1.0 to 1.5 ?Weak Positive ?1.6 to 2.5 ?Moderate Positive ?>2.5 ?Strong Positive ? REPORT COMMENT: SPECIMEN TYPE->URINE FASTING Test Performed at: [employer]/[address] ??[phone] CHAPIS STAPLETON MD 03/26/2014 9:13 AM CDT 03/26/2014 9:14 AM CDT Javier Li MD LAB - CHEMISTRY DORI FRANCIS Performing Organization Address [facility] de Phone Number [facility] ([facility]) * SCLERODERMA 70 (SCL) ANTIBODY (03/26/2014 9:13 AM CDT) KELLIE SCL-70 Antibody <1.0 NEG <1.0 NEG AI [facility] ([facility]) Comment: Test Performed at: [employer] [facility] [address] [place], [place] ??[phone] PERICO TAYLOR DO,MPH Blood specimen (specimen) BLOOD SPECIMEN / Unknown 03/26/2014 9:13 AM CDT 03/26/2014 9:14 AM CDT Javier Li MD LAB - CHEMISTRY DORI FRANCIS Performing Organization Address [facility] de Phone Number [facility] ([facility]) * ALDOLASE (03/26/2014 9:13 AM CDT) Aldolase 4.0 < OR = 8.1 U/L [facility] ([facility]) Comment: REPORT COMMENT: SPECIMEN TYPE->URINE FASTING Test Performed at: [employer] [facility] [address] [place], [place] ??[address] PERICO TAYLOR DO,MPH Blood specimen (specimen) BLOOD SPECIMEN / Unknown 03/26/2014 9:13 AM CDT 03/26/2014 9:14 AM CDT Javier Li MD LAB - CHEMISTRY DORI FRANCIS Performing Organization Address [facility] de Phone Number [facility] ([facility]) * RHEUMATOID ARTHRITIS PANEL (03/26/2014 9:13 AM CDT) Pathologist [facility] Cyclic Citrullinated Peptide Antibody <16 UNITS [facility] ([facility]) Comment: Reference Range Negative: ?<20 Weak Positive: ? 20-39 Moderate Positive: ?? 40-59 Strong Positive: ? >59 Interpretation These serologic results may be found in 10-20% of patients with polyarthritis that is [facility]) Interpretation clinically and radiologically indistinguishable from RA. [facility]) Comment: REPORT COMMENT: SPECIMEN TYPE->URINE FASTING Test Performed at: [employer] [address] ??[phone] PERICO TAYLOR DO,MPH 03/26/2014 9:13 AM CDT 03/26/2014 9:14 AM CDT Javier Li MD LAB - SEROLOGY ORDER PIPPA Performing Organization Address [facility] de Phone Number [facility] ([facility]) * (ABNORMAL) ERYTHROCYTE SEDIMENTATION RATE (03/26/2014 9:13 AM CDT) Pathologist [facility] Erythrocyte Sedimentation Rate Westergren 34(H) < OR = 30 mm/h [facility] ([facility]) Comment: REPORT COMMENT: SPECIMEN TYPE->URINE FASTING Test Performed at: [facility] [employer] ??[phone] SAYDA CLEMENT MD Blood specimen (specimen) BLOOD SPECIMEN / Unknown 03/26/2014 9:13 AM CDT 03/26/2014 9:14 AM CDT Javier Li MD LAB - HEMATOLOGY ORD ERABLES Performing Organization Address City/[facility]/ZIP Co de Phone Number [facility] ([facility]) * CBC W AUTO DIFFERENTIAL (03/26/2014 9:13 AM CDT) Only the most recent of2 resultswithin the time period is included. [facility] WBC 6.5 3.8 - 10.8 Thousand/u L [facility] ([facility]) RBC 4.26 3.80 - 5.10 Million/uL [facility] ([facility]) Hemoglobin 13.4 11.7 - 15.5 g/dL [facility] ([facility]) Hematocrit 39.2 35.0 - 45.0 % [facility]) MCV 92.1 80.0 - 100.0 fL [facility] ([facility]) MCH 31.4 27.0 - 33.0 pg [facility] ([facility]) MCHC 34.1 32.0 - 36.0 g/dL [facility] ([facility]) RDW-CV 12.7 11.0 - 15.0 % [facility]) Platelet 293 140 - 400 Thousand/u L [facility] ([facility]) Neutrophils Absolute 3,770 1,500 - 7,800 cells/uL [facility] ([facility]) Lymphocyte Absolute Manual 1,840 850 - 3,900 cells/uL [facility] ([facility]) Monocytes Absolute 540 200 - 950 cells/uL [facility] ([facility]) Eosinophils Absolute 299 15 - 500 cells/uL [facility]) Basophil Absolute Manual 52 0 - 200 cells/uL [facility] ([facility]) Neutrophils % 58.0 % [facility]) Lymphocytes % 28.3 % [facility]) Monocytes % 8.3 % [facility]) Eosinophils % 4.6 % [facility]) Basophil % 0.8 % [facility]) Comment: REPORT COMMENT: SPECIMEN TYPE->URINE FASTING Test Performed at: [facility] [employer] ??[phone] SAYDA CLEMENT MD Blood specimen (specimen) BLOOD SPECIMEN / Unknown 03/26/2014 9:13 AM CDT 03/26/2014 9:14 AM CDT Javier Li MD LAB - HEMATOLOGY ORD ERABLES [facility] Organization Address City/State/ZIP Co de Phone Number [facility] ([facility]) * (ABNORMAL) COMPREHENSIVE METABOLIC PANEL (03/26/2014 9:13 AM CDT) Only the most recent of2 resultswithin the time period is included. Glucose 118(H) 65 - 99 mg/dL [facility] ([facility]) Comment: ? Fasting reference interval BUN 16 7 - 25 mg/dL [facility] ([facility]) Creatinine 0.69 0.60 - 0.93 mg/dL [facility] ([facility]) Comment: For patients >49 years of age, the reference limit for Creatinine is approximately 13% higher for people identified as -Indian. eGFR non- 86 > OR = 60 mL/min/1 .73m2 [facility] ([facility]) eGFR 100 > OR = 60 mL/min/1 .73m2 [facility] ([facility]) BUN/Creatinine Ratio NOT APPLICABLE 6 - 22 (calc) [facility] ([facility]) Sodium 139 135 - 146 mmol/L [facility] ([facility]) Potassium 4.6 3.5 - 5.3 mmol/L [facility] ([facility]) Chloride 104 98 - 110 mmol/L [facility] ([facility]) CO2 25 19 - 30 mmol/L [facility] ([facility]) Calcium 9.5 8.6 - 10.4 mg/dL [facility] ([facility]) Protein Total 7.1 6.1 - 8.1 g/dL [facility] ([facility]) Albumin 4.1 3.6 - 5.1 g/dL [facility] ([facility]) Globulin 3.0 1.9 - 3.7 g/dL (calc) [facility] ([facility]) Albumin/Globulin Ratio 1.4 1.0 - 2.5 (calc) [facility] ([facility]) Bilirubin Total 0.9 0.2 - 1.2 mg/dL [facility] ([facility]) Alkaline Phosphatase 54 33 - 130 U/L [facility] ([facility]) AST 17 10 - 35 U/L [facility] ([facility]) ALT 20 6 - 29 U/L [facility] ([facility]) Comment: Test Performed at: [employer] [facility] [address] [place], [place] ??[phone] PERICO TAYLOR DO,MPH Blood specimen (specimen) BLOOD SPECIMEN / Unknown 03/26/2014 9:13 AM CDT 03/26/2014 9:14 AM CDT Javier Li MD LAB - CHEMISTRY DORI FRANCIS [facility] Organization Address City/State/ZIP Co de Phone Number [facility] ([facility]) * LDH BLOOD (03/26/2014 9:13 AM CDT) Pathologist [facility] LDH Total 138 120 - 250 U/L [facility] ([facility]) Comment: Test Performed at: [employer] [facility] [facility] [place], [place] ??[address] PERICO TAYLOR DO,MPH Blood specimen (specimen) BLOOD SPECIMEN / Unknown 03/26/2014 9:13 AM CDT 03/26/2014 9:14 AM CDT Javier Li MD LAB - CHEMISTRY DORI FRANCIS Performing Organization Address [facility] de Phone Number [facility]) * CK BLOOD (03/26/2014 9:13 AM CDT) [facility] CK Total 41 29 - 143 U/L [facility] ([facility]) Comment: REPORT COMMENT: SPECIMEN TYPE->URINE FASTING Test Performed at: [employer] [address] ??[address] PERICO TAYLOR DO,MPH Blood specimen (specimen) BLOOD SPECIMEN / Unknown 03/26/2014 9:13 AM CDT 03/26/2014 9:14 AM CDT Javier Li MD LAB - CHEMISTRY DORI FRANCIS Performing Organization Address [facility] de Phone Number [facility] ([facility]) * TSH (03/26/2014 9:13 AM CDT) [facility] TSH 1.11 0.40 - 4.50 mIU/L [facility]) Comment: REPORT COMMENT: SPECIMEN TYPE->URINE FASTING Test Performed at: [facility] [employer] [facility] ??[address] PERICO TAYLOR DO,MPH Blood specimen (specimen) BLOOD SPECIMEN / Unknown 03/26/2014 9:13 AM CDT 03/26/2014 9:14 AM CDT Javier Li MD LAB - CHEMISTRY DORI FRANCIS Performing Organization Address [facility] de Phone Number [facility] ([facility]) * T4 FREE (03/26/2014 9:13 AM CDT) Pathologist [facility] T4 Free 1.8 0.8 - 1.8 ng/dL [facility] ([facility]) Comment: Test Performed at: [facility] [address] ??[address] PERICO TAYLOR DO,MPH Blood specimen (specimen) BLOOD SPECIMEN / Unknown 03/26/2014 9:13 AM CDT 03/26/2014 9:14 AM CDT Javier Li MD LAB - CHEMISTRY DORI FRANCIS [facility] * HEPATITIS SCREEN ACUTE (03/26/2014 9:13 AM CDT) [facility] Hepatitis A Virus Antibody IgM NON-REACTI VE NON-REACT ETHAN [facility]) Hepatitis B Virus Surface Antigen NON-REACTI VE NON-REACT ETHAN [facility]) Hepatitis B Core Virus Antibody IgM NON-REACTI VE NON-REACT ETHAN [facility]) Hepatitis C Antibody NON-REACTI VE NON-REACT ETHAN [facility]) Signal/Cutoff 0.04 <1.00 [facility] ([facility]) Comment: REPORT COMMENT: SPECIMEN TYPE->URINE FASTING Test Performed at: [facility] [address] ??[address] PERICO TAYLOR DO,MPH Blood specimen (specimen) BLOOD SPECIMEN / Unknown 03/26/2014 9:13 AM CDT 03/26/2014 9:14 AM CDT Javier Li MD LAB - CHEMISTRY DORI FRANCIS [facility] * XR KNEES AP BILATERAL STANDING (09/26/2012 9:15 AM SOUND TRUCK OPERATOR) Anatomical Region Laterality Modality Lower Extremity Other Narrative 09/26/2012 9:15 AM SOUND TRUCK OPERATOR Evelio Brody RT ? 09/26/2012 ??9:15 AM See progress notes for results Procedure Note Evelio Brody, RT - 09/26/2012 9:15 AM CST See progress notes for results Perico Parham MD DIAGNOSTIC IMAGING [place] * XR KNEE 1 OR 2 VW LEFT (09/26/2012 9:15 AM SOUND TRUCK OPERATOR) Anatomical Region Laterality Modality Lower Extremity Other Narrative 09/26/2012 9:15 AM SOUND TRUCK OPERATOR Evelio Brody, RT ? 09/26/2012 ??9:15 AM See progress notes for results Procedure Note Evelio Brody, RT - 09/26/2012 9:15 AM CST See progress notes for results Perico Parham MD DIAGNOSTIC IMAGING [place] Care Teams Behavior Specialist Relationship Specialty Start Date End Date Quoc Chino MD [address] [place] [id number] PCP - General Family Medicine 09/26/12 Perico Parham MD [address] [place] [id number] Orthopedic Surgery 09/26/12
--- OUTSIDE RECORDS SUMMARY | 2024-09-24 04:07 | XMS_ITS | Clinical Summary ---
Author Organization [facility] Address [address], [address] [address] Phone Care Team Providers Care Portfolio Lead Name Role Phone Quoc Chino MD Primary Care Provider [phone] Medications polyethylene glycol (MIRALAX) Powder Use entire [...] age to complete this topic Care Teams Portfolio Lead Relationship Specialty Start Date End Date Quoc Chino MD [address] [place] [address] PCP - General Family Medicine 02/11/17
--- OUTSIDE RECORDS SUMMARY | 2024-09-24 04:07 | XMS_ITS | Referral Summary ---
Author Organization [facility] Address [address] [place] [address] Care Team Providers Care Payment Rep Name Role Phone Judah Jeffery MD Primary Care Provider [phone] Encounters Date Type Department Care Team Description 08/04/2024 10:45 AM POST PARTUM NURSE Office Visit [facility] Cardiology [address] [place] [address] Rodger Gillis MD Atherosclerosis of [place] coronary artery of [place] heart without angina pectoris (Primary Dx); Hypercholesterolemia [...] 1 tablet (25 mg total) by mouth technical manager before breakfast Active metoprolol XL (TOPROL-XL) [...] mouth nightly Active OneTouch Verio Flex meter [facility] CHECK BLOOD GLUCOSE ONE TIME DAY DIRECTED [...] (11/16/2020): Added automatically from request for surgery [id number] Coronary artery disease of n ative artery of [place] heart with stable angina pectoris 11/03/2020 Overview (11/03/2020): Added automatically from request for surgery [id number] Abnormal EKG 11/03/2020 Overview (11/03/2020): Added automatically from request for surgery [id number] Atherosclerosis of coronary artery 06/03/2016 Obesity with [...] Tobacco: Never Tobacco Cessation:Counseling Given: Not Answered [facility] Utilities Answer Date Recorded In the past 12 months has [employer], [employer], oil, or water Attributor threatened to shut off services in your [...] How often do you attend chur or mandaen services? 1 to 4 times per year 04/29/2024 Do you belong to any clubs o r organizations such as druze groups, unions, fraternal or athletic groups, or [...] any time in the past [address] [facility], were you homeless or living in a usp (including now)? No 04/29/2024 Personal Safety Answer Date Recorded Have you ever been in or are you currently in a harmful physical or emotional relationship or is someone making you feel afraid or unsafe? Denies 04/27/2024 Comments No Sex and Gender Information Value Date Recorded Sex Assigned at Not on file Legal Sex Female 2:52 AM POST PARTUM NURSE Gender Identity Not on file Sexual Orientation Not on file Last Filed Vital Signs Vital Sign Reading Time Taken Comments Blood Pressure 147/78 08/04/2024 10:40 AM POST PARTUM NURSE Pulse 70 08/04/2024 10:40 AM POST PARTUM NURSE Temperature 36.8 ??C (98.3 ??F) 08/04/2024 10:[address] Respiratory Rate 18 05/07/2024 9:05 AM CDT Oxygen Saturation 97% 08/04/2024 10:40 AM POST PARTUM NURSE Inhaled Oxygen Concentration - - Weight 62.1 kg (137 lb) 08/04/2024 10:40 AM POST PARTUM NURSE Height 157.5 cm (5' 2 ) 08/04/2024 10:40 AM POST PARTUM NURSE Body Mass Index 25.06 08/04/2024 10:40 AM POST PARTUM NURSE Plan of Treatment Not on file Medical Devices Implanted Type Area Box Spinner Device Identifier Shelf Expiration Date Model / Serial / Lot [employer] Marguerite [id number] Stent Drug Eluting S Megatron Us Mr 3.59n75vs - [id number] - [id number] Implanted:Qty: 1 on 11/23/2020 by Marisol Kenney MD at [facility] Stent [employer] Marguerite 07/27/2021 [id number] / [id number] / [id number] [employer] Marguerite [id number] Stent Drug Eluting S Megatron Us Mr 4.02y19pm - [id number] - [id number] Implanted:Qty: 1 on 11/23/2020 by Marisol Kenney MD at [facility] [employer] Marguerite 07/25/2021 [id number] 400 / [id number] / [id number] Daig Marguerite/[employer] [id number] Angio-Seal Evolution 8fr .038in Guidewire Bypass Tube Suture - [id number] - [id number] Implanted:Qty: 1 on 11/23/2020 by Marisol Kenney MD at [facility] [employer] Marguerite 08/25/2021 [id number] / [id number] / [id number] Procedures Procedure Name Priority Date/Time Associated Diagnosis Comments EGFR Routine 04/30/2024 5:34 AM CDT HEMOGLOBIN A1C Routine 04/09/2024 1:00 PM CDT Cellulitis of right foot Type 2 diabetes mellitus with foot ulcer (CODE) (HCC) Diabetic polyneuropathy associated with type 2 diabetes mellitus (CMS/HCC) (HCC) LIPID PANEL Routine 04/09/2024 1:00 PM CDT Essential hypertension Coronary artery disease of [place] artery of [place] heart with stable angina pectoris (HCC) from [...] was last reviewed 2021. Testing performed by: [facility], [address] [place] [address]., [id number] Blood 04/30/2024 5:34 AM CDT 04/30/2024 5:54 AM CDT us Chantelle Kenney MD LAB BLOOD ORDERABLES Final Resu lt [facility] [address] [facility] [place] [address] * (ABNORMAL) Hemoglobin A1c (04/09/2024 [...] BLOOD ORDERABLES Final Result [facility] [place] [address] * (ABNORMAL) Lipid panel (04/09/2024 1:00 PM [...] on 2018. HDL 33(L) >=40 mg/dL [facility] Comment: Interpretive Data Ages < or = [...] 2018. LDL, calculated 133(H) <=129 mg/dL [facility] Comment: Interpretive Data Ages < or = [...] on 2018. Non-HDL Cholesterol 180 mg/dL [facility] Comment: Interpretive Data Ages < or = [...] last revised on 2018. Chol/HDL [facility] 6 [facility] Blood 04/09/2024 1:00 PM CDT 04/09/2024 1:49 PM CDT us Rodger Gillis MD LAB BLOOD ORDERABLES Final Res ult [facility] Department of Laboratories [place], [place] [id number] from Last 3 Months or Most Recently Relevant to Health Maintenance Insurance [facility] MDCR HMO REF Advance Directives For more information, please contact: [phone] * Full Code (Latest Code Status on File) Date Activated Date Inactivated Comments 04/28/2024 12:47 AM 04/30/2024 6:19 PM * Full Code Date Activated Date Inactivated Comments 11/23/2020 11:44 AM 11/23/2020 7:58 PM * Full Code Date Activated Date Inactivated Comments 11/16/2020 2:29 PM 11/16/2020 8:07 PM Care Teams Payment Rep Relationship Specialty Start Date End Date Judah Jeffery MD PCP - General Family Practice 08/10/22
--- OUTSIDE RECORDS SUMMARY | 2024-09-24 04:07 | XMS_ITS | Clinical Summary ---
Author Organization [facility] Address [address] [place] [address] Care Team Providers Care Radio Television Technical Director Name Role Phone Quoc Chino MD Primary Care Provider [phone] Oliver Parham MD Unavailable [phone] Source Comments [facility],non-owned Affiliates and Associated Physician Practices is amultiple site organization consisting of ambulatory clinics and hospital sitesin [place], [place], [place] and [place]. This disclosure is being madepursuant to the Care Everywhere program and may not contain all information available regarding this patient. Last updated 18.[facility] Allergies Active Allergy Reactions Criticality [...] Comments Blood Pressure 140/80 08/09/2014 2:00 PM PLUG AND MOLD FINISHER Pulse 100 08/09/2014 2:00 PM PLUG AND MOLD FINISHER Temperature 36.5 ??C (97.7 ??F) 08/09/2014 2:00 PM CS T Respiratory Rate 18 08/09/2014 2:00 PM PLUG AND MOLD FINISHER Oxygen Saturation 97% 08/09/2014 2:00 PM PLUG AND MOLD FINISHER Inhaled Oxygen Concentration - - Weight 68.9 kg (152 lb) 08/09/2014 2:00 PM PLUG AND MOLD FINISHER Height 157.5 cm (5' 2 ) 08/09/2014 2:00 PM PLUG AND MOLD FINISHER Body Mass Index 27.8 08/09/2014 2:00 PM PLUG AND MOLD FINISHER Plan of Treatment Health Maintenance Due Date [...] this topic Medical Devices Implanted Type Area Steel Unloader Device Identifier Shelf Expiration Date Model / Serial / Lot Gavin Bone [place] Hv Implanted:Qty: 1 on 07/08/2014 by Oliver Parham MD at [facility] Left: Knee [employer] 04/24/2016 [id number] / / [id number] Fady Hendrix Arcom Wire Polyeth Xsm 28 X 8 Implanted:Qty: 1 on 07/08/2014 by Oliver Parham MD at [facility] Left: Knee [employer] 05/25/2019 [id number] / / [id number] Ins Kn Vangurd Fem Cocr L-Intlok 60.0mm Implanted:Qty: 1 on 07/08/2014 by Oliver Parham MD at [facility] Left: [employer]nee [employer] 07/25/2023 [id number] / / [id number] Ty Tibial I Beam Fix Bar 67mm Implanted:Qty: 1 on 07/08/2014 by Oliver Parham MD at [facility] Left: [employer] 01/23/2024 [id number] / / [id number] Vangrd Ant Stblzd Brg 10mm X 67mm Implanted:Qty: 1 on 07/08/2014 by Oliver Parham MD at [facility] Left: [employer] 06/24/2018 [id number] / / [id number] Advance Directives * Full Code (Latest Code Status on File) Date Activated Date Inactivated Comments 07/08/2014 4:09 PM 07/11/2014 11:37 AM Care Teams Radio Television Technical Director Relationship Specialty Start Date End Date Quoc Chino MD [address] [place] [address] PCP - General Family Medicine 09/26/12 Oliver Parham MD [address] [place] [address] Orthopedic Surgery 09/26/12
--- OUTSIDE RECORDS SUMMARY | 2024-09-24 04:07 | XMS_ITS | Clinical Summary ---
Author Organization [facility] Address [address] [place] [address]. [place] [address] [place] [address] Care Team Providers Care Human Services Manager Name Role Phone Unavailable Primary Care Provider [...] pectoris associated with type 2 diabetes mellitus ([facility]) Place 1 tablet (0.4 mg total) under the tongue every 5 (five) minutes as needed for Chest Pain. 30 tablet 5 1 Active Alcohol Swabs (B-D SINGLE USE SWABS REGULAR) Pads 2 Active Blood Glucose Monitoring Suppl (TRUE METRIX METER) w/Device Kit 2 Active TRUEplus Lancets 33G Misc 2 Active gabapentin 300 MG capsuleIndication s:Neuropathy due to type 2 diabetes mellitus ([facility]) Take 1 capsule (300 mg total) by mouth 3 (three) times daily. 270 capsule 1 2 Active levothyroxine 75 MCG tabletIndications :Hypothyroidism, unspecified type Take 1 tablet (75 mcg total) by mouth every morning. 90 tablet 1 2 Active TRUE METRIX BLOOD GLUCOSE TEST test stripIndications: Controlled type 2 diabetes mellitus with diabetic autonomic neuropathy, without long-term current use of insulin ([facility]) USE DIRECTED 100 strip 3 2 Active metFORMIN (GLUCOPHAGE) 500 MG tabletIndications :Type 2 diabetes mellitus with stage 3a chronic kidney disease, without long-term current use of insulin ([facility]) TAKE 1 TABLET THREE TIMES DAILY BEFORE [...] disease, without long-term current use of insulin ([facility]) 12/26/2021 Controlled type 2 diabetes m ellitus with diabetic autonomic neuropathy, without long-term current use of insulin ([facility]) 06/26/2021 Dyslipidemia 06/26/2021 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 ([facility]) 06/26/2021 BMI 29.0-29.9,adult 02/08/2020 Abnormal cardiovascular stress [...] (Boostrix) 02/04/2021 Tdap (Generic) 02/04/2021,02/17/2016 Zoster (Zostavax) 12452 Unt/0.65Ml 05/19/2015 Family History Medical History Relation [...] 1941 Kidney Health Evaluation 1941 PHQ-2 (Physician [place]) 1953 Diabetes: Retinopathy Eye Exam 1959 Annual [...] 06/08/2020, 06/08/2020, Additional history exists PHQ-2 (Physician [place]) 08/26/2024 DTaP, Tdap and Td Vaccines (5 [...] neuropathy, without long-term current use of insulin ([facility]) LIPID PANEL Routine 12/16/2021 9:40 AM CDT [...] Result [facility] [id number] [address] * (ABNORMAL) HEMOGLOBIN, GLYCOSYLATED (12/16/2021 9:40 AM CDT) HGB A1C 6.6(H) <5.7 % of total Hgb [facility] Comment: For someone without known [...] 12/18/2021 1:34 PM CDT SPLIT 12/15/2021 FROM [id number] FASTING:YES FASTING: YES us Romina Silveira MD LABORATORY Final Result Performing Organization Address [facility] Co de Phone Number [facility] [address] [place] [address] from Last 3 Months or Most Recently Relevant to Health Maintenance Insurance [employer]
--- OUTSIDE RECORDS SUMMARY | 2024-09-24 04:07 | XMS_ITS | Referral Summary ---
Author Organization [facility] Address [address] [place] [address] Care Team Providers Care Motion Picture Equipment Machinist Name Role Phone Quoc Chino MD Primary Care Provider [phone] Oliver Parham MD Unavailable [phone] Source Comments [facility],non-owned Affiliates and Associated Physician Practices is amultiple site organization consisting of ambulatory clinics and hospital sitesin [place], [place], [place] and [place]. This disclosure is being madepursuant to the Care Everywhere program and may not contain all information available regarding this patient. Last updated 18.[facility] Allergies Active Allergy Reactions Criticality [...] Comments Blood Pressure 140/80 08/09/2014 2:00 PM FRAME WIRER Pulse 100 08/09/2014 2:00 PM FRAME WIRER Temperature 36.5 ??C (97.7 ??F) 08/09/2014 2:00 PM CS T Respiratory Rate 18 08/09/2014 2:00 PM FRAME WIRER Oxygen Saturation 97% 08/09/2014 2:00 PM FRAME WIRER Inhaled Oxygen Concentration - - Weight 68.9 kg (152 lb) 08/09/2014 2:00 PM FRAME WIRER Height 157.5 cm (5' 2 ) 08/09/2014 2:00 PM FRAME WIRER Body Mass Index 27.8 08/09/2014 2:00 PM FRAME WIRER Functional Status Functional Status Response Date of [...] on file Medical Devices Implanted Type Area Estimate Clerk Device Identifier Shelf Expiration Date Model / Serial / Lot Gavin Bone [place] Hv Implanted:Qty: 1 on 07/08/2014 by Oliver Parham MD at [facility] Left: Knee [employer] 04/24/2016 [id number] / / [id number] Fady Hendrix Arcom Wire Polyeth Xsm 28 X 8 Implanted:Qty: 1 on 07/08/2014 by Oliver Parham MD at [facility] Left: [employer]nee [employer] 05/25/2019 [id number] / / [id number] Ins Kn Vangurd Fem Cocr L-Intlok 60.0mm Implanted:Qty: 1 on 07/08/2014 by Oliver Parham MD at [facility] Left: [employer]nee [employer] 07/25/2023 [id number] / / [id number] Ty Tibial I Beam Fix Bar 67mm Implanted:Qty: 1 on 07/08/2014 by Oliver Parham MD at [facility] Left: Knee [employer] 01/23/2024 [id number] / / [id number] Vanmeird Ant Stblzd Brg 10mm X 67mm Implanted:Qty: 1 on 07/08/2014 by Oliver Parham MD at [facility] Left: [employer] 06/24/2018 [id number] / / [id number] Administered Medications Advance Directives * Full Code (Latest Code Status on File) Date Activated Date Inactivated Comments 07/08/2014 4:09 PM 07/11/2014 11:37 AM Care Teams Motion Picture Equipment Machinist Relationship Specialty Start Date End Date Quoc Chino MD [address] [place] [address] PCP - General Family Medicine 09/26/12 Oliver Parham MD [address] [place] [address] Orthopedic Surgery 09/26/12
--- OUTSIDE RECORDS SUMMARY | 2024-09-24 04:07 | XMS_ITS | Clinical Summary ---
Author Organization [facility] Address [address] [place] [address] Care Team Providers Care Software Recruiter Name Role Phone Judah Jeffery MD Primary Care Provider [phone] Allergies Active Allergy Reactions Criticality Noted Date [...] 1 tablet (25 mg total) by mouth training analyst before breakfast Active metoprolol XL (TOPROL-XL) 50 [...] (11/16/2020): Added automatically from request for surgery [id number] Coronary artery disease of n ative artery of quechan heart with stable angina pectoris 11/03/2020 Overview (11/03/2020): Added automatically from request for surgery [id number] Abnormal EKG 11/03/2020 Overview (11/03/2020): Added automatically from request for surgery [id number] Atherosclerosis of coronary artery 06/03/2016 Obesity with body mass index 30 or greater 05/31 Abnormal cardiovascular stress test 04/24/2016 Two-vessel coronary artery disease 01/11/2013 Simple obesity 11/29/2012 Hypercholesterolemia 11/29/2012 Essential hypertension 11/29/2012 Chest pain 11/28/2012 Encounters Date Type Department Care Team Description 08/04/2024 10:45 AM EMERGENCY SERVICE WORKER Office Visit [facility] Cardiology [address] [place] [address] Rodger Gillis MD Atherosclerosis of quechan coronary artery of quechan heart without angina pectoris (Primary Dx); Hypercholesterolemia [...] Tobacco: Never Tobacco Cessation:Counseling Given: Not Answered [facility] Utilities Answer Date Recorded In the past 12 months has [employer], gas, oil, or water [employer] threatened to shut off services in your [...] often do you attend chur ch or taoist services? 1 to 4 times per year 04/29/2024 Do you belong to any clubs o r organizations such as presybeterian groups, unions, fraternal or athletic groups, or [...] time in the past 12 m [facility], were you homeless or living in [...] on file Legal Sex Female 2:52 AM EMERGENCY SERVICE WORKER Gender Identity Not on file Sexual Orientation Not on file Obstetrics History Last Filed Vital Signs Vital Sign Reading Time Taken Comments Blood Pressure 147/78 08/04/2024 10:40 AM EMERGENCY SERVICE WORKER Pulse 70 08/04/2024 10:40 AM EMERGENCY SERVICE WORKER Temperature 36.8 ??C (98.3 ??F) 08/04/2024 10:[address] Respiratory Rate 18 05/07/2024 9:05 AM CDT Oxygen Saturation 97% 08/04/2024 10:40 AM EMERGENCY SERVICE WORKER Inhaled Oxygen Concentration - - Weight 62.1 kg (137 lb) 08/04/2024 10:40 AM EMERGENCY SERVICE WORKER Height 157.5 cm (5' 2 ) 08/04/2024 10:40 AM EMERGENCY SERVICE WORKER Body Mass Index 25.06 08/04/2024 10:40 AM EMERGENCY SERVICE WORKER Plan of Treatment Health Maintenance Due Date [...] 06/23/2015, 06/26 Medical Devices Implanted Type Area Drawing Operator Device Identifier Shelf Expiration Date Model / Serial / Lot [employer] Group Marguerite [id number] Stent Drug Eluting S [facility] Mr [id number] - [id number] - [id number] Implanted:Qty: 1 on 11/23/2020 by Marisol Kenney MD at [facility] Stent [employer] Marguerite 07/27/2021 [id number] / [id number] / [id number] [employer] Marguerite [id number] Stent Drug Eluting S [employer] Mr [id number] - [id number] - [id number] Implanted:Qty: 1 on 11/23/2020 by Marisol Kenney MD at [facility] [employer] Marguerite 07/25/2021 [id number] 400 / [id number] / [id number] [employer] Marguerite/[employer] [id number] Angio-Seal Evolution 8fr .038in Guidewire Bypass Tube Suture - [id number] - [id number] Implanted:Qty: 1 on 11/23/2020 by Marisol Kenney MD at [facility] [employer] Marguerite 08/25/2021 [id number] / [id number] / [id number] Procedures Procedure Name Priority Date/Time Associated Diagnosis Comments EGFR Routine 04/30/2024 5:34 AM CDT HEMOGLOBIN A1C Routine 04/09/2024 1:00 PM CDT Cellulitis of right foot Type 2 diabetes mellitus with foot ulcer (CODE) (HCC) Diabetic polyneuropathy associated with type 2 diabetes mellitus (CMS/HCC) (HCC) LIPID PANEL Routine 04/09/2024 1:00 PM CDT Essential hypertension Coronary artery disease of quechan artery of quechan heart with stable angina pectoris (HCC) from [...] was last reviewed 2021. Testing performed by: [facility], [address] [place] [address]., [address] Blood 04/30/2024 5:34 AM CDT 04/30/2024 5:54 AM CDT us Chantelle Kenney MD LAB BLOOD ORDERABLES Final Resu lt [facility] [address] [facility] [place] [address] * (ABNORMAL) Hemoglobin A1c (04/09/2024 1:00 PM CDT) Hgb A1C 6.0(H) 4.0 - 5.6 % Estimated Average Glucose 126 mg/dL [facility] Comment: The ADA recommends reporting an estimated [...] BLOOD ORDERABLES Final Result [facility] Department [place] [address] * (ABNORMAL) Lipid panel (04/09/2024 1:00 PM [...] on 2018. HDL 33(L) >=40 mg/dL [facility] Comment: Interpretive Data Ages < or [...] 2018. LDL, calculated 133(H) <=129 mg/dL [facility] Comment: Interpretive Data Ages < or [...] on 2018. Non-HDL Cholesterol 180 mg/dL [facility] Comment: Interpretive Data Ages < or [...] revised on 2018. Chol/HDL ratio 6 [facility] Blood 04/09/2024 1:00 PM CDT 04/09/2024 1:49 PM CDT us Rodger Gillis MD LAB BLOOD ORDERABLES Final Res ult [facility] [place] [address] from Last 3 Months or Most Recently Relevant to Health Maintenance Insurance [facility] MDCR HMO REF MEDICARE SOLUTIONS MEDICARE SOLUTIONS Advance Directives For more information, please contact: [phone] * Full Code (Latest Code Status on File) Date Activated Date Inactivated Comments 04/28/2024 12:47 AM 04/30/2024 6:19 PM * Full Code Date Activated Date Inactivated Comments 11/23/2020 11:44 AM 11/23/2020 7:58 PM * Full Code Date Activated Date Inactivated Comments 11/16/2020 2:29 PM 11/16/2020 8:07 PM Care Teams Software Recruiter Relationship Specialty Start Date End Date Judah Jeffery MD PCP - General Family Practice 08/10/22
--- OUTSIDE RECORDS SUMMARY | 2024-09-24 04:07 | XMS_ITS | Clinical Summary ---
Author Organization [facility] Alin Blanc Address [address] [place] [address] Care Team Providers Care Upholsterer Inside Name Role Phone Judah Jeffery MD Primary Care Provider [phone] Allergies Active Allergy Reactions Criticality Noted Date Comments Adhesive Hives High 10/28/2012 BREAKS OUT SKIN, SWELLING Latex Rash Medium 09/26/2012 MOUTH BROKE OUT, SWELLING MOUTH BROKE OUT, SWELLING Medications amLODIPine (NORVASC) 5 mg tablet Take 1 Tablet by mouth daily. 2 Active aspirin (ECOTRIN EC) 81 mg Tablet, Delayed Release (E.C.) daily. Activ e clopidogreL (PLAVIX) 75 mg Tablet Take 1 Tablet by mouth daily. 2 Active escitalopram oxalate (LEXAPRO) 10 mg tablet Take 10 mg by mouth daily. 3 Active gabapentin (NEURONTIN) 300 mg capsule TAKE 1 CAPSULE 3 TIMES DAILY. 2 Active hydroCHLOROthiaz pascale 25 mg tablet Take 25 mg by mouth. Active isosorbide mononitrate (IMDUR) 30 mg Extended Release 24 hour tablet Take 1 Tablet by mouth daily. 2 Active levothyroxine 88 mcg tablet Take 88 mcg by mouth daily. 3 Active losartan (COZAAR) 100 mg tablet Take 1 Tablet by mouth daily. 1 Active metFORMIN (GLUCOPHAGE) 500 mg tablet TAKE 1 TABLET (500 MG TOTAL) BY MOUTH 3 (THREE) TIMES DAILY BEFORE MEALS. 1 Active metoprolol succinate (TOPROL XL) 50 mg Extended Release 24 hour tablet TAKE 1.5 TABLETS BY MOUTH EVERY NIGHT AT BEDTIME 1 Active nitroglycerin (NITROSTAT) 0.4 mg Tablet, Sublingual Place 0.4 mg under tongue every 5 minutes as needed. 1 Active ondansetron (ZOFRAN ODT) 4 mg Tablet, Rapid Dissolve DISSOLVE 1 TABLET BY MOUTH THREE TIMES A DAY NEEDED FOR NAUSEA AND VOMITING FOR 5 DAYS 3 Active oxyBUTYnin (DITROPAN XL) 5 mg Extended Release 24 hour tablet 2 Active pantoprazole (PROTONIX) 20 mg Tablet, Delayed Release (E.C.) Take 20 mg by mouth 2 times daily. 3 Active rosuvastatin (CRESTOR) 20 mg tablet 2 Active blood sugar diagnostic (True Metrix Glucose Test Strip) Strip 2 Active Active Problems No known active problems Encounters Date Type Department Care Team Description 09/17/2024 External Device Data STL ABSTRACTION Provider, Abstract 09/04/2024 Abstract [facility] Oncology and Hematology [place] [address] [address] [place] MD from Last 3 Months Family History Medical History Relation Name Comments Diabetes Father Heart Disease Father Heart Disease Mother Pancreatic Cancer Mother Relation Name Status Comments Daughter Alive Father Mother Sister 1 Alive Sister 2 Alive Son Alive Social History Tobacco Use Types Packs/Day Years Used Date Smoking Tobacco: Never Smokeless Tobacco: Never Tobacco Cessation:Counseling Given: Not Answered Alcohol Use Standard Drinks/Week Comments Never 0 (1 standard drink = 0.6 oz pur e alcohol) Comments Unknown Sex and Gender Information Value Date Recorded Sex Assigned at Not on file Legal Sex Female 9:38 AM MOBILE PARAMEDICAL EXAMINER Gender Identity Not on file Sexual Orientation Not on file Last Filed Vital Signs Vital Sign Reading Time Taken Comments Blood Pressure 117/65 04/22/2024 10:14 AM CDT Pulse 95 04/22/2024 10:14 AM CDT Temperature 36.4 ??C (97.5 ??F) 04/22/2024 10:14 AM C DT Respiratory Rate 16 04/22/2024 10:14 AM CDT Oxygen Saturation 97% 04/22/2024 10:14 AM CDT Inhaled Oxygen Concentration - - Weight 60.3 kg (133 lb) 04/22/2024 10:14 AM CDT Height 157.5 cm (5' 2 ) 10/01/2023 10:21 AM MOBILE PARAMEDICAL EXAMINER Body Mass Index 24.33 10/01/2023 10:21 AM MOBILE PARAMEDICAL EXAMINER Plan of Treatment Upcoming Encounters Date Type Department Care Team (Late st Contact Info) Description 10/30/2024 10:00 AM MOBILE PARAMEDICAL EXAMINER Office Visit [facility] Oncology and Hematology - Yash [address] [facility] [address] [place] [address] [place] MD [address] [facility] [address] [place] [address] Health Maintenance Due Date Last Done Comments DIABETES ANNUAL FOOT EXAM 1959 DIABETES ANNUAL RETINAL EXAM 1959 DIABETES MICROALBUMIN ANNUAL SCREEN 1959 LDL CHOLESTEROL ANNUAL 1959 OSTEOPOROSIS SCREENING 2006 ZOSTER VACCINE (1 of 2) 07/14/2015 05/19/2015 RSV VACCINE (60+ or ) (1 - 1-dose 75+ series) 2016 INFLUENZA VACCINE (#1) 2024 , 06/08/2020, 06/11/2019, Additional history exists COVID-19 Vaccine (2023-2 5 season) 2024 05/22/2022, 10/28/2020, 09/30/2020 [place] Preventative Visit/Annual Wellness Visit 08/26/2024 DIABETES HBA1C Q 6 MONTHS 10/10/2024 04/09/2024, DTAP/TDAP/TD VACCINES (3 - T d or Tdap) 02/04/2031 02/04/2021, 02/17/2016 PNEUMOCOCCAL VACCINE 65+ YEARS Completed 06/23/2015 , 07/11/2014 Insurance [facility] ADVANTAGE HMO Care Teams Upholsterer Inside Relationship Specialty Start Date End Date Judah Jeffery MD [address] [place] [address] PCP - General Family Practice 09/17/23
--- OUTSIDE RECORDS SUMMARY | 2024-09-24 04:07 | XMS_ITS | Encounter Summary ---
Author Organization [facility] Address [address] [place] [address]. [place] [address] [place] [address] Care Team Providers Care Director Athletic Name Role Phone Romina Silveira MD Primary Care Provider [phone] Deshawn Ghosh MD Primary Care Pr ovider [facility] Patrick Penny MD Primary Care Provider [phone] Encounter Details Date Type Department Care Team (Late st Contact Info) Description 06/28/2022 Therapy Plan [facility] Outpatient Therapy [place], [place] [id number] Norma Boles, PT [place], [place] [address] Social History Tobacco Use Types Packs/Day Years [...] documented as of this encounter Care Teams Director Athletic Relationship Specialty Start Date End Date Romina Silveira MD PCP - General INTERNAL MEDICINE 02/08/20 11/29/22 Deshawn Ghosh MD PCP - General FAMILY PRACTICE 11/30/22 01/01/23 Patrick Penny MD [address] [address] PCP - General INTERNAL MEDICINE 01/02/23 02/23/24 documented as of this encounter
[2024-09-24] MEDS: ONDANSETRON HCL ODT 4 MG TABLET PO (04:10)
[2024-09-24 04:15] VITALS: BP 125/68; PULSE 78; RESP 16; O2SAT 98
[2024-09-24 04:23] VITALS: BP 125/65; PULSE 79; RESP 18; O2SAT 100
[2024-09-24 04:23] LABS: Lactic Acid Reflex 1.2 mmol/L (0.4-2.0)
--- NOTE | 2024-09-24 04:24 | PC.NURSE ---
RESTING QUIETLY ON STRETCHER. MEDICATED FOR NAUSEA PER MAR
[2024-09-24 04:32] LABS: Alanine Aminotransferase 21 U/L (14-59); Albumin Level 3.7 g/dL (3.4-5.0); Alkaline Phosphatase 59 U/L (46-116); Anion Gap 13 mmol/L (4-12); Aspartate Amino Transferase 18 U/L (15-37); Blood Urea Nitrogen 31 mg/dL (7-18); Calcium 8.7 mg/dL (8.5-10.1); Carbon Dioxide 23 mmol/L (21-32); Chloride 101 mmol/L (98-108); Estimated CRCL calculation 16 ml/min; Estimated Glomerular Filt Rate 25; Glucose 115 mg/dL (70-99); Lipase 44 U/L (16-77); Osmolality Calculated 291 mOsm/kg (285-295); Potassium 3.7 mmol/L (3.5-5.1); Sodium 137 mmol/L (136-145); Total Protein 7.5 g/dL (6.4-8.2)
[2024-09-24 04:38] LABS: SARS-CoV-2 RNA PCR Negative (Negative)
[2024-09-24 04:39] LABS: Influenza A QL RT-PCR Negative (Negative); Influenza B QL RT-PCR Negative (Negative); RSV RNA, RT-PCR Negative (Negative)
[2024-09-24 04:46] VITALS: BP 144/77; PULSE 70; RESP 20; O2SAT 100
[2024-09-24 05:05] VITALS: BP 144/77; PULSE 79; RESP 18; O2SAT 99
== END 2024-09-24 05:05 | disposition home or self-care (01) ==
PROVIDERS: Emergency Provider Internal Medicine Critical Care Medicine
DX: K52.9 Noninfective gastroenteritis and colitis, unspecified (principal); E78.5 Hyperlipidemia, unspecified; E03.9 Hypothyroidism, unspecified; I12.9 Hypertensive chronic kidney disease with stage 1 through stage 4 chronic kidney disease, or unspecified chronic kidney disease; E11.22 Type 2 diabetes mellitus with diabetic chronic kidney disease; E11.42 Type 2 diabetes mellitus with diabetic polyneuropathy; N18.4 Chronic kidney disease, stage 4 (severe); I25.10 Atherosclerotic heart disease of native coronary artery without angina pectoris; Z95.5 Presence of coronary angioplasty implant and graft; Z79.82 Long term (current) use of aspirin; Z79.84 Long term (current) use of oral hypoglycemic drugs; Z79.02 Long term (current) use of antithrombotics/antiplatelets; Z20.822 Contact with and (suspected) exposure to COVID-19
CPT/HCPCS: 36415; 80053; 83605; 83690; 85025; 87637; 99283; A9270

== ENCOUNTER 2024-11-24 11:02 | Outpatient (CLI) | payer MEDICARE, SELFPAY ==
--- OUTSIDE RECORDS SUMMARY | 2024-11-24 12:19 | XMS_ITS | Clinical Summary ---
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 30 tablet 5 1 Active Alcohol Swabs (B-D SINGLE USE SWABS REGULAR) Pads 2 Active Blood Glucose Monitoring Suppl (TRUE METRIX METER) w/Device Kit 2 Active TRUEplus Lancets 33G Misc 2 Active gabapentin 300 MG capsuleIndication s:Neuropathy due to type 2 diabetes mellitus (CMS/HCC HHS/HCC) Take 1 capsule (300 mg total) by mouth 3 (three) times daily. 270 capsule 1 2 Active levothyroxine 75 MCG tabletIndications :Hypothyroidism, unspecified type Take 1 tablet (75 mcg total) by mouth every morning. 90 tablet 1 2 Active TRUE METRIX BLOOD GLUCOSE TEST test stripIndications: Controlled type 2 diabetes mellitus with diabetic autonomic neuropathy, without long-term current use of insulin ([facility]) USE DIRECTED 100 strip 3 2 Active metFORMIN (GLUCOPHAGE) 500 MG tabletIndications :Type 2 diabetes mellitus with stage 3a chronic kidney disease, without long-term current use of insulin ([facility]) TAKE 1 TABLET THREE TIMES DAILY BEFORE [...] disease, without long-term current use of insulin ([facility]) 12/26/2021 Controlled type 2 diabetes m ellitus with diabetic autonomic neuropathy, without long-term current use of insulin ([facility]) 06/26/2021 Dyslipidemia 06/26/2021 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 ([facility]) 06/26/2021 BMI 29.0-29.9,adult 02/08/2020 Abnormal cardiovascular stress [...] (Boostrix) 02/04/2021 Tdap (Generic) 02/04/2021,02/17/2016 Zoster (Zostavax) [address]3432 Unt/0.65Ml 05/19/2015 Family History Medical History Relation [...] 77 03/27/2022 8:27 AM CDT Temperature 35.9 C (96.6 F) 03/27/2022 8:18 AM CDT Respiratory Rate 16 03/27/2022 8:18 AM CDT [...] ASCVD Statin 1941 Kidney Health Evaluation 1941 Diabetes: Retinopathy Eye Exam 1959 Annual Medicare Wellness Visit 2006 Dexa Scan (General) 2006 Zoster Vaccines (2 of 3) 07/14/2015 05/19/2015 RSV Immunization or 60+ Years (1 - 1-dose 75+ series) 2016 Hemoglobin A1C 06/17/2022 12/16/2021, 12/24, 07/25/2020, Additional history exists ASCVD LDL 12/16/2022 12/16/2021, 05/26, 07/25/2020, Additional history exists Lipid Panel 03/05/2023 03/05/2022, 11/25, 06/07/2021, Additional history exists COVID-19 Vaccine (5 - season) 2024 05/22/2022, 05/23/2021, 10/28/2020, Additional history exists DTaP, Tdap and Td Vaccines (5 - [...] neuropathy, without long-term current use of insulin LIPID PANEL Routine 12/16/2021 9:40 AM CDT HEMOGLOBIN, GLYCOSYLATED Routine 12/16/2021 9:40 AM CDT from Last 3 Months or Most Recently Relevant to Health Maintenance Results * LIPID PANEL (03/05/2022 8:38 AM CDT) Only the most recent of2 resultswithin the time period is included. CHOLESTEROL TNP mg/dL [facility] Comment: TEST NOT PERFORMED Due to a laboratory error, we are unable to perform this test. Specimen exceeded stability due to incorrect storage. HDL TNP mg/dL [facility] Comment: TEST NOT PERFORMED Due to a laboratory error, we are unable to perform this test. Specimen exceeded stability due to incorrect storage. TRIGLYCERIDES TNP mg/dL [facility] Comment: TEST NOT PERFORMED Due to a laboratory error, we are unable to perform this test. Specimen exceeded stability due to incorrect storage. LDL (CALCULATED) TNP mg/dL (calc) [facility] Comment: TEST NOT PERFORMED Due to a laboratory error, we are unable to perform this test. Specimen exceeded stability due to incorrect storage. CHOL/HDL RATIO TNP (calc) [facility] Comment: TEST NOT PERFORMED Due to a laboratory error, we are unable to perform this test. Specimen exceeded stability due to incorrect storage. NON HDL CHOLESTEROL TNP mg/dL (calc) [facility] Comment: TEST NOT PERFORMED Due to a laboratory error, we are unable to perform this test. Specimen exceeded stability due to incorrect storage. 03/05/2022 8:38 AM CDT 03/06/2022 7:24 AM CDT us Romina Silveira MD LABORATORY Final Result [facility] [address] [place] [address] * (ABNORMAL) HEMOGLOBIN, GLYCOSYLATED (12/16/2021 9:40 AM CDT) HGB A1C 6.6(H) <5.7 % of total Hgb [facility] Comment: For someone without known [...] A1c for diagnosis of diabetes for children. 12/16/2021 9:40 AM CDT 12/16/2021 9:40 AM CDT Narrative [facility] - 12/18/2021 1:34 PM CDT SPLIT 12/15/2021 FROM [id number] FASTING:YES FASTING: YES us Romina Silveira MD LABORATORY Final Result [facility] [address] [place] [address] from Last 3 Months or Most Recently Relevant to Health Maintenance Insurance [employer]
--- OUTSIDE RECORDS SUMMARY | 2024-11-24 12:19 | XMS_ITS | Encounter Summary ---
Author Organization [facility] Address [address] [place] [address] Phone Care Team Providers Care Claims Vice President Name Role Phone Quoc Chino MD Primary Care Provider [phone] Rashawn Silveira MD Primary Care Provider Judah Jeffery MD Primary Care Provider [phone] Encounter Details Date Type Department Care Team (Latest Contact Info) Description 01/06/2019 Orders Only [facility] Scanning, Provider Social History Tobacco Use Types Packs/Day Years Used Date Smoking Tobacco: Never Smokeless Tobacco: Never Comments Unknown Sex and Gender Information Value Date Recorded Sex Assigned at Not on file Legal Sex Female 2:52 AM BREASTFEEDING PROGRAM COORDINATOR Gender Identity Not on file Sexual Orientation [...] on filedocumented in this encounter Care Teams Claims Vice President Relationship Specialty Start Date End Date Quoc Chino MD [address] [place] [address] PCP - General 04/10/17 11/02/20 [place] [address] [place] [address] PCP - General Internal Medicine 11/03/20 08/09/22 [place] [address] [place] [address] PCP - General Family Practice 08/10/22 documented as of this encounter
--- OUTSIDE RECORDS SUMMARY | 2024-11-24 12:19 | XMS_ITS | Clinical Summary ---
Author Organization [facility] Alin Blanc Address [address] [place] [address] Care Team Providers Care Field Collector Name Role Phone Judah Jeffery MD Primary Care Provider [phone] Allergies Active Allergy Reactions Criticality Noted Date [...] Encounters Date Type Department Care Team Description 10/29/2024 Telephone [facility] Oncology and Hematology [facility] [address] [place] [address] [place] Lau MD labs for appt 10/14/2024 External Device Data STL ABSTRACTION Provider, Abstract 09/23/2024 External Device Data STL ABSTRACTION Provider, Abstract 09/17/2024 External Device Data STL ABSTRACTION Provider, Abstract 09/04/2024 Abstract [facility] Oncology and [facility] [address] [place] [address] [place] Lau MD from Last 3 Months [...] on file Legal Sex Female 9:38 AM PRINTER HELPER Gender Identity Not on file Sexual Orientation Not on file Last Filed Vital Signs Vital Sign Reading Time Taken Comments Blood Pressure 117/65 04/22/2024 10:14 AM CDT Pulse 95 04/22/2024 10:14 AM CDT Temperature 36.4 C (97.5 F) 04/22/2024 10:14 AM CDT Respiratory Rate 16 04/22/2024 10:14 AM CDT Oxygen Saturation 97% 04/22/2024 10:14 AM CDT Inhaled Oxygen Concentration - - Weight 60.3 kg (133 lb) 04/22/2024 10:14 AM CDT Height 157.5 cm (5' 2 ) 10/01/2023 10:21 AM PRINTER HELPER Body Mass Index 24.33 10/01/2023 10:21 AM PRINTER HELPER Plan of Treatment Health Maintenance Due Date Last Done Comments DIABETES ANNUAL FOOT EXAM 1959 DIABETES ANNUAL RETINAL EXAM 1959 DIABETES MICROALBUMIN ANNUAL SCREEN 1959 LDL CHOLESTEROL ANNUAL 1959 OSTEOPOROSIS SCREENING 2006 ZOSTER VACCINE (1 of 2) 07/14/2015 05/19/2015 RSV VACCINE (60+ or ) (1 - 1-dose 75+ series) 2016 INFLUENZA VACCINE (#1) 2024 , 06/08/2020, 06/11/2019, Additional history exists COVID-19 Vaccine ( - 2023-2 5 season) 2024 05/22/2022, 10/28/2020, 09/30/2020 DIABETES HBA1C Q 6 MONTHS 10/10/2024 04/09/2024, DTAP/TDAP/TD VACCINES (3 - T d or Tdap) 02/04/2031 02/04/2021, 02/17/2016 PNEUMOCOCCAL VACCINE 50+ YEARS Completed 06/23/2015 , 07/11/2014 Insurance [facility] [id number] Care Teams Field Collector Relationship Specialty Start Date End Date Judah Jeffery MD [address] [place] [address] PCP - General Family Practice 09/17/23
--- OUTSIDE RECORDS SUMMARY | 2024-11-24 12:19 | XMS_ITS | Referral Summary ---
Author Organization [facility] Address [address] [place] [address] Care Team Providers Care Form Layer Name Role Phone Judah Jeffery MD Primary Care Provider [phone] Allergies Active Allergy Reactions Criticality Noted Date [...] 1 tablet (25 mg total) by mouth outside cutter hand before breakfast Active metoprolol XL (TOPROL-XL) 50 [...] Noted Date Diagnosed Date Moderate protein-calorie malnutrition 04/29/2024 Acute renal failure superimp osed on stage 3b chronic kidney disease 04/28/2024 Hyperkalemia 04/28/2024 Nausea and vomiting, unspecified vomiting type 0 04/27/2024 Abnormal findings on cardiac catheterization Overview (11/16/2020): Added automatically from request for surgery [id number] Coronary artery disease of n ative artery of [place] heart with stable angina pectoris 11/03/2020 Overview (11/03/2020): Added automatically from request for surgery [id number] Abnormal EKG 11/03/2020 Overview (11/03/2020): Added automatically from request for surgery [id number] Atherosclerosis of coronary artery 06/03/2016 Obesity with body mass index 30 or greater 05/31 Abnormal cardiovascular stress test 04/24/2016 Two-vessel coronary artery disease 01/11/2013 Simple obesity 11/29/2012 Hypercholesterolemia 11/29/2012 Essential hypertension 11/29/2012 Chest pain 11/28/2012 Immunizations Immunization Administration Dates Next Due Influenza, Unspecified 05/26/2020 Pfizer Sars-Cov-2 Bivalent Vaccination (12+ YRS) 05/22/2022 Social History Tobacco Use Types Packs/Day Years Used Date Smoking Tobacco: Never Smokeless Tobacco: Never Tobacco Cessation:Counseling Given: Not Answered [facility] Utilities Answer Date Recorded In the past 12 months has [employer] electric, gas, oil, or water Whistle threatened to shut off services in your [...] How often do you attend chur or taoism services? 1 to 4 times per year 04/29/2024 Do you belong to any clubs o r organizations such as confucianist groups, unions, fraternal or athletic groups, or [...] any time in the past 12 m [facility], were you homeless or living in a fci (including now)? No 04/29/2024 Personal Safety Answer Date Recorded Have you ever been in or are you currently in a harmful physical or emotional relationship or is someone making you feel afraid or unsafe? Denies 04/27/2024 Comments No Sex and Gender Information Value Date Recorded Sex Assigned at Not on file Legal Sex Female 2:52 AM SCROLL ASSEMBLER Gender Identity Not on file Sexual Orientation Not on file Last Filed Vital Signs Vital Sign Reading Time Taken Comments Blood Pressure 147/78 08/04/2024 10:40 AM SCROLL ASSEMBLER Pulse 70 08/04/2024 10:40 AM SCROLL ASSEMBLER Temperature 36.8 C (98.3 F) 08/04/2024 10:40 AM SCROLL ASSEMBLER Respiratory Rate 18 05/07/2024 9:05 AM CDT Oxygen Saturation 97% 08/04/2024 10:40 AM SCROLL ASSEMBLER Inhaled Oxygen Concentration - - Weight 62.1 kg (137 lb) 08/04/2024 10:40 AM SCROLL ASSEMBLER Height 157.5 cm (5' 2 ) 08/04/2024 10:40 AM SCROLL ASSEMBLER Body Mass Index 25.06 08/04/2024 10:40 AM SCROLL ASSEMBLER Plan of Treatment Not on file Medical Devices Implanted Type Area Licensed Sales Assistant Device Identifier Shelf Expiration Date Model / Serial / Lot RABBL Marguerite [id number] Stent Drug Eluting S [employer] Us Mr [id number] - [id number] - [id number] Implanted:Qty: 1 on 11/23/2020 by Marisol Kenney MD at [facility] Stent [employer] Marguerite 07/27/2021 [id number] 350 / [id number] / [id number] [employer] Marguerite [id number] Stent Drug Eluting S Megatron Us Mr 4.59s50yz - [id number] - [id number] Implanted:Qty: 1 on 11/23/2020 by Marisol Kenney MD at [facility] [employer] Marguerite 07/25/2021 [id number] / [id number] / [id number] DaiShooger Marguerite/St Mook [employer] [id number] Angio-Seal Evolution 8fr .038in Guidewire Bypass Tube Suture - [id number] - [id number] Implanted:Qty: 1 on 11/23/2020 by Marisol Kenney MD at [facility] TerOrganically Maid Marguerite 08/25/2021 [id number] / [id number] / [id number] Procedures Procedure Name Priority Date/Time Associated Diagnosis Comments EGFR Routine 04/30/2024 5:34 AM CDT HEMOGLOBIN A1C Routine 04/09/2024 1:00 PM CDT Cellulitis of right foot Type 2 diabetes mellitus with foot ulcer (CODE) (HCC) Diabetic polyneuropathy associated with type 2 diabetes mellitus (HCC) LIPID PANEL Routine 04/09/2024 1:00 PM CDT Essential hypertension Coronary artery disease of [place] artery of [place] heart with stable angina pectoris from Last 3 Months or Most Recently Relevant to Health Maintenance Results * (ABNORMAL) eGFR (04/30/2024 5:34 AM CDT) eGFR 37(L) >=60 mL/min/1. 73 m2 Comment: Interpretive Data Reference Interval Normal >/= 90 mL/min/1.73m2 Mildly decreased* 60 - 89 mL/min/1.73m2 Mildly to moderately decreased 45 - 59 mL/min/1.73m2 Moderately to severely decreased 30 - 44 mL/min/1.73m2 Severely decreased 15 - 29 mL/min/1.73m2 Kidney Failure < 15 mL/min/1.73m2 *Relative to young adult level Estimated glomerular [...] was last reviewed 2021. Testing performed by: [facility], [address] [place] [address], [place]., [address] Blood 04/30/2024 5:34 AM CDT 04/30/2024 5:54 AM CDT us Chantelle Kenney MD LAB BLOOD ORDERABLES Final Resu lt [facility] [address] [facility] Department [place] [address] * (ABNORMAL) Hemoglobin A1c (04/09/2024 1:00 PM CDT) [facility] Hgb A1C 6.0(H) 4.0 - 5.6 % Estimated Average Glucose 126 mg/dL [facility] Comment: The ADA recommends reporting an estimated Average Glucose (eAG) with all Hemoglobin A1c results using the equation derived from a study of 507 normal and diabetic adults. Minority populations were underrepresented and children were not included. (Diabetes Care 2020; 43(S1): S66-S76). The eAG is not equivalent to a fasting glucose. Blood 04/09/2024 1:00 PM CDT 04/09/2024 1:49 PM CDT us Mack Espinal DPM LAB BLOOD ORDERABLES Final Result [facility] Department [place] [address] * (ABNORMAL) Lipid panel (04/09/2024 1:00 PM CDT) Cholesterol 213(H) 30 - 199 mg/dL Comment: Interpretive Data Ages < or = 19 years Acceptable: <170 mg/dL Borderline high: 170-199 mg/dL High: >or= 200 mg/dL Ages > or = 20 years Desirable: <200 mg/dL Borderline high: 200-239 mg/dL High: >or= 240 mg/dL Literature References: 1. Expert Panel on Integrated Guidelines for Cardiovascular Health and Risk Reduction in Children and Adolescents. Pediatrics 2011;128:S213 2. NCEP Expert Panel. Circulation 2004;110:227 Current Interpretive Data was last revised on 2018. Triglycerides 236(H) <=149 mg/dL [facility] Comment: Interpretive Data Ages < or = 9 years Acceptable: <75 mg/dL Borderline high: 75-99 mg/dL High: >or= 100 mg/dL Ages 10 to 20 years Acceptable: <90 mg/dL Borderline high: 90-129 mg/dL High: >or= 130 mg/dL Ages > or = 20 years Desirable: <150 mg/dL Borderline high: 150-199 mg/dL High: 200-499 mg/dL Very high: >or= 499 mg/dL Literature References: 1. Expert Panel on Integrated Guidelines for Cardiovascular Health and Risk Reduction in Children and Adolescents. Pediatrics 2011;128:S213 2. NCEP Expert Panel. Circulation 2004;110:227 Current Interpretive Data was last revised on 2018. HDL 33(L) >=40 mg/dL [facility] Comment: Interpretive Data Ages < or = 19 years Acceptable: >45 mg/dL Borderline low: 40-45 mg/dL Low: <40 mg/dL Ages > or = 20 years Desirable: >or= 60 mg/dL Low: <40 mg/dL Literature References: 1. Expert Panel on Integrated Guidelines for Cardiovascular Health and Risk Reduction in Children and Adolescents. Pediatrics 2011;128:S213 2. NCEP Expert Panel. Circulation 2004;110:227 Current Interpretive Data was last revised on 2018. LDL, calculated 133(H) <=129 mg/dL [facility] Comment: Interpretive Data Ages < or = 19 years Acceptable: <110 mg/dL Borderline high: 110-129 mg/dL High: >or= 130 mg/dL Ages > or = 20 years Optimal: <100 mg/dL Near optimal: 100-129 mg/dL Borderline high: 130-159 mg/dL High: >160 mg/dL Literature References: 1. Expert Panel on Integrated Guidelines for Cardiovascular Health and Risk Reduction in Children and Adolescents. Pediatrics 2011;128:S213 2. NCEP Expert Panel. Circulation 2004;110:227 Current Interpretive Data was last revised on 2018. Non-HDL Cholesterol 180 mg/dL [facility] Comment: Interpretive Data Ages < or = 19 years Acceptable: <120 mg/dL Borderline high: 120-144 mg/dL High: >145 mg/dL Ages > or = 20 years When triglycerides are >200 mg/dL, Non-HDL cholesterol is a secondary target of therapy with treatment goals that are 30 mg/dL greater than the LDL cholesterol target. Literature References: 1. Expert Panel on Integrated Guidelines for Cardiovascular Health and Risk Reduction in Children and Adolescents. Pediatrics 2011;128:S213 2. NCEP Expert Panel. Circulation 2004;110:227 Current Interpretive Data was last revised on 2018. Chol/HDL ratio 6 [facility] Blood 04/09/2024 1:00 PM CDT 04/09/2024 1:49 PM CDT us Rodger Gillis MD LAB BLOOD ORDERABLES Final Res ult [facility] One [facility] Department [place] [address] from Last 3 Months or Most Recently Relevant to Health Maintenance [facility] UHC MEDICARE ADVANTAGE UHC MEDICARE ADVANTAGE Advance Directives For more information, please contact: [phone] * Full Code (Latest Code Status on File) Date Activated Date Inactivated Comments 04/28/2024 12:47 AM 04/30/2024 6:19 PM * Full Code Date Activated Date Inactivated Comments 11/23/2020 11:44 AM 11/23/2020 7:58 PM * Full Code Date Activated Date Inactivated Comments 11/16/2020 2:29 PM 11/16/2020 8:07 PM Care Teams Form Layer Relationship Specialty Start Date End Date Judah Jeffery MD PCP - General Family Practice 08/10/22
--- OUTSIDE RECORDS SUMMARY | 2024-11-24 12:19 | XMS_ITS | Continuity of Care Document ---
Author Organization [facility] Address [address] [facility] [address] [place] [address] Phone Care Team Providers Care Loom Setter Name Role Phone Rabago OD, [place] Unavailable Unavailable Procedures Procedure Date No Charge Contact Lens Check Eye Exam, New Patient Refraction Advance Directives Directive Yes / No Effective Date File Name No Information Encounters Encounter Description Practice Location Reason(s) For Visit Diagnoses Date Provider Providers Copied on Encounter [facility], [address] [place] [address] [address], [place], [place], [id number], tel:[phone] [facility] No Information Nov-0 3-200 9 Rabago OD [place]. [address] , [address], [place], [place], [facility], . tel:[phone] [facility], [address], [place], [place], [id number], tel:[phone] [facility] No Information Oct- 7-200 9 Rabago OD [place]ell. [address] , [address], [place], [address], [place]. tel:[phone] Referring Provider: Quoc Chino, [address] [place] [address], [address]. tel:[phone] Family History Family Member Type Diagnosis Age At Onset No Information Payers Payer name Insurance type Covered alliance party ID Authoriza tion(s) No Information Social [...]
--- OUTSIDE RECORDS SUMMARY | 2024-11-24 12:19 | XMS_ITS | Clinical Summary ---
Author Organization [facility] Address [address] [facility] [place] [place] [address] Care Team Providers Care Director Of Intercollegiate Athletics Name Role Phone Quoc Chino MD Primary Care Provider [phone] Oliver Parham MD Unavailable [phone] Source Comments [facility],non-owned Affiliates and Associated Physician Practices is amultiple site organization consisting of ambulatory clinics and hospital sitesin [place], [place], [place] and [place]. This disclosure is being madepursuant to the Care Everywhere program and may not contain all information available regarding this patient. Last updated 18.[facility] Allergies Active Allergy Reactions Criticality [...] Comments Blood Pressure 140/80 08/09/2014 2:00 PM FIRE OFFICIAL Pulse 100 08/09/2014 2:00 PM FIRE OFFICIAL Temperature 36.5 C (97.7 F) 08/09/2014 2:00 PM FIRE OFFICIAL Respiratory Rate 18 08/09/2014 2:00 PM FIRE OFFICIAL Oxygen Saturation 97% 08/09/2014 2:00 PM FIRE OFFICIAL Inhaled Oxygen Concentration - - Weight 68.9 kg (152 lb) 08/09/2014 2:00 PM FIRE OFFICIAL Height 157.5 cm (5' 2 ) 08/09/2014 2:00 PM FIRE OFFICIAL Body Mass Index 27.8 08/09/2014 2:00 PM FIRE OFFICIAL Plan of Treatment Health Maintenance Due Date Last Done Comments BONE DENSITY TESTING 1941 DTAP/TDAP/TD VACCINES (1 - Tdap) 1960 ZOSTER VACCINE (1 of 2) 1991 PNEUMOCOCCAL VACCINE 50+ (2 of 2 - PCV) 07/11/2015 07/11/2014 Respiratory Syncytial Virus (RSV) Vaccine Pt: or over 60 yrs (1 - 1-dose 75+ series) 2016 COVID-19 VACCINE (2023- season) 2024 05/22/2022, 10/28/2020, 09/30/2020 INFLUENZA VACCINE [...] complete this topic MENINGOCOCCAL (Group B) VACCINE SHARED DECISION-MAKING Aged Out No longer eligible based on patient's age to complete this topic MENINGOCOCCAL GROUPS A/C/Y/W VACCINE Aged Out No longer eligible based on patient's age to complete this topic Medical Devices Implanted Type Area Foot Roentgenologist Device Identifier Shelf Expiration Date Model / Serial / Lot Gavin Bone Roach Hv Implanted:Qty: 1 on 07/08/2014 by Oliver Parham MD at [facility] Left: Knee [employer] Inc 04/24/2016 [id number] / / [id number] Fady Hendrix Arcom Wire Polyeth Xsm 28 X 8 Implanted:Qty: 1 on 07/08/2014 by Oliver Parham MD at [facility] Left: Knee [employer] Inc 05/25/2019 [id number] / / [id number] Ins Kn Vangurd Fem Cocr L-Intlok 60.0mm Implanted:Qty: 1 on 07/08/2014 by Oliver Parham MD at [facility] Left: Knee [employer] Inc 07/25/2023 [id number] / / [id number] Ty Tibial I Beam Fix Bar 67mm Implanted:Qty: 1 on 07/08/2014 by Oliver Parham MD at [facility] Left: Knee [employer] Inc 01/23/2024 [id number] / / [id number] Vangrd Ant Stblzd Brg 10mm X 67mm Implanted:Qty: 1 on 07/08/2014 by Oliver Parham MD at [facility] Left: Knee [employer] Inc 06/24/2018 [id number] / / [id number] Advance Directives * Full Code (Latest Code Status on File) Date Activated Date Inactivated Comments 07/08/2014 4:09 PM 07/11/2014 11:37 AM Care Teams Director Of Intercollegiate Athletics Relationship Specialty Start Date End Date Quoc Chino MD [address] [place] [address] PCP - General Family Medicine 09/26/12 Oliver Parham MD [address] [place] [place] [address] Orthopedic Surgery 09/26/12
--- OUTSIDE RECORDS SUMMARY | 2024-11-24 12:19 | XMS_ITS | Clinical Summary ---
Author Organization [facility] Address [address] [place], [address] [address] Phone Care Team Providers Care Homicide Investigator Name Role Phone Quoc Chino MD Primary Care Provider [phone] Medications polyethylene glycol (MIRALAX) Powder Use entire [...] age to complete this topic Care Teams Homicide Investigator Relationship Specialty Start Date End Date Quoc Chino MD [address] [place] [address] PCP - General Family Medicine 02/11/17
--- OUTSIDE RECORDS SUMMARY | 2024-11-24 12:19 | XMS_ITS | Clinical Summary ---
Author Organization [facility] Address [address] [place] [address] Care Team Providers Care Traffic Agent Name Role Phone Judah Jeffery MD Primary Care Provider [phone] Allergies Active Allergy Reactions Criticality Noted Date [...] 1 tablet (25 mg total) by mouth visualization developer before breakfast Active metoprolol XL (TOPROL-XL) 50 [...] (11/16/2020): Added automatically from request for surgery [id number] Coronary artery disease of n ative artery of [place] heart with stable angina pectoris 11/03/2020 Overview (11/03/2020): Added automatically from request for surgery [id number] Abnormal EKG 11/03/2020 Overview (11/03/2020): Added automatically from request for surgery [id number] Atherosclerosis of coronary artery 06/03/2016 Obesity with [...] Tobacco: Never Tobacco Cessation:Counseling Given: Not Answered [facility] Utilities Answer Date Recorded In the past 12 months has [employer], gas, oil, or water company threatened to shut off services in your [...] often do you attend chur ch or islam services? 1 to 4 times per year 04/29/2024 Do you belong to any clubs o r organizations such as restorationist groups, unions, fraternal or athletic groups, or [...] any time in the past 12 m [facility], were you homeless or living in a care home (including now)? No 04/29/2024 Personal Safety Answer Date Recorded Have you ever been in or are you currently in a harmful physical or emotional relationship or is someone making you feel afraid or unsafe? 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 Gender Identity Not on file Sexual Orientation Not on file Obstetrics History Last Filed Vital Signs Vital Sign Reading Time Taken Comments Blood Pressure 147/78 08/04/2024 10:40 AM LAUNDRY SUPERINTENDENT Pulse 70 08/04/2024 10:40 AM LAUNDRY SUPERINTENDENT Temperature 36.8 C (98.3 F) 08/04/2024 10:40 AM LAUNDRY SUPERINTENDENT Respiratory Rate 18 05/07/2024 9:05 AM CDT Oxygen Saturation 97% 08/04/2024 10:40 AM LAUNDRY SUPERINTENDENT Inhaled Oxygen Concentration - - Weight 62.1 kg (137 lb) 08/04/2024 10:40 AM LAUNDRY SUPERINTENDENT Height 157.5 cm (5' 2 ) 08/04/2024 10:40 AM LAUNDRY SUPERINTENDENT Body Mass Index 25.06 08/04/2024 10:40 AM LAUNDRY SUPERINTENDENT Plan of Treatment Health Maintenance Due Date Last Done Comments Albumin Creatinine Ratio, Urine 1941 Depression Screening 1941 Osteoporosis Screening-Bone Density Scan 1941 Dilated Eye Exam 1941 Foot Exam 1941 Hepatitis B Screening 1959 Well Visit 65+ 2006 Zoster Vaccine (1 of 2) 07/14/2015 05/19/2015 Covid-19 Vaccine (2023-2 5 season) 2024 05/22/2022, 10/28/2020, 09/30/2020 Influenza Vaccine (#1) 2024 , 05/26/2020, 06/11/2019, Additional history exists Hemoglobin A1C 10/10/2024 04/09/2024 Lipid Panel 04/09/2025 04/09/2024, 0708/2021, 12/16/2021, Additional history exists Fall Risk Assessment 04/30/2025 04/30/2024 eGFR 04/30/2025 04/30/2024, 11/2023, 04/28/2024, Additional history exists DTaP/Tdap/Td Vaccine (3 - Td or Tdap) 02/04/2031 02/04/2021, 02/17/2016 Pneumococcal vaccine 65+ Completed 06/23/2015, 06/26 Medical Devices Implanted Type Area Audio Visual Collections Coordinator Device Identifier Shelf Expiration Date Model / Serial / Lot [employer] Marguerite [id number] Stent Drug Eluting S [employer] Us Mr 3.31m88sl - [id number] - [id number] Implanted:Qty: 1 on 11/23/2020 by Marisol Kenney MD at [facility] Stent [employer] Marguerite 07/27/2021 [id number] 350 / [id number] / [id number] [employer] Marguerite [id number] Stent Drug Eluting S MegaQuickcue Mr 4.98k21li - [id number] - [id number] Implanted:Qty: 1 on 11/23/2020 by Marisol Kenney MD at [facility] [employer] Marguerite 07/25/2021 [id number] 400 / [id number] / [id number] [employer] [id number] Angio-Seal Evolution 8fr .038in Guidewire Bypass Tube Suture - [id number] - [id number] Implanted:Qty: 1 on 11/23/2020 by Marisol Kenney MD at [facility] [employer] Marguerite 08/25/2021 [id number] / [id number] / [id number] Procedures Procedure Name Priority Date/Time Associated Diagnosis Comments EGFR Routine 04/30/2024 5:34 AM CDT HEMOGLOBIN A1C Routine 04/09/2024 1:00 PM CDT Cellulitis of right foot Type 2 diabetes mellitus with foot ulcer (CODE) (HCC) Diabetic polyneuropathy associated with type 2 diabetes mellitus (HCC) LIPID PANEL Routine 04/09/2024 1:00 PM CDT Essential hypertension Coronary artery disease of [place] artery of [place] heart with stable angina pectoris from Last [...] reviewed 2021. Testing performed by: [facility], [address] [place] [address], [place]., [address] Blood 04/30/2024 5:34 AM CDT 04/30/2024 5:54 AM CDT Chantelle Kenney MD LAB BLOOD ORDERABLES Final Resu lt Performing Organization Address [facility] Co de Phone Number [facility] [address] [facility] Department [place] [address] * (ABNORMAL) Hemoglobin A1c (04/09/2024 1:00 PM CDT) Hgb A1C 6.0(H) 4.0 - 5.6 % Estimated Average Glucose 126 mg/dL [facility] Comment: The ADA recommends reporting an [...] Espinal DPM LAB BLOOD ORDERABLES Final Result Performing Organization Address [facility] de Phone Number [facility] [place] [address] * (ABNORMAL) Lipid panel (04/09/2024 1:00 PM [...] revised on 2018. Triglycerides 236(H) <=149 mg/dL [facility] Comment: Interpretive Data Ages < or [...] revised on 2018. HDL 33(L) >=40 mg/dL [facility] Comment: Interpretive Data Ages < or [...] on 2018. LDL, calculated 133(H) <=129 mg/dL [facility] Comment: Interpretive Data Ages < or [...] revised on 2018. Non-HDL Cholesterol 180 mg/dL [facility] Comment: Interpretive Data Ages < or = [...] last revised on 2018. Chol/HDL ratio 6 [facility] Blood 04/09/2024 1:00 PM CDT 04/09/2024 1:49 PM CDT us Rodger Gillis MD LAB BLOOD ORDERABLES Final Res ult [facility] [place] [address] from Last 3 Months or Most Recently Relevant to Health Maintenance Insurance [facility] MDCR HMO REF [facility] MEDICARE ADVANTAGE [facility] MEDICARE ADVANTAGE Advance Directives For more information, please contact: [phone] * Full Code (Latest Code Status on File) Date Activated Date Inactivated Comments 04/28/2024 12:47 AM 04/30/2024 6:19 PM * Full Code Date Activated Date Inactivated Comments 11/23/2020 11:44 AM 11/23/2020 7:58 PM * Full Code Date Activated Date Inactivated Comments 11/16/2020 2:29 PM 11/16/2020 8:07 PM Care Teams Traffic Agent Relationship Specialty Start Date End Date Judah Jeffery MD PCP - General Family Practice 08/10/22
--- OUTSIDE RECORDS SUMMARY | 2024-11-24 12:19 | XMS_ITS | Encounter Summary ---
Author Organization [facility] Address [facility] [place] [address] Care Team Providers Care Interventional Radiology Tech Name Role Phone Romina Silveira MD Primary Care Provider [phone] Deshawn Ghosh MD Primary Care Pr ovider [facility] Patrick Penny MD Primary Care Provider [phone] Encounter Details Date Type Department Care Team (Late st Contact Info) Description 06/28/2022 Therapy Plan [facility] Outpatient Therapy [place], [place] [id number] Norma Boles, PT [place], [place] [address] Social History Tobacco Use Types Packs/Day Years [...] Noted Time PHQ-9 Depression Total Score: 0 08/02/20 22 8:24 AM CDT documented as of this encounter Care Teams Interventional Radiology Tech Relationship Specialty Start Date End Date Romina Silveira MD PCP - General INTERNAL MEDICINE 02/08/20 11/29/22 Deshawn Ghosh MD PCP - General FAMILY PRACTICE 11/30/22 01/01/23 Patrick Penny MD [address] [address] PCP - General INTERNAL MEDICINE 01/02/23 02/23/24 documented as of this encounter
== END 2024-11-24 11:03 | disposition home or self-care (01) ==
LOC: ANHAUDIO 11:03
PROVIDERS: PCP Family Medicine; Visit Provider Family Medicine
DX: H90.3 Sensorineural hearing loss, bilateral (principal)
CPT/HCPCS: 92557; 92567

== ENCOUNTER 2025-02-12 16:04 | Observation (INO) | payer MEDICARE, SELFPAY ==
[2025-02-12] VITALS (16 sets, daily range): BP systolic 88–140; BP diastolic 46–87; PULSE 65–78; RESP 12–21; TEMP 36.1–36.4; O2SAT 95–99
--- NOTE | ~2025-02-12 | CT_ITS ---
CLINICAL INDICATION: Weakness. Personal history of multiple myeloma. COMPARISON: Reference is made to a PET/CT dated 05/26/2024. TECHNIQUE: Multiple contiguous axial images of the abdomen and pelvis were performed without the admi nistration of intravenous contrast The dose-length product (DLP) was 311.13 mGy-cm. Automated exposure control and iterative reconstruction technique were employed. FINDINGS/OBSERVATIONS: Visualized lower thorax: Cylindrical bronchiectasis. The remainder of the bilateral lung bases are clear. The heart is of normal size, without pericardial effusion. Densely calcified mitral annulus. Moderate hiatal hernia is present. Liver: The liver demonstrates homogeneous attenuation and is not enlarged. Gallbladder and biliary system: The gallbladder is only minimally distended, and contains innumerable layering stones. No surrounding inflammatory change is appreciated. Pancreas: Limited evaluation of the pancreas secondary to the lack of intravenous contrast. Spleen: Punctate calcifications identified within the splenic parenchyma, suggesting prior granulomat ous disease. The remainder of the spleen otherwise demonstrates homogeneous attenuation and is not enlarged. Kidneys: The bilateral kidneys are unremarkable, without hydronephrosis or renal calculi. Adrenal glands: Unremarkable. Gastrointestinal tract: Fecal stasis within the colon. Appendix: The appendix is not definitively visualized. However, no pericecal inflammatory change is identified suggest the presence of acute appendicitis. Vasculature: Densely calcified atherosclerotic disease. Lymph nodes: Limited evaluation without intravenous contrast. Pelvic structures: The bladder is distended, and otherwise unremarkable. Interval enlargement of a focus of fluid attenuation within the left hemipelvis, likely an ovarian cy st. This focus measures 25 x 27 x 39 mm (anterior to posterior x medial to lateral x cranial to cauda l dimension) on today's study, compared with 19.5 x 23 mm on the previous examination dated 05/26/2024 . Of note, no increased activity was identified on PET/CT in this area. The uterus is not visualized, presumably surgically absent. Body wall and musculoskeletal: Age-appropriate degenerative disease within the lower thoracic and lumbosacral spine. Left total hip prosthetic in position. IMPRESSION: Moderate hiatal hernia. Cholelithiasis. Left ovarian (likely) cyst, increased in size from 05/26/2024. Otherwise, unremarkable noncontrast enhanced CT examination of the abdomen and pelvis, as detailed ab ove. Reviewed, dictated and finalized at location A. IMPRESSION: Moderate hiatal hernia. Cholelithiasis. Left ovarian (likely) cyst, increased in size from 05/26/2024. Otherwise, unremarkable noncontrast enhanced CT examination of the abdomen and pelvis, as detailed above.
--- NOTE | ~2025-02-12 | CT_ITS ---
History: Weakness, vertigo PROCEDURE: CT head without contrast. COMPARISON: None TECHNIQUE: Axial imaging of the head performed from the skull base to the vertex without IV contrast. Sagittal a nd coronal reformations obtained. DLP: 681 mGy-cm FINDINGS: The ventricles are enlarged. The dilatation of the ventricles is proportional to the degree of sulcal prominence, not uncommon in the senescent brain. Decreased attenuation is identified within the periventricular white matter, likely secondary to micr ovascular ischemic disease, in a patient of this age. There is no mass, mass effect or midline shift. There is no abnormal extra-axial fluid collection or intracranial hemorrhage. Visualized paranasal sinuses are clear. The mastoid air cells are well aerated. No acute displaced fractures within the overlying cranium. Impression: No acute intracranial hemorrhage or suspicious mass effect. Reviewed, dictated and finalized at location A. Impression: No acute intracranial hemorrhage or suspicious mass effect.
--- NOTE | ~2025-02-12 | XR_ITS ---
CHEST RADIOGRAPH CLINICAL HISTORY: weakness . COMPARISON: None available TECHNIQUE: Single portable view of the chest. FINDINGS The cardiomediastinal silhouette is unremarkable. The lungs are clear. IMPRESSION: No focal infiltrate or effusion. Reviewed, dictated and finalized at location A.
--- NOTE | ~2025-02-12 | US_ITS ---
Renal-Bladder ultrasound Clinical History: Acute on chronic renal failure Technique: Real-time sonographic imaging of the kidneys and urinary bladder was performed. Findings: The right kidney measures 9.3 cm in length and the left kidney measures 9.3 cm. There is no hydronephrosis on either side. 4 mm nonobstructing left renal stone noted. Renal cortical echogenici ty is increased. No renal mass lesion is identified. The urinary bladder is moderately distended at the time of this exam. No intraluminal echoes are iden tified. No abnormal wall thickening is seen. Impression: Echogenic kidneys suggest chronic medical renal disease. No hydronephrosis. 4 mm nonobstructing left renal stone present. Reviewed, dictated and finalized at location . Impression: Echogenic kidneys suggest chronic medical renal disease. No hydronephrosis. 4 mm nonobstructing left renal stone present.
--- NOTE | 2025-02-12 16:36 | ECG_ITS ---
Test Date: 2025-02-12 17:01:51 Measurements Intervals [place] Rate: 74 P: 12 MI: 165 QRS: -22 QRSD: 83 T: 4 QT: 418 QTc: 465 Interpretive Statements SINUS RHYTHM INFERIOR INFARCT, AGE INDETERMINATE BASELINE ARTIFACT- I, II, AVR ABNORMAL ECG No previous ECG available for comparison Electronically Signed On 02-12-2025 20:40:47 CDT by Can Jones D.O.
[2025-02-12 16:50] LABS: Basophils Absolute Auto 0.1 K/mm3 (0.0-0.1); Basophils Percent Auto 0.9 % (0.2-1.2); Eosinophils Absolute Auto 0.3 K/mm3 (0-0.3); Eosinophils Percent Auto 4.2 % (0-4.4); Hematocrit 29.7 % (37.0-47.0); Hemoglobin 9.8 g/dL (12.0-15.0); Immature Granulocyte Absolute 0.03 K/mm3 (0.00-0.031); Immature Granulocyte Percent A 0.4 % (0-0.5); Lymphocytes Absolute Auto 1.67 K/mm3 (0.9-3.2); Lymphocytes Percent Auto 24.3 % (18.3-44.2); Mean Corpuscular Hemoglobin 29.7 pg (26-34); Mean Platelet Volume 8.9 fl (7.4-10.4); Monocytes Absolute Auto 0.7 K/mm3 (0.1-0.6); Monocytes Percent Auto 10.2 % (2.6-8.5); Neutrophils Absolute Auto 4.1 K/mm3 (1.3-6.7); Platelet Count Result 294 k/mm3 (150-375); Red Cell Distribution Width 12.7 % (11.5-14.5); White Blood Count 6.9 K/mm3 (4.5-10.0)
--- NOTE | 2025-02-12 16:53 | PC.NURSE ---
verbal order to give 2L of LR to pt due to her BP by EDP Dr. Tejada
[2025-02-12 16:59] LABS: Alanine Aminotransferase 17 U/L (6-35); Albumin Level 3.7 g/dL (3.5-5.1); Alkaline Phosphatase 53 U/L (38-126); Anion Gap 14 mmol/L (4-12); Aspartate Amino Transferase 24 U/L (14-36); Bilirubin,Total 0.7 mg/dL (0.2-1.3); Blood Urea Nitrogen 47 mg/dL (7-17); Calcium 9.1 mg/dL (8.4-10.2); Carbon Dioxide 15 mmol/L (22-30); Chloride 99 mmol/L (98-107); Estimated CRCL calculation 12 ml/min; Estimated Glomerular Filt Rate 17; Glucose 133 mg/dL (65-110); Potassium 4.7 mmol/L (3.4-5.0); Sodium 128 mmol/L (137-145); Total Protein 7.1 g/dL (6.3-8.2)
[2025-02-12] MEDS: LACTATED RINGERS 2,000 ML 999 ML (17:16)
[2025-02-12 17:56] LABS: Add Urine Microscopic? YES; Appearance Urine Clear (Clear); Bacteria Urine 4+ /hpf; Bilirubin Urine Negative (Negative); Blood Urine Negative (Negative); Color Urine Yellow (Yellow); Glucose Urine UA Negative (Negative); Ketones Urine Negative (Negative); Leukocyte Esterase Ur 2+ LEU/UL (Negative); Nitrate Urine Positive (Negative); Non Pathogenic Casts 0-2; Protein Urine Trace mg/dL (Negative); RBC Urine 0-2 /hpf (0-2); Specific Grav Ur 1.012 (1.001-1.035); Squamous Epithelial Cell Urine None Seen /hpf (Few); pH Urine 5.5 (5.0-9.0)
[2025-02-12 17:56] LABS: Influenza A QL RT-PCR Negative (Negative); Influenza B QL RT-PCR Negative (Negative); RSV RNA, RT-PCR Negative (Negative); SARS-CoV-2 RNA PCR Negative (Negative)
--- NOTE | 2025-02-12 19:56 | ED.GENADULT ---
HPI - General Adult General Chief complaint: Weakness Stated complaint: Weakness Time Seen by Provider: 02/12/25 16:48 History of Present Illness HPI narrative: This is an 84 year old female presenting for weakness. Patient says that over last 2 weeks she has been feeling dizzy and weak. She is having issues walking has had multiple falls. she has not sustained any serious injuries from these falls and has no pain. The dizziness is worse after she stands up. Patient states that she has not been eating very much because when she becomes nauseous. This is caused her to lose weight. This is a chronic issue and she has seen her primary care physician for this on 02/03/2025. She denies fevers chills vomiting diarrhea chest pain difficulty breathing or abdominal pain. She denies urinary symptoms. She lives at home with her who feels that he is no longer capable of taking care of her. Related Data Home Medications ?Medication ?Instructions ?Recorded ?Confirmed ?Last Taken ?Type nitroglycerin 0.4 mg sublingual 0.4 mg sublingual Q5M PRN Chest 09/28/19 02/03/25 Unknown History tablet (Nitrostat) Pain aspirin 81 mg tablet,delayed 81 mg PO HS 02/05/21 02/03/25 Unknown History release (Jocelyn Low Dose Aspirin) Allergies Allergy/AdvReac Type Severity Reaction Status Date / Time adhesive tape Allergy Severe BLISTERS/SKIN Verified 02/12/25 19:01 TEARS latex Allergy Severe Anaphylaxis Verified 02/12/25 19:01 [facility] Past Medical History Medical History Dyspepsia Nausea BMI 27.0-27.9,adult Diabetic ulcer of right foot located base 3rd toe Early satiety Dystrophic nail Postoperative wound dehiscence Encounter for postoperative care Sesamoiditis of right foot Urinary frequency Foot ulcer, right Peripheral neuropathy Hyperlipidemia Borderline diabetes Coronary artery disease Hypertension Surgical History Surgical History History of breast surgery H/O heart artery stent History of hip replacement H/O: hysterectomy H/O colonoscopy H/O tooth extraction History of knee replacement Family History Family History Mother Family history of pancreatic cancer Heart disease Grandparent Diabetes mellitus Father Diabetes mellitus Hypertension Family history of cardiovascular disease Family history of chronic obstructive pulmonary disease Sibling No problems noted. Other Family history of elevated blood lipids Social History Social History Social History: Lives with her , daughter and son-in-law. Son-in-law has dementia and they are helping the daughter care for him. She is a lifelong nonsmoker. No alcohol or drug use. She is a full code. She nominates her to be the individual would make medical decisions for her if she is unable Smoking status: Never smoker Second hand tobacco smoke exposure: Yes Alcohol intake: current Substance use: never Substance use type: does not use Do You Feel Safe in your Home?: Yes Lack of Transportation: No Lack of Food: Never True Current Housing: I Have Housing Concerned About Future Housing: No Difficulty Paying Gas/Electric Bills: No Difficulty Paying for Meds: No Currently Unemployed: No Education: High School Diploma/GED Difficulty w/ Childcare or Family Care: No Living arrangements: with family Occupation/Education: retired 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 Head: atraumatic. EYES: EOMI, NOSE: Atraumatic NECK: Trachea midline RESPIRATORY: No increased rate of breathing clear to auscultation CARDIOVASCULAR: RRR, no peripheral edema ABDOMINAL: Non-distended, nontender MUSCULOSKELETAl: Head to toe trauma exam performed no injuries or deformities NEURO: Alert. Moving 4/4 extremities SKIN:: Warm, dry. Normal color PSYCHIATRIC: Normal affect Course Vital Signs Vital signs: Vital Signs Temperature 97.6 F 02/12/25 16:30 Pulse Rate 73 02/12/25 16:30 Respiratory Rate 12 02/12/25 16:30 Blood Pressure 91/55 L 02/12/25 16:30 Pulse Oximetry 99 02/12/25 16:30 Oxygen Delivery Room Air 02/12/25 16:30 Temperature 97.6 F 02/12/25 16:30 Pulse Rate 77 02/12/25 21:01 Respiratory Rate 17 02/12/25 21:01 Blood Pressure 109/58 L 02/12/25 21:01 Pulse Oximetry 98 02/12/25 19:01 Oxygen Delivery Room Air 02/12/25 16:30 Medical Decision Making [facility] Narrative Medical decision making narrative: -Course: 84-year-old female presenting with 2 weeks of dizziness and progressive weakness. On arrival she was hypotensive. She was given 2 L of fluid with improvement in her blood pressure. Workup significant for UTI. Started on ceftriaxone. Kidney function shows creatinine of 2.6 which is in line with her primary care visit 2 weeks ago although that seems higher than her previous levels that have ranged anywhere from 1.1-2. Hemoglobin had a 1.3 point drop from her PCP visit 2 weeks ago. No melena or hematochezia. I discussed admission versus discharge with the patient and her . Her does not feel that he is capable of taking care of her at home because she is too weak to move around the house. Patient will be admitted to the hospital for treatment of her UTI/dehydration. She will require PT OT and possible placement if her strength does not return with rehydration and treatment of her UTI. -DDX includes but is not limited to: UTI dehydration sepsis pneumonia kidney failure Independent EKG interpretation: Rhythm [sinus], Rate [74], [place] -[normal], ID -[normal], QRS [narrow], QTC [normal], T waves -[negative for concerning inversions], ST Segments - [Negative for concerning elevations] Final interpretations: [Normal Sinus Rhythm] Vital Signs Vital Signs: Vital Signs Temperature 97.6 F 02/12/25 16:30 Pulse Rate 73 02/12/25 16:30 Respiratory Rate 12 02/12/25 16:30 Blood Pressure 91/55 L 02/12/25 16:30 Pulse Oximetry 99 02/12/25 16:30 Oxygen Delivery Room Air 02/12/25 16:30 Temperature 97.6 F 02/12/25 16:30 Pulse Rate 77 02/12/25 21:01 Respiratory Rate 17 02/12/25 21:01 Blood Pressure 109/58 L 02/12/25 21:01 Pulse Oximetry 98 02/12/25 19:01 Oxygen Delivery Room Air 02/12/25 16:30 Lab Data 02/12/25 16:42 02/12/25 16:42 Labs: Lab Results 02/12/25 02/12/25 02/12/25 Range/Units 16:42 17:14 17:43 WBC 6.9 (4.5-10.0) K/mm3 RBC 3.30 L (4.2-5.4) M/mm3 Hgb 9.8 L D (12.0-15.0) g/dL Hct 29.7 L (37.0-47.0) % MCV 90.0 (80-100) fl MCH 29.7 (26-34) pg MCHC 33.0 (32-36) g/dl RDW 12.7 (11.5-14.5) % Plt Count 294 (150-375) k/mm3 MPV 8.9 (7.4-10.4) fl Immature Gran % (Auto) 0.4 (0-0.5) % Neut % (Auto) 60.0 (45.5-73.1) % Lymph % (Auto) 24.3 (18.3-44.2) % Wood % (Auto) 10.2 H (2.6-8.5) % Eos % (Auto) 4.2 (0-4.4) % Baso % (Auto) 0.9 (0.2-1.2) % Lymph # (Auto) 1.67 (0.9-3.2) K/mm3 [place] # (Auto) 0.7 H (0.1-0.6) K/mm3 Eos # (Auto) 0.3 (0-0.3) K/mm3 Baso # (Auto) 0.1 (0.0-0.1) K/mm3 Abs Immat Gran (auto) 0.03 (0.00-0.031) K/mm3 Absolute Neuts (auto) 4.1 (1.3-6.7) K/mm3 Absolute Nucleated RBC 0.000 (0.0-0.012) K/mm3 Nucleated RBC % 0.0 (0.0-0.2) % Sodium 128 L (137-145) mmol/L Potassium 4.7 (3.4-5.0) mmol/L Chloride 99 (98-107) mmol/L Carbon Dioxide 15 L (22-30) mmol/L Anion Gap 14 H (4-12) mmol/L BUN 47 H (7-17) mg/dL Creatinine 2.62 H (0.7-1.0) mg/dL Estim Creat Clear Calc 12 ml/min Estimated GFR 17 L (59 - ) Glucose 133 H (65-110) mg/dL Calcium 9.1 (8.4-10.2) mg/dL Total Bilirubin 0.7 (0.2-1.3) mg/dL AST 24 (14-36) U/L ALT 17 (6-35) U/L Alkaline Phosphatase 53 (38-126) U/L Total Protein 7.1 (6.3-8.2) g/dL Albumin 3.7 (3.5-5.1) g/dL Urine Color Yellow (Yellow) Urine Appearance Clear (Clear) Urine pH 5.5 (5.0-9.0) Ur Specific [place] 1.012 (1.001-1.035) Urine Protein Trace (Negative) mg/dL Urine Glucose (UA) Negative (Negative) mg/dL Urine Ketones Negative (Negative) mg/dL Ur Blood (Man) Negative (Negative) Urine Nitrate Positive H (Negative) Urine Bilirubin Negative (Negative) Urine Urobilinogen 1.0 (<2.0) mg/dL Leukocyte Esterase Rfl 2+ H (Negative) GILES/UL Urine RBC 0-2 (0-2) /hpf Urine WBC 11-20 H (0-3) /hpf Ur Squamous Epith Cells None seen (Few) /hpf Urine Bacteria 4+ H /hpf Urine Casts 0-2 Influenza A (RT-PCR) Negative (Negative) Influenza B (RT-PCR) Negative (Negative) RSV (RT-PCR) Negative (Negative) SARS-CoV-2 RNA (RT-PCR) Negative (Negative) Discharge Plan Discharge Clinical Impression: Acute dehydration, Adult failure to thrive, Acute UTI Patient Disposition: Still a Patient Condition: Stable Patient Language: Danish Prescriptions: No Action ondansetron HCl 4 mg tablet 4 mg PO Q8H PRN (Reason: nausea and vomiting) 4 Days Qty: 10 0RF nitroglycerin [Nitrostat] 0.4 mg tablet, sublingual 0.4 mg SUBLINGUAL Q5M PRN (Reason: Chest Pain) Rx Instructions: until response; do not exceed 3 doses per episode cholecalciferol (vitamin D3) 1,250 mcg (50,000 unit) capsule 1,250 mcg PO WEEKLY Qty: 14 1RF ondansetron 4 mg tablet,disintegrating 4 mg PO Q8H PRN (Reason: nausea and vomiting) Qty: 14 3RF pantoprazole 40 mg tablet,delayed release (DR/EC) 40 mg PO BID Qty: 180 1RF aspirin [Jocelyn Low Dose Aspirin] 81 mg Tablet,Delayed Release (Dr/Ec) 81 mg PO HS (DME) FreeStyle Lite Strips Strip See Rx Instructions .Route Qty: 100 2RF Rx Instructions: Check blood glucose once daily As directed (DME) OneTouch Verio test strips Strip See Rx Instructions .Route Qty: 100 1RF Rx Instructions: Check daily or as needed. (DME) blood-glucose meter [OneTouch Verio Flex meter[place] [facility] [place]ructions .Route Qty: 1 0RF Rx Instructions: check blood glucose 1xday As directed clopidogrel 75 mg tablet See Rx Instructions .ROUTE .COMPLEX Qty: 100 1RF Dose Instruction: TAKE 1 TABLET BY MOUTH DAILY Rx Instructions: TAKE 1 TABLET BY MOUTH DAILY oxybutynin chloride 5 mg tablet extended release 24hr See Rx Instructions .ROUTE .COMPLEX Qty: 100 1RF Dose Instruction: TAKE 1 TABLET BY MOUTH DAILY Rx Instructions: TAKE 1 TABLET BY MOUTH DAILY rosuvastatin 20 mg tablet See Rx Instructions .ROUTE .COMPLEX Qty: 100 1RF Dose Instruction: TAKE 1 TABLET BY MOUTH DAILY Rx Instructions: TAKE 1 TABLET BY MOUTH DAILY amlodipine 5 mg tablet See Rx Instructions .ROUTE .COMPLEX Qty: 100 1RF Dose Instruction: TAKE 1 TABLET BY MOUTH EVERY MORNING Rx Instructions: TAKE 1 TABLET BY MOUTH EVERY MORNING metoprolol succinate 50 mg tablet extended release 24 hr See Rx Instructions .ROUTE .COMPLEX Qty: 150 1RF Dose Instruction: TAKE 1 AND 1/2 TABLETS BY MOUTH AT BEDTIME Rx Instructions: TAKE 1 AND 1/2 TABLETS BY MOUTH AT BEDTIME losartan 100 mg tablet See Rx Instructions .ROUTE .COMPLEX Qty: 100 1RF Dose Instruction: TAKE 1 TABLET BY MOUTH DAILY Rx Instructions: TAKE 1 TABLET BY MOUTH DAILY isosorbide mononitrate 30 mg tablet extended release 24 hr 30 mg PO DAILY Qty: 90 1RF hydrochlorothiazide 25 mg tablet 25 mg PO DAILY Qty: 90 1RF levothyroxine 25 mcg tablet 25 mcg PO DAILY Qty: 90 1RF escitalopram oxalate 10 mg tablet 10 mg PO DAILY Qty: 90 1RF gabapentin 300 mg capsule 300 mg PO BID Qty: 180 1RF metformin 1,000 mg tablet See Rx Instructions .ROUTE .COMPLEX Qty: 180 0RF Dose Instruction: TAKE 1 TABLET BY MOUTH TWICE A DAY Rx Instructions: TAKE 1 TABLET BY MOUTH TWICE A DAY Follow-up/Referrals: Judah Jeffery MD [Primary Care Provider] -
[2025-02-12] MEDS: LACTATED RINGERS 1,000 ML 75 ML IV CONT (22:08)
--- NOTE | 2025-02-12 23:20 | ADMGEN ---
This patient, Emelia Heath, was admitted to [facility] Surg Room 311-01. Patient/family oriented to hospital policies and general routines including ID bracelet, bed and alarms, visiting hours, pain management, procedures, bathroom and other care routines, personal items, smoking policy, room service/diet, and visiting hours. Information on how to activate the Rapid Response Team has been discussed. Patient/Family are encouraged to report perceived risks to care and to ask questions if they do not understand what they are told or what they should do.
[2025-02-13 01:10] LABS: Lactic Acid Reflex 1.1 mmol/L (0.7-2.0)
[2025-02-13 01:27] LABS: Procalcitonin 0.1 ng/mL
[2025-02-13 06:00] VITALS: BP 126/60; PULSE 67; RESP 16; TEMP 36.3; O2SAT 100
[2025-02-13 08:52] VITALS: BP 125/87; PULSE 65; RESP 16; TEMP 36.1; O2SAT 96
[2025-02-13 10:24] LABS: Glucose Point of Care 86 mg/dl (65-105)
[2025-02-13 12:01] LABS: Glucose Point of Care 186 mg/dl (65-105)
--- NOTE | 2025-02-13 13:11 | PM.IMHP ---
H&P: HPI History of Present Illness Date/Time: 02/13/25 13:11 Chief Complaint: UTI and FTH Narrative: The patient is an 84-year-old female with a past medical history of cardiac stent, early satiety, pre-diabetes, peripheral neuropathy, increased urinary frequency, hyperlipidemia, and right foot diabetic ulcer visited ER due to failure to thrive and UTI. Pertinent ED labs: WBC 6.9, hemoglobin 9.8, hematocrit 29.7, platelet 294, sodium 128, potassium 4.7, creatinine 2.62, glucose 186 UA shows positive for nitrates and WBC 11-20 Chest x-ray: No focal infiltrate or effusion. Head CT: No acute intracranial hemorrhage or suspicious mass effect. Abdomen/pelvis CT: Moderate hiatal hernia. Cholelithiasis. Left ovarian (likely) cyst increased in size from 05/26/2024. Otherwise, unremarkable [id number] CT examination of the abdomen and pelvis, as detailed above. The patient is mainly admitted in the setting of failure to thrive and UTI. According to ED records, her was unable to care for her at home. I ordered PT OT and appreciate the recommendation. Discussed with care coordination for placement. The patient is only oriented to herself. The patient reports that she has a very low appetite and has lost about 6 pounds recently. The patient reports that she walks independently at home, although over the past two days, she has been feeling weak. Currently,holding losartan due to ANIRUDH on CKD. Will renal US, CPK, and urine electrolytes Review of Systems Review of Systems: Except as documented, all other systems were reviewed and are negative. [facility] Past Medical History Medical History Dyspepsia Nausea BMI 27.0-27.9,adult Diabetic ulcer of right foot located base 3rd toe Early satiety Dystrophic nail Postoperative wound dehiscence Encounter for postoperative care Sesamoiditis of right foot Urinary frequency Foot ulcer, right Peripheral neuropathy Hyperlipidemia Borderline diabetes Coronary artery disease Hypertension Surgical History Surgical History History of breast surgery H/O heart artery stent History of hip replacement H/O: hysterectomy H/O colonoscopy H/O tooth extraction History of knee replacement Family History Family History Mother Family history of pancreatic cancer Heart disease Grandparent Diabetes mellitus Father Diabetes mellitus Hypertension Family history of cardiovascular disease Family history of chronic obstructive pulmonary disease Sibling No problems noted. Other Family history of elevated blood lipids Social History Social History Social History: Lives with her , daughter and son-in-law. Son-in-law has dementia and they are helping the daughter care for him. She is a lifelong nonsmoker. No alcohol or drug use. She is a full code. She nominates her to be the individual would make medical decisions for her if she is unable Smoking status: Never smoker Second hand tobacco smoke exposure: Yes Alcohol intake: never Substance use: never Substance use type: does not use Do You Feel Safe in your Home?: Yes Lack of Transportation: No Lack of Food: Never True Current Housing: I Have Housing Concerned About Future Housing: No Difficulty Paying Gas/Electric Bills: No Difficulty Paying for Meds: No Currently Unemployed: No Education: Don't Know Difficulty w/ Childcare or Family Care: No Living arrangements: with family Occupation/Education: retired 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[employer] Gender identity (if verbalized by the patient): Female Sexual Orientation (if Verbalized by the Patient): Straight or Heterosexual Spiritual care concerns: No Agree to blood products: Yes Meds Home Medications and Allergies Home Medications ?Medication ?Instructions ?Recorded ?Confirmed ?Type nitroglycerin 0.4 mg sublingual 0.4 mg sublingual Q5M PRN Chest 09/28/19 02/13/25 History tablet (Nitrostat) Pain aspirin 81 mg tablet,delayed 81 mg PO DAILY 02/05/21 02/13/25 History release (Jocelyn Low Dose Aspirin) blood sugar diagnostic (FreeStyle #100 ea 02/25/24 02/03/25 Rx Lite Strips) blood sugar diagnostic (OneTouch #100 ea 02/25/24 02/03/25 Rx Verio test strips) blood-glucose meter (OneTouch #1 ea 04/13/24 02/03/25 Rx Verio Flex Meter) amlodipine 5 mg tablet See Rx Instructions .Route 09/07/24 02/13/25 Rx .COMPLEX #100 tabs clopidogrel 75 mg tablet See Rx Instructions .Route 09/07/24 02/13/25 Rx .COMPLEX #100 tabs losartan 100 mg tablet See Rx Instructions .Route 09/07/24 02/13/25 Rx .COMPLEX #100 tabs metoprolol succinate 50 mg See Rx Instructions .Route 09/07/24 02/13/25 Rx tablet,extended release 24 hr .COMPLEX #150 tabs oxybutynin chloride 5 mg See Rx Instructions .Route 09/07/24 02/13/25 Rx tablet,extended release 24 hr .COMPLEX #100 tabs hydrochlorothiazide 25 mg tablet 25 mg PO DAILY #90 tabs 12/28/24 02/13/25 Rx isosorbide mononitrate 30 mg 30 mg PO DAILY #90 tabs 12/28/24 02/13/25 Rx tablet,extended release 24 hr levothyroxine 25 mcg tablet 25 mcg PO DAILY #90 tabs 12/28/24 02/13/25 Rx escitalopram oxalate 10 mg tablet 10 mg PO DAILY #90 tabs 12/31/24 02/13/25 Rx gabapentin 300 mg capsule 300 mg PO BID #180 caps 01/20/25 02/13/25 Rx ondansetron 4 mg disintegrating 4 mg PO Q8H PRN nausea and 02/03/25 02/13/25 Rx tablet vomiting #14 tabs amlodipine 2.5 mg tablet 2.5 mg PO DAILY 02/13/25 02/13/25 History losartan 50 mg tablet 50 mg PO DAILY 02/13/25 02/13/25 History metformin 1,000 mg tablet See Rx Instructions .Route .COMPLEX 02/13/25 02/13/25 History pantoprazole 40 mg tablet,delayed 40 mg PO DAILY 02/13/25 02/13/25 History release rosuvastatin 20 mg tablet 20 mg PO HS 02/13/25 02/13/25 History sucralfate 1 gram tablet 1 g PO QID 02/13/25 02/13/25 History Allergies Allergy/AdvReac Type Severity Reaction Status Date / Time adhesive tape Allergy Severe BLISTERS/SKIN Verified 02/12/25 19:01 TEARS latex Allergy Severe Anaphylaxis Verified 02/12/25 19:01 Vital Signs Vital Signs - 24 hr 02/12/25 16:30 02/12/25 16:45 02/12/25 16:46 Temperature 97.6 F Pulse Rate 73 70 72 Respiratory Rate 12 19 13 Blood Pressure 91/55 L 88/46 L 88/49 L Pulse Oximetry 99 99 Oxygen Delivery Room Air 02/12/25 16:52 02/12/25 16:53 02/12/25 17:01 Temperature Pulse Rate 75 76 75 Respiratory Rate 12 12 Blood Pressure 91/55 L 101/56 L Pulse Oximetry 98 97 Oxygen Delivery 02/12/25 17:13 02/12/25 17:59 02/12/25 18:01 Temperature Pulse Rate 78 76 73 Respiratory Rate 20 20 18 Blood Pressure 97/65 L 97/63 L 100/68 Pulse Oximetry 95 97 96 Oxygen Delivery 02/12/25 18:31 02/12/25 18:53 02/12/25 19:01 Temperature Pulse Rate 74 78 74 Respiratory Rate 13 15 21 H Blood Pressure 111/74 140/76 115/76 Pulse Oximetry 98 99 98 Oxygen Delivery 02/12/25 19:16 02/12/25 20:46 02/12/25 21:01 Temperature Pulse Rate 72 78 77 Respiratory Rate 17 18 17 Blood Pressure 113/56 L 107/58 L 109/58 L Pulse Oximetry Oxygen Delivery 02/12/25 23:44 02/13/25 06:00 02/13/25 08:52 Temperature 97.0 F L 97.3 F L 97.0 F L Pulse Rate 65 67 65 Respiratory Rate 16 16 16 Blood Pressure 125/87 126/60 125/87 Pulse Oximetry 96 100 96 Oxygen Delivery Exam Narrative: APPEARANCE: No apparent distress. Head: atraumatic. EYES: EOMI, NOSE: Atraumatic NECK: Trachea midline RESPIRATORY: No increased rate of breathing clear to auscultation CARDIOVASCULAR: RRR, no peripheral edema ABDOMINAL: Non-distended, nontender MUSCULOSKELETAl: Head to toe trauma exam performed no injuries or deformities NEURO: Alert. Moving 4/4 extremities SKIN:: Warm, dry. Normal color PSYCHIATRIC: Normal affect H&P: Results Labs Labs: Short CBC 02/12/25 Range/Units 16:42 WBC 6.9 (4.5-10.0) K/mm3 Hgb 9.8 L D (12.0-15.0) g/dL Hct 29.7 L (37.0-47.0) % Plt Count 294 (150-375) k/mm3 [facility] [place]/12[place] 16:42 Sodium 128 L Potassium 4.7 Chloride 99 Carbon Dioxide 15 L BUN 47 H Creatinine 2.62 H Glucose 133 H Calcium 9.1 Liver Function 02/12/25 Range/Units 16:42 Total Bilirubin 0.7 (0.2-1.3) mg/dL AST 24 (14-36) U/L ALT 17 (6-35) U/L Alkaline Phosphatase 53 (38-126) U/L Albumin 3.7 (3.5-5.1) g/dL Urine 02/12/25 Range/Units 17:43 Urine Color Yellow (Yellow) Urine Appearance Clear (Clear) Urine pH 5.5 (5.0-9.0) Ur Specific [place] 1.012 (1.001-1.035) Urine Protein Trace (Negative) mg/dL Urine Glucose (UA) Negative (Negative) mg/dL Assessment and Plan Assessment and plan (1) Acute UTI: Code(s): N39.0 - Urinary tract infection, site not specified Status: Acute Assessment and Plan: No evidence of obstructive nephrolithiasis Reviewed UA Started on Rocephin Pending urine culture No evidence of pyelonephritis P.o. antibiotics once culture results (2) Failure to thrive: Status: Acute Assessment and Plan: Ordered PT OT History of early satiety Order nutrition consult (3) Hypertension: Code(s): I10 - Essential (primary) hypertension Status: Acute Assessment and Plan: Continue metoprolol Continue losartan (4) Diabetes mellitus with chronic kidney disease: Code(s): E11.22 - Type 2 diabetes mellitus with diabetic chronic kidney disease Status: Acute Assessment and Plan: Order sliding scale Hypoglycemia protocol HbA1c 6 (5) ANIRUDH (acute kidney injury): Code(s): N17.9 - Acute kidney failure, unspecified Status: Acute Assessment and Plan: baseline creatinine was running ~ 2.0 - 2.5mg/dl Hold losartan ARB prior to admission no evidence or thrombolic disease at this time Order renal ultrasound CPK urine electrolytes urine eosinophils trial of IVFs Plan DVT prophylaxis Lovenox at 30 mg subQ daily Code status:Full Code Hospitalist MIPS Advance Care Plan I have confirmed that the patient's Advanced Care Plan is present, code status is documented, or surrogate decision maker is listed in patient medical record.: Yes Medication Reconciliation I have utilized all available resources to obtain, update and review the patients current medications (includes all prescriptions, OTC, herbals, cannabis, and nutritional supplements).: Yes
[2025-02-13 14:00] VITALS: BP 112/61; PULSE 75; RESP 16; TEMP 36.3; O2SAT 100
[2025-02-13 14:54] LABS: Creatine Kinase 33 U/L (30-135)
[2025-02-13] MEDS: ISOSORBIDE MONONITRATE 30 MG TAB.ER.24H PO (15:43)
[2025-02-13 16:04] LABS: Creatinine Urine 39.3 mg/dL
[2025-02-13] MEDS: GABAPENTIN 300 MG CAPSULE PO (16:26)
[2025-02-13] MEDS: SUCRALFATE 1 GM TABLET PO ×2 (16:26→20:26)
[2025-02-13 16:33] LABS: Eosinophil Urine None Seen % (None Seen); Urine Eos QC 2nd Tech Confirmed
[2025-02-13 16:48] LABS: Glucose Point of Care 155 mg/dl (65-105)
[2025-02-13] MEDS: LACTATED RINGERS 1,000 ML 75 ML IV CONT (18:46)
[2025-02-13 20:00] VITALS: PULSE 79; RESP 16; O2SAT 100
[2025-02-13] MEDS: ROSUVASTATIN 20 MG TABLET PO (20:22)
[2025-02-13 20:23] VITALS: BP 116/63; PULSE 79; RESP 16; TEMP 36.1; O2SAT 100
[2025-02-14 00:49] LABS: Glucose Point of Care 174 mg/dl (65-105)
[2025-02-14 05:29] VITALS: BP 104/57; PULSE 66; RESP 18; TEMP 36.6; O2SAT 97
[2025-02-14] MEDS: LEVOTHYROXINE SODIUM 25 MCG TABLET PO (05:47)
[2025-02-14 08:09] LABS: Glucose Point of Care 99 mg/dl (65-105)
[2025-02-14 09:21] LABS: Hematocrit 32.5 % (37.0-47.0); Hemoglobin 10.5 g/dL (12.0-15.0); Mean Corpuscular HGB Conc 32.3 g/dl (32-36); Mean Corpuscular Hemoglobin 29.5 pg (26-34); Mean Corpuscular Volume 91.3 fl (80-100); Mean Platelet Volume 9.1 fl (7.4-10.4); Platelet Count Result 292 k/mm3 (150-375); Red Blood Count 3.56 M/mm3 (4.2-5.4); Red Cell Distribution Width 12.7 % (11.5-14.5); White Blood Count 7.8 K/mm3 (4.5-10.0)
[2025-02-14 09:32] LABS: Alanine Aminotransferase 16 U/L (6-35); Albumin Level 3.6 g/dL (3.5-5.1); Alkaline Phosphatase 48 U/L (38-126); Anion Gap 11 mmol/L (4-12); Aspartate Amino Transferase 23 U/L (14-36); Bilirubin,Total 0.4 mg/dL (0.2-1.3); Blood Urea Nitrogen 31 mg/dL (7-17); Calcium 9.4 mg/dL (8.4-10.2); Carbon Dioxide 18 mmol/L (22-30); Chloride 104 mmol/L (98-107); Estimated CRCL calculation 17 ml/min; Estimated Glomerular Filt Rate 27; Glucose 162 mg/dL (65-110); Potassium 4.7 mmol/L (3.4-5.0); Sodium 133 mmol/L (137-145)
[2025-02-14] MEDS: ASPIRIN 81 MG ENTERIC TABLET PO (09:58)
[2025-02-14 09:59] VITALS: PULSE 66
[2025-02-14] MEDS: amLODIPine BESYLATE 2.5 MG TABLET PO (09:59)
[2025-02-14] MEDS: PANTOPRAZOLE 40 MG TABLET PO (09:59)
[2025-02-14] MEDS: CLOPIDOGREL BISULFATE 75 MG TABLET PO (09:59)
[2025-02-14] MEDS: METOPROLOL SUCCINATE EXT REL 25 MG TABCR 75 MG PO (09:59)
[2025-02-14] MEDS: oxyBUTYnin CHLORIDE XL 5 MG TAB.ER.24 PO (09:59)
[2025-02-14] MEDS: GABAPENTIN 300 MG CAPSULE PO ×2 (09:59→18:05)
[2025-02-14] MEDS: ISOSORBIDE MONONITRATE 30 MG TAB.ER.24H PO (09:59)
[2025-02-14] MEDS: ESCITALOPRAM OXALATE 10 MG TABLET PO (09:59)
[2025-02-14] MEDS: SUCRALFATE 1 GM TABLET PO ×3 (10:00→21:14)
[2025-02-14] MEDS: LACTATED RINGERS 1,000 ML 75 ML IV CONT (11:20)
[2025-02-14 12:02] LABS: Glucose Point of Care 107 mg/dl (65-105)
[2025-02-14 14:00] VITALS: BP 99/57; PULSE 68; RESP 16; TEMP 36.1; O2SAT 97
--- NOTE | 2025-02-14 15:26 | PM.IMPN ---
Progress Note: A&P Assessment and Plan (1) Acute UTI: Code(s): N39.0 - Urinary tract infection, site not specified Status: Acute Assessment and Plan: No evidence of obstructive nephrolithiasis Reviewed UA Started on Rocephin Pending urine culture No evidence of pyelonephritis P.o. antibiotics once culture results (2) Failure to thrive: Status: Acute Assessment and Plan: Ordered PT OT History of early satiety Order nutrition consult (3) Hypertension: Code(s): I10 - Essential (primary) hypertension Status: Acute Assessment and Plan: Continue metoprolol Continue losartan (4) Diabetes mellitus with chronic kidney disease: Code(s): E11.22 - Type 2 diabetes mellitus with diabetic chronic kidney disease Status: Acute Assessment and Plan: Order sliding scale Hypoglycemia protocol HbA1c 6 (5) ANIRUDH (acute kidney injury): Code(s): N17.9 - Acute kidney failure, unspecified Status: Acute Assessment and Plan: baseline creatinine was running ~ 2.0 - 2.5mg/dl Hold losartan ARB prior to admission no evidence or thrombolic disease at this time Order renal ultrasound CPK urine electrolytes urine eosinophils trial of IVFs Plan DVT prophylaxis Lovenox at 30 mg subQ daily Code status:Full Code Subjective Date/time seen: 02/14/25 15:26 Interval history: Discussed with . Creatinine is getting better. Pending urine culture Review of Systems Review of Systems: Except as documented, all other systems were reviewed and are negative. Exam Narrative: APPEARANCE: No apparent distress. Head: atraumatic. EYES: EOMI, NOSE: Atraumatic NECK: Trachea midline RESPIRATORY: No increased rate of breathing clear to auscultation CARDIOVASCULAR: RRR, no peripheral edema ABDOMINAL: Non-distended, nontender MUSCULOSKELETAl: Head to toe trauma exam performed no injuries or deformities NEURO: Alert. Moving 4/4 extremities SKIN:: Warm, dry. Normal color PSYCHIATRIC: Normal affect Objective Data Vital Signs Vital Signs: Vital Signs - 24 hr 02/13/25 20:00 02/13/25 20:23 02/14/25 05:29 Temperature 97 F L 97.9 F Pulse Rate 79 79 66 Respiratory Rate 16 16 18 Blood Pressure 116/63 104/57 L Pulse Oximetry 100 100 97 Oxygen Delivery Room Air 02/14/25 09:59 Temperature Pulse Rate 66 Respiratory Rate Blood Pressure Pulse Oximetry Oxygen Delivery Intake/Output Intake/Output: Intake & Output 02/11/25 02/12/25 02/13/25 02/14/25 23:59 23:59 23:59 23:59 Intake Total 2049 1779 1819 Balance 2049 1779 1819 Meds/Results Medications: Active Medications Generic Name Dose Route Start Last Admin Trade Name Peggy PRN Reason Stop Dose Admin Amlodipine Besylate 2.5 mg 02/14/25 09:00 02/14/25 09:59 Amlodipine Besylate 2.5 Mg Tablet PO 2.5 mg DAILY CASA Administration Aspirin 81 mg 02/14/25 09:00 02/14/25 09:58 Aspirin 81 Mg Enteric Tablet PO 81 mg DAILY CASA Administration Clopidogrel Bisulfate 75 mg 02/14/25 09:00 02/14/25 09:59 Clopidogrel Bisulfate 75 Mg Tablet PO 75 mg DAILY CASA Administration Enoxaparin Sodium 30 mg 02/14/25 09:00 Enoxaparin 30 Mg/0.3 Ml Syringe SUB-Q DAILY CSAA Escitalopram Oxalate 10 mg 02/14/25 09:00 02/14/25 09:59 Escitalopram Oxalate 10 Mg Tablet PO 10 mg DAILY CASA Administration Gabapentin 300 mg 02/13/25 17:00 02/14/25 09:59 Gabapentin 300 Mg Capsule PO 300 mg BID CASA Administration Ceftriaxone Sodium 1 gm in 50 mls @ 100 mls/hr 02/13/25 18:00 02/13/25 17:28 Rocephin 1 Gm/Ns 50 Ml IVPB 100 mls/hr Q24H CASA Administration Lactated Ringer's 1,000 mls @ 75 mls/hr 02/12/25 21:30 02/14/25 11:20 Lr - Lactated Ringers Iv IV CONT 75 mls/hr .[id number] CASA Administration Isosorbide Mononitrate 30 mg 02/13/25 13:35 02/14/25 09:59 Isosorbide Mononitrate 30 Mg Tab.Er.24h PO 30 mg DAILY CASA Administration Levothyroxine Sodium 25 mcg 02/14/25 06:30 02/14/25 05:47 Levothyroxine Sodium 25 Mcg Tablet PO 25 mcg DAILY@0630 CASA Administration Losartan Potassium 50 mg 02/13/25 13:35 02/13/25 14:28 Losartan Potassium 50 Mg Tablet PO Not Given DAILY CASA Metoprolol Succinate 75 mg 02/14/25 09:00 02/14/25 09:59 Metoprolol Succinate Ext Rel 25 Mg Tabcr PO 75 mg QAM CASA Administration Oxybutynin Chloride 5 mg 02/14/25 09:00 02/14/25 09:59 Oxybutynin Chloride Xl 5 Mg Tab.Er.24 PO 5 mg DAILY CASA Administration Pantoprazole Sodium 40 mg 02/14/25 09:00 02/14/25 09:59 Pantoprazole 40 Mg Tablet PO 40 mg DAILY CASA Administration Rosuvastatin Calcium 20 mg 02/13/25 21:00 02/13/25 20:22 Rosuvastatin 20 Mg Tablet PO 20 mg HS CASA Administration Sucralfate 1 gm 02/13/25 17:00 02/14/25 10:00 Sucralfate 1 Gm Tablet PO 1 gm 0800,1100,1700,2100 CASA Administration Radiology Results: ITS Impressions Chest X-Ray 02/12/25 17:01 IMPRESSION: No focal infiltrate or effusion. Head CT 02/12/25 17:22 Impression: No acute intracranial hemorrhage or suspicious mass effect. Abdomen/Pelvis CT 02/12/25 18:53 IMPRESSION: Moderate hiatal hernia. Cholelithiasis. Left ovarian (likely) cyst, increased in size from 05/26/2024. Otherwise, unremarkable noncontrast enhanced CT examination of the abdomen and pelvis, as detailed above. Renal Ultrasound 02/14/25 11:23 Impression: Echogenic kidneys suggest chronic medical renal disease. No hydronephrosis. 4 mm nonobstructing left renal stone present. Labs Labs: Laboratory Results - last 24 hr 02/13/25 02/13/25 02/13/25 15:49 16:45 20:26 WBC RBC Hgb Hct MCV MCH MCHC RDW Plt Count MPV Sodium Potassium Chloride Carbon Dioxide Anion Gap BUN Creatinine Estim Creat Clear Calc Estimated GFR Glucose POC Capillary Glucose 155 H 174 H Calcium Total Bilirubin AST ALT Alkaline Phosphatase Total Protein Albumin Urine Eosinophils None seen Urine Creatinine 39.3 02/14/25 02/14/25 02/14/25 07:23 09:14 11:39 WBC 7.8 RBC 3.56 L Hgb 10.5 L Hct 32.5 L MCV 91.3 MCH 29.5 MCHC 32.3 RDW 12.7 Plt Count 292 MPV 9.1 Sodium 133 L Potassium 4.7 Chloride 104 Carbon Dioxide 18 L Anion Gap 11 BUN 31 H D Creatinine 1.82 H Estim Creat Clear Calc 17 Estimated GFR 27 L Glucose 162 H POC Capillary Glucose 99 107 H Calcium 9.4 Total Bilirubin 0.4 AST 23 ALT 16 Alkaline Phosphatase 48 Total Protein 7.0 Albumin 3.6 Urine Eosinophils Urine Creatinine Hospitalist MIPS Advance Care Plan I have confirmed that the patient's Advanced Care Plan is present, code status is documented, or surrogate decision maker is listed in patient medical record.: Yes Medication Reconciliation I have utilized all available resources to obtain, update and review the patients current medications (includes all prescriptions, OTC, herbals, cannabis, and nutritional supplements).: Yes
[2025-02-14 16:59] LABS: Glucose Point of Care 111 mg/dl (65-105)
[2025-02-14 20:00] VITALS: PULSE 90; RESP 18; O2SAT 99
[2025-02-14 20:32] VITALS: BP 111/65; PULSE 90; RESP 18; TEMP 36.5; O2SAT 99
[2025-02-14 20:48] LABS: Glucose Point of Care 254 mg/dl (65-105)
[2025-02-14] MEDS: ROSUVASTATIN 20 MG TABLET PO (21:14)
[2025-02-15] MEDS: LACTATED RINGERS 1,000 ML 75 ML IV CONT (02:57)
[2025-02-15 05:38] VITALS: BP 105/65; PULSE 65; RESP 18; TEMP 36.3; O2SAT 95
[2025-02-15 06:29] LABS: Hematocrit 29.3 % (37.0-47.0); Hemoglobin 9.4 g/dL (12.0-15.0); Mean Corpuscular HGB Conc 32.1 g/dl (32-36); Mean Corpuscular Hemoglobin 29.8 pg (26-34); Mean Platelet Volume 9.3 fl (7.4-10.4); Platelet Count Result 272 k/mm3 (150-375); Red Blood Count 3.15 M/mm3 (4.2-5.4); Red Cell Distribution Width 12.9 % (11.5-14.5); White Blood Count 7.2 K/mm3 (4.5-10.0)
[2025-02-15 06:42] LABS: Alanine Aminotransferase 19 U/L (6-35); Albumin Level 3.1 g/dL (3.5-5.1); Alkaline Phosphatase 41 U/L (38-126); Anion Gap 7 mmol/L (4-12); Aspartate Amino Transferase 31 U/L (14-36); Bilirubin,Total 0.2 mg/dL (0.2-1.3); Blood Urea Nitrogen 29 mg/dL (7-17); Calcium 8.6 mg/dL (8.4-10.2); Carbon Dioxide 22 mmol/L (22-30); Chloride 106 mmol/L (98-107); Estimated CRCL calculation 17 ml/min; Estimated Glomerular Filt Rate 26; Glucose 116 mg/dL (65-110); Potassium 4.1 mmol/L (3.4-5.0); Sodium 135 mmol/L (137-145)
[2025-02-15] MEDS: LEVOTHYROXINE SODIUM 25 MCG TABLET PO (07:02)
[2025-02-15 07:27] LABS: Glucose Point of Care 107 mg/dl (65-105)
[2025-02-15] MEDS: PANTOPRAZOLE 40 MG TABLET PO (09:03)
[2025-02-15] MEDS: GABAPENTIN 300 MG CAPSULE PO (09:03)
[2025-02-15] MEDS: amLODIPine BESYLATE 2.5 MG TABLET PO (09:04)
[2025-02-15] MEDS: oxyBUTYnin CHLORIDE XL 5 MG TAB.ER.24 PO (09:04)
[2025-02-15] MEDS: ESCITALOPRAM OXALATE 10 MG TABLET PO (09:04)
[2025-02-15] MEDS: SUCRALFATE 1 GM TABLET PO ×2 (09:04→12:17)
[2025-02-15] MEDS: ISOSORBIDE MONONITRATE 30 MG TAB.ER.24H PO (09:04)
[2025-02-15] MEDS: CLOPIDOGREL BISULFATE 75 MG TABLET PO (09:04)
[2025-02-15] MEDS: ASPIRIN 81 MG ENTERIC TABLET PO (09:04)
[2025-02-15 09:05] VITALS: PULSE 62
[2025-02-15] MEDS: ENOXAPARIN 30 MG/0.3 ML SYRINGE SUB-Q (09:05)
[2025-02-15] MEDS: METOPROLOL SUCCINATE EXT REL 25 MG TABCR 75 MG PO (09:05)
[2025-02-15 10:05] VITALS: O2SAT 96
[2025-02-15 11:36] LABS: Glucose Point of Care 166 mg/dl (65-105)
--- NOTE | 2025-02-15 11:37 | PM.DS ---
DS: Admitting Diagnosis Discharge Date 02/15/2025 Admitting Diagnosis urinary tract infection DS: Discharge Diagnosis Discharge Diagnosis (1) Acute UTI: Code(s): N39.0 - Urinary tract infection, site not specified Status: Acute Assessment and Plan: No evidence of obstructive nephrolithiasis Reviewed UA Started on Rocephin Pending urine culture No evidence of pyelonephritis P.o. antibiotics once culture results (2) Failure to thrive: Status: Acute Assessment and Plan: Ordered PT OT History of early satiety Order nutrition consult (3) Hypertension: Code(s): I10 - Essential (primary) hypertension Status: Acute Assessment and Plan: Continue metoprolol Continue losartan (4) Diabetes mellitus with chronic kidney disease: Code(s): E11.22 - Type 2 diabetes mellitus with diabetic chronic kidney disease Status: Acute Assessment and Plan: Order sliding scale Hypoglycemia protocol HbA1c 6 (5) ANIRUDH (acute kidney injury): Code(s): N17.9 - Acute kidney failure, unspecified Status: Acute Assessment and Plan: baseline creatinine was running ~ 2.0 - 2.5mg/dl Hold losartan ARB prior to admission no evidence or thrombolic disease at this time Order renal ultrasound CPK urine electrolytes urine eosinophils trial of IVFs DS: Summary Hospital Course Hospital Course: The patient is an 84-year-old female with a past medical history of cardiac stent, early satiety, pre-diabetes, peripheral neuropathy, increased urinary frequency, hyperlipidemia, and right foot diabetic ulcer visited ER due to failure to thrive and UTI. Pertinent ED labs: WBC 6.9, hemoglobin 9.8, hematocrit 29.7, platelet 294, sodium 128, potassium 4.7, creatinine 2.62, glucose 186 UA shows positive for nitrates and WBC 11-20 Chest x-ray: No focal infiltrate or effusion. Head CT: No acute intracranial hemorrhage or suspicious mass effect. Abdomen/pelvis CT: Moderate hiatal hernia. Cholelithiasis. Left ovarian (likely) cyst increased in size from 05/26/2024. Otherwise, unremarkable lni-pdvqnxiy-wrfxzczv CT examination of the abdomen and pelvis, as detailed above. The patient is mainly admitted in the setting of failure to thrive and UTI. According to ED records, her was unable to care for her at home. I ordered PT OT and appreciate the recommendation. Discussed with care coordination for placement. The patient is only oriented to herself. The patient reports that she has a very low appetite and has lost about 6 pounds recently. The patient reports that she walks independently at home, although over the past two days, she has been feeling weak. Currently,holding losartan due to ANIRUDH on CKD. Will renal US, CPK, and urine electrolytes on the day of discharge the patient is currently doing well. Reviewed urine culture has been reviewed. Patient will be discharged with the Augmentin for 7 days. Patient also will be discharged with physical therapy and occupation therapy as an outpatient. Her was present during the evaluation and agrees with the plan. Her losartan was on hold due to ANIRUDH on CKD. Her blood pressure has been stable and there is no requirement of losartan and for increase in blood pressure patient can be followed up with PCP.The patient was seen and examined. Vital signs were stable. Physical exam were stable and labs were reviewed at length. Discharge instructions, medications, and follow-up appointments were discussed with the patient at length and all day questions were answered. ER warnings were given. Called her son Raymundo and given update about holding losartan and if needed to contact PCP for blood pressure management Status at Discharge Cognitive/behavioral status at discharge: Stable Time Spent with Patient Time attestation: Total time spent providing and/or coordinating discharge services:45 Minutes Exam Narrative: APPEARANCE: No apparent distress. Head: atraumatic. EYES: EOMI, NOSE: Atraumatic NECK: Trachea midline RESPIRATORY: No increased rate of breathing clear to auscultation CARDIOVASCULAR: RRR, no peripheral edema ABDOMINAL: Non-distended, nontender MUSCULOSKELETAl: Head to toe trauma exam performed no injuries or deformities NEURO: Alert. Moving 4/4 extremities SKIN:: Warm, dry. Normal color PSYCHIATRIC: Normal affect DS: Data Data Completed and Pending Labs on day of discharge: Labs from last 24 hours 02/15/25 02/15/25 02/15/25 11:33 07:20 05:41 WBC 7.2 RBC 3.15 L Hgb 9.4 L Hct 29.3 L MCV 93.0 MCH 29.8 MCHC 32.1 RDW 12.9 Plt Count 272 MPV 9.3 Sodium 135 L Potassium 4.1 Chloride 106 Carbon Dioxide 22 Anion Gap 7 BUN 29 H Creatinine 1.83 H Estim Creat Clear Calc 17 Estimated GFR 26 L Glucose 116 H POC Capillary Glucose 166 H 107 H Calcium 8.6 Total Bilirubin 0.2 AST 31 ALT 19 Alkaline Phosphatase 41 Total Protein 6.0 L Albumin 3.1 L 02/14/25 02/14/25 02/14/25 20:35 16:53 11:39 WBC RBC Hgb Hct MCV MCH MCHC RDW Plt Count MPV Sodium Potassium Chloride Carbon Dioxide Anion Gap BUN Creatinine Estim Creat Clear Calc Estimated GFR Glucose POC Capillary Glucose 254 H 111 H 107 H Calcium Total Bilirubin AST ALT Alkaline Phosphatase Total Protein Albumin Preliminary micro results at discharge 02/13/25 15:49 Urine Culture - Preliminary Urine - Urine Enterococcus species 02/12/25 17:14 Blood Culture - Preliminary Blood 02/12/25 18:28 Blood Culture - Preliminary Blood Additional Comments Additional comments: ITS Impressions Chest X-Ray 02/12/25 17:01 IMPRESSION: No focal infiltrate or effusion. Head CT 02/12/25 17:22 Impression: No acute intracranial hemorrhage or suspicious mass effect. Abdomen/Pelvis CT 02/12/25 18:53 IMPRESSION: Moderate hiatal hernia. Cholelithiasis. Left ovarian (likely) cyst, increased in size from 05/26/2024. Otherwise, unremarkable noncontrast enhanced CT examination of the abdomen and pelvis, as detailed above. Renal Ultrasound 02/14/25 11:23 Impression: Echogenic kidneys suggest chronic medical renal disease. No hydronephrosis. 4 mm nonobstructing left renal stone present. Discharge Plan Discharge Attending physician on discharge: Husam Singh Discharging Clinician: Husam Singh Patient Disposition: Home Activity: as tolerated Diet: as tolerated Discharge Instructions: Her losartan was discontinued due to poor kidney function. Her blood pressure has been stable and there is no requirement of losartan and if any increase in blood pressure, patient can be followed up with PCP. Please complete the course of antibiotic for 10 days Check blood pressure 1 to 2 times a day. Record and bring into your doctor for review. Call your doctor if your blood pressure is greater than 180/110 or less than 90/45. Walk with cane or other assist device. Take precautions to avoid falls. Rise slowly from a lying or sitting position. Pause before standing or walking. Contact your doctor or call 911 and come to the Emergency Room if you have any type of trauma, lightheadedness with standing or other worrisome symptoms. Avoid NSAIDs (ibuprofen, naproxen, Aleve). Tylenol is safe to take. Follow-up with your primary care provider in 1-2 weeks. Please call for appointment. Follow-up with Cardiology in 2-4 weeks. Please call for an appointment. Thank you for using [facility] for your health care needs. Patient Instructions: Antibiotic Form, Pain Management in Older Adults (GEN) Patient Language: Arabic Stand Alone Forms: General Discharge Information Follow-up/Referrals: Judah Jeffery MD [Primary Care Provider] - Discharge Medications: New amoxicillin-pot clavulanate [Augmentin] 500-125 mg Tablet 1 tablet PO Q12HR Qty: 20 0RF Continued nitroglycerin [Nitrostat] 0.4 mg tablet, sublingual 0.4 mg SUBLINGUAL Q5M PRN (Reason: Chest Pain) Rx Instructions: until response; do not exceed 3 doses per episode ondansetron 4 mg tablet,disintegrating 4 mg PO Q8H PRN (Reason: nausea and vomiting) Qty: 14 3RF aspirin [Jocelyn Low Dose Aspirin] 81 mg Tablet,Delayed Release (Dr/Ec) 81 mg PO DAILY amlodipine 2.5 mg tablet 2.5 mg PO DAILY sucralfate 1 gram tablet 1 g PO QID pantoprazole 40 mg tablet,delayed release (DR/EC) 40 mg PO DAILY metformin 1,000 mg tablet See Rx Instructions .ROUTE .COMPLEX Rx Instructions: TAKE 1 TABLET BY MOUTH TWICE A DAY WITH MEALS rosuvastatin 20 mg tablet 20 mg PO HS (DME) FreeStyle Lite Strips Strip See Rx Instructions .Route Qty: 100 2RF Rx Instructions: Check blood glucose once daily As directed (DME) OneTouch Verio test strips Strip See Rx Instructions .Route Qty: 100 1RF Rx Instructions: Check daily or as needed. (DME) blood-glucose meter [OneTouch Verio Flex meter] [facility] See Rx Instructions .Route Qty: 1 0RF Rx Instructions: check blood glucose 1xday As directed clopidogrel 75 mg tablet See Rx Instructions .ROUTE .COMPLEX Qty: 100 1RF Dose Instruction: TAKE 1 TABLET BY MOUTH DAILY Rx Instructions: TAKE 1 TABLET BY MOUTH DAILY oxybutynin chloride 5 mg tablet extended release 24hr See Rx Instructions .ROUTE .COMPLEX Qty: 100 1RF Dose Instruction: TAKE 1 TABLET BY MOUTH DAILY Rx Instructions: TAKE 1 TABLET BY MOUTH DAILY metoprolol succinate 50 mg tablet extended release 24 hr See Rx Instructions .ROUTE .COMPLEX Qty: 150 1RF Dose Instruction: TAKE 1 AND 1/2 TABLETS BY MOUTH AT BEDTIME Rx Instructions: TAKE 1 AND 1/2 TABLETS BY MOUTH AT BEDTIME isosorbide mononitrate 30 mg tablet extended release 24 hr 30 mg PO DAILY Qty: 90 1RF levothyroxine 25 mcg tablet 25 mcg PO DAILY Qty: 90 1RF escitalopram oxalate 10 mg tablet 10 mg PO DAILY Qty: 90 1RF gabapentin 300 mg capsule 300 mg PO BID Qty: 180 1RF Held hydrochlorothiazide 25 mg tablet 25 mg PO DAILY Qty: 90 1RF Hold Instructions: Resume on 03/15/25. please discuss with your PCP or Nephrology before continue. Was on hold due to acute kidney injury Discontinued losartan 50 mg tablet 50 mg PO DAILY amlodipine 5 mg tablet See Rx Instructions .ROUTE .COMPLEX Qty: 100 1RF Dose Instruction: TAKE 1 TABLET BY MOUTH EVERY MORNING Rx Instructions: TAKE 1 TABLET BY MOUTH EVERY MORNING losartan 100 mg tablet See Rx Instructions .ROUTE .COMPLEX Qty: 100 1RF Dose Instruction: TAKE 1 TABLET BY MOUTH DAILY Rx Instructions: TAKE 1 TABLET BY MOUTH DAILY Other Ambulatory Orders: PT Outpatient Eval and Treat (ONCE) Timeframe: [id number] Location: Determined by Patient Ordered By: Husam Singh Date of admission: 02/12/25 21:27 Primary Care Provider: Judah Jeffery Admitting Provider: Laina Ruano Attending physician on admission: Laina Ruano Condition: Stable
[2025-02-15] MEDS: AMOXICILLIN/CLAVULANATE K 500-125 MG TAB 1 TABLET PO (12:17)
--- NOTE | 2025-02-15 13:43 | PC.NURSE ---
On 02/15/25, the SUPERVISOR PAINT DEPARTMENT, [Loil SANDERS ], provided care and completed [employer] documentation on this patient. I have reviewed the SUPER[employer]OR [employer] DEPARTMENT's documentation and agree with the findings.
== END 2025-02-15 13:00 | disposition home or self-care (01) ==
LOC: ANHED 20:15 → ANH3MEDSUR 02-14 22:34
PROVIDERS: Emergency Medicine; Admitting Provider Internal Medicine; Emergency Provider Emergency Medicine; PCP Family Medicine; Visit Provider General Practice
DX: N39.0 Urinary tract infection, site not specified (principal); R62.7 Adult failure to thrive; Z68.24 Body mass index [BMI] 24.0-24.9, adult; E86.0 Dehydration; E11.22 Type 2 diabetes mellitus with diabetic chronic kidney disease; I12.9 Hypertensive chronic kidney disease with stage 1 through stage 4 chronic kidney disease, or unspecified chronic kidney disease; E11.42 Type 2 diabetes mellitus with diabetic polyneuropathy; N18.9 Chronic kidney disease, unspecified; N17.9 Acute kidney failure, unspecified; I25.10 Atherosclerotic heart disease of native coronary artery without angina pectoris; E78.5 Hyperlipidemia, unspecified; Z20.822 Contact with and (suspected) exposure to COVID-19; Z79.02 Long term (current) use of antithrombotics/antiplatelets; Z79.82 Long term (current) use of aspirin; Z79.84 Long term (current) use of oral hypoglycemic drugs; Z79.899 Other long term (current) drug therapy; Z95.5 Presence of coronary angioplasty implant and graft; Z96.649 Presence of unspecified artificial hip joint; Z96.659 Presence of unspecified artificial knee joint
CPT/HCPCS: 36415; 70450; 71045; 74176; 76775; 80053; 81001; 82550; 82570; 82948; 83605; 84145; 85025; 85027; 85999; 87040; 87086; 87181; 87637; 93005; 96361; 96365; 96366; 96376; 97162; 97165; 99285; A9270; G0378; J0696; J1650; J7120

== ENCOUNTER 2025-02-23 14:43 | Outpatient (CLI) | payer MEDICARE, SELFPAY ==
--- OUTSIDE RECORDS SUMMARY | 2025-02-23 14:47 | XMS_ITS | Clinical Summary ---
Author Organization [facility] Alin Blanc Address [address] [place] [address] Care Team Providers Care Wire Weaver Name Role Phone Judah Jeffery MD Primary Care Provider [phone] Allergies Active Allergy Reactions Criticality Noted Date [...] Encounters Date Type Department Care Team Description 02/10/2025 External Device Data STL ABSTRACTION Provider, Abstract 02/10/2025 External Device Data [facility] ABSTRACTION Provider, Abstract 01/19/2025 External Device Data [facility] ABSTRACTION Provider, Abstract 01/14/2025 External Device Data [facility] ABSTRACTION Provider, Abstract 01/13/2025 External Device Data ST[facility] ABSTRACTION Provider, Abstract from Last 3 Months Family History Medical [...] on file 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 Gender Identity Not on file Sexual [...] 10:14 AM CDT Height 157.5 cm (5' 2) 10/01/2023 10: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 Body Mass Index 24.33 10/01/2023 10: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 Plan of Treatment Health Maintenance Due Date Last Done Comments DIABETES ANNUAL FOOT EXAM 1959 DIABETES ANNUAL RETINAL EXAM 1959 DIABETES MICROALBUMIN ANNUAL SCREEN 1959 LDL CHOLESTEROL ANNUAL 1959 OSTEOPOROSIS SCREENING 2006 ZOSTER VACCINE (1 of 2) 07/14/2015 05/19/2015 RSV VACCINE (60+ or ) (1 - 1-dose 75+ series) 2016 COVID-19 Vaccine ( - 2023-2 5 season) 2024 05/22/2022, 10/28/2020, 09/30/2020 [place] Preventative Visit/Annual Wellness Visit 08/26/2024 DIABETES HBA1C Q 6 MONTHS 10/10/2024 04/09/2024, INFLUENZA VACCINE (#1) 2025 , 06/08/2020, 06/11/2019, Additional history exists DTAP/TDAP/TD VACCINES (3 - T d or Tdap) 02/04/2031 02/04/2021, 02/17/2016 PNEUMOCOCCAL VACCINE 50+ YEARS Completed 06/23/2015 , 07/11/2014 Procedures Procedure Name Priority Date/Time Associated Diagnosis Comments IMMUNOFIXATION Routine 02/05/2025 1:21 PM CDT PROTEIN ELECTROPHORESIS W/REFLEX,SERUM Routine 02/05/2025 1:21 PM CDT Plasma cell disorder KAPPA/LAMBDA LIGHT CHAINS Routine 02/05/2025 1:21 PM CDT Plasma cell disorder IMMUNOGLOBULINS IGG IGA IGM Routine 02/05/2025 1:21 PM CDT Plasma cell disorder from Last 3 Months Results * IMMUNOFIXATION (02/05/2025 1:21 PM CDT) IMMUNOFIXATION INTERP [facility] Comment: IgG lambda monoclonal band present. Test Performed at: [facility] [address] [place], [place] [address] Jn Giraldo MD 02/05/2025 1:21 PM CDT 02/05/2025 1:22 PM CDT South Lau MD CHEMISTRY ORDERABLES Final Resu lt Performing Organization Address [facility] Co de Phone Number [facility] [phone] [facility] [address] [address] [place], [place] [address] * (ABNORMAL) KAPPA/LAMBDA, FREE LIGHT CHAINS (02/05/2025 1:21 PM CDT) KAPPA FREE LIGHT CHAIN 79.5(H) 3.3 - 19.4 mg/L [facility] LAMBDA FREE LIGHT CHAIN 69.7(H) 5.7 - 26.3 mg/L [facility] KAPPA/LAMBDA LIGHT CHAIN RATIO 1.14 0.26 - 1.65 [facility] Comment: Free kappa/lambda ratio in serum of normal individuals is 0.26-1.65. Excess production of free kappa or lambda chains can alter this ratio. Monoclonal free light chains are found in serum of patients with multiple myeloma, Waldenstrom's macroglobulinemia, mu-heavy chain disease, primary amyloidosis, light chain deposition disease, monoclonal gammopathy of undetermined significance, and lymphoproliferative disorders. Measurement of free light chain concentration in serum is useful for diagnosis, prognosis, monitoring disease activity and following response to therapy of these disorders. Test Performed at: [facility] [address] [place] [address] Jn Giraldo MD Blood 02/05/2025 1:21 PM CDT 02/05/2025 1:22 PM CDT South Lau MD CHEMISTRY ORDERABLES Final Resu lt Performing Organization Address City/[facility]/ZIP Co de Phone Number [facility] [phone] [facility] [address] * (ABNORMAL) IMMUNOGLOBULINS IGG IGA IGM (02/05/2025 1:21 PM CDT) [facility] IGA 339(H) 70 - 320 mg/dL [facility] IGG 1628(H) 600 - 1540 mg/dL [facility] IGM 57 50 - 300 mg/dL [facility] Comment: Test Performed at: [facility] [address] Jn Giraldo MD Blood 02/05/2025 1:21 PM CDT 02/05/2025 1:22 PM CDT us South Lau MD CHEMISTRY ORDERABLES Final Resu lt [facility] [phone] [facility] [address] [address] * (ABNORMAL) PROTEIN ELECTROPHORESIS W/REFLEX,SERUM (02/05/2025 1:21 PM CDT) [facility] TOTAL PROTEIN 7.4 6.1 - 8.1 g/dL [facility] ALBUMIN SPE 3.6(L) 3.8 - 4.8 g/dL [facility] ALPHA 1 GLOBULIN SPE 0.4(H) 0.2 - 0.3 g/dL [facility] ALPHA 2 GLOBULIN SPE 1.1(H) 0.5 - 0.9 g/dL [facility] Beta 1 Globulin 0.4 0.4 - 0.6 g/dL [facility] Beta 2 Globulin 0.4 0.2 - 0.5 g/dL [facility] GAMMA GLOBULIN 1.5 0.8 - 1.7 g/dL [facility] ABNORMAL PROTEIN BAND SPE 0.4(H) NONE DETECTED g/dL [facility] SPE INTERP [facility] Comment: Faint restricted band (M-spike) migrating in the gamma region. Consider serum immunofixation to rule out a monoclonal protein if clinically indicated. Test Performed at: [facility] [address] [place] [address] Jn Giraldo MD Blood 02/05/2025 1:21 PM CDT 02/05/2025 1:22 PM CDT South Lau MD CHEMISTRY ORDERABLES Final Resu lt [facility] [phone] [facility] [address] [place] [phone] from Last 3 Months Insurance [facility] [id number] [facility] Address: [facility] [address] [place] [address] Care Teams Wire Weaver Relationship Specialty Start Date End Date Judah Jeffery MD [address] [place] [id number] PCP - General Family Practice 09/17/23
--- OUTSIDE RECORDS SUMMARY | 2025-02-23 14:47 | XMS_ITS | Clinical Summary ---
Author Organization [facility] Address [address], [address] [address] Phone Care Team Providers Care Topstitcher Zigzag Name Role Phone Quoc Chino MD Primary Care Provider [phone] Medications polyethylene glycol (MIRALAX) Powder Use entire [...] age to complete this topic Care Teams Topstitcher Zigzag Relationship Specialty Start Date End Date Quoc Chino MD [address] [place] [address] PCP - General Family Medicine 02/11/17
--- OUTSIDE RECORDS SUMMARY | 2025-02-23 14:47 | XMS_ITS | Encounter Summary ---
Author Organization [facility] Address [address] [place] [address] Phone Care Team Providers Care Certified Registered Dental Assistant Name Role Phone Quoc Chino MD Primary Care Provider [phone] Rashawn Silveira MD Primary Care Provider Judah Jeffery MD Primary Care Provider [phone] Encounter Details Date Type Department Care Team (Latest Contact Info) Description 01/06/2019 Orders Only [facility] Scanning, Provider Social History Tobacco Use Types Packs/Day Years Used Date Smoking Tobacco: Never Smokeless Tobacco: Never Comments Unknown Sex and Gender Information Value Date Recorded Sex Assigned at Not on file 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
--- OUTSIDE RECORDS SUMMARY | 2025-02-23 14:47 | XMS_ITS | Clinical Summary ---
Author Organization [facility] Address [address] [place] [address] Care Team Providers Care Audiometrist Name Role Phone Unavailable Primary Care Provider [...] pectoris associated with type 2 diabetes mellitus ([facility] HHS/HCC) Place 1 tablet (0.4 mg total) [...] neuropathy, without long-term current use of insulin ([facility]) USE DIRECTED 100 strip 3 2 Active metFORMIN (GLUCOPHAGE) 500 MG tabletIndications :Type 2 diabetes mellitus with stage 3a chronic kidney disease, without long-term current use of insulin ([facility]) TAKE 1 TABLET THREE TIMES DAILY BEFORE [...] disease, without long-term current use of insulin ([facility]) 12/26/2021 Controlled type 2 diabetes m ellitus with diabetic autonomic neuropathy, without long-term current use of insulin (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) 06/26/2021 BMI 29.0-29.9,adult 02/08/2020 Abnormal cardiovascular stress test 04/24/2016 Knee joint replacement by other means 08/17/2014 Two-vessel coronary artery disease 01/11/2013 Essential hypertension 11/29/2012 Hypercholesterolemia 11/29/2012 Chest pain 11/28/2012 Osteoarthrosis involving lower leg 09/26/2012 Overview (02/08/2020): 2015 IMO Updt Immunizations Immunization Administration Dates Next Due Flublok (Quadrivalent) 06/08/2020,06/11/2019 Fluzone High Dose - >Age 65 (Prefilled Syringe) 06/26/2021,07/08/2018,05/26/2015 Influenza (Generic) 06/08/2020,05/26/2020,2018 Influenza Adult (Generic) 07/08/2018,05/26/2015 PFIZER COVID-19 (ORIGINAL FO RMULATION, PURPLE CAP) mRNA, LNP-S, PF, 30 MCG/0.3 ML DOSE 10/28/2020,09/30/2020 Pneumococcal (Pneumovax 23) 07/11/2014 Pneumococcal (Prevnar 13) 06/23/2015 Tdap (Adacel) 02/17/2016 Tdap (Boostrix) 02/04/2021 Tdap (Generic) 02/04/2021,02/17/2016 Zoster (Zostavax) 88907 Unt/0.65Ml 05/19/2015 Family History Medical History Relation [...] A M CDT Height 157.5 cm (5' 2) 03/27/2022 8:18 AM CDT Body Mass Index [...] 02/04/2021, 02/17/2016, Additional history exists Pneumococcal Vaccine: 50+ Years Completed 06/23/2015, 07/11/2014 Meningococcal B Vaccine [...] Result [facility] [address] [place] [id number] * (ABNORMAL) HEMOGLOBIN, GLYCOSYLATED (12/16/2021 9:40 AM [...] 12/18/2021 1:34 PM CDT SPLIT 12/15/2021 FROM [id number] FASTING:YES FASTING: YES us Romina Silveira MD LABORATORY Final Result [facility] [address] [place] [address] from Last 3 Months or Most Recently Relevant to Health Maintenance Insurance [employer]
--- OUTSIDE RECORDS SUMMARY | 2025-02-23 14:47 | XMS_ITS | Clinical Summary ---
Author Organization [facility] Address [address] [place] [address] Care Team Providers Care Hatchery Helper Name Role Phone Quoc Chino MD Primary Care Provider [phone] Oliver Praham MD Unavailable [phone] Source Comments [facility],non-owned Affiliates and Associated Physician Practices is amultiple site organization consisting of ambulatory clinics and hospital sitesin [place], [place], [place] and [place]. This disclosure is being madepursuant to the Care Everywhere program and may not contain all information available regarding this patient. Last updated 18.[facility] Allergies Active Allergy Reactions Criticality Noted Date Comments Adhesive Sensitivity 10/28/2012 BREAKS OUT SKIN, SWELLING Latex 09/26/2012 MOUTH BROKE OUT, SWELLING Medications * Be aware that medications may not be up to date on this document. Alwaysverify current medications with the patient. metFORMIN (GLUCOPHAGE) 500 MG tablet Take 500 [...] once daily. Take am of OR Active hydrocodone-acet aminophen (NORCO) 5-325 MG tablet Take 1-2 Tabs by mouth every 6 hours as needed for Pain. 50 Tab 0 4 Active Active Problems Problem Noted Date Diagnosed Date Knee joint replacement by other means 08/17/2014 Osteoarthrosis involving lower leg 09/26/2012 Overview (11/19/2015): 2015 IMO Updt Immunizations Immunization Administration Dates Next Due PNEUMOCOCCAL PPSV23 07/11/2014 Social History Tobacco Use Types Packs/Day Years Used Date Smoking Tobacco: Never Smokeless Tobacco: Never Alcohol Use Standard Drinks/Week Comments No 0 (1 standard drink = 0.6 oz pur e alcohol) Comments No Sex and Gender Information Value Date Recorded Sex Assigned at Not on file Legal Sex Female 8:26 AM BLOW TORCH OPERATOR Gender Identity Not on file Sexual Orientation Not on file Last Filed Vital Signs Vital Sign Reading Time Taken Comments Blood Pressure 140/80 08/09/2014 2:00 PM BLOW TORCH OPERATOR Pulse 100 08/09/2014 2:00 PM BLOW TORCH OPERATOR Temperature 36.5 C (97.7 F) 08/09/2014 2:00 PM BLOW TORCH OPERATOR Respiratory Rate 18 08/09/2014 2:00 PM BLOW TORCH OPERATOR Oxygen Saturation 97% 08/09/2014 2:00 PM BLOW TORCH OPERATOR Inhaled Oxygen Concentration - - Weight 68.9 kg (152 lb) 08/09/2014 2:00 PM BLOW TORCH OPERATOR Height 157.5 cm (5' 2) 08/09/2014 2:00 PM BLOW TORCH OPERATOR Body Mass Index 27.8 08/09/2014 2:00 PM BLOW TORCH OPERATOR Plan of Treatment Health Maintenance Due Date Last Done Comments BONE DENSITY TESTING 1941 DTAP/TDAP/TD VACCINES (1 - Tdap) 1960 ZOSTER VACCINE (1 of 2) 1991 PNEUMOCOCCAL VACCINE 50+ (2 of 2 - PCV) 07/11/2015 07/11/2014 Respiratory Syncytial Virus (RSV) Vaccine Pt: or over 60 yrs (1 - 1-dose 75+ series) 2016 COVID-19 VACCINE (4 - season) 2024 05/22/2022, 10/28/2020, 09/30/2020 DEPRESSION SCREENING 08/26/2024 INFLUENZA VACCINE (Season Ended) 2025 06/08/2020, 05/26/2020, 06/11/2019, Additional history exists HEPATITIS B VACCINE Aged Out No longe [...] this topic Medical Devices Implanted Type Area Bank Vault Clerk Device Identifier Shelf Expiration Date Model / Serial / Lot Gavin Bone Rockwall Hv Implanted:Qty: 1 on 07/08/2014 by Oliver Parham MD at [facility] Left: Knee [employer] 04/24/2016 [id number] / / [id number] Issacn Ruma Arcom Wire Polyeth Xsm 28 X 8 Implanted:Qty: 1 on 07/08/2014 by Oliver Parham MD at [facility] Left: [employer]nee [employer] 05/25/2019 [id number] / / [id number] Ins Kn Vangurd Fem Cocr L-Intlok 60.0mm Implanted:Qty: 1 on 07/08/2014 by Oliver Parham MD at [facility] Left: [employer]nee [employer] 07/25/2023 [id number] / / [id number] Ty Tibial I Beam Fix Bar 67mm Implanted:Qty: 1 on 07/08/2014 by Oliver Parham MD at [facility] Left: Knee [employer] 01/23/2024 [id number] / / [id number] Feliciano Puente Brg 10mm X 67mm Implanted:Qty: 1 on 07/08/2014 by Oliver Parham MD at [facility] Left: Knee [employer] 06/24/2018 [id number] / / [id number] Advance Directives * Full Code (Latest Code Status on File) Date Activated Date Inactivated Comments 07/08/2014 4:09 PM 07/11/2014 11:37 AM Care Teams Hatchery Helper Relationship Specialty Start Date End Date Quoc Chino MD [address] [place] [id number] PCP - General Family Medicine 09/26/12 Oliver Parham MD [address] [place] [address] Orthopedic Surgery 09/26/12
--- OUTSIDE RECORDS SUMMARY | 2025-02-23 14:47 | XMS_ITS | Clinical Summary ---
Author Organization [facility] Address [address] [place] [address] Care Team Providers Care Pre Sales Technical Consultant Name Role Phone Judah Jeffery MD Primary Care Provider [phone] Allergies Active Allergy Reactions Criticality Noted Date Comments Adhesive Hives,Rash,Swelling Medium 10/28/2012 BREAKS OUT SKIN, SWELLING Latex Rash,Swelling Medium 09/26/2012 MOUTH BROKE OUT, SWELLING Medications aspirin 81 mg tablet daily. Active gabapentin (NEURONTIN) 300 mg capsule Take 1 capsule (300 mg total) by mouth 2 (two) times a day Active nitroglycerin (NITROSTAT) 0.[address] under the tongue. 05/12/20 13 Active metoprolol XL (TOPROL-XL) 50 mg extended release tablet TAKE 1.5 TABLETS BY MOUTH EVERY NIGHT AT BEDTIME 135 tablet 02/24/20 21 Active metFORMIN (GLUCOPHAGE) 1,000 mg tablet 1 tablet (1,000 mg total) 2 (two) times a day with meals 02/10/20 21 Active isosorbide mononitrate ER (IMDUR) 30 mg 24 hr tablet TAKE 1 TABLET EVERY DAY 90 tablet 3 05/10/20 22 Active True Metrix Glucose Test Strip strip 04/12/20 22 Active oxybutynin XL (DITROPAN-XL) 5 mg 24 hr tablet 03/29/20 22 Active rosuvastatin (CRESTOR) 20 mg tablet Take 1 tablet (20 mg total) by mouth nightly 03/29/20 22 Active levothyroxine (SYNTHROID) 25 mcg tablet Take 1 tablet (25 mcg total) by mouth daily 10/18/19 23 Active escitalopram (LEXAPRO) 10 mg tablet Take 1 tablet (10 mg total) by mouth daily 02/08/20 23 Active amitriptyline (ELAVIL) 10 mg tablet Take 1 tablet (10 mg total) by mouth nightly Active OneTouch Verio Flex meter misc CHECK BLOOD GLUCOSE ONE TIME DAY DIRECTED 02/26/20 24 Active sucralfate (CARAFATE) 1 gram tablet Take 1 tablet (1 g total) by mouth 4 (four) times a day 04/21/[address] (PROTONIX) 40 mg EC tablet Take 1 tablet (40 mg total) by mouth daily Active ondansetron ODT (ZOFRAN-ODT) 4 mg disintegrating tablet Take 1 tablet (4 mg total) by mouth every 8 (eight) hours as needed for nausea or vomiting 10 tablet 04/30/20 24 Active clopidogreL (PLAVIX) 75 mg tablet 06/30/20 24 Active amLODIPine (NORVASC) 2.5 mg tablet Take 1 tablet (2.5 mg total) by mouth daily 90 tablet 3 02/11/20 25 026 Active losartan (COZAAR) 50 mg tablet Take 1 tablet (50 mg total) by mouth daily 90 tablet 3 02/11/20 25 026 Active hydroCHLOROthiazid e (HYDRODIURIL) 25 mg tablet Take 1 tablet (25 mg total) by mouth sports book writer before breakfast 025 Discontin ued(Thera py completed ) amLODIPine (NORVASC) 5 mg tablet TAKE 1 TABLET EVERY DAY 90 tablet 1 05/12/20 22 025 Discontin ued(Reord er) losartan (COZAAR) 100 mg tablet TAKE 1 TABLET EVERY DAY 90 tablet 3 05/30/20 22 025 Discontin ued(Reord er) Active Problems Problem Noted Date Diagnosed Date Moderate protein-calorie malnutrition 04/29/2024 Acute renal failure superimp osed on stage 3b chronic kidney disease 04/28/2024 Hyperkalemia 04/28/2024 Nausea and vomiting, unspecified vomiting type 0 04/27/2024 Abnormal findings on cardiac catheterization Overview (11/16/2020): Added automatically from request for surgery [id number] Coronary artery disease of n ative artery of [place] heart with stable angina pectoris 11/03/2020 Overview (11/03/2020): Added automatically from request for surgery [id number] Abnormal EKG 11/03/2020 Overview (11/03/2020): Added automatically from request for surgery [id number] Atherosclerosis of coronary artery 06/03/2016 Obesity with body mass index 30 or greater 05/31 Abnormal cardiovascular stress test 04/24/2016 Two-vessel coronary artery disease 01/11/2013 Simple obesity 11/29/2012 Hypercholesterolemia 11/29/2012 Essential hypertension 11/29/2012 Chest pain 11/28/2012 Encounters Date Type Department Care Team Description 02/10/2025 11:30 AM CDT Office Visit [facility] [address] [place] [address] Rodger Gillis MD Coronary artery disease of [place] artery of [place] heart with stable angina pectoris (Primary Dx); Dizziness; Two-vessel coronary artery disease from Last 3 Months Immunizations Immunization Administration Dates Next Due Influenza, [...] Tobacco: Never Tobacco Cessation:Counseling Given: Not Answered [facility] Utilities Answer Date Recorded In the past 12 months has e [employer], gas, oil, or water [employer] threatened to shut off services in your [...] often do you attend chur ch or mosque services? 1 to 4 times per year 04/29/2024 Do you belong to any clubs o r organizations such as mosque groups, unions, fraternal or athletic groups, or [...] any time in the past 12 m [facility], were you homeless or living in a fdc (including now)? No 04/29/2024 Personal Safety Answer Date Recorded Have you ever been in or are you currently in a harmful physical or emotional relationship or is someone making you feel afraid or unsafe? Denies 04/27/2024 Comments No Sex and Gender Information Value Date Recorded Sex Assigned at Not on file Legal Sex Female 2:52 AM GEOPHYSICAL E LOGGER Gender Identity Not on file Sexual Orientation Not on file Obstetrics History Last Filed Vital Signs Vital Sign Reading Time Taken Comments Blood Pressure 108/67 02/10/2025 11:24 AM CDT Pulse 84 02/10/2025 11:24 AM CDT Temperature 36.7 C (98 F) 02/10/2025 11:24 AM CDT Respiratory Rate 18 05/07/2024 9:05 AM CDT Oxygen Saturation 97% 02/10/2025 11:24 AM CDT Inhaled Oxygen Concentration - - Weight 59 kg (130 lb) 02/10/2025 11:24 AM CDT Height 157.5 cm (5' 2) 02/10/2025 11:24 AM CDT Body Mass Index 23.78 02/10/2025 11:24 AM CDT Plan of Treatment Health Maintenance Due Date Last Done Comments Albumin Creatinine Ratio, Urine 1941 Depression Screening 1941 Osteoporosis Screening-Bone Density Scan 1941 Dilated Eye Exam 1941 Foot Exam 1941 Hepatitis B Screening 1959 Well Visit 65+ 2006 Zoster Vaccine (1 of 2) 07/14/2015 05/19/2015 Covid-19 Vaccine ( - 2023-2 5 season) 2024 05/22/2022, 10/28/2020, 09/30/2020 Hemoglobin A1C 10/10/2024 04/09/2024 Lipid Panel 04/09/2025 04/09/2024, 07/08/2021, 12/16/2021, Additional history exists Influenza Vaccine (Season Ended) 2025 06/08/2020, 05/26/2020, 06/11/2019, Additional history exists Fall Risk Assessment 04/30/2025 04/30/2024 eGFR 04/30/2025 04/30/2024, 11/2023, 04/28/2024, Additional history exists DTaP/Tdap/Td Vaccine (3 - Td or Tdap) 02/04/2031 02/04/2021, 02/17/2016 Pneumococcal vaccine 65+ Completed 06/23/2015, 06/26 Medical Devices Implanted Type Area Nozzleman Device Identifier Shelf Expiration Date Model / Serial / Lot [employer] Marguerite [id number] Stent Drug Eluting S Megatron Us Mr [id number] - [id number] - [id number] Implanted:Qty: 1 on 11/23/2020 by Marisol Kenney MD at [facility] Stent [employer] Marguerite 07/27/2021 [id number] / [id number] / [id number] [employer] Marguerite [id number] Stent Drug Eluting S Megatron Us Mr [id number] - [id number] - [id number] Implanted:Qty: 1 on 11/23/2020 by Marisol Kenney MD at [facility] [employer] Marguerite 07/25/2021 [id number] / [id number] / [id number] Daig Marguerite/St Mook [employer] [id number] Angio-Seal Evolution 8fr .038in Guidewire Bypass Tube Suture - [id number] - [id number] Implanted:Qty: 1 on 11/23/2020 by Marisol Kenney MD at [facility] [employer] Marguerite 08/25/2021 [id number] / [id number] / [id number] Procedures Procedure Name Priority Date/Time Associated Diagnosis Comments ECG 12-LEAD Routine 02/10/2025 11:25 AM CDT Coronary artery disease of [place] artery of [place] heart with stable angina pectoris Dizziness EGFR Routine 04/30/2024 5:34 AM CDT HEMOGLOBIN A1C Routine 04/09/2024 1:00 PM CDT Cellulitis of right foot Type 2 diabetes mellitus with foot ulcer (CODE) (HCC) Diabetic polyneuropathy associated with type 2 diabetes mellitus (HCC) LIPID PANEL Routine 04/09/2024 1:00 PM CDT Essential hypertension Coronary artery disease of [place] artery of [place] heart with stable angina pectoris from Last 3 Months or Most Recently Relevant to Health Maintenance Results * ECG 12 lead (02/10/2025 11:25 AM CDT) us Rodger Gillis MD ECG ORDERABLES Final Result * (ABNORMAL) eGFR (04/30/2024 5:34 AM CDT) [...] was last reviewed 2021. Testing performed by: [facility], [address] [place] [address]., [id number] Blood 04/30/2024 5:34 AM CDT 04/30/2024 5:54 AM CDT us Chantelle Kenney MD LAB BLOOD ORDERABLES Final Resu lt [facility] [address] [facility] [place] [address] * (ABNORMAL) Hemoglobin A1c (04/09/2024 1:00 PM CDT) Hgb A1C 6.0(H) 4.0 - 5.6 % Estimated Average Glucose 126 mg/dL [facility] Comment: The ADA recommends reporting an estimated Average Glucose (eAG) with all Hemoglobin A1c results using the equation derived from a study of 507 normal and diabetic adults. Minority populations were underrepresented and children were not included. (Diabetes Care 2020; 43(S1): S66-S76). The eAG is not equivalent to a fasting glucose. Blood 04/09/2024 1:00 PM CDT 04/09/2024 1:49 PM CDT Mack Espinal DPM LAB BLOOD ORDERABLES Final Result [facility] Department [place] [address] * (ABNORMAL) Lipid panel (04/09/2024 1:00 PM [...] revised on 2018. HDL 33(L) >=40 mg/dL [facility] Comment: Interpretive Data Ages < or = [...] on 2018. LDL, calculated 133(H) <=129 mg/dL [facility] Comment: Interpretive Data Ages < or = [...] revised on 2018. Non-HDL Cholesterol 180 mg/dL [facility] Comment: Interpretive Data Ages < or = [...] last revised on 2018. Chol/HDL ratio 6 [facility] Blood 04/09/2024 1:00 PM CDT 04/09/2024 1:49 PM CDT us Rodger Gillis MD LAB BLOOD ORDERABLES Final Res ult [facility] Department [place] [address] from Last 3 Months or Most Recently Relevant to Health Maintenance Insurance [facility] MDCR HMO REF [facility] MEDICARE Address: [address] [address] [place] [id number] [facility] MEDICARE ADVANTAGE [facility] Address: [address] [address] [place] [phone] [facility] MEDICARE ADVANTAGE Advance Directives For more information, please contact: [phone] * Full Code (Latest Code Status on File) Date Activated Date Inactivated Comments 04/28/2024 12:47 AM 04/30/2024 6:19 PM * Full Code Date Activated Date Inactivated Comments 11/23/2020 11:44 AM 11/23/2020 7:58 PM * Full Code Date Activated Date Inactivated Comments 11/16/2020 2:29 PM 11/16/2020 8:07 PM Care Teams Pre Sales Technical Consultant Relationship Specialty Start Date End Date Judah Jeffery MD PCP - General Family Practice 08/10/22
--- OUTSIDE RECORDS SUMMARY | 2025-02-23 14:47 | XMS_ITS | Encounter Summary ---
Author Organization [facility] Address [facility] [place] [address] Care Team Providers Care Client Experience Specialist Name Role Phone Romina Silveira MD Primary Care Provider [phone] Deshawn Ghosh MD Primary Care Pr ovider [facility] Patrick Penny MD Primary Care Provider [phone] Encounter Details Date Type Department Care Team (Late st Contact Info) Description 06/28/2022 Therapy Plan [facility] Outpatient Therapy [place], [place] [id number] Noram Boles, PT [place], [place] [id number] Social History Tobacco Use Types Packs/Day Years [...] documented as of this encounter Care Teams Client Experience Specialist Relationship Specialty Start Date End Date Romina Silveira MD PCP - General INTERNAL MEDICINE 02/08/20 11/29/22 Deshawn Ghosh MD PCP - General FAMILY PRACTICE 11/30/22 01/01/23 Patrick Penny MD [address] [address] PCP - General INTERNAL MEDICINE 01/02/23 02/23/24 documented as of this encounter
--- OUTSIDE RECORDS SUMMARY | 2025-02-23 14:47 | XMS_ITS | Continuity of Care Document ---
Author Organization [facility] Address [address] [address] [facility] [address] [place] [address] Phone Care Team Providers Care Director Semiconductor Name Role Phone Rabago OD, [place] Unavailable Unavailable Procedures Procedure Date No Charge Contact Lens Check Eye Exam, New Patient Refraction Advance Directives Directive Yes / No Effective Date File Name No Information Encounters Encounter Description Practice Location Reason(s) For Visit Diagnoses Date Provider Providers Copied on Encounter [facility], [address] [place] [address] [address], [place], [place], [id number], tel:[phone] [facility] No Information Nov-0 3-200 9 Rabago OD [place]. [address], [place], [place], [facility], . tel:[phone] [facility], [address], [place], [place], [id number], tel:[phone] [facility] No Information Oct- 7-200 9 Rabago OD [place]. [address] , [address], [place], [address], [place]. tel:[phone] Referring Provider: Quoc Chino, [address] [place] [address], [address]. tel:[phone] Family History Family Member Type Diagnosis Age [...]
--- OUTSIDE RECORDS SUMMARY | 2025-02-23 14:47 | XMS_ITS | Referral Summary ---
Author Organization [facility] Address [address] [place] [address] Care Team Providers Care Manager Of Pharmacy Name Role Phone Judah Jeffery MD Primary Care Provider [phone] [phone] Encounters Date Type Department Care Team Description 02/10/2025 11:30 AM CDT Office Visit [facility] Cardiology [address] [place] [address] Rodger Gillis MD Coronary artery disease of [place] artery of [place] heart with stable angina pectoris (Primary Dx); Dizziness; Two-vessel coronary artery disease from Last 3 Months Allergies Active Allergy [...] mouth nightly Active OneTouch Verio Flex meter [facility] CHECK BLOOD GLUCOSE ONE TIME DAY DIRECTED [...] 1 tablet (25 mg total) by mouth early years teacher before breakfast 025 Discontin ued(Thera py completed [...] (11/16/2020): Added automatically from request for surgery [id number] Coronary artery disease of n ative artery of [place] heart with stable angina pectoris 11/03/2020 Overview (11/03/2020): Added automatically from request for surgery [id number] Abnormal EKG 11/03/2020 Overview (11/03/2020): Added automatically from request for surgery [id number] Atherosclerosis of coronary artery 06/03/2016 Obesity with [...] Tobacco: Never Tobacco Cessation:Counseling Given: Not Answered [facility] Utilities Answer Date Recorded In the past 12 months has [employer], [employer], oil, or water [employer]ot threatened to shut off services in your [...] How often do you attend chur or sikhism services? 1 to 4 times per year 04/29/2024 Do you belong to any clubs o r organizations such as taoism groups, unions, fraternal or athletic groups, or [...] any time in the past 12 m [facility], were you homeless or living in a detention (including now)? No 04/29/2024 Personal Safety Answer Date Recorded Have you ever been in or are you currently in a harmful physical or emotional relationship or is someone making you feel afraid or unsafe? 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 Gender Identity Not on file Sexual Orientation [...] 02/10/2025 11:24 AM CDT Plan of Treatment Not on file Medical Devices Implanted Type Area Sorter Operator Device Identifier Shelf Expiration Date Model / Serial / Lot [employer] [id number] Stent Drug Eluting S Megatron Us Mr 3.33u41kz - [id number] - [id number] Implanted:Qty: 1 on 11/23/2020 by Marisol Kenney MD at [facility] Stent [employer]uerite 07/27/2021 [id number] 350 / [id number] / [id number] [employer] [id number] Stent Drug Eluting S Megatron Us Mr 4.35q27cx - [id number] - [id number] Implanted:Qty: 1 on 11/23/2020 by Marisol Kenney MD at [facility] [employer] 07/25/2021 [id number] 400 / [id number] / [id number] Daig Marguerite/[employer] [id number] Angio-Seal Evolution 8fr .038in Guidewire Bypass Tube Suture - [id number] - [id number] Implanted:Qty: 1 on 11/23/2020 by Marisol Kenney MD at [facility] [employer] Marguerite 08/25/2021 [id number] / [id number] / [id number] Procedures Procedure Name Priority Date/Time Associated Diagnosis Comments ECG 12-LEAD Routine 02/10/2025 11:25 AM CDT Coronary artery disease of [place] artery of [place] heart with stable angina pectoris Dizziness EGFR Routine 04/30/2024 5:34 AM CDT HEMOGLOBIN A1C Routine 04/09/2024 1:00 PM CDT Cellulitis of right foot Type 2 diabetes mellitus with foot ulcer (CODE) (HCC) Diabetic polyneuropathy associated with type 2 diabetes mellitus (HCC) LIPID PANEL Routine 04/09/2024 1:00 PM CDT Essential hypertension Coronary artery disease of [place] artery of [place] heart with stable angina pectoris from Last 3 Months or Most Recently Relevant to Health Maintenance Results * ECG 12 lead (02/10/2025 11:25 AM CDT) Rodger Gillis MD ECG ORDERABLES Final Result [...] reviewed 2021. Testing performed by: [facility], [address] [place] [address], [place]., [address] Blood 04/30/2024 5:34 AM CDT 04/30/2024 5:54 AM CDT us Chantelle Kenney MD LAB BLOOD ORDERABLES Final Resu lt [facility] Department [place] [address] * (ABNORMAL) Hemoglobin A1c (04/09/2024 1:00 PM CDT) Hgb A1C 6.0(H) 4.0 - 5.6 % Estimated Average Glucose 126 mg/dL [facility] Comment: The ADA recommends reporting an estimated Average Glucose (eAG) with all Hemoglobin A1c results using the equation derived from a study of 507 normal and diabetic adults. Minority populations were underrepresented and children were not included. (Diabetes Care 2020; 43(S1): S66-S76). The eAG is not equivalent to a fasting glucose. Blood 04/09/2024 1:00 PM CDT 04/09/2024 1:49 PM CDT Mack Espinal DP LAB BLOOD ORDERABLES Final Result Performing Organization Address [facility] Co de Phone Number [facility] Department [place] [address] * (ABNORMAL) Lipid panel (04/09/2024 1:00 PM [...] on 2018. Triglycerides 236(H) <=149 mg/dL [facility] Comment: Interpretive Data Ages < or [...] revised on 2018. HDL 33(L) >=40 mg/dL [facility] Comment: Interpretive Data Ages < or [...] on 2018. LDL, calculated 133(H) <=129 mg/dL [facility] Comment: Interpretive Data Ages < or [...] revised on 2018. Non-HDL Cholesterol 180 mg/dL [facility] Comment: Interpretive Data Ages < or [...] last revised on 2018. Chol/HDL ratio 6 [facility] Blood 04/09/2024 1:00 PM CDT 04/09/2024 1:49 PM CDT us Rodger Gillis MD LAB BLOOD ORDERABLES Final Res ult [facility] Department [place] [address] from Last 3 Months or Most Recently Relevant to Health Maintenance Insurance [employer] MDCR HMO REF [employer] MEDICARE ADVANTAGE [employer] MEDICARE ADVANTAGE Advance Directives For more information, please contact: [phone] * Full Code (Latest Code Status on File) Date Activated Date Inactivated Comments 04/28/2024 12:47 AM 04/30/2024 6:19 PM * Full Code Date Activated Date Inactivated Comments 11/23/2020 11:44 AM 11/23/2020 7:58 PM * Full Code Date Activated Date Inactivated Comments 11/16/2020 2:29 PM 11/16/2020 8:07 PM Care Teams Manager Of Pharmacy Relationship Specialty Start Date End Date Judah Jeffery MD PCP - General Family Practice 08/10/22
[2025-02-23 15:34] LABS: Hematocrit 33.1 % (37.0-47.0); Hemoglobin 10.8 g/dL (12.0-15.0); Immature Granulocyte Percent A 0.3 % (0-0.5); Lymphocytes Absolute Auto 2.04 K/mm3 (0.9-3.2); Mean Corpuscular HGB Conc 32.6 g/dl (32-36); Mean Corpuscular Hemoglobin 30.9 pg (26-34); Mean Corpuscular Volume 94.8 fl (80-100); Nucleated Red Blood Cells Absolute Auto 0.000 K/mm3 (0.0-0.012); Nucleated Red Blood Cells Perc 0.0 % (0.0-0.2); Platelet Count Result 283 k/mm3 (150-375); Red Blood Count 3.49 M/mm3 (4.2-5.4); White Blood Count 7.0 K/mm3 (4.5-10.0)
[2025-02-23 16:28] LABS: Alanine Aminotransferase 14 U/L (6-35); Albumin Level 3.8 g/dL (3.5-5.1); Alkaline Phosphatase 46 U/L (38-126); Anion Gap 10 mmol/L (4-12); Aspartate Amino Transferase 43 U/L (14-36); Bilirubin,Total 0.7 mg/dL (0.2-1.3); Blood Urea Nitrogen 32 mg/dL (7-17); Calcium 8.9 mg/dL (8.4-10.2); Carbon Dioxide 21 mmol/L (22-30); Chloride 104 mmol/L (98-107); Estimated Glomerular Filt Rate 30; Glucose 91 mg/dL (65-110); Potassium 4.7 mmol/L (3.4-5.0); Sodium 135 mmol/L (137-145); Total Protein 7.1 g/dL (6.3-8.2)
== END 2025-02-23 14:44 | disposition home or self-care (01) ==
LOC: ANHLAB 14:44
PROVIDERS: Visit Provider Internal Medicine Hematology & Oncology
DX: C90.00 Multiple myeloma not having achieved remission (principal)
CPT/HCPCS: 36415; 80053; 85025

== ENCOUNTER 2025-03-04 13:00 | Outpatient (RCR) | payer MEDICARE, SELFPAY ==
--- NOTE | 2025-02-23 14:24 | OPREHPOC ---
Outpatient Therapy Plan of Care This is a Multidisciplinary Plan of Care that may contain components documented by all disciplines (PT, OT, and ST.) PT Problem 1 PT Problem #1 Knowledge Deficit PT Goal 1 Goal / Goal Update pt to be independent and complient with HEP Target Visit 6 PT Problem 2 PT Problem #2 Impaired Balance PT Goal 1 Goal / Goal Update Pt to score a 23 or better in Tinetti to reduce fall risk pt to improve TUG score to 20 seconds or less Target Visit 12 PT Problem 3 PT Problem #3 Impaired Functional Mobility PT Goal 1 Goal / Goal Update Pt to be able to walk 800ft on the 6MWT with a AD and safe gait mechanics pt to report no falls within the last 2 weeks Target Visit 12 PT Problem 4 PT Problem #4 Impaired Strength PT Goal 1 Goal / Goal Update Pt to have 4+/5 strength bilateral LE strength
--- NOTE | 2025-02-23 14:24 | PTOPEVAL1 ---
Assessment and note entered by JT File, PT Evaluation Information Assessment Status Evaluation ICD-10 Condition Codes (PT) Repeated falls R29.6,Difficulty Walking R26.2, Abnormalities of gait and mobility R26.9,Weakness R53.1 Other ICD-10 Condition Codes ( R62.7 PT) Onset 02/19/25 Subjective Information Pt reports that she doesn't know what all of her medicines are for. Pt reports that she doesnt know why she went to the docotr and she does not know why she was sent to phyiscal therapy. Pt reports that she has trouble walking. Pt denies havig trouble with dressing, doing scutcher tender and other daily activiites. Pt reports that she has trouble remembering what she is doing. pt reports that she has fallen 2-3x in the last month. Pt reports that she does not have an AD. Pt reports that she sometimes reaches out to grab things for balance when she is walking. Pt reports that most of her falls are on uneven surfaces, but she usually catches her self with her hands. Pt reports that she has a ramp into her house, a couple stairs into the living room, a couple stairs to get into the dinning rooom, but everything has handrails. Reported Pain Level Pain Score 0: Self Report Assessment PT Clinical Summary Mrs. Heath is a pleasent 84 y/o female who presents to skilled PT with the diagnosis of adult failure to thrive. Pt has deficits in LE strength , endurance, ambulation, balance, and posture. Pt reported having multiple falls within the last month. Pt is a high fall risk per the tinneti and TUG. Pt has unsafe gait mechanics and needs CGA without an AD. Pt was unable to complete the 6 min walk test. Given her fall risk and gait assessment it is advised that she get a WW for ambulation safety. Skilled PT is needed to work on pts deficits safely and improve objective/ funtional measures to imporve the pts quality of life. Plan of Care Interventions Gait Training,Neuro Re-education,Patient/Caregiver Education,Therapeutic Activities,Therapeutic Exercise PT Services Indicated Yes Treatment Frequency and 2x a week for 12 visits Duration These treatments will address the objective and functional deficits as defined above. The patient will be advanced safely and appropriately in order for the patient to progress towards his/her prior level of function. Additional exercises will be introduced and as well as a comprehensive home exercise program upon discharge, if needed, ?to ensure carryover of functional gains achieved in the clinic. This treatment plan has been reviewed and agreement upon by the patient.
--- NOTE | 2025-03-30 13:58 | PCPTNOTE ---
Patient called & cancelled scheduled appointment this date due to unable to make it in today. -Dione Feliciano, PT
--- NOTE | 2025-04-01 15:29 | OPREHPOC ---
Outpatient Therapy Plan of Care This is a Multidisciplinary Plan of Care that may contain components documented by all disciplines (PT, OT, and ST.) PT Problem 1 PT Problem #1 Knowledge Deficit PT Goal 1 Goal / Goal Update pt to be independent and complient with HEP Target Visit 6 Progress Partially Met PT Problem 2 PT Problem #2 Impaired Balance PT Goal 1 Goal / Goal Update Pt to score a 23 or better in Tinetti to reduce fall risk pt to improve TUG score to 20 seconds or less Target Visit 12 Progress Not Met PT Problem 3 PT Problem #3 Impaired Functional Mobility PT Goal 1 Goal / Goal Update Pt to be able to walk 800ft on the 6MWT with a AD and safe gait mechanics pt to report no falls within the last 2 weeks Target Visit 12 Progress Not Met PT Problem 4 PT Problem #4 Impaired Strength PT Goal 1 Goal / Goal Update Pt to have 4+/5 strength bilateral LE strength
--- NOTE | 2025-04-01 15:29 | PTOPPROG ---
Assessment and note entered by JT File, PT Evaluation Information Assessment Status Progress ICD-10 Condition Codes (PT) Repeated falls R29.6,Difficulty Walking R26.2, Abnormalities of gait and mobility R26.9,Weakness R53.1 Other ICD-10 Condition Codes ( R62.7 PT) Onset 02/19/25 Subjective Information patient reports she has been doing fine. she reports she has had no pain and no falls. she reports her and her are still living in a trailer inside a barn on their property. she reports they do no use any AD inside the trailer, and their son checks on them daily. Assessment PT Clinical Summary patient continues to be a high fall risk as she scores as a high fall risk on the tug/5x sit to stand and had a fall during her progress note today. her gait mechanics have appeared to worsen a bit as she now ambulates on the toes/forefoot with no heel contact. she also continues to be unsafe with transfers to sitting, and pushes the walker frequently away from her during ambulation and transfers. continued skilled PT is indicated to work on decreasing her balance deficits and future fall risk. Plan of Care Interventions Gait Training,Neuro Re-education,Patient/Caregiver Education,Therapeutic Activities,Therapeutic Exercise PT Services Indicated Yes Treatment Frequency and continue per initial POC Duration These treatments will address the objective and functional deficits as defined above. The patient will be advanced safely and appropriately in order for the patient to progress towards his/her prior level of function. Additional exercises will be introduced and as well as a comprehensive home exercise program upon discharge, if needed, ?to ensure carryover of functional gains achieved in the clinic. This treatment plan has been reviewed and agreement upon by the patient.
--- NOTE | 2025-04-08 15:22 | OPREHPOC ---
Outpatient Therapy Plan of Care This is a Multidisciplinary Plan of Care that may contain components documented by all disciplines (PT, OT, and ST.) PT Problem 1 PT Problem #1 Knowledge Deficit PT Goal 1 Goal / Goal Update pt to be independent and complient with HEP Target Visit 6 Progress Partially Met PT Problem 2 PT Problem #2 Impaired Balance PT Goal 1 Goal / Goal Update Pt to score a 23 or better in Tinetti to reduce fall risk -not met pt to improve TUG score to 20 seconds or less -met previously without AD, performed using WW today and pt does not meet this time due to increased time with turning Target Visit 12 Progress Partially Met PT Problem 3 PT Problem #3 Impaired Functional Mobility PT Goal 1 Goal / Goal Update Pt to be able to walk 800ft on the 6MWT with a AD and safe gait mechanics -not met pt to report no falls within the last 2 weeks Target Visit 12 Progress Not Met PT Problem 4 PT Problem #4 Impaired Strength PT Goal 1 Goal / Goal Update Pt to have 4+/5 strength bilateral LE strength Progress Met
--- NOTE | 2025-04-08 15:22 | PTOPDC ---
Assessment and note entered by Carmen Haas, PT Evaluation Information Assessment Status Discharge ICD-10 Condition Codes (PT) Repeated falls R29.6,Difficulty Walking R26.2, Abnormalities of gait and mobility R26.9,Weakness R53.1 Other ICD-10 Condition Codes ( R62.7 PT) Onset 02/19/25 Subjective Information Pt reports she feels fine and denies pain. She presents today for her final PT visit in her plan of care and reports she feels ready to discharge. She reports she is getting around her house well without her WW but does use the walker when she goes out of the house, and that her son still checks on her and her daily. Reported Pain Level Pain Score 0: Self Report Assessment PT Clinical Summary Mrs. Heath has attended 12 skilled PT visits addressing repeated falls, difficulty walking, and weakness. While she is still at high risk for falls she has demonstrated in improvement in her LE strength and would like to discharge from therapy this date. She was educated today in tips for safe use of WW when out of the house as well as given a flyer for our fall prevention class to maintain her progress in LE strength and to work further on her balance. Plan of Care PT Services Indicated No
== END 2025-04-08 15:24 | disposition home or self-care (01) ==
LOC: CHSPT 13:00
PROVIDERS: Visit Provider Family Medicine
DX: R62.7 Adult failure to thrive (principal); Z53.20 Procedure and treatment not carried out because of patient's decision for unspecified reasons
CPT/HCPCS: 97110; 97112; 97161; 97530

== ENCOUNTER 2025-06-05 14:02 | Inpatient (IN) | payer MEDICARE, SELFPAY ==
--- OUTSIDE RECORDS SUMMARY | 2008-11-26 08:00 | XMS_ITS | Continuity of Care Document ---
Author Organization [facility] Address [address] [facility] [address] [place] [address] Phone Care Team Providers Care Emergency Room Physician Assistant Name Role Phone Rabago OD, Lowell Unavailable Unavailable Procedures Procedure Date No Charge Contact Lens Check Eye Exam, New Patient Refraction Advance Directives Directive Yes / No Effective Date File Name No Information Encounters Encounter Description Practice Location Reason(s) For Visit Diagnoses Date Provider Providers Copied on Encounter [facility], [address] [place] [address] [address], [place], [place], [id number], tel:[phone] [facility] No Information Nov-0 3-200 9 Rabago OD Lowell. [address] , [address], [place], [place], [facility], . tel:[phone] [facility], [address], [place], [place], [id number], tel:[phone] [facility] No Information Oct- 7-200 9 Rabago OD Lowell. [address] , [address], [place], [address], [place]. tel:[phone] Referring Provider: Quoc Chino, [address] [place] [address], [address]. tel:[phone] Family History Family Member Type Diagnosis Age At Onset No Information Payers Payer name Insurance type Covered constitution party ID Authoriza tion(s) No Information Social History Type Description Quantity Date Captured Comments Sex Female Smoking Status No Information Chief Complaint And Reason For Visit No Information Reason For Referral Reason For Referral No Information History Of Present Illness Encounter Date Complaint History Of Prese nt Illness No Information Functional Status Date Functional Assessmen t No Information Instructions Date Instruction Additional Infor mation No Information Assessments Type Assessment Date No Information Patient Care Teams Name Effective Dates (start - stop) Status Members No Information
--- OUTSIDE RECORDS SUMMARY | 2008-11-26 08:00 | XMS_ITS | Continuity of Care Document ---
Author Organization [facility] Address [address] [facility] [address] [place] [address] Phone Care Team Providers Care Safety Engineer Name Role Phone Rabago OD, Lowell Unavailable Unavailable Procedures Procedure Date No Charge Contact Lens Check Eye Exam, New Patient Refraction Advance Directives Directive Yes / No Effective Date File Name No Information Encounters Encounter Description Practice Location Reason(s) For Visit Diagnoses Date Provider Providers Copied on Encounter [facility], [address] [place] [address] [address], [place], [place], [id number], tel:[phone] [facility] No Information Nov-0 3-200 9 Rabago OD Lowell. [address] , [address], [place], [place], [facility], . tel:[phone] [facility], [address], [place], [place], [id number], tel:[phone] [facility] No Information Oct- 7-200 9 Rabago OD Lowell. [address] , [address], [place], [address], [place]. tel:[phone] Referring Provider: Quoc Chino, [address] [place] [address], [address]. tel:[phone] Family History Family Member Type Diagnosis Age At Onset No Information Payers Payer name Insurance type Covered democrat ID Authoriza tion(s) No Information Social History [...]
--- OUTSIDE RECORDS SUMMARY | 2008-11-26 08:00 | XMS_ITS | Continuity of Care Document ---
Author Organization [facility] Address [address] [facility] [address] [place] [address] Phone Care Team Providers Care Finisher Hot Strip Name Role Phone Rabago OD, Lowell Unavailable Unavailable Procedures Procedure Date No Charge Contact Lens Check Eye Exam, New Patient Refraction Advance Directives Directive Yes / No Effective Date File Name No Information Encounters Encounter Description Practice Location Reason(s) For Visit Diagnoses Date Provider Providers Copied on Encounter [facility], [address] [place] [address] [address], [place], [place], [id number], tel:[phone] [facility] No Information Nov-0 3-200 9 Rabago OD Lowell. [address] , [address], [place], [place], [facility], . tel:[phone] [facility], [address], [place], [place], [id number], tel:[phone] [facility] No Information Oct- 7-200 9 Rabago OD Lowell. [address] , [address], [place], [address], [place]. tel:[phone] Referring Provider: Quoc Chino, [address] [place] [address], [address]. tel:[phone] Family History Family Member Type Diagnosis Age [...]
--- OUTSIDE RECORDS SUMMARY | 2008-11-26 08:00 | XMS_ITS | Continuity of Care Document ---
Author Organization [facility] Address [address] [facility] [address] [place] [address] Phone Care Team Providers Care Transportation Planner Name Role Phone Rabago OD, Lowell Unavailable Unavailable Procedures Procedure Date No Charge Contact Lens Check Eye Exam, New Patient Refraction Advance Directives Directive Yes / No Effective Date File Name No Information Encounters Encounter Description Practice Location Reason(s) For Visit Diagnoses Date Provider Providers Copied on Encounter [facility], [address] [place] [address] [address], [place], [place], [id number], tel:[phone] [facility] No Information Nov-0 3-200 9 Rabago OD Lowell. [address] , [address], [place], [place], [facility], . tel:[phone] [facility], [address], [place], [place], [id number], tel:[phone] [facility] No Information Oct- 7-200 9 Rabago OD Lowell. [address] , [address], [place], [address], [place]. tel:[phone] Referring Provider: Quoc Chino, [address] [place] [address], [address]. tel:[phone] Family History Family Member Type Diagnosis Age At Onset No Information Payers Payer name Insurance type Covered republican ID Authoriza tion(s) No Information Social History [...]
[2025-06-05] VITALS (10 sets, daily range): BP systolic 105–126; BP diastolic 52–62; PULSE 71–80; RESP 13–16; TEMP 36.2–36.6; O2SAT 97–100; BMI 24.0
--- NOTE | ~2025-06-05 | XR_ITS ---
EXAMINATION: XR foot RT min 3V, 06/05/2025 16:23 CDT HISTORY: R foot, hx of neuropathy COMPARISON: No comparisons available. Findings: No acute fracture or malalignment. Severe degenerative changes of the first metatarsal phalangeal joint. Moderate degenerative changes of the tarsal metatarsal joints. Large calcaneal spur. Soft tissues unremarkable. Impression: No acute fracture or malalignment. Reviewed, dictated and finalized at location P. Impression: No acute fracture or malalignment.
--- NOTE | ~2025-06-05 | XR_ITS ---
EXAMINATION: XR toe 1st RT min 2V, 06/05/2025 14:35 CDT HISTORY: infected, hx of neuropathy COMPARISON: No comparisons available. Findings: Moderate osteopenia. No fracture or osseous destruction identified. There are severe degenerative changes of the first metatarsal phalangeal joint distinction from septic arthritis limited. Soft tissues unremarkable. Impression: Severe degenerative changes. Distinction from septic arthritis is limited. Contrast-enhanced MRI is suggested as clinically warranted Reviewed, dictated and finalized at location P. Impression: Severe degenerative changes. Distinction from septic arthritis is limited. Cont rast-enhanced MRI is suggested as clinically warranted
--- OUTSIDE RECORDS SUMMARY | 2025-06-05 14:04 | XMS_ITS | Clinical Summary ---
Author Organization [facility] Address [address] [place] [address] Care Team Providers Care Stemming Machine Operator Name Role Phone Unavailable Primary Care Provider [...] pectoris associated with type 2 diabetes mellitus ([facility]/HCC) Place 1 tablet (0.4 mg total) [...] neuropathy, without long-term current use of insulin ([facility]) USE DIRECTED 100 strip 3 2 Active metFORMIN (GLUCOPHAGE) 500 MG tabletIndications :Type 2 diabetes mellitus with stage 3a chronic kidney disease, without long-term current use of insulin ([facility]) TAKE 1 TABLET THREE TIMES DAILY BEFORE [...] disease, without long-term current use of insulin ([facility]) 12/26/2021 Controlled type 2 diabetes m ellitus with diabetic autonomic neuropathy, without long-term current use of insulin ([facility]) 06/26/2021 Dyslipidemia 06/26/2021 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 ([facility]) 06/26/2021 BMI 29.0-29.9,adult 02/08/2020 Abnormal cardiovascular stress [...] (Boostrix) 02/04/2021 Tdap (Generic) 02/04/2021,02/17/2016 Zoster (Zostavax) 41350 Unt/0.65Ml 05/19/2015 Family History Medical History Relation [...] Additional history exists COVID-19 Vaccine ( - 2024- season) 2025 05/22/2022, 05/23/2021, 10/28/2020, Additional history exists Influenza Adult (#1) 2025 06/26/2021, 06/08/2020, 06/08/2020, Additional history exists DTaP, Tdap and Td [...] Result [facility] [address] [address] [address] * (ABNORMAL) HEMOGLOBIN, GLYCOSYLATED (12/16/2021 9:40 AM [...] 12/18/2021 1:34 PM CDT SPLIT 12/15/2021 FROM [id number] FASTING:YES FASTING: YES Romina Silveira MD LABORATORY Final Result [facility] [address] [place] [address] from Last 3 Months or Most Recently Relevant to Health Maintenance Insurance [facility] [address]
--- OUTSIDE RECORDS SUMMARY | 2025-06-05 14:04 | XMS_ITS | Clinical Summary ---
[facility] Address [address] [place] [address] Care Team Providers Care Doctor Of Podiatric Medicine Name Role Phone Judah Jeffery MD Primary Care Provider [phone] [phone] Allergies Active Allergy Reactions Criticality Noted Date [...] Encounters Date Type Department Care Team Description 04/27/2025 External Device Data STL ABSTRACTION Provider, Abstract 04/14/2025 External Device Data [facility] ABSTRACTION Provider, Abstract 03/31/2025 External Device Data [facility] ABSTRACTION Provider, Abstract 03/11/2025 External Device Data [facility] ABSTRACTION Provider, Abstract 03/10/2025 External Device Data [facility] ABSTRACTION Provider, Abstract 03/10/2025 External Device Data [facility] ABSTRACTION Provider, Abstract [...] on file Legal Sex Female 9:38 AM ROPE WALKER Gender Identity Not on file Sexual Orientation Not on file Last Filed Vital Signs Vital Sign Reading Time Taken Comments Blood Pressure 115/59 02/23/2025 3:11 PM CDT Pulse 77 02/23/2025 3:11 PM CDT Temperature 36.6 C (97.8 F) 02/23/2025 3:11 PM CDT Respiratory Rate 15 02/23/2025 3:11 PM CDT Oxygen Saturation 96% 02/23/2025 3:11 PM CDT Inhaled Oxygen Concentration - - Weight 63.4 kg (139 lb 12.8 oz) 02/23/2025 3:11 PM CDT Height 157.5 cm (5' 2) 10/01/2023 10:2 1 AM ROPE WALKER Body Mass Index 25.57 10/01/2023 10:21 AM ROPE WALKER Plan of Treatment Upcoming Encounters Date Type Department Care Team (Late st Contact Info) Description 02/24/2026 10:15 AM CDT Office Visit [facility] Oncology and Hematology - [place] [address] [facility] [address] [place] [address] [place] MD [address] [place] [address] Health Maintenance Due Date Last Done Comments DIABETES ANNUAL FOOT EXAM 1959 DIABETES ANNUAL RETINAL EXAM 1959 DIABETES MICROALBUMIN ANNUAL SCREEN 1959 LDL CHOLESTEROL ANNUAL 1959 OSTEOPOROSIS SCREENING 2006 ZOSTER VACCINE (1 of 2) 07/14/2015 05/19/2015 RSV VACCINE (60+ or ) (1 - 1-dose 75+ series) 2016 DIABETES HBA1C Q 6 MONTHS 10/10/2024 04/09/2024, INFLUENZA VACCINE (#1) 2025 , 06/08/2020, 06/11/2019, Additional history exists COVID-19 Vaccine (4 - 2024-2 6 season) 2025 05/22/2022, 10/28/2020, 09/30/2020 DTAP/TDAP/TD VACCINES (3 - T d or Tdap) 02/04/2031 02/04/2021, 02/17/2016 PNEUMOCOCCAL VACCINE 50+ YEARS Completed 06/23/2015 , 07/11/2014 Insurance [facility] [id number] Care Teams Doctor Of Podiatric Medicine Relationship Specialty Start Date End Date Judah Jeffery MD [address] [place] [address] PCP - General Family Practice 09/17/23
--- OUTSIDE RECORDS SUMMARY | 2025-06-05 14:04 | XMS_ITS | Clinical Summary ---
Author Organization [facility] Address [address] [place] [address] Care Team Providers Care Marine Meteorologist Name Role Phone Judah Jeffery MD Primary Care Provider [phone] [phone] Allergies Active Allergy Reactions Criticality Noted Date Comments Adhesive Hives,Rash,Swelling Medium 10/28/2012 BREAKS OUT SKIN, SWELLING Latex Rash,Swelling Medium 09/26/2012 MOUTH BROKE OUT, SWELLING Medications aspirin 81 mg tablet daily. Active gabapentin (NEURONTIN) 300 mg capsule Take 1 capsule (300 mg total) by mouth 2 (two) times a day Active nitroglycerin (NITROSTAT) 0.[address] under the tongue. 3 Active metoprolol XL (TOPROL-XL) 50 mg extended release tablet TAKE 1.5 TABLETS BY MOUTH EVERY NIGHT AT BEDTIME 135 tablet 1 Active metFORMIN (GLUCOPHAGE) 1,000 mg tablet 1 tablet (1,000 mg total) 2 (two) times a day with meals 1 Active isosorbide mononitrate ER (IMDUR) 30 mg 24 hr tablet TAKE 1 TABLET EVERY DAY 90 tablet 3 2 Active True Metrix Glucose Test Strip strip 2 Active oxybutynin XL (DITROPAN-XL) 5 mg 24 hr tablet 2 Active rosuvastatin (CRESTOR) 20 mg tablet Take 1 tablet (20 mg total) by mouth nightly 2 Active levothyroxine (SYNTHROID) 25 mcg tablet [...] clopidogreL (PLAVIX) 75 mg tablet 4 Active amLODIPine (NORVASC) 2.5 mg tablet Take 1 tablet (2.5 mg total) by mouth daily 90 tablet 3 5 02/11/20 26 Active losartan (COZAAR) 50 mg tablet Take 1 tablet (50 mg total) by mouth daily 90 tablet 3 5 02/11/20 26 Active Active Problems Problem Noted Date Diagnosed Date Moderate protein-calorie malnutrition 04/29/2024 Acute renal failure superimp osed on stage 3b chronic kidney disease 04/28/2024 Hyperkalemia 04/28/2024 Nausea and vomiting, unspecified vomiting type 0 04/27/2024 Abnormal findings on cardiac catheterization Overview (11/16/2020): Added automatically from request for surgery [id number] Coronary artery disease of n ative artery of [place] heart with stable angina pectoris 11/03/2020 Overview (11/03/2020): Added automatically from request for surgery [id number] Abnormal EKG 11/03/2020 Overview (11/03/2020): Added automatically from request for surgery [id number] Atherosclerosis of coronary artery 06/03/2016 Obesity with [...] History Date Comments Hyperlipidemia Hypertension Diabetes mellitus Coronary artery disease Thyroid disease Family History Medical History Relation Name Comments Cancer Mother Family history of cancer - (Added by TW Conv) Relation Name Status Comments Mother Social History Tobacco Use Types Packs/Day Years Used Date Smoking Tobacco: Never Smokeless Tobacco: Never Tobacco Cessation:Counseling Given: Not Answered [facility] Utilities Answer Date Recorded In the past 12 months has [employer], gas, oil, or water [employer] threatened to shut off services in your home? No 04/29/2024 Social Connection and Isolation Panel Answer Date Recorded In a typical week, how many times do you talk on the phone with family, friends, or neighbors? More than three times a week 04/29/2024 How often do you get togethe r with friends or relatives? More than three times a week 04/29/2024 How often do you attend [facility] or buddhism services? 1 to 4 times per year 04/29/2024 Do you belong to any clubs o r organizations such as worship groups, unions, fraternal or athletic groups, or [...] time in the past 12 m [facility], were you homeless or living in a group home (including now)? No 04/29/2024 Personal Safety Answer Date Recorded Have you ever been in or are you currently in a harmful physical or emotional relationship or is someone making you feel afraid or unsafe? Denies 04/27/2024 Comments No Sex and Gender Information Value Date Recorded Sex Assigned at Not on file Legal Sex Female 2:52 AM MEDICAL CLERK Gender Identity Not on file Sexual Orientation [...] Health Maintenance Due Date Last Done Comments Depression Screening 1941 Osteoporosis Screening-Bone Density Scan 1941 Hepatitis B Screening 1959 Well Visit 65+ 2006 Zoster Vaccine (1 of 2) 07/14/2015 05/19/2015 Covid-19 Vaccine (4 - 2024-2 6 season) 2025 05/22/2022, 10/28/2020, 09/30/2020 Influenza Vaccine (#1) 2025 , 05/26/2020, 06/11/2019, Additional history exists Fall Risk Assessment 04/30/2025 04/30/2024 DTaP/Tdap/Td Vaccine (3 - Td or Tdap) 02/04/2031 02/04/2021, 02/17/2016 Pneumococcal vaccine 65+ Completed 06/23/2015, 06/26 Medical Devices Implanted Type Area Nurse Sane Device Identifier Shelf Expiration Date Model / Serial / Lot [employer] [id number] Stent Drug Eluting S Megatron Us Mr 3.51k30qf - [id number] - [id number] Implanted:Qty: 1 on 11/23/2020 by Marisol Kenney MD at [facility] Stent [employer] 07/27/2021 [id number] 350 / [id number] / [id number] [employer] [id number] Stent Drug Eluting S [employer] Us Mr 4.21x59wg - [id number] - [id number] Implanted:Qty: 1 on 11/23/2020 by Marisol Kenney MD at [facility] [employer] 07/25/2021 [id number] / [id number] / [id number] [employer] [id number] Angio-Seal Evolution 8fr .038in Guidewire Bypass Tube Suture - [id number] - [id number] Implanted:Qty: 1 on 11/23/2020 by Marisol Kenney MD at [facility] 08/25/2021 [id number] / [id number] / [id number] Insurance [facility] Address: [place] [address] [facility] MEDICARE [facility] Address: [place] [address] [facility] MEDICARE [facility] Address: [place] [id number] [place] [address] Advance Directives For more information, please contact: [phone] * Full Code (Latest Code Status on File) Date Activated Date Inactivated Comments 04/28/2024 12:47 AM 04/30/2024 6:19 PM * Full Code Date Activated Date Inactivated Comments 11/23/2020 11:44 AM 11/23/2020 7:58 PM * Full Code Date Activated Date Inactivated Comments 11/16/2020 2:29 PM 11/16/2020 8:07 PM Care Teams Marine Meteorologist Relationship Specialty Start Date End Date Judah Jeffery MD PCP - General Family Practice 08/10/22
--- OUTSIDE RECORDS SUMMARY | 2025-06-05 14:04 | XMS_ITS | Encounter Summary ---
Author Organization [facility] Address [address] [place] [address] Phone Care Team Providers Care Retort Or Condenser Press Operator Name Role Phone Quoc Chino MD Primary Care Provider [phone] Rashawn Silveira MD Primary Care Provider Judah Jeffery MD Primary Care Provider [phone] Encounter Details Date Type Department Care Team (Latest Contact Info) Description 01/06/2019 Orders Only [facility] Scanning, Provider Social History Tobacco Use Types Packs/Day Years Used Date Smoking Tobacco: Never Smokeless Tobacco: Never Comments Unknown Sex and Gender Information Value Date Recorded Sex Assigned at Not on file Legal Sex Female 2:52 AM ELECTRICIAN SUBSTATION Gender Identity Not on file Sexual Orientation [...] on filedocumented in this encounter Care Teams Retort Or Condenser Press Operator Relationship Specialty Start Date End Date Quoc Chino MD [address] [place] [address] PCP - General 04/10/17 11/02/20 [place] [address] [place], [place] [id number] PCP - General Internal Medicine 11/03/20 08/09/22 [place] [address] [facility] [place], [place] [id number] PCP - General Family Practice 08/10/22 documented as of this encounter
--- OUTSIDE RECORDS SUMMARY | 2025-06-05 14:04 | XMS_ITS | Clinical Summary ---
Author Organization [facility] Address [address] [place] [address] Care Team Providers Care Administrative Support Associate Name Role Phone Quoc Chino MD Primary Care Provider [phone] Oliver Parham MD Unavailable [phone] [facility],non-owned Affiliates and Associated Physician Practices is amultiple site organization consisting of ambulatory clinics and hospital sitesin [place], [place], [place] and [place]. This disclosure is being madepursuant to the Care Everywhere program and may not contain all information available regarding this patient. Last updated 18.[facility] Allergies Active Allergy Reactions Criticality [...] on file Legal Sex Female 8:26 AM MACHINE FINISHER Gender Identity Not on file Sexual Orientation Not on file Last Filed Vital Signs Vital Sign Reading Time Taken Comments Blood Pressure 140/80 08/09/2014 2:00 PM MACHINE FINISHER Pulse 100 08/09/2014 2:00 PM MACHINE FINISHER Temperature 36.5 C (97.7 F) 08/09/2014 2:00 PM MACHINE FINISHER Respiratory Rate 18 08/09/2014 2:00 PM MACHINE FINISHER Oxygen Saturation 97% 08/09/2014 2:00 PM MACHINE FINISHER Inhaled Oxygen Concentration - - Weight 68.9 kg (152 lb) 08/09/2014 2:00 PM MACHINE FINISHER Height 157.5 cm (5' 2) 08/09/2014 2:00 PM MACHINE FINISHER Body Mass Index 27.8 08/09/2014 2:00 PM MACHINE FINISHER Plan of Treatment Health Maintenance Due Date Last Done Comments BONE DENSITY TESTING 1941 DTAP/TDAP/TD VACCINES (1 - Tdap) 1960 ZOSTER VACCINE (1 of 2) 1991 PNEUMOCOCCAL VACCINE 50+ (2 of 2 - PCV) 07/11/2015 07/11/2014 Respiratory Syncytial Virus (RSV) Vaccine Pt: or over 60 yrs (1 - 1-dose 75+ series) 2016 DEPRESSION SCREENING 08/26/2024 COVID-19 VACCINE (4 - 2024- season) 2025 05/22/2022, 10/28/2020, 09/30/2020 INFLUENZA VACCINE (#1) 2025 0, 05/26/2020, 06/11/2019, Additional history exists HEPATITIS B [...] this topic Medical Devices Implanted Type Area Fruit Dumper Device Identifier Shelf Expiration Date Model / Serial / Lot Gavin Bone [place] Hv Implanted:Qty: 1 on 07/08/2014 by Oliver Parham MD at [facility] Left: Knee [employer] 04/24/2016 [id number] / / [id number] Butn Pat Arcom Wire Polyeth Xsm 28 X 8 Implanted:Qty: 1 on 07/08/2014 by Oliver Parham MD at [facility] Left: Knee [employer] Inc 05/25/2019 [id number] / / [id number] Ins Kn Vangurd Fem Cocr L-Intlok 60.0mm Implanted:Qty: 1 on 07/08/2014 by Oliver Parham MD at [facility] Left: Knee [employer] Inc 07/25/2023 [id number] / / [id number] Ty Tibial I Beam Fix Bar 67mm Implanted:Qty: 1 on 07/08/2014 by Oliver Parham MD at [facility] Left: Knee [employer] Inc 01/23/2024 [id number] / / [id number] Feliciano Puente Brg 10mm X 67mm Implanted:Qty: 1 on 07/08/2014 by Oliver Parham MD at [facility] Left: Knee [employer] Inc 06/24/2018 [id number] / / [id number] Advance Directives * Full Code (Latest Code Status on File) Date Activated Date Inactivated Comments 07/08/2014 4:09 PM 07/11/2014 11:37 AM Care Teams Administrative Support Associate Relationship Specialty Start Date End Date Quoc Chino MD [address] [place] [address] PCP - General Family Medicine 09/26/12 Oliver Parham MD [address] [place] [id number] Orthopedic Surgery 09/26/12
--- OUTSIDE RECORDS SUMMARY | 2025-06-05 14:04 | XMS_ITS | Clinical Summary ---
Author Organization [facility] Address [address], [address] [address] Phone Care Team Providers Care Adult And Pediatric Neurologist Name Role Phone Quoc Chino MD Primary Care Provider [phone] Medications polyethylene glycol (MIRALAX) Powder Use entire [...] Health Maintenance Due Date Last Done Comments Hepatitis C Virus (HCV) Screening 1940 TdaP Immunization 1941 Pneumococcal Immunization (5 0+ years) (1 of 1 - PCV) 1991 Zoster Immunization (1 of 2) 1991 Respiratory Syncytial Virus (RSV) Immunization (Adult) (1 - 1-dose 75+ series) 2016 Influenza Immunization (#1) 2025 SARS-COV-2 Immunization ( - season) 2025 Hepatitis B Immunization Aged Out No longer eligible based on patient's age to complete this topic Human Papillomavirus (HPV) Immunization Aged Out No longer eligible b ased on patient's age to complete this topic Meningococcal Immunization (ACWY) Aged Out No longer eligible based on patient's age to complete this topic Rotavirus Immunization Aged Out No lo nger eligible based on patient's age to complete this topic Care Teams Adult And Pediatric Neurologist Relationship Specialty Start Date End Date Quoc Chino MD [address] [place] [address] PCP - General Family Medicine 02/11/17
--- OUTSIDE RECORDS SUMMARY | 2025-06-05 14:04 | XMS_ITS | Encounter Summary ---
Author Organization [facility] Address [facility] [place] [address] Care Team Providers Care Feather Washer Name Role Phone Romina Silveira MD Primary Care Provider [phone] Deshawn Ghosh MD Primary Care Pr ovider [facility] Patrick Penny MD Primary Care Provider [phone] Encounter Details Date Type Department Care Team (Late st Contact Info) Description 06/28/2022 Therapy Plan [facility] Outpatient Therapy [place], [place] [id number] Norma Boles, PT [place], [place] [address] Social History Tobacco Use Types Packs/Day Years [...] documented as of this encounter Care Teams Feather Washer Relationship Specialty Start Date End Date Romina Silveira MD PCP - General INTERNAL MEDICINE 02/08/20 11/29/22 Deshawn Ghosh MD PCP - General FAMILY PRACTICE 11/30/22 01/01/23 Patrick Penny MD [address] [address] PCP - General INTERNAL MEDICINE 01/02/23 02/23/24 documented as of this encounter
--- OUTSIDE RECORDS SUMMARY | 2025-06-05 15:32 | XMS_ITS | Clinical Summary ---
Author Organization [facility] Address [address] [place] [address] Care Team Providers Care Automatic Glove Turner And Former Name Role Phone Judah Jeffery MD Primary Care Provider [phone] Allergies Active Allergy Reactions Criticality Noted Date [...] (11/16/2020): Added automatically from request for surgery [id number] Coronary artery disease of n ative artery of [place] heart with stable angina pectoris 11/03/2020 Overview (11/03/2020): Added automatically from request for surgery [id number] Abnormal EKG 11/03/2020 Overview (11/03/2020): Added automatically from request for surgery [id number] Atherosclerosis of coronary artery 06/03/2016 Obesity with [...] Tobacco: Never Tobacco Cessation:Counseling Given: Not Answered [facility] Utilities Answer Date Recorded In the past 12 months has [employer], gas, oil, or water [employer] threatened to shut off services in your [...] week 04/29/2024 How often do you attend [facility] or jewish services? 1 to 4 times per year 04/29/2024 Do you belong to any clubs o r organizations such as pentecostal groups, unions, fraternal or athletic groups, or [...] any time in the past 12 m [facility], were you homeless or living in a chcf (including now)? No 04/29/2024 Personal Safety Answer Date Recorded Have you ever been in or are you currently in a harmful physical or emotional relationship or is someone making you feel afraid or unsafe? 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 Gender Identity Not on file Sexual Orientation [...] 06/23/2015, 06/26 Medical Devices Implanted Type Area Senior Field Service Engineer Device Identifier Shelf Expiration Date Model / Serial / Lot [employer] Marguerite [id number] Stent Drug Eluting S Megatron Us Mr 3.70a20kl - [id number] - [id number] Implanted:Qty: 1 on 11/23/2020 by Marisol Kenney MD at [facility] Stent [employer] Marguerite 07/27/2021 [id number] / [id number] / [id number] [employer] Marguerite [id number] Stent Drug Eluting S Megatron Us Mr 4.08j02lk - [id number] - [id number] Implanted:Qty: 1 on 11/23/2020 by Marisol Kenney MD at [facility] [employer] Marguerite 07/25/2021 [id number] / [id number] / [id number] Daig Marguerite/St [employer] [id number] Angio-Seal Evolution 8fr .038in Guidewire Bypass Tube Suture - [id number] - [id number] Implanted:Qty: 1 on 11/23/2020 by Marisol Kenney MD at [facility] 08/25/2021 [id number] / [id number] / [id number] Insurance [facility] HMO REF [facility] MEDICARE ADVANTAGE [facility] MEDICARE ADVANTAGE Advance Directives For more information, please contact: [phone] * Full Code (Latest Code Status on File) Date Activated Date Inactivated Comments 04/28/2024 12:47 AM 04/30/2024 6:19 PM * Full Code Date Activated Date Inactivated Comments 11/23/2020 11:44 AM 11/23/2020 7:58 PM * Full Code Date Activated Date Inactivated Comments 11/16/2020 2:29 PM 11/16/2020 8:07 PM Care Teams Automatic Glove Turner And Former Relationship Specialty Start Date End Date Judah Jeffery MD PCP - General Family Practice 08/10/22
--- OUTSIDE RECORDS SUMMARY | 2025-06-05 15:32 | XMS_ITS | Clinical Summary ---
Author Organization [facility] Address [address], [address] [address] Phone Care Team Providers Care Bio Medical Technician Name Role Phone Quoc Chino MD Primary Care Provider [phone] Medications polyethylene glycol (MIRALAX) Powder Use entire [...] age to complete this topic Care Teams Bio Medical Technician Relationship Specialty Start Date End Date Quoc Chino MD [address] [place] [address] PCP - General Family Medicine 02/11/17
--- OUTSIDE RECORDS SUMMARY | 2025-06-05 15:32 | XMS_ITS | Encounter Summary ---
Author Organization [facility] Address [address] [place] [address] Phone Care Team Providers Care Band Top Maker Name Role Phone Quoc Chino MD Primary Care Provider [phone] Rashawn Silveira MD Primary Care Provider Judah Jeffery MD Primary Care Provider [phone] Encounter Details Date Type Department Care Team (Latest Contact Info) Description 01/06/2019 Orders Only [facility] Scanning, Provider Social History Tobacco Use Types Packs/Day Years Used Date Smoking Tobacco: Never Smokeless Tobacco: Never Comments Unknown Sex and Gender Information Value Date Recorded Sex Assigned at Not on file Legal Sex Female 2:52 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
--- OUTSIDE RECORDS SUMMARY | 2025-06-05 15:32 | XMS_ITS | Clinical Summary ---
Author Organization [facility] Address [address] [place] [address] Care Team Providers Care Kennel Manager Name Role Phone Judah Jeffery MD Primary Care Provider [phone] Allergies Active Allergy Reactions Criticality Noted Date [...] on file Legal Sex Female 9:38 AM GREY GOODS TESTER Gender Identity Not on file Sexual Orientation [...] cm (5' 2) 10/01/2023 10:2 1 AM GREY GOODS TESTER Body Mass Index 25.57 10/01/2023 10:21 AM GREY GOODS TESTER Plan of Treatment Upcoming Encounters Date Type Department Care Team (Late st Contact Info) Description 02/24/2026 10:15 AM CDT Office Visit [facility] Oncology and Hematology - [place] [address] [facility] [address] [place] [address] [place] Lau MD [address] [facility] [address] [place] [address] Health Maintenance Due Date Last [...] 50+ YEARS Completed 06/23/2015 , 07/11/2014 Insurance [facility] [id number] Care Teams Kennel Manager Relationship Specialty Start Date End Date Judah Jeffery MD [address] [place] [address] PCP - General Family Practice 09/17/23
--- OUTSIDE RECORDS SUMMARY | 2025-06-05 15:32 | XMS_ITS | Clinical Summary ---
Author Organization [facility] Address [address] [facility] [place] [address] Care Team Providers Care Clinical Account Manager Name Role Phone Quoc Chino MD Primary Care Provider [phone] Oliver Parham MD Unavailable [phone] Source Comments [facility],non-owned Affiliates and Associated Physician Practices is amultiple site organization consisting of ambulatory clinics and hospital sitesin [place], [place], [place] and [place]. This disclosure is being madepursuant to the Care Everywhere program and may not contain all information available regarding this patient. Last updated 18.[facility] Allergies Active Allergy Reactions Criticality Noted Date [...] on file Legal Sex Female 8:26 AM FUR DRY CLEANER HAND Gender Identity Not on file Sexual Orientation Not on file Last Filed Vital Signs Vital Sign Reading Time Taken Comments Blood Pressure 140/80 08/09/2014 2:00 PM FUR DRY CLEANER HAND Pulse 100 08/09/2014 2:00 PM FUR DRY CLEANER HAND Temperature 36.5 C (97.7 F) 08/09/2014 2:00 PM FUR DRY CLEANER HAND Respiratory Rate 18 08/09/2014 2:00 PM FUR DRY CLEANER HAND Oxygen Saturation 97% 08/09/2014 2:00 PM FUR DRY CLEANER HAND Inhaled Oxygen Concentration - - Weight 68.9 kg (152 lb) 08/09/2014 2:00 PM FUR DRY CLEANER HAND Height 157.5 cm (5' 2) 08/09/2014 2:00 PM FUR DRY CLEANER HAND Body Mass Index 27.8 08/09/2014 2:00 PM FUR DRY CLEANER HAND Plan of Treatment Health Maintenance Due Date [...] this topic Medical Devices Implanted Type Area Rod Piler Device Identifier Shelf Expiration Date Model / Serial / Lot Gavin Bone [place] Hv Implanted:Qty: 1 on 07/08/2014 by Oliver Parham MD at [facility] Left: Knee [employer] Inc 04/24/2016 [id number] / / [id number] Butn Pat Arcom Wire Polyeth Xsm 28 X 8 Implanted:Qty: 1 on 07/08/2014 by Oliver Parham MD at [facility] Left: Knee [employer] Inc 05/25/2019 [id number] / / [id number] Ins Kn Vangurd Fem Cocr L-Intlok 60.0mm Implanted:Qty: 1 on 07/08/2014 by Oliver Parham MD at [facility] Left: Knee [employer] 07/25/2023 [id number] / / [id number] Tibial I Beam Fix Bar 67mm Implanted:Qty: 1 on 07/08/2014 by Oliver Parham MD at [facility] Left: Knee [employer] 01/23/2024 [id number] / / [id number] Feliciano Puente Brg 10mm X 67mm Implanted:Qty: 1 on 07/08/2014 by Oliver Parham MD at [facility] Left: Knee [employer] Inc 06/24/2018 [id number] / / [id number] Advance Directives * Full Code (Latest Code Status on File) Date Activated Date Inactivated Comments 07/08/2014 4:09 PM 07/11/2014 11:37 AM Care Teams Clinical Account Manager Relationship Specialty Start Date End Date Quoc Chino MD [address] [place] [address] PCP - General Family Medicine 09/26/12 Oliver Parham MD [address] [place] [address] Orthopedic Surgery 09/26/12
--- OUTSIDE RECORDS SUMMARY | 2025-06-05 15:32 | XMS_ITS | Clinical Summary ---
Author Organization [facility] Address [address] [place] [address] Care Team Providers Care Professional Volleyball Player Name Role Phone Unavailable Primary Care Provider [...] pectoris associated with type 2 diabetes mellitus ([facility] HHS/HCC) Place 1 tablet (0.4 mg total) [...] use of insulin ([facility]) USE DIRECTED 100 strip 3 2 Active metFORMIN (GLUCOPHAGE) 500 MG tabletIndications :Type 2 diabetes mellitus with stage 3a chronic kidney disease, without long-term current use of insulin ([facility]) TAKE 1 TABLET THREE TIMES DAILY BEFORE [...] disease, without long-term current use of insulin ([facility]) 12/26/2021 Controlled type 2 diabetes m ellitus with diabetic autonomic neuropathy, without long-term current use of insulin ([facility]) 06/26/2021 Dyslipidemia 06/26/2021 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 ([facility]) 06/26/2021 BMI 29.0-29.9,adult 02/08/2020 Abnormal cardiovascular stress [...] (Boostrix) 02/04/2021 Tdap (Generic) 02/04/2021,02/17/2016 Zoster (Zostavax) [id number] Unt/0.65Ml 05/19/2015 Family History Medical History Relation [...] Result [facility] [address] [address] * (ABNORMAL) HEMOGLOBIN, GLYCOSYLATED (12/16/2021 9:40 AM [...] 12/18/2021 1:34 PM CDT SPLIT 12/15/2021 FROM [id number] FASTING:YES FASTING: YES Romina Silveira MD LABORATORY Final Result [facility] [address] [place] [address] from Last 3 Months or Most Recently Relevant to Health Maintenance Insurance [facility] MEDICARE
[2025-06-05 15:44] LABS: Hematocrit 32.3 % (37.0-47.0); Hemoglobin 10.4 g/dL (12.0-15.0); Immature Granulocyte Percent A 0.3 % (0-0.5); Lymphocytes Absolute Auto 2.34 K/mm3 (0.9-3.2); Mean Corpuscular HGB Conc 32.2 g/dl (32-36); Mean Corpuscular Hemoglobin 29.4 pg (26-34); Mean Corpuscular Volume 91.2 fl (80-100); Nucleated Red Blood Cells Absolute Auto 0.000 K/mm3 (0.0-0.012); Nucleated Red Blood Cells Perc 0.0 % (0.0-0.2); Platelet Count Result 332 k/mm3 (150-375); Red Blood Count 3.54 M/mm3 (4.2-5.4); White Blood Count 9.1 K/mm3 (4.5-10.0)
--- NOTE | 2025-06-05 16:12 | ED.SKABFB ---
HPI - Skin/Abscess/Foreign Bdy General Chief complaint: Skin/Abscess/Foreign Body Stated complaint: infected toe Time Seen by Provider: 06/05/25 15:07 History of Present Illness HPI narrative: Patient has been told she has osteomyelitis to her right great toe and was told that he will need amputation, she got scared about this and therefore stopped following up with the doctor. Her daughter noticed yesterday when patient took her sock off that the toe was extremely red and swollen, finally convinced her to come to the hospital. Patient is agreeable to be admitted for antibiotics and Orthopedics as necessary Related Data Home Medications ?Medication ?Instructions ?Recorded ?Confirmed ?Last Taken ?Type nitroglycerin 0.4 mg sublingual 0.4 mg sublingual Q5M PRN Chest 09/28/19 06/05/25 Unknown History tablet (Nitrostat) Pain aspirin 81 mg tablet,delayed 81 mg PO DAILY 02/05/21 06/05/25 06/05/25 History release (Jocelyn Low Dose Aspirin) sucralfate 1 gram tablet 1 g PO QID 02/13/25 02/13/25 Unknown History Allergies Allergy/AdvReac Type Severity Reaction Status Date / Time adhesive tape Allergy Severe BLISTERS/SKIN Verified 06/05/25 14:05 TEARS latex Allergy Severe Anaphylaxis Verified 06/05/25 14:05 Review of Systems Review of Systems: All systems reviewed & are unremarkable except as noted in HPI and below PMFSH Past Medical History Medical History Dyspepsia Nausea BMI 27.0-27.9,adult Diabetic ulcer of right foot located base 3rd toe Early satiety Dystrophic nail Postoperative wound dehiscence Encounter for postoperative care Sesamoiditis of right foot Urinary frequency Foot ulcer, right Peripheral neuropathy Hyperlipidemia Borderline diabetes Coronary artery disease Hypertension Surgical History Surgical History History of breast surgery H/O heart artery stent History of hip replacement H/O: hysterectomy H/O colonoscopy H/O tooth extraction History of knee replacement Family History Family History Mother Family history of pancreatic cancer Heart disease Grandparent Diabetes mellitus Father Diabetes mellitus Hypertension Family history of cardiovascular disease Family history of chronic obstructive pulmonary disease Sibling No problems noted. Other Family history of elevated blood lipids Social History Social History Social History: Lives with her , daughter and son-in-law. Son-in-law has dementia and they are helping the daughter care for him. She is a lifelong nonsmoker. No alcohol or drug use. She is a full code. She nominates her to be the individual would make medical decisions for her if she is unable Smoking status: Never smoker Second hand tobacco smoke exposure: Yes Alcohol intake: never Substance use: never Substance use type: does not use Do You Feel Safe in your Home?: Yes Lack of Transportation: No Lack of Food: Never True Current Housing: I Have Housing Concerned About Future Housing: No Difficulty Paying Gas/Electric Bills: No Difficulty Paying for Meds: No Currently Unemployed: No Education: Don't Know Difficulty w/ Childcare or Family Care: No Living arrangements: with family Occupation/Education: retired 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 EYES: EOMI, conjunctiva normal ENT: Hearing grossly intact LUNGS: Nonlabored breathing. HEART: Good DP pulse right foot, foot warm ABD: [Soft], [nontender to palpation] EXT: Painless range of motion with swelling to the right great toe SKIN: Subtle erythema right great toe without any obvious large ulcers NEURO: [Alert and oriented x 3. No gross focal sensory or strength deficits.] PSYCH: Normal affect Course Vital Signs Vital signs: Vital Signs Temperature 97.8 F 06/05/25 14:48 Pulse Rate 74 06/05/25 14:48 Respiratory Rate 14 06/05/25 14:48 Blood Pressure 113/55 L 06/05/25 14:48 Pulse Oximetry 99 06/05/25 14:48 Temperature 97.8 F 06/05/25 14:48 Pulse Rate 74 06/05/25 14:48 Respiratory Rate 14 06/05/25 14:48 Blood Pressure 113/55 L 06/05/25 14:48 Pulse Oximetry 99 06/05/25 14:48 MDM - Skin/Abscess/Foreign Bdy MDM Narrative Medical decision making narrative: Patient presents here with right toe swelling and redness, has had diabetic foot infection in the past and was lost to follow-up because she was told she may need amputation and then stopped seeing the doctor. No systemic symptoms. Normal vital signs here X-ray of toe concerning for possible infection and cannot rule out septic arthritis given the degenerative changes. I am able to range her toe without issue or pain however patient does have home really bad neuropathy and cannot feel her toes regardless. At this point I did feel she would benefit from admission for MRI for further evaluation and starting antibiotics. Patient is agreeable to this. Discussed with orthopedist and hospitalist. Does have creatinine of 2.3 which does not seem to be off her baseline, and elevated lactic acid, she is given fluids. Lab Data 06/05/25 15:38 06/05/25 16:40 Labs: Lab Results 06/05/25 06/05/25 Range/Units 15:38 16:40 WBC 9.1 (4.5-10.0) K/mm3 RBC 3.54 L (4.2-5.4) M/mm3 Hgb 10.4 L (12.0-15.0) g/dL Hct 32.3 L (37.0-47.0) % MCV 91.2 (80-100) fl MCH 29.4 (26-34) pg MCHC 32.2 (32-36) g/dl RDW 12.6 (11.5-14.5) % Plt Count 332 (150-375) k/mm3 MPV 9.4 (7.4-10.4) fl Immature Gran % (Auto) 0.3 (0-0.5) % Neut % (Auto) 57.5 (45.5-73.1) % Lymph % (Auto) 25.9 (18.3-44.2) % [place] % (Auto) 8.7 H (2.6-8.5) % Eos % (Auto) 6.7 H (0-4.4) % Baso % (Auto) 0.9 (0.2-1.2) % Lymph # (Auto) 2.34 (0.9-3.2) K/mm3 [place] # (Auto) 0.8 H (0.1-0.6) K/mm3 Eos # (Auto) 0.6 H (0-0.3) K/mm3 Baso # (Auto) 0.1 (0.0-0.1) K/mm3 Abs Immat Gran (auto) 0.03 (0.00-0.031) K/mm3 Absolute Neuts (auto) 5.2 (1.3-6.7) K/mm3 Absolute Nucleated RBC 0.000 (0.0-0.012) K/mm3 Nucleated RBC % 0.0 (0.0-0.2) % Sodium 135 L (137-145) mmol/L Potassium 4.5 (3.4-5.0) mmol/L Chloride 105 (98-107) mmol/L Carbon Dioxide 18 L (22-30) mmol/L Anion Gap 12 (4-12) mmol/L BUN 33 H (7-17) mg/dL Creatinine 2.28 H (0.7-1.0) mg/dL Estim Creat Clear Calc 12 ml/min Estimated GFR 20 L (59 - ) Glucose 136 H (65-110) mg/dL Lactic Acid 2.9 H (0.7-2.0) mmol/L Calcium 9.1 (8.4-10.2) mg/dL Total Bilirubin 0.4 (0.2-1.3) mg/dL AST 22 (14-36) U/L ALT 14 (6-35) U/L Alkaline Phosphatase 73 (38-126) U/L C-Reactive Protein 1.1 (<1.0) mg/dL Total Protein 7.5 (6.3-8.2) g/dL Albumin 3.7 (3.5-5.1) g/dL Discharge Plan Discharge Clinical Impression: Toe infection, Lactate blood increase, ANIRUDH (acute kidney injury) Patient Disposition: Still a Patient Condition: Stable Patient Language: [place] Prescriptions: No Action nitroglycerin [Nitrostat] 0.4 mg tablet, sublingual 0.4 mg SUBLINGUAL Q5M PRN (Reason: Chest Pain) Rx Instructions: until response; do not exceed 3 doses per episode escitalopram oxalate [Lexapro] 20 mg tablet 20 mg PO DAILY Qty: 90 1RF ondansetron 4 mg tablet,disintegrating 4 mg PO Q8H PRN (Reason: nausea and vomiting) Qty: 14 3RF aspirin [Jocelyn Low Dose Aspirin] 81 mg Tablet,Delayed Release (Dr/Ec) 81 mg PO DAILY sucralfate 1 gram tablet 1 g PO QID (DME) FreeStyle Lite Strips Strip See Rx Instructions .Route Qty: 100 2RF Rx Instructions: Check blood glucose once daily As directed (DME) OneTouch Verio test strips Strip See Rx Instructions .Route Qty: 100 1RF Rx Instructions: Check daily or as needed. (DME) blood-glucose meter [OneTouch Verio Flex meter] [facility] See Rx Instructions .Route Qty: 1 0RF Rx Instructions: check blood glucose 1xday As directed hydrochlorothiazide 25 mg tablet 25 mg PO DAILY Qty: 90 1RF gabapentin 300 mg capsule 300 mg PO BID Qty: 180 1RF isosorbide mononitrate 30 mg tablet extended release 24 hr 30 mg PO DAILY Qty: 90 1RF clopidogrel 75 mg tablet See Rx Instructions .ROUTE .COMPLEX Qty: 100 1RF Dose Instruction: TAKE 1 TABLET BY MOUTH DAILY Rx Instructions: TAKE 1 TABLET BY MOUTH DAILY metoprolol succinate 50 mg tablet extended release 24 hr See Rx Instructions .ROUTE .COMPLEX Qty: 150 1RF Dose Instruction: TAKE 1 AND 1/2 TABLETS BY MOUTH AT BEDTIME Rx Instructions: TAKE 1 AND 1/2 TABLETS BY MOUTH AT BEDTIME rosuvastatin 20 mg tablet 20 mg PO HS Qty: 90 1RF amlodipine 2.5 mg tablet 2.5 mg PO DAILY Qty: 90 0RF pantoprazole 40 mg tablet,delayed release (DR/EC) See Rx Instructions .ROUTE .COMPLEX Qty: 200 2RF Dose Instruction: TAKE 1 TABLET BY MOUTH TWICE DAILY Rx Instructions: TAKE 1 TABLET BY MOUTH TWICE DAILY metformin 1,000 mg tablet See Rx Instructions .ROUTE .COMPLEX Qty: 180 1RF Rx Instructions: TAKE 1 TABLET BY MOUTH TWICE A DAY WITH MEALS levothyroxine [Synthroid] 50 mcg tablet 50 mcg PO DAILY Qty: 60 0RF mirabegron [Myrbetriq] 25 mg tablet extended release 24 hr 25 mg PO DAILY Qty: 90 0RF Follow-up/Referrals: Judah Jeffery MD [Primary Care Provider, Family Practice]
[2025-06-05 17:07] LABS: Alanine Aminotransferase 14 U/L (6-35); Albumin Level 3.7 g/dL (3.5-5.1); Alkaline Phosphatase 73 U/L (38-126); Anion Gap 12 mmol/L (4-12); Aspartate Amino Transferase 22 U/L (14-36); Bilirubin,Total 0.4 mg/dL (0.2-1.3); Blood Urea Nitrogen 33 mg/dL (7-17); CRP 1.1 mg/dL (<1.0); Calcium 9.1 mg/dL (8.4-10.2); Carbon Dioxide 18 mmol/L (22-30); Chloride 105 mmol/L (98-107); Estimated CRCL calculation 12 ml/min; Estimated Glomerular Filt Rate 20; Glucose 136 mg/dL (65-110); Potassium 4.5 mmol/L (3.4-5.0); Sodium 135 mmol/L (137-145); Total Protein 7.5 g/dL (6.3-8.2)
[2025-06-05] MEDS: CEFEPIME 1 GM in SODIUM CHLORIDE 0.9% IV 50 ML 100 ML IVPB (17:55)
--- NOTE | 2025-06-05 18:28 | PC.NURSE ---
per Micromedex, IV metronidazole and lactated ringers can be hung together
[2025-06-05] MEDS: LACTATED RINGERS 1,000 ML 999 ML IV CONT (18:33)
[2025-06-05] MEDS: metroNIDAZOLE 500 MG/ISO 100ML 500 MG/100 ML BAG 100 MG IVPB (18:36)
--- NOTE | 2025-06-05 20:24 | ADMGEN ---
This patient, Emelia Haeth, was admitted to Medical Room 247-. Patient/family oriented to hospital policies and general routines including ID bracelet, bed and alarms, visiting hours, pain management, procedures, bathroom and other care routines, personal items, smoking policy, room service/diet, and visiting hours. Information on how to activate the Rapid Response Team has been discussed. Patient/Family are encouraged to report perceived risks to care and to ask questions if they do not understand what they are told or what they should do.
[2025-06-05] MEDS: VANCOMYCIN 750 MG/NS 250 ML 750 MG/250 ML BAG 150 MG IVPB (21:20)
--- NOTE | 2025-06-05 21:22 | P.HP_ITS ---
H&P: HPI History of Present Illness Date/Time: 06/05/25 23:00 Chief Complaint: Right toe infection Narrative: 85-year-old female with a past medical history of essential hypertension, chronic kidney disease stage IV, type 2 diabetes (A1c of 29 November 2024), coronary artery disease, diabetic peripheral neuropathy, chronic right foot ulcer with history of noncompliance with follow-up after being informed that she needed an amputation of the toe the past who presents to the ER via private vehicle due to increasing right toe redness. Source of information is completely from review of past medical records, external medical records and ER physician report as the patient is only alert oriented to person and the fact that she is in the hospital at the time of my evaluation. The patient had been told in the past that she needed amputation of her right great toe and she got scared and quit following up with the physician. On the the patient's daughter noticed that the patient toe was more swollen and erythematous. Patient agreed to come to the hospital today. At the time of my evaluation the patient could not recall why she was brought to the hospital. She denies any pain to her toe in states that she does not have any sensation in her feet. She has been afebrile since presentation to the hospital. There is no drainage from her toe in at the time my evaluation and only minimal increased erythema compared to the opposite toe. She does not have a leukocytosis or elevated inflammatory markers. She did have some mild lactic acidosis that resolved after 1 L fluid bolus. Foot x-ray and toe x-ray did not demonstrate any overt evidence of osteomyelitis but severe degenerative changes were noted on refers the metatarsophalangeal joint. Radiology recommended contrast MRI but given patient's renal failure she is not a candidate for this. Subsequently patient was admitted for antibiotics and evaluation by Surgical Service. Surgery for osteomyelitis of the same foot by Dr. Sumner and September 2021. The patient's is also currently hospitalized at our facility. Review of Systems 2 Review of Systems: Unobtainable due to the patient's history of dementia. [facility] Past Medical History Medical History (Updated 06/06/25 @ 05:34 by Laina Ruano DO) Monoclonal gammopathy of undetermined significance (MGUS) Onychomycosis Stress incontinence Dementia Diabetic ulcer of right foot located base 3rd toe and right great toe CKD (chronic kidney disease) stage 4, GFR 15-29 ml/min Benign hypertension with chronic kidney disease Gastritis Confirmed on EGD 02/2023 Hiatal hernia Hyperplastic polyp of stomach Noted on EGD 02/2023 Diabetes mellitus with chronic kidney disease Osteopenia Hypothyroidism Dystrophic nail Sesamoiditis of right foot Peripheral neuropathy Hyperlipidemia Borderline diabetes Coronary artery disease Surgical History Surgical History (Updated 06/05/25 @ 21:48 by Laina Ruano DO) History of esophagogastroduodenoscopy (EGD) (02/27/23) History of left knee replacement History of left hip replacement History of breast surgery H/O heart artery stent H/O: hysterectomy (~1972) Partial H/O colonoscopy H/O tooth extraction Family History Family History Mother Family history of pancreatic cancer Heart disease Grandparent Diabetes mellitus Father Diabetes mellitus Hypertension Family history of cardiovascular disease Family history of chronic obstructive pulmonary disease Sibling No problems noted. Other Family history of elevated blood lipids Social History Social History (Updated 06/05/25 @ 21:49 by Laina Ruano DO) Social History: Lives with her , daughter and son-in-law. She is a lifelong nonsmoker. No alcohol or drug use. 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[employer] Gender identity (if verbalized by the patient): Female Sexual Orientation (if Verbalized by the Patient): Straight or Heterosexual Spiritual care concerns: No Agree to blood products: Yes Meds Home Medications and Allergies Home Medications ?Medication ?Instructions ?Recorded ?Confirmed ?Type nitroglycerin 0.4 mg sublingual 0.4 mg sublingual Q5M PRN Chest 09/28/19 06/05/25 History tablet (Nitrostat) Pain aspirin 81 mg tablet,delayed 81 mg PO DAILY 02/05/21 1 History release (Jocelyn Low Dose Aspirin) blood sugar diagnostic (FreeStyle #100 ea 02/25/2407/20 Rx Lite Strips) blood sugar diagnostic (OneTouch #100 ea 02/25/2405/26 Rx Verio test strips) blood-glucose meter (OneTouch #1 ea 04/13/24 06/05/25 Rx Verio Flex Meter) hydrochlorothiazide 25 mg tablet 25 mg PO DAILY #90 ta bs 12/28/24 06/05/25 Rx Held on 02/15/25. Instructions: Resume on 03/15/25. please discuss with your PCP or Nephrology before continue. Was on hold due to acute kidney injury gabapentin 300 mg capsule 300 mg PO BID #180 caps 12/2506/05/25 Rx ondansetron 4 mg disintegrating 4 mg PO Q8H PRN nausea and 02/03/25 06/05/25 Rx tablet vomiting #14 tabs isosorbide mononitrate 30 mg 30 mg PO DAILY #90 tabs 0 03/16/25 06/05/25 Rx tablet,extended release 24 hr clopidogrel 75 mg tablet See Rx Instructions .Route 0 03/27/25 06/05/25 Rx .COMPLEX #100 tabs metoprolol succinate 50 mg See Rx Instructions .Route 04/09/25 06/05/25 Rx tablet,extended release 24 hr .COMPLEX #150 tabs amlodipine 2.5 mg tablet 2.5 mg PO DAILY #90 tabs 06/05/25 Rx rosuvastatin 20 mg tablet 20 mg PO HS #90 tabs 5 06/05/25 Rx pantoprazole 40 mg tablet,delayed See Rx Instructions .Route 04/20/25 06/05/25 Rx release .COMPLEX #200 tabs metformin 1,000 mg tablet See Rx Instructions .Route 0 04/27/25 06/05/25 Rx .COMPLEX #180 tabs escitalopram oxalate 20 mg tablet 20 mg PO DAILY #90 t abs 04/29/25 06/05/25 Rx (Lexapro) levothyroxine 50 mcg tablet 50 mcg PO DAILY #60 tabs 0 05/04/25 06/05/25 Rx (Synthroid) Allergies Allergy/AdvReac Type Severity Reaction Status Date / Time adhesive tape Allergy Severe BLISTERS/SKIN Verified 06/05/25 14:05 TEARS latex Allergy Severe Anaphylaxis Verified 06/05/25 14:05 Vital Signs Vital Signs - 24 hr 06/05/25 14:48 06/05/25 15:07 06/05/25 15:16 Temperature 97.8 F Pulse Rate 74 Respiratory Rate 14 Blood Pressure 113/55 L 119/58 L 107/61 Pulse Oximetry 99 98 Oxygen Delivery 06/05/25 15:38 06/05/25 16:01 06/05/25 18:07 Temperature Pulse Rate 71 73 77 Respiratory Rate 13 15 16 Blood Pressure 105/56 L 113/61 124/62 Pulse Oximetry 99 99 100 Oxygen Delivery 06/05/25 21:08 Temperature Pulse Rate Respiratory Rate Blood Pressure Pulse Oximetry 97 Oxygen Delivery Room Air Exam 2 Narrative: Weight 56 kg BMI 24.1 Const: Other: No acute distress, well-developed well-nourished, reclined in bed HENMT: Other: Mucous membranes are moist, no oral pharyngeal erythema, edentulous in upper and lower jaw Eyes: Other: Pupils are equal and reactive, positive conjunctival pallor Neck: Other: No JVD, no lymphadenopathy Resp: Other: Clear to auscultation bilaterally, no increased work of breathing Cardio: Other: So she 3/6 systolic murmur he she, regular rate, regular rhythm, 2+ bilateral radial pulses, 1+ bilateral pedal pulses GI: Other: Soft, nontender, nondistended, positive bowel sounds Skin: Other: Chronic skin changes of bilateral she she feet with onychomycosis of the toes and callus formation of the tip of the 2nd right toe, ulceration to the side of the right great toe without any drainage, slightly more erythematous than the wrists of the skin of the foot with associated edema but no drainage Neuro: Other: Patient is alert oriented person and place she is confused as to the month she thinks that it is August she could not give me a guessed as to the year and could not name the president she did not know why she was at the hospital, she has chronic changes of peripheral neuropathy of bilateral feet but has no gross motor deficits noted in is able to sit up in bed unassisted Extrem: Other: Chronic for changes as discussed above, canvas worker strength is 5/5 bilaterally with equal bilateral lower extremity strength as well Psych: Other: Pleasantly confused, cooperative H&P: Results Labs Labs: Laboratory Tests 06/05/25 15:38 06/05/25 16:40 06/05/25 06/05/25 06/05/25 15:38 16:40 18:25 WBC 9.1 RBC 3.54 L Hgb 10.4 L Hct 32.3 L MCV 91.2 MCH 29.4 MCHC 32.2 RDW 12.6 Plt Count 332 MPV 9.4 Immature Gran % (Auto) 0.3 Neut % (Auto) 57.5 Lymph % (Auto) 25.9 [place] % (Auto) 8.7 H Eos % (Auto) 6.7 H Baso % (Auto) 0.9 Lymph # (Auto) 2.34 [place] # (Auto) 0.8 H Eos # (Auto) 0.6 H Baso # (Auto) 0.1 Abs Immat Gran (auto) 0.03 Absolute Neuts (auto) 5.2 Absolute Nucleated RBC 0.000 Nucleated RBC % 0.0 Sodium 135 L Potassium 4.5 Chloride 105 Carbon Dioxide 18 L Anion Gap 12 BUN 33 H Creatinine 2.28 H Estim Creat Clear Calc 12 Estimated GFR 20 L Glucose 136 H Lactic Acid 2.9 H 1.5 Calcium 9.1 Total Bilirubin 0.4 AST 22 ALT 14 Alkaline Phosphatase 73 C-Reactive Protein 1.1 Total Protein 7.5 Albumin 3.7 Impressions Toe X-Ray 06/05/25 14:59 Impression: Severe degenerative changes. Distinction from septic arthritis is limited. Contrast-enhanced MRI is suggested as clinically warranted Foot X-Ray 06/05/25 16:38 Impression: No acute fracture or malalignment. Assessment and Plan Assessment and plan (1) Cellulitis of great toe of right foot: Code(s): L03.031 - Cellulitis of right toe Status: Acute (2) Chronic ulcer of right great toe: Qualifiers: Non-pressure ulcer stage: unspecified non-pressure ulcer stage Q ualified Code(s): L97.519 - Non-pressure chronic ulcer of other part of right foot with unspecified severity Code(s): L97.519 - Non-pressure chronic ulcer of other part of right foot with unspecified severity Status: Acute (3) Controlled diabetes mellitus type 2 with complications: Code(s): E11.8 - Type 2 diabetes mellitus with unspecified complications Status: Acute (4) Acute kidney injury superimposed on stage 4 chronic kidney disease: Code(s): N17.9 - Acute kidney failure, unspecified; N18.4 - Chronic kidney disease, stage 4 (severe) Status: Acute (5) Dementia: Qualifiers: Dementia type: unspecified type Dementia severity: unspecified severity Dementia behavioral or psychological symptom: without behavioral, psychotic, or mood disturbance or anxiety Qualified Code(s): F03.90 - Unspecified dementia, unspecified severity, without behavioral disturbance, psychotic disturbance, mood disturbance, and anxiety Code(s): F03.90 - Unspecified dementia, unspecified severity, without behavioral disturbance, psychotic disturbance, mood disturbance, and anxiety Status: Acute (6) Protein calorie malnutrition: Qualifiers: Protein-calorie malnutrition severity: unspecified severity Qualified Code(s): E46 - Unspecified protein-calorie malnutrition Code(s): E46 - Unspecified protein-calorie malnutrition Status: Acute Plan Patient was admitted for worsening erythema edema of the right great toe. She may have some cellulitis associated with her chronic diabetic foot ulcer. Unable to rule out possibility of underlying osteomyelitis. Patient is not a candidate for an MRI with and without contrast. Orthopedic surgery has been consulted given the patient had been treated by Dr. Sumner in the distant past for prior diabetic foot wounds. Patient is started on empiric antibiotic therapy and blood cultures were obtained and are pending. Will repeat CBC in a.m.. Patient has acute on chronic kidney injury. Will continue IV fluid hydration at 100 mL an hour for 2 L then re-evaluate status with repeat labs in a.m.. Will hold the patient's metformin and avoid nephrotoxic medications. Patient's hydrochlorothiazide had already been on hold prior to admission. Will monitor urine output closely. Will check postvoid residual. Patient's glucoses are currently well controlled. Will place patient on low- dose sliding scale insulin as needed with Accu-Cheks a.c. HS and hypoglycemia protocol. Patient has some dimension clearly sundowning at the time of my evaluation as she was a much better historian for nursing staff earlier in the shift. Will avoid sedating her mood altering substances. Will consult dietitian for supplement recommendations. MEDICAL DECISION MAKING NARRATIVE -Spoke with the ED provider in detail regarding patient's evaluation, workup and management -Patient seen and examined at bedside -Collaborated with patient's nurse at the bedside in detail and addressed all concerns -Labs, electrolytes, radiology, investigations and test results personally reviewed and interpreted unless otherwise specified -ED/Consult/Nursing/Ancilliary notes on the chart reviewed and appreciated -Spoke with patient at bedside and diagnosis and plan of care was discussed although due to patient's confusion this was limited. Quality VTE Prophylaxis VTE prophylaxis: pharmacologic ordered (Heparin 5000 units subQ q.12 hours.) Hospitalist [facility] Advance Care Plan I have confirmed that the patient's Advanced Care Plan is present, code status is documented, or surrogate decision maker is listed in patient medical record.: Yes Medication Reconciliation I have utilized all available resources to obtain, update and review the patients current medications (includes all prescriptions, OTC, herbals, cannabis, and nutritional supplements).: Yes
[2025-06-05] MEDS: GABAPENTIN 300 MG CAPSULE PO (21:54)
[2025-06-05] MEDS: PANTOPRAZOLE 40 MG TABLET PO (21:54)
[2025-06-05] MEDS: METOPROLOL SUCCINATE EXT REL 50 MG TABCR PO (21:54)
[2025-06-05] MEDS: METOPROLOL SUCCINATE EXT REL 25 MG TABCR PO (21:54)
[2025-06-05] MEDS: LACTATED RINGERS 1,000 ML 100 ML IV CONT (23:33)
[2025-06-05 23:39] LABS: MRSA (PCR) NOT DETECTED (NOT DETECTE)
[2025-06-06] MEDS: metroNIDAZOLE 500 MG/ISO 100ML 500 MG/100 ML BAG 100 MG IVPB ×3 (01:56→18:11)
[2025-06-06 05:42] LABS: Anion Gap 9 mmol/L (4-12); Blood Urea Nitrogen 31 mg/dL (7-17); Calcium 8.7 mg/dL (8.4-10.2); Carbon Dioxide 20 mmol/L (22-30); Chloride 107 mmol/L (98-107); Estimated CRCL calculation 14 ml/min; Estimated Glomerular Filt Rate 25; Glucose 108 mg/dL (65-110); Magnesium 1.7 mg/dL (1.6-2.3); Potassium 4.0 mmol/L (3.4-5.0); Sodium 136 mmol/L (137-145)
[2025-06-06] MEDS: LEVOTHYROXINE SODIUM 50 MCG TABLET PO (05:57)
[2025-06-06 06:00] VITALS: BP 137/55; PULSE 75; RESP 16; TEMP 36.6; O2SAT 98
[2025-06-06 06:12] LABS: Hematocrit 28.7 % (37.0-47.0); Hemoglobin 9.2 g/dL (12.0-15.0); Mean Corpuscular HGB Conc 32.1 g/dl (32-36); Mean Corpuscular Hemoglobin 29.6 pg (26-34); Mean Corpuscular Volume 92.3 fl (80-100); Platelet Count Result 289 k/mm3 (150-375); Red Blood Count 3.11 M/mm3 (4.2-5.4); White Blood Count 7.6 K/mm3 (4.5-10.0)
[2025-06-06] MEDS: CLOPIDOGREL BISULFATE 75 MG TABLET PO (07:51)
[2025-06-06] MEDS: ASPIRIN 81 MG ENTERIC TABLET PO (07:51)
[2025-06-06] MEDS: GABAPENTIN 300 MG CAPSULE PO ×2 (07:52→20:33)
[2025-06-06] MEDS: PANTOPRAZOLE 40 MG TABLET PO ×2 (07:52→20:35)
[2025-06-06] MEDS: ISOSORBIDE MONONITRATE 30 MG TAB.ER.24H PO (07:52)
[2025-06-06] MEDS: ESCITALOPRAM OXALATE 10 MG TABLET 20 MG PO (07:52)
--- OUTSIDE RECORDS SUMMARY | 2025-06-06 08:48 | XMS_ITS | Clinical Summary ---
Author Organization [facility] Address [address], [address] [address] Phone Care Team Providers Care Plant Supervisor Name Role Phone Quoc Chino MD Primary Care Provider [phone] Medications polyethylene glycol (MIRALAX) Powder Use entire [...] age to complete this topic Care Teams Plant Supervisor Relationship Specialty Start Date End Date Quoc Chino MD [address] [place] [address] PCP - General Family Medicine 02/11/17
--- OUTSIDE RECORDS SUMMARY | 2025-06-06 08:48 | XMS_ITS | Clinical Summary ---
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 [address] [place] [address] Health Maintenance Due Date Last [...] 50+ YEARS Completed 06/23/2015 , 07/11/2014 Insurance [facility] [id number] Care Teams Ivory Carver Relationship Specialty Start Date End Date Judah Jeffery MD [address] [place] [address] PCP - General Family Practice 09/17/23
--- OUTSIDE RECORDS SUMMARY | 2025-06-06 08:49 | XMS_ITS | Encounter Summary ---
Author Organization [facility] Address [facility] [place] [address] Care Team Providers Care Ground Layer Name Role Phone Romina Silveira MD Primary Care Provider [phone] Deshawn Ghosh MD Primary Care Pr ovider [facility] Patrick Penny MD Primary Care Provider [phone] Encounter Details Date Type Department Care Team (Late st Contact Info) Description 06/28/2022 Therapy Plan [facility] Outpatient Therapy [place], [place] [id number] Norma Boles, PT [place], [place] [address] Social History Tobacco Use Types Packs/Day Years [...] documented as of this encounter Care Teams Ground Layer Relationship Specialty Start Date End Date Romina Silveira MD PCP - General INTERNAL MEDICINE 02/08/20 11/29/22 Deshawn Ghosh MD PCP - General FAMILY PRACTICE 11/30/22 01/01/23 Patrick Penny MD [address] [address] PCP - General INTERNAL MEDICINE 01/02/23 02/23/24 documented as of this encounter
--- OUTSIDE RECORDS SUMMARY | 2025-06-06 08:49 | XMS_ITS | Clinical Summary ---
Author Organization [facility] Address [address] [facility] [place] [address] Care Team Providers Care Grinding Wheel Inspector Name Role Phone Quoc Chino MD Primary Care Provider [phone] Oliver Parham MD Unavailable [phone] Source Comments [facility],non-owned Affiliates and Associated Physician Practices is amultiple site organization consisting of ambulatory clinics and hospital sitesin [place], [place], [place] and [place]. This disclosure is being madepursuant to the Care Everywhere program and may not contain all information available regarding this patient. 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 DOCTOR Gender Identity Not on file Sexual Orientation Not on file Last Filed Vital Signs Vital Sign Reading Time Taken Comments Blood Pressure 140/80 08/09/2014 2:00 PM CHIEF OF STAFF DOCTOR Pulse 100 08/09/2014 2:00 PM CHIEF OF STAFF DOCTOR Temperature 36.5 C (97.7 F) 08/09/2014 2:00 PM CHIEF OF STAFF DOCTOR Respiratory Rate 18 08/09/2014 2:00 PM CHIEF OF STAFF DOCTOR Oxygen Saturation 97% 08/09/2014 2:00 PM CHIEF OF STAFF DOCTOR Inhaled Oxygen Concentration - - Weight 68.9 kg (152 lb) 08/09/2014 2:00 PM CHIEF OF STAFF DOCTOR Height 157.5 cm (5' 2) 08/09/2014 2:00 PM CHIEF OF STAFF DOCTOR Body Mass Index 27.8 08/09/2014 2:00 PM CHIEF OF STAFF DOCTOR Plan of Treatment Health Maintenance Due Date [...] this topic Medical Devices Implanted Type Area Electrical Lineman Device Identifier Shelf Expiration Date Model / Serial / Lot Gavin Bone [place] Hv Implanted:Qty: 1 on 07/08/2014 by Oliver Parham MD at [facility] Left: Knee [employer] 04/24/2016 [id number] / / [id number] Butn Pat Arcom Wire Polyeth Xsm 28 X 8 Implanted:Qty: 1 on 07/08/2014 by Oliver Parham MD at [facility] Left: Knee [employer] 05/25/2019 [id number] / / [id number] Ins Kn Vangurd Fem Cocr L-Intlok 60.0mm Implanted:Qty: 1 on 07/08/2014 by Oliver Parham MD at [facility] Left: [employer]nee [employer] 07/25/2023 [id number] / / [id number] Ty Tibial I Beam Fix Bar 67mm Implanted:Qty: 1 on 07/08/2014 by Oliver Parham MD at [facility] Left: [employer]nee [employer] 01/23/2024 [id number] / / [id number] Feliciano Puente Brg 10mm X 67mm Implanted:Qty: 1 on 07/08/2014 by Oliver Parham MD at [facility] Left: Knee [employer] 06/24/2018 [id number] / / [id number] Advance Directives * Full Code (Latest Code Status on File) Date Activated Date Inactivated Comments 07/08/2014 4:09 PM 07/11/2014 11:37 AM Care Teams Grinding Wheel Inspector Relationship Specialty Start Date End Date Qouc Chino MD [address] [place] [address] PCP - General Family Medicine 09/26/12 Oliver Parham MD [address] [place] [id number] Orthopedic Surgery 09/26/12
--- OUTSIDE RECORDS SUMMARY | 2025-06-06 08:49 | XMS_ITS | Encounter Summary ---
Author Organization [facility] Address [address] [place] [address] Phone Care Team Providers Care Unloading Checker Name Role Phone Quoc Chino MD Primary Care Provider [phone] Rashawn Silevira MD Primary Care Provider Judah Jeffery MD Primary Care Provider [phone] Encounter Details Date Type Department Care Team (Latest Contact Info) Description 01/06/2019 Orders Only [facility] Scanning, Provider Social History Tobacco Use Types Packs/Day Years Used Date Smoking Tobacco: Never Smokeless Tobacco: Never Comments Unknown Sex and Gender Information Value Date Recorded Sex Assigned at Not on file Legal 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
--- OUTSIDE RECORDS SUMMARY | 2025-06-06 08:49 | XMS_ITS | Clinical Summary ---
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 Gender Identity Not on file Sexual [...] 06/23/2015, 06/26 Medical Devices Implanted Type Area Commercial Sales Director Device Identifier Shelf Expiration Date Model / Serial / Lot [employer] [place] [employer] Marguerite [id number] Stent Drug Eluting S Megatron Us Mr [id number] - [id number] - [id number] Implanted:Qty: 1 on 11/23/2020 by Marisol Kenney MD at [facility] Stent [employer]ite 07/27/2021 [id number] 350 / [id number] / [id number] [employer]ite [id number] Stent Drug Eluting S Megatron Us Mr [id number] - [id number] - [id number] Implanted:Qty: 1 on 11/23/2020 by Marisol Kenney MD at [facility] [employer] 07/25/2021 [id number] / [id number] / [id number] Daig Marguerite/St [employer] [id number] Angio-Seal Evolution 8fr .038in Guidewire Bypass Tube Suture - [id number] - [id number] Implanted:Qty: 1 on 11/23/2020 by Marisol Kenney MD at [facility] 08/25/2021 [id number] / [id number] / [id number] Insurance [facility] MDCR HMO REF [facility] MEDICARE ADVANTAGE [facility] MEDICARE ADVANTAGE Advance Directives For more information, please contact: [phone] * Full Code (Latest Code Status on File) Date Activated Date Inactivated Comments 04/28/2024 12:47 AM 04/30/2024 6:19 PM * Full Code Date Activated Date Inactivated Comments 11/23/2020 11:44 AM 11/23/2020 7:58 PM * Full Code Date Activated Date Inactivated Comments 11/16/2020 2:29 PM 11/16/2020 8:07 PM Care Teams Certified Bench Jeweler Technician Relationship Specialty Start Date End Date Judah Jeffery MD PCP - General Family Practice 08/10/22
--- OUTSIDE RECORDS SUMMARY | 2025-06-06 08:49 | XMS_ITS | Clinical Summary ---
Author Organization [facility] Address [address] [place] [address] Care Team Providers Care Digital Cartographic Technician Name Role Phone Unavailable Primary Care [...] pectoris associated with type 2 diabetes mellitus ([facility] HHS/HCC) Place 1 tablet (0.4 [...] s:Neuropathy due to type 2 diabetes mellitus ([facility] HHS/HCC) Take 1 capsule (300 mg total) by mouth 3 (three) times daily. 270 capsule 1 2 Active levothyroxine 75 MCG tabletIndications :Hypothyroidism, unspecified type Take 1 tablet (75 mcg total) by mouth every morning. 90 tablet 1 2 Active TRUE METRIX BLOOD GLUCOSE TEST test stripIndications: Controlled type 2 diabetes mellitus with diabetic autonomic neuropathy, without long-term current use of insulin ([facility]) USE DIRECTED 100 strip 3 2 Active metFORMIN (GLUCOPHAGE) 500 MG tabletIndications :Type 2 diabetes mellitus with stage 3a chronic kidney disease, without long-term current use of insulin ([facility]) TAKE 1 TABLET THREE TIMES [...] disease, without long-term current use of insulin 12/26/2021 Controlled type 2 diabetes m ellitus with diabetic autonomic neuropathy, without long-term current use of insulin 06/26/2021 Dyslipidemia 06/26/2021 Angina pectoris associated with type 2 diabetes mellitus 06/26/2021 BMI 29.0-29.9,adult 02/08/2020 Abnormal cardiovascular stress [...] (Boostrix) 02/04/2021 Tdap (Generic) 02/04/2021,02/17/2016 Zoster (Zostavax) 46630 Unt/0.65Ml 05/19/2015 Family History Medical History Relation [...] Result [facility] [id number] [place] [address] * (ABNORMAL) HEMOGLOBIN, GLYCOSYLATED (12/16/2021 9:40 AM [...] 12/18/2021 1:34 PM CDT SPLIT 12/15/2021 FROM [id number] FASTING:YES FASTING: YES Romina Silveira MD LABORATORY Final Result [facility] [address] [place] [address] from Last 3 Months or Most Recently Relevant to Health Maintenance Insurance [facility]
[2025-06-06] MEDS: LACTATED RINGERS 1,000 ML 100 ML IV CONT (10:47)
--- NOTE | 2025-06-06 13:19 | PM.CNOR ---
Assessment and Plan Assessment and plan (1) Cellulitis of great toe of right foot: Code(s): L03.031 - Cellulitis of right toe Status: Acute Assessment and Plan: BRUCE HAS CELLULITIS OF THE RIGHT GREAT TOE WHICH IS MILD. SHE ALSO HAS A SMALL ULCERATION THAT IS SUPERFICIAL AND NOT DRAINING. SHE DENIES ANY FEVER OR CHILLS. SHE HAS CHRONIC KIDNEY DISEASE AND TYPE 2 DM. XRAYS SHOW DEGENERATIVE CHANGES TO THE MTP JOINT AND NO SIGN OF OSTEOMYELITIS. RECOMMEND CONTINUE ANTIBIOTIC REGIMEN. WE WILL HAVE THE WOUND NURSE CONSULT WELL. SHE WILL F/U NEEDED WITH THE DIABETIC FOOT CLINIC PER NURSE RECOMMENDATIONS. HISTORY, EXAM AND RADIOGRAPHS REVIEWED WITH THE PATIENT. REFERRING PHYSICIAN RECORDS AND IMAGES REVIEWED. CONDITION, NATURE, ETIOLOGY AND COURSE OF NATURAL HISTORY REVIEWED. CONSERVATIVE AND OPERATIVE TREATMENT OPTIONS REVIEWED WELL THE RISKS AND BENEFITS OF EACH. History of Present Illness HPI Consult date: 06/06/25 Chief complaint: L toe infection Narrative: BRUCE WAS SEEN IN THE ED YESTERDAY FOR AN INCREASE IN SWELLING AND REDNESS IN THE RIGHT GREAT TOE. SHE HAS A HISTORY OF EVERE DJD TO THE 1ST MTP JOINT. SHE HAS A HISTORY OF CHRONIC KIDNEY DISEASE AND TYPE 2 DM. SHE WAS CONCERNED FOR A SMALL ULCERATION TO THE MEDIAL ASPECT OF THE GREAT TOE. SHE DENIES ANY FEVER OR CHILLS. SHE DENIES ANY DRAINAGE TO THE FOOT. HISTORY, EXAM AND RADIOGRAPHS REVIEWED WITH THE PATIENT. REFERRING PHYSICIAN RECORDS AND IMAGES REVIEWED. CONDITION, NATURE, ETIOLOGY AND COURSE OF NATURAL HISTORY REVIEWED. CONSERVATIVE AND OPERATIVE TREATMENT OPTIONS REVIEWED WELL THE RISKS AND BENEFITS OF EACH. Review of Systems Review of Systems: All systems reviewed & are unremarkable except as noted in HPI and below PMFSH Past Medical History Medical History Monoclonal gammopathy of undetermined significance (MGUS) Onychomycosis Stress incontinence Dementia Diabetic ulcer of right foot located base 3rd toe and right great toe CKD (chronic kidney disease) stage 4, GFR 15-29 ml/min Benign hypertension with chronic kidney disease Gastritis Confirmed on EGD 02/2023 Hiatal hernia Hyperplastic polyp of stomach Noted on EGD 02/2023 Diabetes mellitus with chronic kidney disease Osteopenia Hypothyroidism Dystrophic nail Sesamoiditis of right foot Peripheral neuropathy Hyperlipidemia Borderline diabetes Coronary artery disease Surgical History Surgical History History of esophagogastroduodenoscopy (EGD) (02/27/23) History of left knee replacement History of left hip replacement History of breast surgery H/O heart artery stent H/O: hysterectomy (~1972) Partial H/O colonoscopy H/O tooth extraction Family History Family History Mother Family history of pancreatic cancer Heart disease Grandparent Diabetes mellitus Father Diabetes mellitus Hypertension Family history of cardiovascular disease Family history of chronic obstructive pulmonary disease Sibling No problems noted. Other Family history of elevated blood lipids Social History Social History Social History: Lives with her , daughter and son-in-law. She is a lifelong nonsmoker. No alcohol or drug use. 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[employer] Gender identity (if verbalized by the patient): Female Sexual Orientation (if Verbalized by the Patient): Straight or Heterosexual Spiritual care concerns: No Agree to blood products: Yes Meds Home Medications and Allergies Home Medications ?Medication ?Instructions ?Recorded ?Confirmed ?Type nitroglycerin 0.4 mg sublingual 0.4 mg sublingual Q5M PRN Chest 09/28/19 06/05/25 History tablet (Nitrostat) Pain aspirin 81 mg tablet,delayed 81 mg PO DAILY 02/05/21 06/05/25 History release (Jocelyn Low Dose Aspirin) blood sugar diagnostic (FreeStyle #100 ea 02/25/24 06/05/25 Rx Lite Strips) blood sugar diagnostic (OneTouch #100 ea 02/25/24 06/05/25 Rx Verio test strips) blood-glucose meter (OneTouch #1 ea 04/13/24 06/05/25 Rx Verio Flex Meter) hydrochlorothiazide 25 mg tablet 25 mg PO DAILY #90 tabs 12/28/24 06/05/25 Rx Held on 02/15/25. Instructions: Resume on 03/15/25. please discuss with your PCP or Nephrology before continue. Was on hold due to acute kidney injury gabapentin 300 mg capsule 300 mg PO BID #180 caps 01/20/25 06/05/25 Rx ondansetron 4 mg disintegrating 4 mg PO Q8H PRN nausea and 02/03/25 06/05/25 Rx tablet vomiting #14 tabs isosorbide mononitrate 30 mg 30 mg PO DAILY #90 tabs 03/16/25 06/05/25 Rx tablet,extended release 24 hr clopidogrel 75 mg tablet See Rx Instructions .Route 03/27/25 06/05/25 Rx .COMPLEX #100 tabs metoprolol succinate 50 mg See Rx Instructions .Route 04/09/25 06/05/25 Rx tablet,extended release 24 hr .COMPLEX #150 tabs amlodipine 2.5 mg tablet 2.5 mg PO DAILY #90 tabs 04/12/25 06/05/25 Rx rosuvastatin 20 mg tablet 20 mg PO HS #90 tabs 04/12/25 06/05/25 Rx pantoprazole 40 mg tablet,delayed See Rx Instructions .Route 04/20/25 06/05/25 Rx release .COMPLEX #200 tabs metformin 1,000 mg tablet See Rx Instructions .Route 04/27/25 06/05/25 Rx .COMPLEX #180 tabs escitalopram oxalate 20 mg tablet 20 mg PO DAILY #90 tabs 04/29/25 06/05/25 Rx (Lexapro) levothyroxine 50 mcg tablet 50 mcg PO DAILY #60 tabs 05/04/25 06/05/25 Rx (Synthroid) Allergies Allergy/AdvReac Type Severity Reaction Status Date / Time adhesive tape Allergy Severe BLISTERS/SKIN Verified 06/05/25 14:05 TEARS latex Allergy Severe Anaphylaxis Verified 06/05/25 14:05 Vital Signs Vital Signs - 24 hr 06/05/25 14:48 06/05/25 15:07 06/05/25 15:16 Temperature 36.6 C Pulse Rate 74 Respiratory Rate 14 Blood Pressure 113/55 L 119/58 L 107/61 Pulse Oximetry 99 98 Oxygen Delivery 06/05/25 15:38 06/05/25 16:01 06/05/25 18:07 Temperature Pulse Rate 71 73 77 Respiratory Rate 13 15 16 Blood Pressure 105/56 L 113/61 124/62 Pulse Oximetry 99 99 100 Oxygen Delivery 06/05/25 19:00 06/05/25 20:00 06/05/25 21:08 Temperature 36.2 C L Pulse Rate 80 Respiratory Rate 16 Blood Pressure 126/55 L Pulse Oximetry 100 97 Oxygen Delivery Room Air Room Air 06/05/25 21:54 06/05/25 21:54 06/05/25 22:22 Temperature 36.5 C Pulse Rate 79 79 77 Respiratory Rate 16 Blood Pressure 108/52 L Pulse Oximetry 97 Oxygen Delivery 06/06/25 06:00 06/06/25 07:50 Temperature 36.6 C Pulse Rate 75 Respiratory Rate 16 Blood Pressure 137/55 L Pulse Oximetry 98 Oxygen Delivery Room Air Exam Extrem: Right lower extremity: hip/thigh Details: normal to inspection and normal ROM; no tenderness and no swelling, knee Details: normal to inspection and normal ROM; no tenderness and no swelling, lower leg Details: normal to inspection and palpable cord; no erythema and no tenderness, ankle Details: normal to inspection and normal ROM; no tenderness, no swelling, no unusual warmth, no abrasions, no lacerations and no ecchymosis and foot Details: normal capillary refill, abnormal to inspection Details: erythematous (RIGHT GREAT TOE MILD ERYTHEMA), toes with normal ROM, abrasion (RIGHT GREAT TOE SMALL ULCERATION, NO DRAINAGE OR BLEEDING), vascular exam Details: dorsalis pedis pulse present, posterior tibial pulse present and abnormal capillary refill; no cyanosis, tendon exam Details: active flexion normal and active extension normal and motor-sensory exam Details: light-touch abnormal; no tenderness and no unusual warmth Results Labs 06/06/25 04:56 06/06/25 04:56 Labs: Abnormal lab results 06/05/25 06/05/25 06/05/25 Range/Units 15:38 16:40 22:26 RBC 3.54 L (4.2-5.4) M/mm3 Hgb 10.4 L (12.0-15.0) g/dL Hct 32.3 L (37.0-47.0) % [place] % (Auto) 8.7 H (2.6-8.5) % Eos % (Auto) 6.7 H (0-4.4) % [place] # (Auto) 0.8 H (0.1-0.6) K/mm3 Eos # (Auto) 0.6 H (0-0.3) K/mm3 Sodium 135 L (137-145) mmol/L Carbon Dioxide 18 L (22-30) mmol/L BUN 33 H (7-17) mg/dL Creatinine 2.28 H (0.7-1.0) mg/dL Estimated GFR 20 L (59 - ) Glucose 136 H (65-110) mg/dL POC Capillary Glucose 109 H (65-105) mg/dl Lactic Acid 2.9 H (0.7-2.0) mmol/L 06/06/25 Range/Units 04:56 RBC 3.11 L (4.2-5.4) M/mm3 Hgb 9.2 L (12.0-15.0) g/dL Hct 28.7 L (37.0-47.0) % [place] % (Auto) (2.6-8.5) % Eos % (Auto) (0-4.4) % [place] # (Auto) (0.1-0.6) K/mm3 Eos # (Auto) (0-0.3) K/mm3 Sodium 136 L (137-145) mmol/L Carbon Dioxide 20 L (22-30) mmol/L BUN 31 H (7-17) mg/dL Creatinine 1.92 H (0.7-1.0) mg/dL Estimated GFR 25 L (59 - ) Glucose (65-110) mg/dL POC Capillary Glucose (65-105) mg/dl Lactic Acid (0.7-2.0) mmol/L H & H 06/05/25 06/06/25 Range/Units 15:38 04:56 Hgb 10.4 L 9.2 L (12.0-15.0) g/dL Hct 32.3 L 28.7 L (37.0-47.0) % All other labs normal.
[2025-06-06 14:00] VITALS: BP 124/67; PULSE 70; RESP 20; TEMP 36.4; O2SAT 98
--- NOTE | 2025-06-06 14:03 | PM.IMPN ---
Progress Note: A&P Assessment and Plan (1) Cellulitis of great toe of right foot: Code(s): L03.031 - Cellulitis of right toe Status: Acute (2) Chronic ulcer of right great toe: Qualifiers: Non-pressure ulcer stage: unspecified non-pressure ulcer stage Qualified Code(s): L97.519 - Non-pressure chronic ulcer of other part of right foot with unspecified severity Code(s): L97.519 - Non-pressure chronic ulcer of other part of right foot with unspecified severity Status: Acute (3) Controlled diabetes mellitus type 2 with complications: Code(s): E11.8 - Type 2 diabetes mellitus with unspecified complications Status: Acute (4) Acute kidney injury superimposed on stage 4 chronic kidney disease: Code(s): N17.9 - Acute kidney failure, unspecified; N18.4 - Chronic kidney disease, stage 4 (severe) Status: Acute (5) Dementia: Qualifiers: Dementia type: unspecified type Dementia severity: unspecified severity Dementia behavioral or psychological symptom: without behavioral, psychotic, or mood disturbance or anxiety Qualified Code(s): F03.90 - Unspecified dementia, unspecified severity, without behavioral disturbance, psychotic disturbance, mood disturbance, and anxiety Code(s): F03.90 - Unspecified dementia, unspecified severity, without behavioral disturbance, psychotic disturbance, mood disturbance, and anxiety Status: Acute (6) Protein calorie malnutrition: Qualifiers: Protein-calorie malnutrition severity: unspecified severity Qualified Code(s): E46 - Unspecified protein-calorie malnutrition Code(s): E46 - Unspecified protein-calorie malnutrition Status: Acute Plan Patient was admitted for worsening erythema edema of the right great toe. She may have some cellulitis associated with her chronic diabetic foot ulcer. Unable to rule out possibility of underlying osteomyelitis. Patient is not a candidate for an MRI with and without contrast. Orthopedic surgery has been consulted given the patient had been treated by Dr. Sumner in the distant past for prior diabetic foot wounds. Patient is started on empiric antibiotic therapy and blood cultures were obtained and are pending. Will repeat CBC in a.m.. Patient has acute on chronic kidney injury. Will continue IV fluid hydration at 100 mL an hour for 2 L then re-evaluate status with repeat labs in a.m.. Will hold the patient's metformin and avoid nephrotoxic medications. Patient's hydrochlorothiazide had already been on hold prior to admission. Will monitor urine output closely. Will check postvoid residual. Patient's glucoses are currently well controlled. Will place patient on low-dose sliding scale insulin as needed with Accu-Cheks a.c. HS and hypoglycemia protocol. Patient has some dimension clearly sundowning at the time of my evaluation as she was a much better historian for nursing staff earlier in the shift. Will avoid sedating her mood altering substances. 06/06 Cefepime IV, flagyl, vanc -will continue -ortho, wound care, dietitian consulted will continue ss-monitor BC closely follwo BC will add daily labs Time Spent With Patient Time with patient: 25 - 35 minutes Subjective Date/time seen: 06/06/25 14:03 Interval history: 85-year-old female with a past medical history of essential hypertension, chronic kidney disease stage IV, type 2 diabetes (A1c of 29 November 2024), coronary artery disease, diabetic peripheral neuropathy, chronic right foot ulcer with history of noncompliance with follow-up after being informed that she needed an amputation of the toe the past who presents to the ER via private vehicle due to increasing right toe redness. Source of information is completely from review of past medical records, external medical records and ER physician report as the patient is only alert oriented to person and the fact that she is in the hospital at the time of my evaluation. The patient had been told in the past that she needed amputation of her right great toe and she got scared and quit following up with the physician. On the the patient's daughter noticed that the patient toe was more swollen and erythematous. Patient agreed to come to the hospital today. At the time of my evaluation the patient could not recall why she was brought to the hospital. She denies any pain to her toe in states that she does not have any sensation in her feet. She has been afebrile since presentation to the hospital. There is no drainage from her toe in at the time my evaluation and only minimal increased erythema compared to the opposite toe. She does not have a leukocytosis or elevated inflammatory markers. She did have some mild lactic acidosis that resolved after 1 L fluid bolus. Foot x-ray and toe x-ray did not demonstrate any overt evidence of osteomyelitis but severe degenerative changes were noted on refers the metatarsophalangeal joint. Radiology recommended contrast MRI but given patient's renal failure she is not a candidate for this. Subsequently patient was admitted for antibiotics and evaluation by Surgical Service. Surgery for osteomyelitis of the same foot by Dr. Sumner and September 2021. The patient's is also currently hospitalized at our facility. Pt is seen and examined. Iv antibiotics and ortho consult. Wound care consulted. Review of Systems Review of Systems: Unobtainable due to the patient's history of dementia. Exam Narrative: Weight 56 kg BMI 24.1 Const: General: comfortable Other: No acute distress, well-developed well-nourished, reclined in bed HENMT: Other: Mucous membranes are moist, no oral pharyngeal erythema, edentulous in upper and lower jaw Eyes: Other: Pupils are equal and reactive, positive conjunctival pallor Neck: Other: No JVD, no lymphadenopathy Resp: Other: Clear to auscultation bilaterally, no increased work of breathing Cardio: Other: So she 3/6 systolic murmur he she, regular rate, regular rhythm, 2+ bilateral radial pulses, 1+ bilateral pedal pulses GI: Other: Soft, nontender, nondistended, positive bowel sounds Skin: Other: Chronic skin changes of bilateral she she feet with onychomycosis of the toes and callus formation of the tip of the 2nd right toe, ulceration to the side of the right great toe without any drainage, slightly more erythematous than the wrists of the skin of the foot with associated edema but no drainage Neuro: Other: Patient is alert oriented person and place she is confused as to the month she thinks that it is August she could not give me a guessed as to the year and could not name the president she did not know why she was at the hospital, she has chronic changes of peripheral neuropathy of bilateral feet but has no gross motor deficits noted in is able to sit up in bed unassisted Extrem: Other: Chronic for changes as discussed above, wildlife control agent strength is 5/5 bilaterally with equal bilateral lower extremity strength as well Psych: Other: Pleasantly confused, cooperative Objective Data Vital Signs Vital Signs: Vital Signs - 24 hr 06/05/25 14:48 06/05/25 15:07 06/05/25 15:16 Temperature 97.8 F Pulse Rate 74 Respiratory Rate 14 Blood Pressure 113/55 L 119/58 L 107/61 Pulse Oximetry 99 98 Oxygen Delivery 06/05/25 15:38 06/05/25 16:01 06/05/25 18:07 Temperature Pulse Rate 71 73 77 Respiratory Rate 13 15 16 Blood Pressure 105/56 L 113/61 124/62 Pulse Oximetry 99 99 100 Oxygen Delivery 06/05/25 19:00 06/05/25 20:00 06/05/25 21:08 Temperature 97.1 F L Pulse Rate 80 Respiratory Rate 16 Blood Pressure 126/55 L Pulse Oximetry 100 97 Oxygen Delivery Room Air Room Air 06/05/25 21:54 06/05/25 21:54 06/05/25 22:22 Temperature 97.7 F Pulse Rate 79 79 77 Respiratory Rate 16 Blood Pressure 108/52 L Pulse Oximetry 97 Oxygen Delivery 06/06/25 06:00 06/06/25 07:50 Temperature 97.8 F Pulse Rate 75 Respiratory Rate 16 Blood Pressure 137/55 L Pulse Oximetry 98 Oxygen Delivery Room Air Intake/Output Intake/Output: Intake & Output 06/03/25 06/04/25 06/05/25 06/06/25 23:59 23:59 23:59 23:59 Intake Total 50 1780 Balance 50 1780 Meds/Results Medications: Active Medications Generic Name Dose Route Start Last Admin Trade Name Freq PRN Reason Stop Dose Admin Amlodipine Besylate 2.5 mg 06/06/25 09:00 06/06/25 07:52 Amlodipine Besylate 2.5 Mg Tablet PO 2.5 mg DAILY CASA Administration Aspirin 81 mg 06/06/25 09:00 06/06/25 07:51 Aspirin 81 Mg Enteric Tablet PO 81 mg DAILY CASA Administration Clopidogrel Bisulfate 75 mg 06/06/25 09:00 06/06/25 07:51 Clopidogrel Bisulfate 75 Mg Tablet PO 75 mg DAILY CASA Administration Dextrose 12.5 gm 06/05/25 21:44 Dextrose 50% 25 Gm/50 Ml Syringe IV PUSH PRN PRN Hypoglycemia Protocol Escitalopram Oxalate 20 mg 06/06/25 09:00 06/06/25 07:52 Escitalopram Oxalate 10 Mg Tablet PO 20 mg DAILY CASA Administration Gabapentin 300 mg 06/05/25 21:40 06/06/25 07:52 Gabapentin 300 Mg Capsule PO 300 mg Q12HR CASA Administration Glucagon 1 mg 06/05/25 21:44 Glucagon For Inj 1 Mg Vial IM PRN PRN Hypoglycemia Protocol Glucose 15 gm 06/05/25 21:44 Glucose Oral Gel 15 Gm Of Glucse In 37.5 Gm Tube PO PRN PRN Hypoglycemia Protocol Heparin Sodium (Porcine) 5,000 units 06/06/25 09:00 06/06/25 07:52 Heparin Sodium 5,000 Units/Ml Vial SUB-Q 5,000 units Q12HR CASA Administration Cefepime HCl 1 gm/ Sodium 50 mls @ 100 mls/hr 06/06/25 18:00 Chloride IVPB Q24H CASA Metronidazole 500 mg in 100 mls @ 100 mls/hr 06/06/25 02:00 06/06/25 11:51 Flagyl 500 Mg/Iso Soln 100 Ml IVPB Infused Q8H CASA Infusion Dextrose 1,000 mls @ 100 mls/hr 06/05/25 21:44 Dextrose 5% 1,000 Ml IVPB PRN PRN Hypoglycemia Protocol Lactated Ringer's 1,000 mls @ 100 mls/hr 06/05/25 21:50 06/06/25 10:47 Lr - Lactated Ringers Iv IV CONT 06/06/25 17:49 100 mls/hr .Q10H CASA Administration Insulin Aspart 2 - 5 units 06/06/25 08:00 06/06/25 11:50 Insulin Aspart (*Bkc) 100 Units/Ml SUB-Q Not Given TIDWM CASA Protocol Isosorbide Mononitrate 30 mg 06/06/25 09:00 06/06/25 07:52 Isosorbide Mononitrate 30 Mg Tab.Er.24h PO 30 mg DAILY CASA Administration Levothyroxine Sodium 50 mcg 06/06/25 06:30 06/06/25 05:57 Levothyroxine Sodium 50 Mcg Tablet PO 50 mcg DAILY@0630 CASA Administration Metoprolol Succinate 50 mg 06/05/25 21:45 06/05/25 21:54 Metoprolol Succinate Ext Rel 50 Mg Tabcr PO 50 mg QHS CASA Administration Metoprolol Succinate 25 mg 06/05/25 21:45 06/05/25 21:54 Metoprolol Succinate Ext Rel 25 Mg Tabcr PO 25 mg QHS CASA Administration Nitroglycerin 0.4 mg 06/05/25 21:38 Nitroglycerin Sl 0.4 Mg Tablet SUBLINGUAL Q5M PRN Chest Pain Pantoprazole Sodium 40 mg 06/05/25 21:50 06/06/25 07:52 Pantoprazole 40 Mg Tablet PO 40 mg Q12HR CASA Administration Rosuvastatin Calcium 20 mg 06/06/25 21:00 Rosuvastatin 20 Mg Tablet PO HS CASA Vancomycin HCl 1 each 06/05/25 17:11 Vancomycin For Acute Kidney Injury IVPB PRN PRN Vancomycin Protocol Radiology Results: ITS Impressions Toe X-Ray 06/05/25 14:59 Impression: Severe degenerative changes. Distinction from septic arthritis is limited. Contrast-enhanced MRI is suggested as clinically warranted Foot X-Ray 06/05/25 16:38 Impression: No acute fracture or malalignment. Labs Labs: Laboratory Results - last 24 hr 06/05/25 06/05/25 06/05/25 15:38 16:40 18:25 WBC 9.1 RBC 3.54 L Hgb 10.4 L Hct 32.3 L MCV 91.2 MCH 29.4 MCHC 32.2 RDW 12.6 Plt Count 332 MPV 9.4 Immature Gran % (Auto) 0.3 Neut % (Auto) 57.5 Lymph % (Auto) 25.9 [place] % (Auto) 8.7 H Eos % (Auto) 6.7 H Baso % (Auto) 0.9 Lymph # (Auto) 2.34 [place] # (Auto) 0.8 H Eos # (Auto) 0.6 H Baso # (Auto) 0.1 Abs Immat Gran (auto) 0.03 Absolute Neuts (auto) 5.2 Absolute Nucleated RBC 0.000 Nucleated RBC % 0.0 Sodium 135 L Potassium 4.5 Chloride 105 Carbon Dioxide 18 L Anion Gap 12 BUN 33 H Creatinine 2.28 H Estim Creat Clear Calc 12 Estimated GFR 20 L Glucose 136 H POC Capillary Glucose Lactic Acid 2.9 H 1.5 Calcium 9.1 Phosphorus Magnesium Total Bilirubin 0.4 AST 22 ALT 14 Alkaline Phosphatase 73 C-Reactive Protein 1.1 Total Protein 7.5 Albumin 3.7 Nasal MRSA (PCR) 06/05/25 06/05/25 06/06/25 22:11 22:26 04:56 WBC 7.6 RBC 3.11 L Hgb 9.2 L Hct 28.7 L MCV 92.3 MCH 29.6 MCHC 32.1 RDW 12.6 Plt Count 289 MPV 9.5 Immature Gran % (Auto) Neut % (Auto) Lymph % (Auto) [place] % (Auto) Eos % (Auto) Baso % (Auto) Lymph # (Auto) [place] # (Auto) Eos # (Auto) Baso # (Auto) Abs Immat Gran (auto) Absolute Neuts (auto) Absolute Nucleated RBC Nucleated RBC % Sodium 136 L Potassium 4.0 Chloride 107 Carbon Dioxide 20 L Anion Gap 9 BUN 31 H Creatinine 1.92 H Estim Creat Clear Calc 14 Estimated GFR 25 L Glucose 108 POC Capillary Glucose 109 H Lactic Acid Calcium 8.7 Phosphorus 3.3 Magnesium 1.7 Total Bilirubin AST ALT Alkaline Phosphatase C-Reactive Protein Total Protein Albumin Nasal MRSA (PCR) Not detected 06/06/25 06/06/25 08:03 11:37 WBC RBC Hgb Hct MCV MCH MCHC RDW Plt Count MPV Immature Gran % (Auto) Neut % (Auto) Lymph % (Auto) [place] % (Auto) Eos % (Auto) Baso % (Auto) Lymph # (Auto) [place] # (Auto) Eos # (Auto) Baso # (Auto) Abs Immat Gran (auto) Absolute Neuts (auto) Absolute Nucleated RBC Nucleated RBC % Sodium Potassium Chloride Carbon Dioxide Anion Gap BUN Creatinine Estim Creat Clear Calc Estimated GFR Glucose POC Capillary Glucose 78 82 Lactic Acid Calcium Phosphorus Magnesium Total Bilirubin AST ALT Alkaline Phosphatase C-Reactive Protein Total Protein Albumin Nasal MRSA (PCR) Quality VTE Prophylaxis VTE prophylaxis: pharmacologic ordered (Heparin 5000 units subQ q.12 hours.)
[2025-06-06] MEDS: VANCOMYCIN 750 MG/NS 250 ML 750 MG/250 ML BAG 250 MG IVPB (16:09)
[2025-06-06] MEDS: CEFEPIME 1 GM in SODIUM CHLORIDE 0.9% IV 50 ML 100 ML IVPB (17:34)
[2025-06-06 20:34] VITALS: PULSE 67
[2025-06-06] MEDS: METOPROLOL SUCCINATE EXT REL 50 MG TABCR PO (20:34)
[2025-06-06] MEDS: METOPROLOL SUCCINATE EXT REL 25 MG TABCR PO (20:34)
[2025-06-06] MEDS: ROSUVASTATIN 20 MG TABLET PO (20:35)
[2025-06-06 21:45] VITALS: BP 109/51; PULSE 71; RESP 16; TEMP 36.3; O2SAT 93
[2025-06-07] MEDS: metroNIDAZOLE 500 MG/ISO 100ML 500 MG/100 ML BAG 100 MG IVPB ×2 (03:05→10:19)
[2025-06-07 05:09] VITALS: BP 111/48; PULSE 65; RESP 17; TEMP 36.7; O2SAT 63
[2025-06-07 05:33] LABS: Hematocrit 29.9 % (37.0-47.0); Hemoglobin 9.8 g/dL (12.0-15.0); Mean Corpuscular HGB Conc 32.8 g/dl (32-36); Mean Corpuscular Hemoglobin 29.7 pg (26-34); Mean Corpuscular Volume 90.6 fl (80-100); Platelet Count Result 292 k/mm3 (150-375); Red Blood Count 3.30 M/mm3 (4.2-5.4); White Blood Count 7.6 K/mm3 (4.5-10.0)
[2025-06-07] MEDS: LEVOTHYROXINE SODIUM 50 MCG TABLET PO (05:36)
[2025-06-07 05:59] LABS: Anion Gap 6 mmol/L (4-12); Blood Urea Nitrogen 23 mg/dL (7-17); Calcium 8.9 mg/dL (8.4-10.2); Carbon Dioxide 24 mmol/L (22-30); Chloride 106 mmol/L (98-107); Estimated CRCL calculation 15 ml/min; Estimated Glomerular Filt Rate 27; Glucose 93 mg/dL (65-110); Potassium 4.2 mmol/L (3.4-5.0); Sodium 136 mmol/L (137-145)
[2025-06-07] MEDS: CLOPIDOGREL BISULFATE 75 MG TABLET PO (08:23)
[2025-06-07] MEDS: GABAPENTIN 300 MG CAPSULE PO ×2 (08:23→21:10)
[2025-06-07] MEDS: ESCITALOPRAM OXALATE 10 MG TABLET 20 MG PO (08:23)
[2025-06-07] MEDS: ASPIRIN 81 MG ENTERIC TABLET PO (08:23)
[2025-06-07] MEDS: PANTOPRAZOLE 40 MG TABLET PO ×2 (08:24→21:11)
[2025-06-07] MEDS: ISOSORBIDE MONONITRATE 30 MG TAB.ER.24H PO (08:24)
--- NOTE | 2025-06-07 11:21 | P.CDI_ITS ---
CDI Query Clarification Request The record notes that the patient has a history of diabetes mellitus and is cu rrently being treated for cellulitis. for accurate documentation and coding, can you please clarify whether the patient?s cellulitis is: 1.? Cellulitis due to/associated with diabetes mellitus 2.? Cellulitis not related to diabetes mellitus 3.? Clinically undetermined 4.? Other, please specify 2) malnutrition has been documented, please specify severity if known. BMI: 24.1 * Mild * Moderate * Severe * Other/Unknown The medical chart reflects the following: Assessment and Plan (1) Cellulitis of great toe of right foot: Code(s): L03.031 - Cellulitis of right toe Status: Acute (2) Chronic ulcer of right great toe: Qualifiers: Non-pressure ulcer stage: unspecified non-pressure ulcer stage Qualified Code(s): L97.519 - Non-pressure chronic ulcer of other part of right foot with unspecified severity Code(s): L97.519 - Non-pressure chronic ulcer of other part of right foot with unspecified severity Status: Acute (3) Controlled diabetes mellitus type 2 with complications: Code(s): E11.8 - Type 2 diabetes mellitus with unspecified complications Status: Acute (4) Acute kidney injury superimposed on stage 4 chronic kidney disease: Code(s): N17.9 - Acute kidney failure, unspecified; N18.4 - Chronic kidney disease, stage 4 (severe) Status: Acute (5) Dementia: Qualifiers: Dementia type: unspecified type Dementia severity: unspecified severity Dementia behavioral or psychological symptom: without behavioral, psychotic, or mood disturbance or anxiety Qualified Code(s): F03.90 - Unspecified dementia, unspecified severity, without behavioral disturbance, psychotic disturbance, mood disturbance, and anxiety Code(s): F03.90 - Unspecified dementia, unspecified severity, without behavioral disturbance, psychotic disturbance, mood disturbance, and anxiety Status: Acute (6) Protein calorie malnutrition: Qualifiers: Protein-calorie malnutrition severity: unspecified severity Qualified Code(s): E46 - Unspecified protein-calorie malnutrition Code(s): E46 - Unspecified protein-calorie malnutrition Status: Acute Plan Patient was admitted for worsening erythema edema of the right great toe. She may have some cellulitis associated with her chronic diabetic foot ulcer. Unable to rule out possibility of underlying osteomyelitis. Patient is not a candidate for an MRI with and without contrast. Orthopedic surgery has been consulted given the patient had been treated by Dr. Sumner in the distant past for prior diabetic foot wounds. Patient is started on empiric antibiotic therapy and blood cultures were obtained and are pending. Will repeat CBC in a.m.. Patient has acute on chronic kidney injury. <Dione Wilson RN - Last Filed: 06/07/25 11:27> The record notes that the patient has a history of diabetes mellitus and is currently being treated for cellulitis. for accurate documentation and coding, can you please clarify whether the patient?s cellulitis is: 1.? Cellulitis due to/associated with diabetes mellitus 2.? Cellulitis not related to diabetes mellitus 3.? Clinically undetermined 4.? Other, please specify 2) malnutrition has been documented, please specify severity if known. BMI: 24.1 * Mild * Moderate * Severe * Other/Unknown The medical chart reflects the following: Assessment and Plan (1) Cellulitis of great toe of right foot: Code(s): L03.031 - Cellulitis of right toe Status: Acute (2) Chronic ulcer of right great toe: Qualifiers: Non-pressure ulcer stage: unspecified non-pressure ulcer stage Qualified Code(s): L97.519 - Non-pressure chronic ulcer of other part of right foot with unspecified severity Code(s): L97.519 - Non-pressure chronic ulcer of other part of right foot with unspecified severity Status: Acute (3) Controlled diabetes mellitus type 2 with complications: Code(s): E11.8 - Type 2 diabetes mellitus with unspecified complications Status: Acute (4) Acute kidney injury superimposed on stage 4 chronic kidney disease: Code(s): N17.9 - Acute kidney failure, unspecified; N18.4 - Chronic kidney disease, stage 4 (severe) Status: Acute (5) Dementia: Qualifiers: Dementia type: unspecified type Dementia severity: unspecified severity Dementia behavioral or psychological symptom: without behavioral, psychotic, or mood disturbance or anxiety Qualified Code(s): F03.90 - Unspecified dementia, unspecified severity, without behavioral disturbance, psychotic disturbance, mood disturbance, and anxiety Code(s): F03.90 - Unspecified dementia, unspecified severity, without behavioral disturbance, psychotic disturbance, mood disturbance, and anxiety Status: Acute (6) Protein calorie malnutrition: Qualifiers: Protein-calorie malnutrition severity: unspecified severity Qualified Code(s): E46 - Unspecified protein-calorie malnutrition Code(s): E46 - Unspecified protein-calorie malnutrition Status: Acute Plan Patient was admitted for worsening erythema edema of the right great toe. She may have some cellulitis associated with her chronic diabetic foot ulcer. Unable to rule out possibility of underlying osteomyelitis. Patient is not a candidate for an MRI with and without contrast. Orthopedic surgery has been consulted given the patient had been treated by Dr. Sumner in the distant past for prior diabetic foot wounds. Patient is started on empiric antibiotic therapy and blood cultures were obtained and are pending. Will repeat CBC in a.m.. Patient has acute on chronic kidney injury. <Em Avalos APRN - Last Filed: 06/07/25 12:42> Provider Comments Clinically undetermined mild <Em Avalos APRN - Last Filed: 06/07/25 12:42>
[2025-06-07 13:30] VITALS: BP 121/55; PULSE 79; RESP 18; TEMP 36.6; O2SAT 99
--- NOTE | 2025-06-07 15:31 | PM.IMPN ---
Progress Note: A&P Assessment and Plan (1) Cellulitis of great toe of right foot: Code(s): L03.031 - Cellulitis of right toe Status: Acute (2) Chronic ulcer of right great toe: Qualifiers: Non-pressure ulcer stage: unspecified non-pressure ulcer stage Qualified Code(s): L97.519 - Non-pressure chronic ulcer of other part of right foot with unspecified severity Code(s): L97.519 - Non-pressure chronic ulcer of other part of right foot with unspecified severity Status: Acute (3) Controlled diabetes mellitus type 2 with complications: Code(s): E11.8 - Type 2 diabetes mellitus with unspecified complications Status: Acute (4) Acute kidney injury superimposed on stage 4 chronic kidney disease: Code(s): N17.9 - Acute kidney failure, unspecified; N18.4 - Chronic kidney disease, stage 4 (severe) Status: Acute (5) Dementia: Qualifiers: Dementia type: unspecified type Dementia severity: unspecified severity Dementia behavioral or psychological symptom: without behavioral, psychotic, or mood disturbance or anxiety Qualified Code(s): F03.90 - Unspecified dementia, unspecified severity, without behavioral disturbance, psychotic disturbance, mood disturbance, and anxiety Code(s): F03.90 - Unspecified dementia, unspecified severity, without behavioral disturbance, psychotic disturbance, mood disturbance, and anxiety Status: Acute (6) Protein calorie malnutrition: Qualifiers: Protein-calorie malnutrition severity: unspecified severity Qualified Code(s): E46 - Unspecified protein-calorie malnutrition Code(s): E46 - Unspecified protein-calorie malnutrition Status: Acute Plan Patient was admitted for worsening erythema edema of the right great toe. She may have some cellulitis associated with her chronic diabetic foot ulcer. Unable to rule out possibility of underlying osteomyelitis. Patient is not a candidate for an MRI with and without contrast. Orthopedic surgery has been consulted given the patient had been treated by Dr. Sumner in the distant past for prior diabetic foot wounds. Patient is started on empiric antibiotic therapy and blood cultures were obtained and are pending. Will repeat CBC in a.m.. Patient has acute on chronic kidney injury. Will continue IV fluid hydration at 100 mL an hour for 2 L then re-evaluate status with repeat labs in a.m.. Will hold the patient's metformin and avoid nephrotoxic medications. Patient's hydrochlorothiazide had already been on hold prior to admission. Will monitor urine output closely. Will check postvoid residual. Patient's glucoses are currently well controlled. Will place patient on low-dose sliding scale insulin as needed with Accu-Cheks a.c. HS and hypoglycemia protocol. Patient has some dimension clearly sundowning at the time of my evaluation as she was a much better historian for nursing staff earlier in the shift. Will avoid sedating her mood altering substances. 06/06 Cefepime IV, flagyl, vanc -will continue -ortho, wound care, dietitian consulted will continue ss-monitor BC closely follwo BC will add daily labs 06/07 pt is doing well will stop cefepime, add doxy and augmentin Time Spent With Patient Time with patient: 25 - 35 minutes Subjective Date/time seen: 06/07/25 15:31 Interval history: 85-year-old female with a past medical history of essential hypertension, chronic kidney disease stage IV, type 2 diabetes (A1c of 29 November 2024), coronary artery disease, diabetic peripheral neuropathy, chronic right foot ulcer with history of noncompliance with follow-up after being informed that she needed an amputation of the toe the past who presents to the ER via private vehicle due to increasing right toe redness. Source of information is completely from review of past medical records, external medical records and ER physician report as the patient is only alert oriented to person and the fact that she is in the hospital at the time of my evaluation. The patient had been told in the past that she needed amputation of her right great toe and she got scared and quit following up with the physician. On the the patient's daughter noticed that the patient toe was more swollen and erythematous. Patient agreed to come to the hospital today. At the time of my evaluation the patient could not recall why she was brought to the hospital. She denies any pain to her toe in states that she does not have any sensation in her feet. She has been afebrile since presentation to the hospital. There is no drainage from her toe in at the time my evaluation and only minimal increased erythema compared to the opposite toe. She does not have a leukocytosis or elevated inflammatory markers. She did have some mild lactic acidosis that resolved after 1 L fluid bolus. Foot x-ray and toe x-ray did not demonstrate any overt evidence of osteomyelitis but severe degenerative changes were noted on refers the metatarsophalangeal joint. Radiology recommended contrast MRI but given patient's renal failure she is not a candidate for this. Subsequently patient was admitted for antibiotics and evaluation by Surgical Service. Surgery for osteomyelitis of the same foot by Dr. Sumner and September 2021. The patient's is also currently hospitalized at our facility. Pt is seen and examined. Iv antibiotics and ortho consult. Wound care consulted. Pt is pleasant, no pain. no nausea Review of Systems Review of Systems: Unobtainable due to the patient's history of dementia. Exam Narrative: Weight 56 kg BMI 24.1 Const: General: comfortable Other: No acute distress, well-developed well-nourished, reclined in bed HENMT: Other: Mucous membranes are moist, no oral pharyngeal erythema, edentulous in upper and lower jaw Eyes: Other: Pupils are equal and reactive, positive conjunctival pallor Neck: Other: No JVD, no lymphadenopathy Resp: Other: Clear to auscultation bilaterally, no increased work of breathing Cardio: Other: So she 3/6 systolic murmur he she, regular rate, regular rhythm, 2+ bilateral radial pulses, 1+ bilateral pedal pulses GI: Other: Soft, nontender, nondistended, positive bowel sounds Skin: Other: Chronic skin changes of bilateral she she feet with onychomycosis of the toes and callus formation of the tip of the 2nd right toe, ulceration to the side of the right great toe without any drainage, slightly more erythematous than the wrists of the skin of the foot with associated edema but no drainage Neuro: Other: Patient is alert oriented person and place she is confused as to the month she thinks that it is August she could not give me a guessed as to the year and could not name the president she did not know why she was at the hospital, she has chronic changes of peripheral neuropathy of bilateral feet but has no gross motor deficits noted in is able to sit up in bed unassisted Extrem: Other: Chronic for changes as discussed above, partner management consultant strength is 5/5 bilaterally with equal bilateral lower extremity strength as well Psych: Other: Pleasantly confused, cooperative Objective Data Vital Signs Vital Signs: Vital Signs - 24 hr 06/06/25 20:00 06/06/25 20:34 06/06/25 20:34 Temperature Pulse Rate 67 67 Respiratory Rate Blood Pressure Pulse Oximetry Oxygen Delivery Room Air 06/06/25 21:45 06/07/25 05:09 06/07/25 08:23 Temperature 97.3 F L 98.0 F Pulse Rate 71 65 Respiratory Rate 16 17 Blood Pressure 109/51 L 111/48 L Pulse Oximetry 93 63 L Oxygen Delivery Room Air 06/07/25 13:30 Temperature 97.9 F Pulse Rate 79 Respiratory Rate 18 Blood Pressure 121/55 L Pulse Oximetry 99 Oxygen Delivery Intake/Output Intake/Output: Intake & Output 06/04/25 06/05/25 06/06/25 06/07/25 23:59 23:59 23:59 23:59 Intake Total 50 2750 980 Balance 50 2750 980 Meds/Results Medications: Active Medications Generic Name Dose Route Start Last Admin Trade Name Freq PRN Reason Stop Dose Admin Amlodipine Besylate 2.5 mg 06/06/25 09:00 06/07/25 08:23 Amlodipine Besylate 2.5 Mg Tablet PO 2.5 mg DAILY CASA Administration Amoxicillin/Clavulanate Potassium 1 tablet 06/07/25 21:00 Amoxicillin/Clavulanate K 500-125 Mg Tab PO 06/20/25 09:01 Q12HR [facility] Aspirin 81 mg 06/06/25 09:00 06/07/25 08:23 Aspirin 81 Mg Enteric Tablet PO 81 mg DAILY CASA Administration Clopidogrel Bisulfate 75 mg 06/06/25 09:00 06/07/25 08:23 Clopidogrel Bisulfate 75 Mg Tablet PO 75 mg DAILY CASA Administration Dextrose 12.5 gm 06/05/25 21:44 Dextrose 50% 25 Gm/50 Ml Syringe IV PUSH PRN PRN Hypoglycemia Protocol Doxycycline Hyclate 100 mg 06/07/25 21:00 Doxycycline Hyclate 100 Mg Tablet PO 06/20/25 09:01 Q12HR [facility] Escitalopram Oxalate 20 mg 06/06/25 09:00 06/07/25 08:23 Escitalopram Oxalate 10 Mg Tablet PO 20 mg DAILY CASA Administration Gabapentin 300 mg 06/05/25 21:40 06/07/25 08:23 Gabapentin 300 Mg Capsule PO 300 mg Q12HR [facility] Administration Glucagon 1 mg 10/11/25 21:44 Glucagon For Inj 1 Mg Vial IM PRN PRN Hypoglycemia Protocol Glucose 15 gm 06/05/25 21:44 Glucose Oral Gel 15 Gm Of Glucse In 37.5 Gm Tube PO PRN PRN Hypoglycemia Protocol Heparin Sodium (Porcine) 5,000 units 06/06/25 09:00 06/07/25 08:24 Heparin Sodium 5,000 Units/Ml Vial SUB-Q 5,000 units Q12HR [facility] Administration Dextrose 1,000 mls @ 100 mls/hr 06/05/25 21:44 Dextrose 5% 1,000 Ml IVPB PRN PRN Hypoglycemia Protocol Insulin Aspart 2 - 5 units 06/06/25 08:00 06/07/25 12:10 Insulin Aspart (*Bkc) 100 Units/Ml SUB-Q Not Given TIDWM CASA Protocol Isosorbide Mononitrate 30 mg 06/06/25 09:00 06/07/25 08:24 Isosorbide Mononitrate 30 Mg Tab.Er.24h PO 30 mg DAILY CASA Administration Levothyroxine Sodium 50 mcg 06/06/25 06:30 06/07/25 05:36 Levothyroxine Sodium 50 Mcg Tablet PO 50 mcg DAILY@0630 CASA Administration Metoprolol Succinate 50 mg 06/05/25 21:45 06/06/25 20:34 Metoprolol Succinate Ext Rel 50 Mg Tabcr PO 50 mg QHS CASA Administration Metoprolol Succinate 25 mg 06/05/25 21:45 06/06/25 20:34 Metoprolol Succinate Ext Rel 25 Mg Tabcr PO 25 mg QHS CASA Administration Nitroglycerin 0.4 mg 06/05/25 21:38 Nitroglycerin Sl 0.4 Mg Tablet SUBLINGUAL Q5M PRN Chest Pain Pantoprazole Sodium 40 mg 06/05/25 21:50 06/07/25 08:24 Pantoprazole 40 Mg Tablet PO 40 mg Q12HR [facility] Administration Rosuvastatin Calcium 20 mg 06/06/25 21:00 06/06/25 20:35 Rosuvastatin 20 Mg Tablet PO 20 mg HS CASA Administration Radiology Results: ITS Impressions Toe X-Ray 06/05/25 14:59 Impression: Severe degenerative changes. Distinction from septic arthritis is limited. Contrast-enhanced MRI is suggested as clinically warranted Foot X-Ray 06/05/25 16:38 Impression: No acute fracture or malalignment. Labs Labs: Laboratory Results - last 24 hr 06/06/25 06/06/25 06/06/25 15:11 16:50 21:44 WBC RBC Hgb Hct MCV MCH MCHC RDW Plt Count MPV Sodium Potassium Chloride Carbon Dioxide Anion Gap BUN Creatinine Estim Creat Clear Calc Estimated GFR Glucose POC Capillary Glucose 101 113 H Calcium Random Vancomycin 8.2 L 06/07/25 06/07/25 06/07/25 04:42 07:54 12:00 WBC 7.6 RBC 3.30 L Hgb 9.8 L Hct 29.9 L MCV 90.6 MCH 29.7 MCHC 32.8 RDW 12.5 Plt Count 292 MPV 9.3 Sodium 136 L Potassium 4.2 Chloride 106 Carbon Dioxide 24 Anion Gap 6 BUN 23 H Creatinine 1.80 H Estim Creat Clear Calc 15 Estimated GFR 27 L Glucose 93 POC Capillary Glucose 97 91 Calcium 8.9 Random Vancomycin Quality VTE Prophylaxis VTE prophylaxis: pharmacologic ordered (Heparin 5000 units subQ q.12 hours.)
[2025-06-07 21:02] VITALS: BP 128/66; PULSE 66; RESP 18; TEMP 36.3; O2SAT 100
[2025-06-07] MEDS: DOXYCYCLINE HYCLATE 100 MG TABLET PO (21:10)
[2025-06-07 21:11] VITALS: PULSE 66
[2025-06-07] MEDS: ROSUVASTATIN 20 MG TABLET PO (21:11)
[2025-06-07] MEDS: METOPROLOL SUCCINATE EXT REL 50 MG TABCR PO (21:11)
[2025-06-07 21:16] VITALS: PULSE 66
[2025-06-07] MEDS: METOPROLOL SUCCINATE EXT REL 25 MG TABCR PO (21:16)
[2025-06-08 05:28] LABS: Hematocrit 29.3 % (37.0-47.0); Hemoglobin 9.5 g/dL (12.0-15.0); Mean Corpuscular HGB Conc 32.4 g/dl (32-36); Mean Corpuscular Hemoglobin 29.4 pg (26-34); Mean Corpuscular Volume 90.7 fl (80-100); Platelet Count Result 287 k/mm3 (150-375); Red Blood Count 3.23 M/mm3 (4.2-5.4); White Blood Count 7.3 K/mm3 (4.5-10.0)
[2025-06-08] MEDS: LEVOTHYROXINE SODIUM 50 MCG TABLET PO (05:43)
[2025-06-08 05:53] LABS: Anion Gap 9 mmol/L (4-12); Blood Urea Nitrogen 27 mg/dL (7-17); Calcium 8.9 mg/dL (8.4-10.2); Carbon Dioxide 23 mmol/L (22-30); Chloride 103 mmol/L (98-107); Estimated CRCL calculation 15 ml/min; Estimated Glomerular Filt Rate 27; Glucose 112 mg/dL (65-110); Potassium 4.1 mmol/L (3.4-5.0); Sodium 135 mmol/L (137-145)
[2025-06-08 05:58] VITALS: BP 132/62; PULSE 67; RESP 16; TEMP 36.3; O2SAT 98
[2025-06-08] MEDS: PANTOPRAZOLE 40 MG TABLET PO (07:34)
[2025-06-08] MEDS: GABAPENTIN 300 MG CAPSULE PO (07:34)
[2025-06-08] MEDS: ESCITALOPRAM OXALATE 10 MG TABLET 20 MG PO (07:35)
[2025-06-08] MEDS: ISOSORBIDE MONONITRATE 30 MG TAB.ER.24H PO (07:35)
[2025-06-08] MEDS: ASPIRIN 81 MG ENTERIC TABLET PO (07:35)
[2025-06-08] MEDS: DOXYCYCLINE HYCLATE 100 MG TABLET PO (07:35)
[2025-06-08] MEDS: CLOPIDOGREL BISULFATE 75 MG TABLET PO (07:35)
--- NOTE | 2025-06-08 09:07 | PM.CNOR ---
History of Present Illness HPI Consult date: 06/08/25 Chief complaint: L toe infection PMFSH Past Medical History Medical History Monoclonal gammopathy of undetermined significance (MGUS) Onychomycosis Stress incontinence Dementia Diabetic ulcer of right foot located base 3rd toe and right great toe CKD (chronic kidney disease) stage 4, GFR 15-29 ml/min Benign hypertension with chronic kidney disease Gastritis Confirmed on EGD 02/2023 Hiatal hernia Hyperplastic polyp of stomach Noted on EGD 02/2023 Diabetes mellitus with chronic kidney disease Osteopenia Hypothyroidism Dystrophic nail Sesamoiditis of right foot Peripheral neuropathy Hyperlipidemia Borderline diabetes Coronary artery disease Surgical History Surgical History History of esophagogastroduodenoscopy (EGD) (02/27/23) History of left knee replacement History of left hip replacement History of breast surgery H/O heart artery stent H/O: hysterectomy (~1972) Partial H/O colonoscopy H/O tooth extraction Family History Family History Mother Family history of pancreatic cancer Heart disease Grandparent Diabetes mellitus Father Diabetes mellitus Hypertension Family history of cardiovascular disease Family history of chronic obstructive pulmonary disease Sibling No problems noted. Other Family history of elevated blood lipids Social History Social History Social History: Lives with her , daughter and son-in-law. She is a lifelong nonsmoker. No alcohol or drug use. 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[employer] Gender identity (if verbalized by the patient): Female Sexual Orientation (if Verbalized by the Patient): Straight or Heterosexual Spiritual care concerns: No Agree to blood products: Yes Meds Home Medications and Allergies Home Medications ?Medication ?Instructions ?Recorded ?Confirmed ?Type nitroglycerin 0.4 mg sublingual 0.4 mg sublingual Q5M PRN Chest 09/28/19 06/05/25 History tablet (Nitrostat) Pain aspirin 81 mg tablet,delayed 81 mg PO DAILY 02/05/21 06/05/25 History release (Jocelyn Low Dose Aspirin) blood sugar diagnostic (FreeStyle #100 ea 02/25/24 06/05/25 Rx Lite Strips) blood sugar diagnostic (OneTouch #100 ea 02/25/24 06/05/25 Rx Verio test strips) blood-glucose meter (OneTouch #1 ea 04/13/24 06/05/25 Rx Verio Flex Meter) hydrochlorothiazide 25 mg tablet 25 mg PO DAILY #90 tabs 12/28/24 06/05/25 Rx Held on 02/15/25. Instructions: Resume on 03/15/25. please discuss with your PCP or Nephrology before continue. Was on hold due to acute kidney injury gabapentin 300 mg capsule 300 mg PO BID #180 caps 01/20/25 06/05/25 Rx ondansetron 4 mg disintegrating 4 mg PO Q8H PRN nausea and 02/03/25 06/05/25 Rx tablet vomiting #14 tabs isosorbide mononitrate 30 mg 30 mg PO DAILY #90 tabs 03/16/25 06/05/25 Rx tablet,extended release 24 hr clopidogrel 75 mg tablet See Rx Instructions .Route 03/27/25 06/05/25 Rx .COMPLEX #100 tabs metoprolol succinate 50 mg See Rx Instructions .Route 04/09/25 06/05/25 Rx tablet,extended release 24 hr .COMPLEX #150 tabs amlodipine 2.5 mg tablet 2.5 mg PO DAILY #90 tabs 04/12/25 06/05/25 Rx rosuvastatin 20 mg tablet 20 mg PO HS #90 tabs 04/12/25 06/05/25 Rx pantoprazole 40 mg tablet,delayed See Rx Instructions .Route 04/20/25 06/05/25 Rx release .COMPLEX #200 tabs metformin 1,000 mg tablet See Rx Instructions .Route 04/27/25 06/05/25 Rx .COMPLEX #180 tabs escitalopram oxalate 20 mg tablet 20 mg PO DAILY #90 tabs 04/29/25 06/05/25 Rx (Lexapro) levothyroxine 50 mcg tablet 50 mcg PO DAILY #60 tabs 05/04/25 06/05/25 Rx (Synthroid) Allergies Allergy/AdvReac Type Severity Reaction Status Date / Time adhesive tape Allergy Severe BLISTERS/SKIN Verified 06/05/25 14:05 TEARS latex Allergy Severe Anaphylaxis Verified 06/05/25 14:05 Vital Signs Vital Signs - 24 hr 06/07/25 13:30 06/07/25 20:00 06/07/25 21:02 Temperature 36.6 C 36.3 C L Pulse Rate 79 66 Respiratory Rate 18 18 Blood Pressure 121/55 L 128/66 Pulse Oximetry 99 100 Oxygen Delivery Room Air 06/07/25 21:11 06/07/25 21:16 06/08/25 05:58 Temperature 36.3 C L Pulse Rate 66 66 67 Respiratory Rate 16 Blood Pressure 132/62 Pulse Oximetry 98 Oxygen Delivery 06/08/25 07:45 06/08/25 08:15 Temperature Pulse Rate Respiratory Rate Blood Pressure Pulse Oximetry Oxygen Delivery Room Air Room Air Results Labs 06/08/25 04:47 06/08/25 04:47 Labs: Abnormal lab results 06/07/25 06/07/25 06/08/25 Range/Units 17:04 20:26 04:47 RBC 3.23 L (4.2-5.4) M/mm3 Hgb 9.5 L (12.0-15.0) g/dL Hct 29.3 L (37.0-47.0) % Sodium 135 L (137-145) mmol/L BUN 27 H (7-17) mg/dL Creatinine 1.78 H (0.7-1.0) mg/dL Estimated GFR 27 L (59 - ) Glucose 112 H (65-110) mg/dL POC Capillary Glucose 119 H 146 H (65-105) mg/dl 06/08/25 Range/Units 07:52 RBC (4.2-5.4) M/mm3 Hgb (12.0-15.0) g/dL Hct (37.0-47.0) % Sodium (137-145) mmol/L BUN (7-17) mg/dL Creatinine (0.7-1.0) mg/dL Estimated GFR (59 - ) Glucose (65-110) mg/dL POC Capillary Glucose 106 H (65-105) mg/dl H & H 06/05/25 06/06/25 06/07/25 Range/Units 15:38 04:56 04:42 Hgb 10.4 L 9.2 L 9.8 L (12.0-15.0) g/dL Hct 32.3 L 28.7 L 29.9 L (37.0-47.0) % 06/08/25 Range/Units 04:47 Hgb 9.5 L (12.0-15.0) g/dL Hct 29.3 L (37.0-47.0) % All other labs normal.
--- NOTE | 2025-06-08 09:08 | PM.PNORT ---
Progress Note: A&P Assessment and Plan (1) Chronic ulcer of right great toe: Qualifiers: Non-pressure ulcer stage: unspecified non-pressure ulcer stage Qualified Code(s): L97.519 - Non-pressure chronic ulcer of other part of right foot with unspecified severity Code(s): L97.519 - Non-pressure chronic ulcer of other part of right foot with unspecified severity Status: Acute Assessment and Plan: Radiographs negative for osteomyelitis of the right great toe. Wound on the dorsum of the right foot clean, dry. Scab in place. No redness/no warmth. Mild swelling today. No signs of worsening infection. No surgical indication at this time. Plan to paint small scab on the dorsum of the hallux with iodine daily. Antibiotics/discharge planning per medicine team. Will sign off at this time from an orthopedic standpoint. Please contact us if any changes occur or for further concerns. Time Spent With Patient Time: Reviewed history, exam, radiographs and current labs with attending MD and covering surgeon, Dr. Cordon, who agrees with current plan as indicated above. No further recommendations from Dr. Cordon at this time. Subjective Subjective Date/Time Seen: 06/08/25 09:08 Interval history: Patient awake/alert. No new concerns. Feeling well. No c/o pain. Review of Systems Review of Systems: All systems reviewed & are unremarkable except as noted in HPI and below Exam Const: General: comfortable and no acute distress Resp: Effort & Inspection: normal respiratory effort Extrem: Right lower extremity: hip/thigh Details: normal to inspection and normal ROM; no tenderness and no swelling, knee Details: normal to inspection and normal ROM; no tenderness and no swelling, lower leg Details: normal to inspection and palpable cord; no erythema and no tenderness, ankle Details: normal to inspection and normal ROM; no tenderness, no swelling, no unusual warmth, no abrasions, no lacerations and no ecchymosis and foot Details: normal capillary refill, abnormal to inspection Details: not erythematous, toes with normal ROM, abrasion (RIGHT GREAT TOE SMALL ULCERATION, NO DRAINAGE OR BLEEDING), vascular exam Details: dorsalis pedis pulse present, posterior tibial pulse present and abnormal capillary refill; no cyanosis, tendon exam Details: active flexion normal and active extension normal and motor-sensory exam Details: light-touch abnormal; no tenderness and no unusual warmth Other: Very small, dry, scabbed ulcer on the dorsal aspect of the hallux. No drainage. No purulence. No malodor. Surrounding tissue with no erythema. Mild swelling. No pain. Objective Data Vital Signs Vital Signs: Vital Signs - 24 hr 06/07/25 13:30 06/07/25 20:00 06/07/25 21:02 Temperature 36.6 C 36.3 C L Pulse Rate 79 66 Respiratory Rate 18 18 Blood Pressure 121/55 L 128/66 Pulse Oximetry 99 100 Oxygen Delivery Room Air 06/07/25 21:11 06/07/25 21:16 06/08/25 05:58 Temperature 36.3 C L Pulse Rate 66 66 67 Respiratory Rate 16 Blood Pressure 132/62 Pulse Oximetry 98 Oxygen Delivery 06/08/25 07:45 06/08/25 08:15 Temperature Pulse Rate Respiratory Rate Blood Pressure Pulse Oximetry Oxygen Delivery Room Air Room Air Intake/Output Intake/Output: Intake & Output 06/05/25 06/06/25 06/07/25 06/08/25 23:59 23:59 23:59 23:59 Intake Total 50 2750 1220 490 Balance 50 2750 1220 490 Meds/Results Medications: Active Medications Generic Name Dose Route Start Last Admin Trade Name Freq PRN Reason Stop Dose Admin Amlodipine Besylate 2.5 mg 06/06/25 09:00 06/08/25 07:35 Amlodipine Besylate 2.5 Mg Tablet PO 2.5 mg DAILY CASA Administration Amoxicillin/Clavulanate Potassium 1 tablet 06/07/25 21:00 06/08/25 07:35 Amoxicillin/Clavulanate K 500-125 Mg Tab PO 06/20/25 09:01 1 tablet Q12HR [facility]A Administration Aspirin 81 mg 06/06/25 09:00 06/08/25 07:35 Aspirin 81 Mg Enteric Tablet PO 81 mg DAILY CASA Administration Clopidogrel Bisulfate 75 mg 06/06/25 09:00 06/08/25 07:35 Clopidogrel Bisulfate 75 Mg Tablet PO 75 mg DAILY CASA Administration Dextrose 12.5 gm 06/05/25 21:44 Dextrose 50% 25 Gm/50 Ml Syringe IV PUSH PRN PRN Hypoglycemia Protocol Doxycycline Hyclate 100 mg 06/07/25 21:00 06/08/25 07:35 Doxycycline Hyclate 100 Mg Tablet PO 06/20/25 09:01 100 mg Q12HR [facility]A Administration Escitalopram Oxalate 20 mg 06/06/25 09:00 06/08/25 07:35 Escitalopram Oxalate 10 Mg Tablet PO 20 mg DAILY CASA Administration Gabapentin 300 mg 06/05/25 21:40 06/08/25 07:34 Gabapentin 300 Mg Capsule PO 300 mg Q12HR [facility] Administration Glucagon 1 mg 06/05/25 21:44 Glucagon For Inj 1 Mg Vial IM PRN PRN Hypoglycemia Protocol Glucose 15 gm 06/05/25 21:44 Glucose Oral Gel 15 Gm Of Glucse In 37.5 Gm Tube PO PRN PRN Hypoglycemia Protocol Heparin Sodium (Porcine) 5,000 units 06/06/25 09:00 06/08/25 07:44 Heparin Sodium 5,000 Units/Ml Vial SUB-Q 5,000 units Q12HR [facility] Administration Dextrose 1,000 mls @ 100 mls/hr 06/05/25 21:44 Dextrose 5% 1,000 Ml IVPB PRN PRN Hypoglycemia Protocol Insulin Aspart 2 - 5 units 06/06/25 08:00 06/08/25 07:53 Insulin Aspart (*Bkc) 100 Units/Ml SUB-Q Not Given TIDWM CASA Protocol Isosorbide Mononitrate 30 mg 06/06/25 09:00 06/08/25 07:35 Isosorbide Mononitrate 30 Mg Tab.Er.24h PO 30 mg DAILY CASA Administration Levothyroxine Sodium 50 mcg 06/06/25 06:30 06/08/25 05:43 Levothyroxine Sodium 50 Mcg Tablet PO 50 mcg DAILY@0630 CASA Administration Metoprolol Succinate 50 mg 06/05/25 21:45 06/07/25 21:11 Metoprolol Succinate Ext Rel 50 Mg Tabcr PO 50 mg QHS CASA Administration Metoprolol Succinate 25 mg 06/05/25 21:45 06/07/25 21:16 Metoprolol Succinate Ext Rel 25 Mg Tabcr PO 25 mg QHS CASA Administration Nitroglycerin 0.4 mg 06/05/25 21:38 Nitroglycerin Sl 0.4 Mg Tablet SUBLINGUAL Q5M PRN Chest Pain Pantoprazole Sodium 40 mg 06/05/25 21:50 06/08/25 07:34 Pantoprazole 40 Mg Tablet PO 40 mg Q12HR [facility]A Administration Rosuvastatin Calcium 20 mg 06/06/25 21:00 06/07/25 21:11 Rosuvastatin 20 Mg Tablet PO 20 mg HS CASA Administration Radiology Results: ITS Impressions Toe X-Ray 06/05/25 14:59 Impression: Severe degenerative changes. Distinction from septic arthritis is limited. Contrast-enhanced MRI is suggested as clinically warranted Foot X-Ray 06/05/25 16:38 Impression: No acute fracture or malalignment. Labs Labs: Laboratory Results - last 24 hr 06/07/25 06/07/25 06/07/25 12:00 17:04 20:26 WBC RBC Hgb Hct MCV MCH MCHC RDW Plt Count MPV Sodium Potassium Chloride Carbon Dioxide Anion Gap BUN Creatinine Estim Creat Clear Calc Estimated GFR Glucose POC Capillary Glucose 91 119 H 146 H Calcium 06/08/25 06/08/25 04:47 07:52 WBC 7.3 RBC 3.23 L Hgb 9.5 L Hct 29.3 L MCV 90.7 MCH 29.4 MCHC 32.4 RDW 12.4 Plt Count 287 MPV 9.3 Sodium 135 L Potassium 4.1 Chloride 103 Carbon Dioxide 23 Anion Gap 9 BUN 27 H Creatinine 1.78 H Estim Creat Clear Calc 15 Estimated GFR 27 L Glucose 112 H POC Capillary Glucose 106 H Calcium 8.9
--- NOTE | 2025-06-08 12:36 | PM.DS ---
DS: Admitting Diagnosis Discharge Date 06/08 Admitting Diagnosis Chronic ulcer of right great toe DS: Discharge Diagnosis Discharge Diagnosis (1) Cellulitis of great toe of right foot: Code(s): L03.031 - Cellulitis of right toe Status: Acute (2) Chronic ulcer of right great toe: Qualifiers: Non-pressure ulcer stage: unspecified non-pressure ulcer stage Qualified Code(s): L97.519 - Non-pressure chronic ulcer of other part of right foot with unspecified severity Code(s): L97.519 - Non-pressure chronic ulcer of other part of right foot with unspecified severity Status: Acute (3) Controlled diabetes mellitus type 2 with complications: Code(s): E11.8 - Type 2 diabetes mellitus with unspecified complications Status: Acute (4) Acute kidney injury superimposed on stage 4 chronic kidney disease: Code(s): N17.9 - Acute kidney failure, unspecified; N18.4 - Chronic kidney disease, stage 4 (severe) Status: Acute (5) Dementia: Qualifiers: Dementia type: unspecified type Dementia severity: unspecified severity Dementia behavioral or psychological symptom: without behavioral, psychotic, or mood disturbance or anxiety Qualified Code(s): F03.90 - Unspecified dementia, unspecified severity, without behavioral disturbance, psychotic disturbance, mood disturbance, and anxiety Code(s): F03.90 - Unspecified dementia, unspecified severity, without behavioral disturbance, psychotic disturbance, mood disturbance, and anxiety Status: Acute (6) Protein calorie malnutrition: Qualifiers: Protein-calorie malnutrition severity: unspecified severity Qualified Code(s): E46 - Unspecified protein-calorie malnutrition Code(s): E46 - Unspecified protein-calorie malnutrition Status: Acute DS: Summary Hospital Course Hospital Course: Patient was admitted for worsening erythema edema of the right great toe. She may have some cellulitis associated with her chronic diabetic foot ulcer. Unable to rule out possibility of underlying osteomyelitis. Patient is not a candidate for an MRI with and without contrast. Orthopedic surgery has been consulted given the patient had been treated by Dr. Sumner in the distant past for prior diabetic foot wounds. Patient is started on empiric antibiotic therapy and blood cultures were obtained and are pending. Will repeat CBC in a.m.. Patient has acute on chronic kidney injury. Will continue IV fluid hydration at 100 mL an hour for 2 L then re-evaluate status with repeat labs in a.m.. Will hold the patient's metformin and avoid nephrotoxic medications. Patient's hydrochlorothiazide had already been on hold prior to admission. Will monitor urine output closely. Will check postvoid residual. Patient's glucoses are currently well controlled. Will place patient on low-dose sliding scale insulin as needed with Accu-Cheks a.c. HS and hypoglycemia protocol. 06/06 Cefepime IV, flagyl, vanc -will continue -ortho, wound care, dietitian consulted will continue ss-monitor BC closely follow BC 06/07 will stop cefepime, add doxy and augmentin- rx sent 06/08 ortho was consulted and note: Radiographs negative for osteomyelitis of the right great toe. Wound on the dorsum of the right foot clean, dry. Scab in place. No redness/no warmth. Mild swelling today. No signs of worsening infection. No surgical indication at this time. Plan to paint small scab on the dorsum of the hallux with iodine daily. Will sign off at this time from an orthopedic standpoint. Please contact us if any changes occur or for further concerns. Status at Discharge Functional status at discharge: independent ambulation Overall status at discharge: patient is progressing back to baseline Time Spent with Patient Time attestation: Total time spent providing and/or coordinating discharge services: Time spent: Greater than 30 minutes Exam Narrative: Weight 56 kg BMI 24.1 Const: General: comfortable Other: No acute distress, well-developed well-nourished, reclined in bed HENMT: Other: Mucous membranes are moist, no oral pharyngeal erythema, edentulous in upper and lower jaw Eyes: Other: Pupils are equal and reactive, positive conjunctival pallor Neck: Other: No JVD, no lymphadenopathy Resp: Effort & Inspection: normal respiratory effort Auscultation: clear to auscultation bilaterally Other: Clear to auscultation bilaterally, no increased work of breathing Cardio: Rate: regular rate Rhythm: regular rhythm Other: So she 3/6 systolic murmur he she, regular rate, regular rhythm, 2+ bilateral radial pulses, 1+ bilateral pedal pulses GI: Other: Soft, nontender, nondistended, positive bowel sounds Skin: Other: Chronic skin changes of bilateral she she feet with onychomycosis of the toes and callus formation of the tip of the 2nd right toe, ulceration to the side of the right great toe without any drainage, slightly more erythematous than the wrists of the skin of the foot with associated edema but no drainage. DS: Data Data Completed and Pending Labs on day of discharge: Labs from last 24 hours 06/08/25 06/08/25 06/08/25 11:41 07:52 04:47 WBC 7.3 RBC 3.23 L Hgb 9.5 L Hct 29.3 L MCV 90.7 MCH 29.4 MCHC 32.4 RDW 12.4 Plt Count 287 MPV 9.3 Sodium 135 L Potassium 4.1 Chloride 103 Carbon Dioxide 23 Anion Gap 9 BUN 27 H Creatinine 1.78 H Estim Creat Clear Calc 15 Estimated GFR 27 L Glucose 112 H POC Capillary Glucose 80 106 H Calcium 8.9 06/07/25 06/07/25 20:26 17:04 WBC RBC Hgb Hct MCV MCH MCHC RDW Plt Count MPV Sodium Potassium Chloride Carbon Dioxide Anion Gap BUN Creatinine Estim Creat Clear Calc Estimated GFR Glucose POC Capillary Glucose 146 H 119 H Calcium Discharge Plan Discharge Attending physician on discharge: Nicholas Hwang Consulting providers: Damien Cordon Discharging Clinician: Em Avalos Patient Disposition: Home Activity: december shower Diet: heart healthy Discharge Instructions: Radiographs negative for osteomyelitis of the right great toe. Wound on the dorsum of the right foot clean, dry. Scab in place. No redness/no warmth. Mild swelling today. No signs of worsening infection. No surgical indication at this time. Cleaned and treated with iodine daily. Antibiotics were sent to your pharmacy. Please seen you PCP in 1 week or so for a f/u. If you developed fever, chills, wound will start draining and/or any other changes- please return to ER. Patient Instructions: Antibiotic Form Patient Language: Malawian Stand Alone Forms: General Discharge Information Follow-up/Referrals: Judah Jeffery MD [Primary Care Provider, Family Practice] - 2 Weeks Discharge Medications: New doxycycline hyclate 100 mg Tablet 100 mg PO Q12HR Qty: 24 0RF amoxicillin-pot clavulanate [Augmentin] 500-125 mg Tablet 1 tablet PO Q12HR Qty: 24 0RF Continued nitroglycerin [Nitrostat] 0.4 mg tablet, sublingual 0.4 mg SUBLINGUAL Q5M PRN (Reason: Chest Pain) Rx Instructions: until response; do not exceed 3 doses per episode escitalopram oxalate [Lexapro] 20 mg tablet 20 mg PO DAILY Qty: 90 1RF ondansetron 4 mg tablet,disintegrating 4 mg PO Q8H PRN (Reason: nausea and vomiting) Qty: 14 3RF aspirin [Jocelyn Low Dose Aspirin] 81 mg Tablet,Delayed Release (Dr/Ec) 81 mg PO DAILY (DME) FreeStyle Lite Strips Strip See Rx Instructions .Route Qty: 100 2RF Rx Instructions: Check blood glucose once daily As directed (DME) OneTouch Verio test strips Strip See Rx Instructions .Route Qty: 100 1RF Rx Instructions: Check daily or as needed. (DME) blood-glucose meter [OneTouch Verio Flex meter] Misc See Rx Instructions .Route Qty: 1 0RF Rx Instructions: check blood glucose 1xday As directed gabapentin 300 mg capsule 300 mg PO BID Qty: 180 1RF isosorbide mononitrate 30 mg tablet extended release 24 hr 30 mg PO DAILY Qty: 90 1RF clopidogrel 75 mg tablet See Rx Instructions .ROUTE .COMPLEX Qty: 100 1RF Dose Instruction: TAKE 1 TABLET BY MOUTH DAILY Rx Instructions: TAKE 1 TABLET BY MOUTH DAILY metoprolol succinate 50 mg tablet extended release 24 hr See Rx Instructions .ROUTE .COMPLEX Qty: 150 1RF Dose Instruction: TAKE 1 AND 1/2 TABLETS BY MOUTH AT BEDTIME Rx Instructions: TAKE 1 AND 1/2 TABLETS BY MOUTH AT BEDTIME rosuvastatin 20 mg tablet 20 mg PO HS Qty: 90 1RF amlodipine 2.5 mg tablet 2.5 mg PO DAILY Qty: 90 0RF pantoprazole 40 mg tablet,delayed release (DR/EC) See Rx Instructions .ROUTE .COMPLEX Qty: 200 2RF Dose Instruction: TAKE 1 TABLET BY MOUTH TWICE DAILY Rx Instructions: TAKE 1 TABLET BY MOUTH TWICE DAILY metformin 1,000 mg tablet See Rx Instructions .ROUTE .COMPLEX Qty: 180 1RF Rx Instructions: TAKE 1 TABLET BY MOUTH TWICE A DAY WITH MEALS levothyroxine [Synthroid] 50 mcg tablet 50 mcg PO DAILY Qty: 60 0RF Held hydrochlorothiazide 25 mg tablet 25 mg PO DAILY Qty: 90 1RF Hold Instructions: Resume on 06/22/25. please discuss it with nephrology before restarting Date of admission: 06/07/25 10:21 Primary Care Provider: Judah Jeffery Admitting Provider: Lucila Cotto Attending physician on admission: Lucila Cotto Condition: Stable Quality VTE Prophylaxis VTE prophylaxis: pharmacologic ordered (Heparin 5000 units subQ q.12 hours.) Hospitalist MIPS Heart Failure (Exclusion) Patient has history of Heart Transplant or Left Ventricular Assistive Device?: No IF YES, STOP HERE Heart Failure (Qualifier) Patient has current or prior documentation of LVEF less than or equal to 40%, or mod/servere depressed LVSF?: No IF NO, STOP HERE
== END 2025-06-08 15:10 | disposition home or self-care (01) | DRG 603 ==
LOC: ANHED 17:55 → ANH2MED 06-06 08:48
PROVIDERS: Internal Medicine; Admitting Provider Family Medicine; Emergency Provider Emergency Medicine; PCP Family Medicine; Visit Provider Nurse Practitioner
DX: L03.031 Cellulitis of right toe (principal); N18.4 Chronic kidney disease, stage 4 (severe); N17.9 Acute kidney failure, unspecified; E44.1 Mild protein-calorie malnutrition; E87.20 Acidosis, unspecified; I12.9 Hypertensive chronic kidney disease with stage 1 through stage 4 chronic kidney disease, or unspecified chronic kidney disease; E11.621 Type 2 diabetes mellitus with foot ulcer; E11.22 Type 2 diabetes mellitus with diabetic chronic kidney disease; E11.42 Type 2 diabetes mellitus with diabetic polyneuropathy; E03.9 Hypothyroidism, unspecified; E78.5 Hyperlipidemia, unspecified; I25.10 Atherosclerotic heart disease of native coronary artery without angina pectoris; F03.90 Unspecified dementia, unspecified severity, without behavioral disturbance, psychotic disturbance, mood disturbance, and anxiety; M85.80 Other specified disorders of bone density and structure, unspecified site; B35.1 Tinea unguium; D47.2 Monoclonal gammopathy; M85.871 Other specified disorders of bone density and structure, right ankle and foot; L97.519 Non-pressure chronic ulcer of other part of right foot with unspecified severity; R01.1 Cardiac murmur, unspecified; L84 Corns and callosities; M19.071 Primary osteoarthritis, right ankle and foot; K08.109 Complete loss of teeth, unspecified cause, unspecified class; Z66 Do not resuscitate; Z96.641 Presence of right artificial hip joint; Z96.652 Presence of left artificial knee joint; Z77.22 Contact with and (suspected) exposure to environmental tobacco smoke (acute) (chronic); Z79.84 Long term (current) use of oral hypoglycemic drugs; Z79.82 Long term (current) use of aspirin; Z91.198 Patient's noncompliance with other medical treatment and regimen for other reason; Z68.24 Body mass index [BMI] 24.0-24.9, adult; Z87.19 Personal history of other diseases of the digestive system
CPT/HCPCS: 36415; 73630; 73660; 80048; 80053; 80202; 82948; 83605; 83735; 84100; 85025; 85027; 86140; 87040; 87641; 96361; 96365; 96366; 96367; 96372; 96375; 96376; 97161; 97166; 99212; 99285; A9270; G0378; G0463; J0692; J1644; J1836; J3373; J7120

== ENCOUNTER 2025-07-15 09:34 | Outpatient (CLI) | payer MEDICARE, SELFPAY ==
--- NOTE | ~2025-07-15 | CT_ITS ---
EXAMINATION: CT brain mariano goodson, 07/15/2025 9:50 WATERSHED COORDINATOR HISTORY: S09.90XA - Unspecified injury of head, initial encounter COMPARISON: No comparisons available. Technique: Axial images obtained of the brain without contrast. One or more of the following dose reduction techniques were used: automated exposure control, adjustment of the mA and/or kV according to patient size, use of iterative reconstruction technique. Findings: No acute infarct or parenchymal hemorrhage. No abnormal mass or mass effect. No midline shift. No extra-axial fluid collections. No hydrocephalus. Mastoid air cells unremarkable. Sinuses and orbits unremarkable. No acute fracture. No significant facial or scalp soft tissue swelling evident. No radiopaque foreign body is seen. Impression: 1.No acute intracranial abnormality. Reviewed, dictated and finalized at location P. RSHED COORDINATOR Impression: 1.No acute intracranial abnormality.
--- OUTSIDE RECORDS SUMMARY | 2025-07-15 11:08 | XMS_ITS | Encounter Summary ---
Author Organization [facility] Address Formerly [facility] [place] [address] Care Team Providers Care Purchasing Administrative Assistant Name Role Phone Romina Silveira MD Primary Care Provider [phone] Deshawn Ghosh MD Primary Care Pr ovider [facility] Patrick Penny MD Primary Care Provider [phone] Encounter Details Date Type Department Care Team (Late st Contact Info) Description 06/28/2022 Therapy Plan [facility] Outpatient Therapy [place], [place] [id number] Norma Boles, PT [place], [place] [id number] Social History Tobacco Use Types Packs/Day Years [...] documented as of this encounter Care Teams Purchasing Administrative Assistant Relationship Specialty Start Date End Date Romina Silveira MD PCP - General INTERNAL MEDICINE 02/08/20 11/29/22 Deshawn Ghosh MD PCP - General FAMILY PRACTICE 11/30/22 01/01/23 Patrick Penny MD [address] [address] PCP - General INTERNAL MEDICINE 01/02/23 02/23/24 documented as of this encounter
--- OUTSIDE RECORDS SUMMARY | 2025-07-15 11:08 | XMS_ITS | Clinical Summary ---
Author Organization [facility] Address [address] [place] [address] Care Team Providers Care Hop Strainer Name Role Phone Unavailable Primary Care Provider [...] pectoris associated with type 2 diabetes mellitus ([facility] HHS/HCC) Place 1 tablet (0.4 mg total) under the tongue every 5 (five) minutes as needed for Chest Pain. 30 tablet 5 1 Active Alcohol Swabs (B-D SINGLE USE SWABS REGULAR) Pads 2 Active Blood Glucose Monitoring Suppl (TRUE METRIX METER) w/Device Kit 2 Active TRUEplus Lancets 33G Misc 2 Active gabapentin 300 MG capsuleIndication s:Neuropathy due to type 2 diabetes mellitus ([facility] HHS/HCC) Take 1 capsule (300 mg total) by mouth 3 (three) times daily. 270 capsule 1 2 Active levothyroxine 75 MCG tabletIndications :Hypothyroidism, unspecified type Take 1 tablet (75 mcg total) by mouth every morning. 90 tablet 1 2 Active TRUE METRIX BLOOD GLUCOSE TEST test stripIndications: Controlled type 2 diabetes mellitus with diabetic autonomic neuropathy, without long-term current use of insulin ([facility]) USE DIRECTED 100 strip 3 2 Active metFORMIN (GLUCOPHAGE) 500 MG tabletIndications :Type 2 diabetes mellitus with stage 3a chronic kidney disease, without long-term current use of insulin ([facility]) TAKE 1 TABLET THREE TIMES DAILY [...] (Boostrix) 02/04/2021 Tdap (Generic) 02/04/2021,02/17/2016 Zoster (Zostavax) 74254 Unt/0.65Ml 05/19/2015 Family History Medical History Relation [...] Pneumococcal Vaccine: 50+ Years Completed 06/23/2015, 07/11/2014 Hepatitis A Vaccines Aged Out No long er eligible based on patient's age to complete this topic Meningococcal B Vaccine Aged Out No l [...] Result [facility] [address] [address] * (ABNORMAL) HEMOGLOBIN, GLYCOSYLATED (12/16/2021 9:40 AM CDT) HGB A1C 6.6(H) <5.7 % of total Hgb [facility] Comment: For someone without known diabetes, [...] 12/18/2021 1:34 PM CDT SPLIT 12/15/2021 FROM [id number] FASTING:YES FASTING: YES Romina Silveira MD LABORATORY Final Result [facility] [address] [place] [address] from Last 3 Months or Most Recently Relevant to Health Maintenance [place] [address] [place] [address] MEDICARE
== END 2025-07-15 09:35 | disposition home or self-care (01) ==
PROVIDERS: PCP Family Medicine; Visit Provider Family Medicine
DX: S09.90XA Unspecified injury of head, initial encounter (principal); X58.XXXA Exposure to other specified factors, initial encounter
CPT/HCPCS: 70450

== ENCOUNTER 2025-07-18 12:20 | Emergency (ER) | payer MEDICARE, SELFPAY ==
--- NOTE | ~2025-07-18 | CT_ITS ---
CORRECTED REPORT corrected order to c-spine without contrast [facility] 07/20/2025 This report was recreated on 07/20/2025. Original report was DRIER CT HEAD NON-CONTRAST CT C-SPINE Clinical History: Fall with Head Injury Comparison: CT brain 07/15/2025 Technique: Unenhanced axial images skull base to vertex. Coronal, sagittal reformats. Axial images thoracic inlet to skull base. Sagittal and coronal reformats. CT images acquired with automatic exposure control for dose reduction DLP: 605 mGy-cm Findings: Head: Age-related atrophy and chronic white matter microvascular ischemic changes. Bilateral thalamic lacune. Sulci, ventricles: Unremarkable. No intracerebral hemorrhage. No evidence acute territorial infarct. No mass effect, midline shift, intra-/extra-axial fluid collection. Partially empty sella. Bony calvarium intact. Visualized paranasal sinuses: Clear. Mastoid air cells: Clear. C-spine: No acute fracture. Congenital nonfusion posterior arch C1. Grade 1 anterolisthesis of C3 on 4, C4 on 5. Straightening of normal cervical lordosis. Moderate degenerative changes and disc disease. Prevertebral soft tissues within normal limits. Visualized lung apices: Clear. Visualized thyroid: Unremarkable. No enlarged cervical nodes. IMPRESSION: HEAD: 1. No acute intracranial findings. C-SPINE: 1. No acute fracture. Reviewed, dictated and finalized at location R. DRIER IMPRESSION: HEAD: 1. No acute intracranial findings. C-SPINE: 1. No acute fracture.
--- OUTSIDE RECORDS SUMMARY | 2025-07-18 12:22 | XMS_ITS | Clinical Summary ---
Author Organization [facility] Address [address] [place] [address] Care Team Providers Care Mosaic Tile Maker Name Role Phone Judah Jeffery MD Primary Care Provider [phone] Allergies Active Allergy Reactions Criticality Noted Date [...] (11/16/2020): Added automatically from request for surgery [id number] Coronary artery disease of n ative artery of [place] heart with stable angina pectoris 11/03/2020 Overview (11/03/2020): Added automatically from request for surgery [id number] Abnormal EKG 11/03/2020 Overview (11/03/2020): Added automatically from request for surgery [id number] Atherosclerosis of coronary artery 06/03/2016 Obesity with [...] Tobacco: Never Tobacco Cessation:Counseling Given: Not Answered [facility] Utilities Answer Date Recorded In the past 12 months has [employer], gas, oil, or water [employer] threatened to shut off services in your [...] week 04/29/2024 How often do you attend [facility] or [facility] services? 1 to 4 times per year 04/29/2024 Do you belong to any clubs o r organizations such as jainism groups, unions, fraternal or athletic groups, or [...] any time in the past 12 m [facility], were you homeless or living in a half-way (including now)? No 04/29/2024 Personal Safety Answer Date Recorded Have you ever been in or are you currently in a harmful physical or emotional relationship or is someone making you feel afraid or unsafe? 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 Gender Identity Not on file Sexual Orientation [...] 1958 Well Visit 65+ 2006 Zoster Vaccine (2 of 3) 07/14/2015 05/19/2015 Covid-19 Vaccine (4 - 2024-2 6 season) 2025 05/22/2022, 10/28/2020, 09/30/2020 Influenza Vaccine (#1) 2025 , 05/26/2020, 06/11/2019, Additional history exists Fall Risk Assessment 04/30/2025 04/30/2024 DTaP/Tdap/Td Vaccine (3 - Td or Tdap) 02/04/2031 02/04/2021, 02/17/2016 Pneumococcal vaccine 65+ Completed 06/23/2015, 06/26 Medical Devices Implanted Type Area Fruit Packer Device Identifier Shelf Expiration Date Model / Serial / Lot [employer] [id number] Stent Drug Eluting S Megatron Us Mr [id number] - [id number] - [id number] Implanted:Qty: 1 on 11/23/2020 by Marisol Kenney MD at [facility] Stent [employer] 07/27/2021 [id number] 350 / [id number] / [id number] [employer] [id number] Stent Drug Eluting S Megatron Us Mr [id number] - [id number] - [id number] Implanted:Qty: 1 on 11/23/2020 by Marisol Kenney MD at [facility] [employer] 07/25/2021 [id number] / [id number] / [id number] Daig Marguerite[employer] [id number] Angio-Seal Evolution 8fr .038in Guidewire Bypass Tube Suture - [id number] - [id number] Implanted:Qty: 1 on 11/23/2020 by Mariosl Kenney MD at [facility] 08/25/2021 [id number] / [id number] / [id number] Insurance [facility] MDCR HMO REF [facility] MEDICARE ADVANTAGE [facility] [place] [address] Advance Directives For more information, please contact: [phone] * Full Code (Latest Code Status on File) Date Activated Date Inactivated Comments 04/28/2024 12:47 AM 04/30/2024 6:19 PM * Full Code Date Activated Date Inactivated Comments 11/23/2020 11:44 AM 11/23/2020 7:58 PM * Full Code Date Activated Date Inactivated Comments 11/16/2020 2:29 PM 11/16/2020 8:07 PM Care Teams Mosaic Tile Maker Relationship Specialty Start Date End Date Judah Jeffery MD PCP - General Family Practice 08/10/22
--- OUTSIDE RECORDS SUMMARY | 2025-07-18 12:22 | XMS_ITS | Encounter Summary ---
Author Organization [facility] Address [address] [place] [address] Phone Care Team Providers Care Special Officer Name Role Phone Quoc Chino MD Primary Care Provider [phone] Rashawn Silveira MD Primary Care Provider Judah Jeffery MD Primary Care Provider [phone] Encounter Details Date Type Department Care Team (Latest Contact Info) Description 01/06/2019 Orders Only [facility] Scanning, Provider Social History Tobacco Use Types Packs/Day Years Used Date Smoking Tobacco: Never Smokeless Tobacco: Never Comments Unknown Sex and Gender Information Value Date Recorded Sex Assigned at Not on file Legal Sex Female 2:52 AM FLAVOR EXTRACTOR Gender Identity Not on file Sexual Orientation [...] on filedocumented in this encounter Care Teams Special Officer Relationship Specialty Start Date End Date Quoc Chino MD [address] [place] [address] PCP - General 04/10/17 11/02/20 [place] [address] [place], [place] [id number] PCP - General Internal Medicine 11/03/20 08/09/22 [place] [address] [facility] [place], [place] [id number] PCP - General Family Practice 08/10/22 documented as of this encounter
--- OUTSIDE RECORDS SUMMARY | 2025-07-18 12:22 | XMS_ITS | Clinical Summary ---
Author Organization [facility] Address [address] [place] [address] Care Team Providers Care Audit Clerks Supervisor Name Role Phone Unavailable Primary Care Provider [...] pectoris associated with type 2 diabetes mellitus ([facility] HHS/HCC) Place 1 tablet (0.4 mg total) under the tongue every 5 (five) minutes as needed for Chest Pain. 30 tablet 5 1 Active Alcohol Swabs (B-D SINGLE USE SWABS REGULAR) Pads 2 Active Blood Glucose Monitoring Suppl (TRUE METRIX METER) w/Device Kit 2 Active TRUEplus Lancets 33G Misc 2 Active gabapentin 300 MG capsuleIndication s:Neuropathy due to type 2 diabetes mellitus ([facility] HHS/HCC) Take 1 capsule (300 mg total) by mouth 3 (three) times daily. 270 capsule 1 2 Active levothyroxine 75 MCG tabletIndications :Hypothyroidism, unspecified type Take 1 tablet (75 mcg total) by mouth every morning. 90 tablet 1 2 Active TRUE METRIX BLOOD GLUCOSE TEST test stripIndications: Controlled type 2 diabetes mellitus with diabetic autonomic neuropathy, without long-term current use of insulin ([facility]) USE DIRECTED 100 strip 3 2 Active metFORMIN (GLUCOPHAGE) 500 MG tabletIndications :Type 2 diabetes mellitus with stage 3a chronic kidney disease, without long-term current use of insulin ([facility]) TAKE 1 TABLET THREE TIMES DAILY [...] (Boostrix) 02/04/2021 Tdap (Generic) 02/04/2021,02/17/2016 Zoster (Zostavax) 25033 Unt/0.65Ml 05/19/2015 Family History Medical History Relation [...] Result [facility] [address] [address] * (ABNORMAL) HEMOGLOBIN, GLYCOSYLATED (12/16/2021 9:40 AM [...] 12/18/2021 1:34 PM CDT SPLIT 12/15/2021 FROM [id number] FASTING:YES FASTING: YES Romina Silveira MD LABORATORY Final Result [facility] [address] [place] [address] from Last 3 Months or Most Recently Relevant to Health Maintenance [place] [address] [place] [address] MEDICARE
--- OUTSIDE RECORDS SUMMARY | 2025-07-18 12:22 | XMS_ITS | Clinical Summary ---
Author Organization [facility] Address [address] [place] [address] Care Team Providers Care Licensed Investment Sales Assistant Name Role Phone Quoc Chino MD Primary Care Provider [phone] Oliver Parham MD Unavailable [phone] Source Comments [facility],non-owned Affiliates and Associated Physician Practices is amultiple site organization consisting of ambulatory clinics and hospital sitesin [place], [place], [place] and [place]. This disclosure is being madepursuant to the Care Everywhere program and may not contain all information available regarding this patient. Last updated 18.[facility] Allergies Active Allergy Reactions Criticality Noted [...] on file Legal Sex Female 8:26 AM COLLEGE COUNSELOR Gender Identity Not on file Sexual Orientation Not on file Last Filed Vital Signs Vital Sign Reading Time Taken Comments Blood Pressure 140/80 08/09/2014 2:00 PM COLLEGE COUNSELOR Pulse 100 08/09/2014 2:00 PM COLLEGE COUNSELOR Temperature 36.5 C (97.7 F) 08/09/2014 2:00 PM COLLEGE COUNSELOR Respiratory Rate 18 08/09/2014 2:00 PM COLLEGE COUNSELOR Oxygen Saturation 97% 08/09/2014 2:00 PM COLLEGE COUNSELOR Inhaled Oxygen Concentration - - Weight 68.9 kg (152 lb) 08/09/2014 2:00 PM COLLEGE COUNSELOR Height 157.5 cm (5' 2) 08/09/2014 2:00 PM COLLEGE COUNSELOR Body Mass Index 27.8 08/09/2014 2:00 PM COLLEGE COUNSELOR Plan of Treatment Health Maintenance Due Date [...] this topic Medical Devices Implanted Type Area Programmer Engineering And Scientific Device Identifier Shelf Expiration Date Model / Serial / Lot Gavin Bone [place] Hv Implanted:Qty: 1 on 07/08/2014 by Oliver Parham MD at [facility] Left: Knee Biomet Inc 04/24/2016 [id number] / / [id number] Butn Pat Arcom Wire Polyeth Xsm 28 X 8 Implanted:Qty: 1 on 07/08/2014 by Oliver Parham MD at [facility] Left: Knee [employer] Inc 05/25/2019 [id number] / / [id number] Ins Kn Vangurd Fem Cocr L-Intlok 60.0mm Implanted:Qty: 1 on 07/08/2014 by Oliver Parham MD at [facility] Left: Knee [employer]omet Inc 07/25/2023 [id number] / / [id number] Ty Tibial I Beam Fix Bar 67mm Implanted:Qty: 1 on 07/08/2014 by Oliver Parham MD at [facility] Left: Knee [employer] Inc 01/23/2024 [id number] / / [id number] Feliciano Puente Brg 10mm X 67mm Implanted:Qty: 1 on 07/08/2014 by Oliver Parham MD at [facility] Left: Knee [employer]omet Inc 06/24/2018 [id number] / / [id number] Advance Directives * Full Code (Latest Code Status on File) Date Activated Date Inactivated Comments 07/08/2014 4:09 PM 07/11/2014 11:37 AM Care Teams Licensed Investment Sales Assistant Relationship Specialty Start Date End Date Quoc Chino MD [address] [place] [address] PCP - General Family Medicine 09/26/12 Oliver Parham MD [address] [place] [id number] Orthopedic Surgery 09/26/12
--- OUTSIDE RECORDS SUMMARY | 2025-07-18 12:22 | XMS_ITS | Clinical Summary ---
Author Organization [facility] Alin Blanc Address [address] [place] [address] Care Team Providers Care Linseed Oil Order Filler Name Role Phone Judah Jeffery MD Primary Care Provider [phone] Allergies Active Allergy Reactions Criticality Noted Date [...] Encounters Date Type Department Care Team Description 06/23/2025 External Device Data STL ABSTRACTION Provider, Abstract 06/16/2025 External Device Data STL ABSTRACTION Provider, Abstract 04/27/2025 External Device Data ST[facility] ABSTRACTION Provider, [...] on file Legal Sex Female 9:38 AM HOME HEALTH CNA Gender Identity Not on file Sexual Orientation [...] cm (5' 2) 10/01/2023 10:2 1 AM HOME HEALTH CNA Body Mass Index 25.57 10/01/2023 10:21 AM HOME HEALTH CNA Plan of Treatment Upcoming Encounters Date Type Department Care Team (Late st Contact Info) Description 02/24/2026 10:15 AM CDT Office Visit [facility] Oncology and Hematology - Yash [address] [place] [address] [place] Lau MD [address] [place] [address] Health Maintenance Due Date Last [...] 50+ YEARS Completed 06/23/2015 , 07/11/2014 Insurance [facility] [id number] Care Teams Linseed Oil Order Filler Relationship Specialty Start Date End Date Judah Jeffery MD [address] [place] [address] PCP - General Family Practice 09/17/23
[2025-07-18 12:30] VITALS: BP 99/72; PULSE 74; RESP 18; TEMP 36.4; O2SAT 98
--- NOTE | 2025-07-18 12:55 | ED_ITS ---
HPI - Fall General Chief Complaint: Fall Stated Complaint: fall Time Seen by Provider: 07/18/25 12:49 Source: patient Mode of arrival: ambulatory Limitations: no limitations History of Present Illness HPI Narrative: 85 years old white female using her walker, stuck in the ground for some reason, fell on her bottom side way and possible struck the back of her head on the ground, no loss of consciousness, no complain. Patient is asymptomatic. History of multiple falls. Last 1 was 1 week ago, the 1 before was 3 weeks ago Related Data Home Medications ?Medication ?Instructions ?Recorded ?Confirmed ?Last Taken ?Type nitroglycerin 0.4 mg sublingual 0.4 mg sublingual Q5M PRN Chest 09/28/19 06/09/25 Unknown History tablet (Nitrostat) Pain aspirin 81 mg tablet,delayed 81 mg PO DAILY 02/05/21 1 06/05/25 History release (Jocelyn Low Dose Aspirin) Allergies Allergy/AdvReac Type Severity Reaction Status Date / Time adhesive tape Allergy Severe BLISTERS/SKIN Verified 07/18/25 12:20 TEARS latex Allergy Severe Anaphylaxis Verified 07/18/25 12:20 Review of Systems Review of Systems: All systems reviewed & are unremarkable except as noted in HPI and below PMFSH Past Medical History Medical History Gastritis Confirmed on EGD 02/2023 Monoclonal gammopathy of undetermined significance (MGUS) Onychomycosis Stress incontinence Dementia Diabetic ulcer of right foot located base 3rd toe and right great toe CKD (chronic kidney disease) stage 4, GFR 15-29 ml/min Benign hypertension with chronic kidney disease Hiatal hernia Hyperplastic polyp of stomach Noted on EGD 02/2023 Diabetes mellitus with chronic kidney disease Osteopenia Hypothyroidism Dystrophic nail Sesamoiditis of right foot Peripheral neuropathy Hyperlipidemia Borderline diabetes Coronary artery disease Surgical History Surgical History History of esophagogastroduodenoscopy (EGD) (02/27/23) History of left knee replacement History of left hip replacement History of breast surgery H/O heart artery stent H/O: hysterectomy (~1972) Partial H/O colonoscopy H/O tooth extraction Family History Family History Mother Family history of pancreatic cancer Heart disease Grandparent Diabetes mellitus Father Diabetes mellitus Hypertension Family history of cardiovascular disease Family history of chronic obstructive pulmonary disease Sibling No problems noted. Other Family history of elevated blood lipids Social History Social History Social History: Lives with her , daughter and son-in-law. She is a lifelong nonsmoker. No alcohol or drug use. 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[employer] Gender identity (if verbalized by the patient): Female Sexual Orientation (if Verbalized by the Patient): Straight or Heterosexual Spiritual care concerns: No Agree to blood products: Yes Exam Narrative: General appearance: Well-developed, well-nourished Skin: Normal color Head: Normocephalic, nontraumatic Eyes: Clear conjunctiva ENT: Oropharynx normal, ears normal, nose normal Neck: Supple, nontender Chest and respiratory: Airway patent, no respiratory distress, no accessory muscle use Heart: Regular rate/rhythm Abdomen: Soft, nontender, no organomegaly, quiet bowel sounds Vascular: Normal peripheral pulses, normal capillary refill. 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 is normal as tested, no gross motor deficit Course Vital Signs Vital signs: Vital Signs Temperature 36.4 C L 07/18/25 12:30 Pulse Rate 74 07/18/25 12:30 Respiratory Rate 18 07/18/25 12:30 Blood Pressure 99/72 L 07/18/25 12:30 Pulse Oximetry 98 07/18/25 12:30 Oxygen Delivery Room Air 07/18/25 12:30 Temperature 36.4 C L 07/18/25 12:30 Pulse Rate 74 07/18/25 12:30 Respiratory Rate 18 07/18/25 12:30 Blood Pressure 99/72 L 07/18/25 12:30 Pulse Oximetry 98 07/18/25 12:30 Oxygen Delivery Room Air 07/18/25 12:30 MDM - Fall MDM Narrative Medical decision making narrative: Patient had a fall, witnessed, asymptomatic Physical examination is unremarkable Vital signs are stable CT head without contrast and CT cervical spine without contrast showed no acute abnormality Differential Diagnosis Differential diagnosis: Likely other (Fall, contusion, closed head injury) Imaging Data Radiologist's impression: Impressions Cervical Spine CT 07/18/25 13:16 IMPRESSION: HEAD: 1. No acute intracranial findings. C-SPINE: 1. No acute fracture. Head CT 07/18/25 13:16 IMPRESSION: HEAD: 1. No acute intracranial findings. C-SPINE: 1. No acute fracture. Discharge Plan Discharge Clinical Impression: CHI (closed head injury) Patient Disposition: Home Condition: Stable Instructions: Head Injury (ED) Additional Instructions: Return if symptoms are worsening , call your family physician for appointment, take Tylenol as as needed for aches and pain, continue home medications. Patient Language: Croatian Prescriptions: No Action nitroglycerin [Nitrostat] 0.4 mg tablet, sublingual 0.4 mg SUBLINGUAL Q5M PRN (Reason: Chest Pain) Rx Instructions: until response; do not exceed 3 doses per episode ondansetron 4 mg tablet,disintegrating 4 mg PO Q8H PRN (Reason: nausea and vomiting) Qty: 14 3RF rosuvastatin 20 mg tablet 20 mg PO HS Qty: 90 1RF aspirin [Jocelyn Low Dose Aspirin] 81 mg Tablet,Delayed Release (Dr/Ec) 81 mg PO DAILY (DME) FreeStyle Lite Strips Strip See Rx Instructions .Route Qty: 100 2RF Rx Instructions: Check blood glucose once daily As directed (DME) OneTouch Verio test strips Strip See Rx Instructions .Route Qty: 100 1RF Rx Instructions: Check daily or as needed. (DME) blood-glucose meter [OneTouch Verio Flex meter] [facility] See Rx Instructions .Route Qty: 1 0RF Rx Instructions: check blood glucose 1xday As directed hydrochlorothiazide 25 mg tablet 25 mg PO DAILY Qty: 90 1RF gabapentin 300 mg capsule 300 mg PO BID Qty: 180 1RF clopidogrel 75 mg tablet See Rx Instructions .ROUTE .COMPLEX Qty: 100 1RF Dose Instruction: TAKE 1 TABLET BY MOUTH DAILY Rx Instructions: TAKE 1 TABLET BY MOUTH DAILY metoprolol succinate 50 mg tablet extended release 24 hr See Rx Instructions .ROUTE .COMPLEX Qty: 150 1RF Dose Instruction: TAKE 1 AND 1/2 TABLETS BY MOUTH AT BEDTIME Rx Instructions: TAKE 1 AND 1/2 TABLETS BY MOUTH AT BEDTIME amlodipine 2.5 mg tablet 2.5 mg PO DAILY Qty: 90 0RF pantoprazole 40 mg tablet,delayed release (DR/EC) See Rx Instructions .ROUTE .COMPLEX Qty: 200 2RF Dose Instruction: TAKE 1 TABLET BY MOUTH TWICE DAILY Rx Instructions: TAKE 1 TABLET BY MOUTH TWICE DAILY escitalopram oxalate [Lexapro] 20 mg tablet 20 mg PO DAILY Qty: 90 0RF isosorbide mononitrate 30 mg tablet extended release 24 hr See Rx Instructions .ROUTE .COMPLEX Qty: 100 0RF Dose Instruction: TAKE 1 TABLET BY MOUTH DAILY Rx Instructions: TAKE 1 TABLET BY MOUTH DAILY metformin 1,000 mg tablet See Rx Instructions .ROUTE .COMPLEX Qty: 200 0RF Dose Instruction: TAKE 1 TABLET BY MOUTH TWICE DAILY WITH MEALS Rx Instructions: TAKE 1 TABLET BY MOUTH TWICE DAILY WITH MEALS levothyroxine 25 mcg tablet See Rx Instructions .ROUTE .COMPLEX Qty: 100 0RF Dose Instruction: TAKE 1 TABLET BY MOUTH DAILY Rx Instructions: TAKE 1 TABLET BY MOUTH DAILY sulfamethoxazole-trimethoprim [Bactrim DS] 800-160 mg tablet 1 tablet PO Q12H Qty: 10 0RF Follow-up/Referrals: Judah Jeffery MD [Primary Care Provider, Family Practice]
--- OUTSIDE RECORDS SUMMARY | 2025-07-18 13:13 | XMS_ITS | Encounter Summary ---
Author Organization [facility] Address [address] [place] [address] Phone Care Team Providers Care Orthodontist Assistant Name Role Phone Quoc Chino MD Primary Care Provider [phone] Rashawn Silveira MD Primary Care Provider Judah Jeffery MD Primary Care Provider [phone] Encounter Details Date Type Department Care Team (Latest Contact Info) Description 01/06/2019 Orders Only [facility] Scanning, Provider Social History Tobacco Use Types Packs/Day Years Used Date Smoking Tobacco: Never Smokeless Tobacco: Never Comments Unknown Sex and Gender Information Value Date Recorded Sex Assigned at Not on file Legal Sex Female 2:52 AM RADIOLOGY 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
--- OUTSIDE RECORDS SUMMARY | 2025-07-18 13:13 | XMS_ITS | Clinical Summary ---
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 1 to 4 times per year 04/29/2024 Do you belong to any clubs o r organizations such as voodoo groups, unions, fraternal or athletic groups, or [...] any time in the past 12 m [facility], were you homeless or living in a [place] health care facility (including now)? No 04/29/2024 Personal Safety Answer Date Recorded Have you ever been in or are you currently in a harmful physical or emotional relationship or is someone making you feel afraid or unsafe? 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 Gender Identity Not on file Sexual Orientation [...] 06/23/2015, 06/26 Medical Devices Implanted Type Area Bpm Developer Device Identifier Shelf Expiration Date Model / Serial / Lot [employer] Marguerite [id number] Stent Drug Eluting S Megatron Us Mr 3.35y71rt - [id number] - [id number] Implanted:Qty: 1 on 11/23/2020 by Marisol Kenney MD at [facility] Stent [employer] Marguerite 07/27/2021 [id number] / [id number] / [id number] [employer] Marguerite [id number] Stent Drug Eluting S Megatron Us Mr 4.74u86if - [id number] - [id number] Implanted:Qty: 1 on 11/23/2020 by Marisol Kenney MD at [facility] [employer] Marguerite 07/25/2021 [id number] / [id number] / [id number] Daig Marguerite/St Mook [employer] [id number] Angio-Seal Evolution 8fr .038in Guidewire Bypass Tube Suture - [id number] - [id number] Implanted:Qty: 1 on 11/23/2020 by Marisol Kenney MD at [facility] 08/25/2021 [id number] / [id number] Insurance [facility] MDCR HMO REF [facility] MEDICARE ADVANTAGE [facility] MEDICARE ADVANTAGE Advance Directives For more information, please contact: [phone] * Full Code (Latest Code Status on File) Date Activated Date Inactivated Comments 04/28/2024 12:47 AM 04/30/2024 6:19 PM * Full Code Date Activated Date Inactivated Comments 11/23/2020 11:44 AM 11/23/2020 7:58 PM * Full Code Date Activated Date Inactivated Comments 11/16/2020 2:29 PM 11/16/2020 8:07 PM Care Teams Ekg Technician Relationship Specialty Start Date End Date Judah Jeffery MD PCP - General Family Practice 08/10/22
--- OUTSIDE RECORDS SUMMARY | 2025-07-18 13:13 | XMS_ITS | Encounter Summary ---
Author Organization [facility] Address [address] [place] [address] Care Team Providers Care Hand Grinder Name Role Phone Romina Silveira MD Primary Care Provider [phone] Deshawn Ghosh MD Primary Care Pr ovider [facility] Patrick Penny MD Primary Care Provider [phone] Encounter Details Date Type Department Care Team (Late st Contact Info) Description 06/28/2022 Therapy Plan [facility] Outpatient Therapy [place], [place] [id number] Norma Boles, PT [place], [place] [address] Social History Tobacco Use Types Packs/Day Years [...] documented as of this encounter Care Teams Hand Grinder Relationship Specialty Start Date End Date Romina Silveira MD PCP - General INTERNAL MEDICINE 02/08/20 11/29/22 Deshawn Ghosh MD PCP - General FAMILY PRACTICE 11/30/22 01/01/23 Patrick Penny MD [address] [address] PCP - General INTERNAL MEDICINE 01/02/23 02/23/24 documented as of this encounter
--- OUTSIDE RECORDS SUMMARY | 2025-07-18 13:13 | XMS_ITS | Clinical Summary ---
Author Organization [facility] Address [address] [place] [address] Care Team Providers Care Land Leveler Name Role Phone Quoc Chino MD Primary Care Provider [phone] Oliver Parham MD Unavailable [phone] Source Comments [facility],non-owned Affiliates and Associated Physician Practices is amultiple site organization consisting of ambulatory clinics and hospital sitesin [place], [place], [place] and [place]. This disclosure is being madepursuant to the Care Everywhere program and may not contain all information available regarding this patient. Last updated 18.[facility] Allergies Active Allergy Reactions Criticality [...] on file Legal Sex Female 8:26 AM TECHNICAL MARKETING ENGINEER Gender Identity Not on file Sexual Orientation Not on file Last Filed Vital Signs Vital Sign Reading Time Taken Comments Blood Pressure 140/80 08/09/2014 2:00 PM TECHNICAL MARKETING ENGINEER Pulse 100 08/09/2014 2:00 PM TECHNICAL MARKETING ENGINEER Temperature 36.5 C (97.7 F) 08/09/2014 2:00 PM TECHNICAL MARKETING ENGINEER Respiratory Rate 18 08/09/2014 2:00 PM TECHNICAL MARKETING ENGINEER Oxygen Saturation 97% 08/09/2014 2:00 PM TECHNICAL MARKETING ENGINEER Inhaled Oxygen Concentration - - Weight 68.9 kg (152 lb) 08/09/2014 2:00 PM TECHNICAL MARKETING ENGINEER Height 157.5 cm (5' 2) 08/09/2014 2:00 PM TECHNICAL MARKETING ENGINEER Body Mass Index 27.8 08/09/2014 2:00 PM TECHNICAL MARKETING ENGINEER Plan of Treatment Health Maintenance Due [...] this topic Medical Devices Implanted Type Area Tin Container Straightener Device Identifier Shelf Expiration Date Model / Serial / Lot Gavin Bone [place] Hv Implanted:Qty: 1 on 07/08/2014 by Oliver Parham MD at [facility] Left: Knee [employer] Inc 04/24/2016 [id number] / / [id number] Butn Pat Arcom Wire Polyeth Xsm 28 X 8 Implanted:Qty: 1 on 07/08/2014 by Oliver Parham MD at [facility] Left: Knee [employer] Inc 05/25/2019 [id number] / / [id number] Ins Kn Vangurd Fem Cocr L-Intlok 60.0mm Implanted:Qty: 1 on 07/08/2014 by Oliver Parham MD at [facility] Left: Knee [employer] Inc 07/25/2023 [id number] / / [id number] Ty Tibial I Beam Fix Bar 67mm Implanted:Qty: 1 on 07/08/2014 by Oliver Parham MD at [facility] Left: Knee [employer] Inc 01/23/2024 [id number] / / [id number] Feliciano Puente Brg 10mm X 67mm Implanted:Qty: 1 on 07/08/2014 by Oliver Parham MD at [facility] Left: Knee [employer] Inc 06/24/2018 [id number] / / [id number] Advance Directives * Full Code (Latest Code Status on File) Date Activated Date Inactivated Comments 07/08/2014 4:09 PM 07/11/2014 11:37 AM Care Teams Land Leveler Relationship Specialty Start Date End Date Quoc Chino MD [address] [place] [address] PCP - General Family Medicine 09/26/12 Oliver Parham MD [address] [place] [id number] Orthopedic Surgery 09/26/12
--- OUTSIDE RECORDS SUMMARY | 2025-07-18 13:13 | XMS_ITS | Clinical Summary ---
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 270 capsule 1 2 Active levothyroxine 75 MCG tabletIndications :Hypothyroidism, unspecified type Take 1 tablet (75 mcg total) by mouth every morning. 90 tablet 1 2 Active TRUE METRIX BLOOD GLUCOSE TEST test stripIndications: Controlled type 2 diabetes mellitus with diabetic autonomic neuropathy, without long-term current use of insulin ([facility]) USE DIRECTED 100 strip 3 2 Active metFORMIN (GLUCOPHAGE) 500 MG tabletIndications :Type 2 diabetes mellitus with stage 3a chronic kidney disease, without long-term current use of insulin ([facility]) TAKE 1 [...] (Boostrix) 02/04/2021 Tdap (Generic) 02/04/2021,02/17/2016 Zoster (Zostavax) [id number] Unt/0.65Ml 05/19/2015 Family History Medical History Relation [...] Result [facility] [address] [address] * (ABNORMAL) HEMOGLOBIN, GLYCOSYLATED (12/16/2021 9:40 AM [...] 12/18/2021 1:34 PM CDT SPLIT 12/15/2021 FROM [id number] FASTING:YES FASTING: YES Romina Silveira MD LABORATORY Final Result [facility] [address] [place] [address] from Last 3 Months or Most Recently Relevant to Health Maintenance [place] [address] [place] [address] MEDICARE
--- OUTSIDE RECORDS SUMMARY | 2025-07-18 13:13 | XMS_ITS | Clinical Summary ---
Author Organization [facility] Alin Blanc Address [address] [place] [address] Care Team Providers Care Setter Up Name Role Phone Judah Jeffery MD Primary Care Provider [phone] Allergies Active Allergy Reactions Criticality Noted Date [...] on file Legal Sex Female 9:38 AM REFERENCE INVESTIGATOR Gender Identity Not on file Sexual Orientation [...] cm (5' 2) 10/01/2023 10:2 1 AM REFERENCE INVESTIGATOR Body Mass Index 25.57 10/01/2023 10:21 AM REFERENCE INVESTIGATOR Plan of Treatment Upcoming Encounters Date Type Department Care Team (Late st Contact Info) Description 02/24/2026 10:15 AM CDT Office Visit [facility] Oncology and Hematology - Yash [address] [place] [address] [place] Lau MD [address] [facility] [address] [place] [address] Health Maintenance Due Date Last [...] 50+ YEARS Completed 06/23/2015 , 07/11/2014 Insurance [facility] [id number] Care Teams Setter Up Relationship Specialty Start Date End Date Judah Jeffery MD [address] [place] [address] PCP - General Family Practice 09/17/23
[2025-07-18 13:46] VITALS: BP 100/74; PULSE 76; RESP 19; O2SAT 96
--- NOTE | 2025-07-18 13:48 | PC.NURSE ---
Report called to [facility], Letitia had no questions or concerns regarding patient.
== END 2025-07-18 13:48 | disposition home or self-care (01) ==
PROVIDERS: Emergency Provider Emergency Medicine; PCP Family Medicine
DX: S09.90XA Unspecified injury of head, initial encounter (principal); I12.9 Hypertensive chronic kidney disease with stage 1 through stage 4 chronic kidney disease, or unspecified chronic kidney disease; E11.22 Type 2 diabetes mellitus with diabetic chronic kidney disease; N18.4 Chronic kidney disease, stage 4 (severe); E03.9 Hypothyroidism, unspecified; I25.10 Atherosclerotic heart disease of native coronary artery without angina pectoris; F03.90 Unspecified dementia, unspecified severity, without behavioral disturbance, psychotic disturbance, mood disturbance, and anxiety; W19.XXXA Unspecified fall, initial encounter
CPT/HCPCS: 70450; 72125; 72126; 99284; Q9967

== ENCOUNTER 2025-07-27 08:24 | Emergency (ER) | payer MEDICARE, SELFPAY ==
--- NOTE | 2025-07-27 | CONSULT_PTH ---
PATIENT: Emelia Heath LOC: [facility]#:[id number] AGE/SX: 85/F ROOM: RE07/27/[address]: Noemí Tejada MD : 1940 BED: DIS: 07/27/2025 SPEC #: [id number] RECD: 07/27/25 10:13 STATUS: ARTHUR REWilliam #: [id number] KRISTIN: 07/27/25 00:[address]: Noemí Tejada DEPT: [facility] Consult RECD BY: Amanda Calabrese MLT, ([facility]) ENTERED: 07/27/25 10:15 SP TYPE: Consult OTHR DR: Judah Jeffery MD Tissues: A - Peripheral Smear Procedures: Hematology Consult
--- OUTSIDE RECORDS SUMMARY | 2025-07-27 08:31 | XMS_ITS | Encounter Summary ---
Author Organization [facility] Address [address] [place] [address] Phone Care Team Providers Care Excellence Consultant Name Role Phone Quoc Chino MD Primary Care Provider [phone] Rashawn Silveira MD Primary Care Provider Judah Jeffery MD Primary Care Provider [phone] Encounter Details Date Type Department Care Team (Latest Contact Info) Description 01/06/2019 Orders Only [facility] Scanning, Provider Social History Tobacco Use Types Packs/Day Years Used Date Smoking Tobacco: Never Smokeless Tobacco: Never Comments Unknown Sex and Gender Information Value Date Recorded Sex Assigned at Not on file Legal Sex Female 2:52 AM 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
--- OUTSIDE RECORDS SUMMARY | 2025-07-27 08:31 | XMS_ITS | Clinical Summary ---
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 Plan of Treatment Upcoming Encounters Date Type Department Care Team (Late st Contact Info) Description 02/24/2026 10:15 AM CDT Office Visit [facility] Oncology and Hematology - Yash [address] [place] [address] South Lau MD [address] [facility] [address] [place] [address] Health Maintenance Due Date Last [...] 50+ YEARS Completed 06/23/2015 , 07/11/2014 Insurance [facility] [id number] Care Teams Child Attendant Relationship Specialty Start Date End Date Judah Jeffery MD [address] [place] [address] PCP - General Family Practice 09/17/23
--- OUTSIDE RECORDS SUMMARY | 2025-07-27 08:31 | XMS_ITS | Clinical Summary ---
Author Organization [facility] Address [address] [place] [address] Care Team Providers Care Hat Cutter Name Role Phone Unavailable Primary Care Provider [...] associated with type 2 diabetes mellitus ([facility] HHS/HCC) Place 1 tablet (0.4 [...] s:Neuropathy due to type 2 diabetes mellitus ([facility] HHS/HCC) Take 1 capsule (300 mg total) by mouth 3 (three) times daily. 270 capsule 1 2 Active levothyroxine 75 MCG tabletIndications :Hypothyroidism, unspecified type Take 1 tablet (75 mcg total) by mouth every morning. 90 tablet 1 2 Active TRUE METRIX BLOOD GLUCOSE TEST test stripIndications: Controlled type 2 diabetes mellitus with diabetic autonomic neuropathy, without long-term current use of insulin ([facility]) USE DIRECTED 100 strip 3 2 Active metFORMIN (GLUCOPHAGE) 500 MG tabletIndications :Type 2 diabetes mellitus with stage 3a chronic kidney disease, without long-term current use of insulin ([facility]) TAKE 1 TABLET THREE TIMES [...] (Boostrix) 02/04/2021 Tdap (Generic) 02/04/2021,02/17/2016 Zoster (Zostavax) 42368 Unt/0.65Ml 05/19/2015 Family History Medical History Relation [...] Result [facility] [address] [id number] * (ABNORMAL) HEMOGLOBIN, GLYCOSYLATED (12/16/2021 9:40 AM [...] 12/18/2021 1:34 PM CDT SPLIT 12/15/2021 FROM [id number] FASTING:YES FASTING: YES Romina Silveira MD LABORATORY Final Result [facility] [address] [place] [address] from Last 3 Months or Most Recently Relevant to Health Maintenance [place] [address] [place] [address] MEDICARE
--- OUTSIDE RECORDS SUMMARY | 2025-07-27 08:31 | XMS_ITS | Clinical Summary ---
Author Organization [facility] Address [address] [place] [address] Care Team Providers Care Store Stock Help Name Role Phone Judah Jeffery MD Primary Care Provider [phone] Allergies Active Allergy Reactions Criticality Noted Date [...] (11/16/2020): Added automatically from request for surgery [id number] Coronary artery disease of n ative artery of [place] heart with stable angina pectoris 11/03/2020 Overview (11/03/2020): Added automatically from request for surgery [id number] Abnormal EKG 11/03/2020 Overview (11/03/2020): Added automatically from request for surgery [id number] Atherosclerosis of coronary artery 06/03/2016 Obesity with [...] Tobacco: Never Tobacco Cessation:Counseling Given: Not Answered [facility] Utilities Answer Date Recorded In the past 12 months has [employer], oil, or water [employer] threatened to shut off services in your [...] 04/29/2024 How often do you attend [facility] or anabaptist services? 1 to 4 times per year 04/29/2024 Do you belong to any clubs o r organizations such as restorationism groups, unions, fraternal or athletic groups, or [...] any time in the past 12 m [facility], were you homeless or living in a halfway (including now)? No 04/29/2024 Personal Safety Answer Date Recorded Have you ever been in or are you currently in a harmful physical or emotional relationship or is someone making you feel afraid or unsafe? 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 Gender Identity Not on file Sexual Orientation [...] 06/23/2015, 06/26 Medical Devices Implanted Type Area Medicare Specialist Device Identifier Shelf Expiration Date Model / Serial / Lot [employer] [id number] Stent Drug Eluting S MegaDibspace Us Mr 3.25s72io - [id number] - [id number] Implanted:Qty: 1 on 11/23/2020 by Marisol Kenney MD at [facility] Stent [employer] 07/27/2021 [id number] 350 / [id number] / [id number] [employer] [id number] Stent Drug Eluting S MegaDibspace Us Mr 4.65k46co - [id number] - [id number] Implanted:Qty: 1 on 11/23/2020 by Marisol Kenney MD at [facility] [employer] 07/25/2021 [id number] / [id number] / [id number] Daig Marguerite/[employer] [id number] Angio-Seal Evolution 8fr .038in Guidewire Bypass Tube Suture - [id number] - [id number] Implanted:Qty: 1 on 11/23/2020 by Marisol Kenney MD at [facility] 08/25/2021 [id number] / [id number] / [id number] Insurance [facility] MEDICARE ADVANTAGE Advance Directives For more information, please contact: [phone] * Full Code (Latest Code Status on File) Date Activated Date Inactivated Comments 04/28/2024 12:47 AM 04/30/2024 6:19 PM * Full Code Date Activated Date Inactivated Comments 11/23/2020 11:44 AM 11/23/2020 7:58 PM * Full Code Date Activated Date Inactivated Comments 11/16/2020 2:29 PM 11/16/2020 8:07 PM Care Teams Store Stock Help Relationship Specialty Start Date End Date Judah Jeffery MD PCP - General Family Practice 08/10/22
--- OUTSIDE RECORDS SUMMARY | 2025-07-27 08:31 | XMS_ITS | Encounter Summary ---
Author Organization [facility] Address [facility] [place] [address] Care Team Providers Care Registration Scheduling Specialist Name Role Phone Romina Silveira MD Primary Care Provider [phone] Deshawn Ghosh MD Primary Care Pr ovider [facility] Patrick Penny MD Primary Care Provider [phone] Encounter Details Date Type Department Care Team (Late st Contact Info) Description 06/28/2022 Therapy Plan [facility] Outpatient Therapy [facility] [address] [place], [place] [id number] Norma Boles, PT [place], [place] [address] Social History Tobacco Use Types Packs/Day Years [...] Time PHQ-9 Depression Total Score: 0 03/27/20 8:24 AM CDT documented as of this encounter Care Teams Registration Scheduling Specialist Relationship Specialty Start Date End Date Romina Silveira MD PCP - General INTERNAL MEDICINE 02/08/20 11/29/22 Deshawn Ghosh MD PCP - General FAMILY PRACTICE 11/30/22 01/01/23 Patrick Penny MD [address] [address] PCP - General INTERNAL MEDICINE 01/02/23 02/23/24 documented as of this encounter
[2025-07-27 09:02] LABS: Hematocrit 33.1 % (37.0-47.0); Hemoglobin 10.7 g/dL (12.0-15.0); Immature Granulocyte Percent A 0.5 % (0-0.5); Lymphocytes Absolute Auto 2.07 K/mm3 (0.9-3.2); Mean Corpuscular HGB Conc 32.3 g/dl (32-36); Mean Corpuscular Hemoglobin 29.6 pg (26-34); Mean Corpuscular Volume 91.4 fl (80-100); Nucleated Red Blood Cells Absolute Auto 0.000 K/mm3 (0.0-0.012); Nucleated Red Blood Cells Perc 0.0 % (0.0-0.2); Platelet Count Result 279 k/mm3 (150-375); Red Blood Count 3.62 M/mm3 (4.2-5.4); White Blood Count 13.1 K/mm3 (4.5-10.0)
[2025-07-27 09:03] VITALS: BP 110/59; PULSE 69; RESP 22; TEMP 36.8; O2SAT 99
[2025-07-27] MEDS: SODIUM CHLORIDE 0.9% IV 1,000 ML 999 ML IV CONT (09:16)
[2025-07-27 09:20] LABS: Alanine Aminotransferase 16 U/L (6-35); Albumin Level 4.1 g/dL (3.5-5.1); Alkaline Phosphatase 57 U/L (38-126); Anion Gap 6 mmol/L (4-12); Aspartate Amino Transferase 29 U/L (14-36); Bilirubin,Total 0.9 mg/dL (0.2-1.3); Blood Urea Nitrogen 35 mg/dL (7-17); Calcium 9.2 mg/dL (8.4-10.2); Carbon Dioxide 18 mmol/L (22-30); Chloride 109 mmol/L (98-107); Estimated CRCL calculation 14 ml/min; Estimated Glomerular Filt Rate 20; Glucose 94 mg/dL (65-110); Potassium 5.4 mmol/L (3.4-5.0); Sodium 133 mmol/L (137-145); Total Protein 8.2 g/dL (6.3-8.2)
[2025-07-27] MEDS: LACTATED RINGERS 500 ML IV CONT (10:17)
[2025-07-27 10:45] VITALS: BP 119/70; PULSE 79; RESP 18; O2SAT 98
--- NOTE | 2025-07-27 13:59 | ED.RECABL ---
HPI - Recheck/Abnormal Lab/Rx General Chief Complaint: Recheck/Abnormal Lab/Rx Stated Complaint: bad blood work Time Seen by Provider: 07/27/25 08:29 History of Present Illness HPI narrative: Patient sent to ER for recheck of labs, she was found to have very elevated creatinine and potassium over 6. She denies any complaints, though she does admit she does not drink of water. Has history of CKD. Related Data Home Medications ?Medication ?Instructions ?Recorded ?Confirmed ?Last Taken ?Type nitroglycerin 0.4 mg sublingual 0.4 mg sublingual Q5M PRN Chest 09/28/19 06/09/25 Unknown History tablet (Nitrostat) Pain aspirin 81 mg tablet,delayed 81 mg PO DAILY 02/05/21 06/09/25 06/05/25 History release (Jocelyn Low Dose Aspirin) Allergies Allergy/AdvReac Type Severity Reaction Status Date / Time adhesive tape Allergy Severe BLISTERS/SKIN Verified 07/27/25 09:16 TEARS latex Allergy Severe Anaphylaxis Verified 07/27/25 09:16 Review of Systems Review of Systems: All systems reviewed & are unremarkable except as noted in HPI and below PMFSH Past Medical History Medical History Gastritis Confirmed on EGD 02/2023 Monoclonal gammopathy of undetermined significance (MGUS) Onychomycosis Stress incontinence Dementia Diabetic ulcer of right foot located base 3rd toe and right great toe CKD (chronic kidney disease) stage 4, GFR 15-29 ml/min Benign hypertension with chronic kidney disease Hiatal hernia Hyperplastic polyp of stomach Noted on EGD 02/2023 Diabetes mellitus with chronic kidney disease Osteopenia Hypothyroidism Dystrophic nail Sesamoiditis of right foot Peripheral neuropathy Hyperlipidemia Borderline diabetes Coronary artery disease Surgical History Surgical History History of esophagogastroduodenoscopy (EGD) (02/27/23) History of left knee replacement History of left hip replacement History of breast surgery H/O heart artery stent H/O: hysterectomy (~1972) Partial H/O colonoscopy H/O tooth extraction Family History Family History Mother Family history of pancreatic cancer Heart disease Grandparent Diabetes mellitus Father Diabetes mellitus Hypertension Family history of cardiovascular disease Family history of chronic obstructive pulmonary disease Sibling No problems noted. Other Family history of elevated blood lipids Social History Social History Social History: Lives with her , daughter and son-in-law. She is a lifelong nonsmoker. No alcohol or drug use. 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 EYES: EOMI, conjunctiva normal ENT: Hearing grossly intact LUNGS: Nonlabored breathing. HEART: [Regular rate and rhythm] ABD: [Soft], [nontender to palpation] EXT: Normal range of motion SKIN: [No rashes or lesions.] NEURO: [Alert. No gross focal sensory or strength deficits.] PSYCH: Normal affect Course Vital Signs Vital signs: Vital Signs Temperature 98.3 F 07/27/25 09:03 Pulse Rate 69 07/27/25 09:03 Respiratory Rate 22 H 07/27/25 09:03 Blood Pressure 110/59 L 07/27/25 09:03 Pulse Oximetry 99 07/27/25 09:03 Oxygen Delivery Room Air 07/27/25 09:03 Temperature 98.3 F 07/27/25 09:03 Pulse Rate 79 07/27/25 10:45 Respiratory Rate 18 07/27/25 10:45 Blood Pressure 119/70 07/27/25 10:45 Pulse Oximetry 98 07/27/25 10:45 Oxygen Delivery Room Air 07/27/25 09:03 MDM MDM Narrative Medical decision making narrative: Patient presenting here with abnormal labs, specifically hyperkalemia. She is denying any complaints though she does admit she does not drink enough water. On labs potassium 5.4, creatinine 2.3, not too far off from her baseline, BUN also elevated. She is given IV fluids here, with improvement in her vital signs. She has an appointment coming up with primary care doctor in the next few days, I asked them to have her blood work rechecked in the next few days, after take make sure she keeps hydrated, she does already have a cyber intelligence analyst she sees for her CKD. Return precautions provided. Patient and daughter agrees Differential Diagnosis Differential Diagnosis: Dehydration, electrolyte abnormality, acute renal failure, CKD Lab Data 07/27/25 08:52 07/27/25 08:52 Labs: Lab Results 07/27/25 Range/Units 08:52 WBC 13.1 H (4.5-10.0) K/mm3 RBC 3.62 L (4.2-5.4) M/mm3 Hgb 10.7 L (12.0-15.0) g/dL Hct 33.1 L (37.0-47.0) % MCV 91.4 (80-100) fl MCH 29.6 (26-34) pg MCHC 32.3 (32-36) g/dl RDW 14.1 (11.5-14.5) % Plt Count 279 (150-375) k/mm3 MPV 9.8 (7.4-10.4) fl Immature Gran % (Auto) 0.5 (0-0.5) % Neut % (Auto) 52.5 (45.5-73.1) % Lymph % (Auto) 15.8 L (18.3-44.2) % [place] % (Auto) 8.0 (2.6-8.5) % Eos % (Auto) 22.7 H (0-4.4) % Baso % (Auto) 0.5 (0.2-1.2) % Lymph # (Auto) 2.07 (0.9-3.2) K/mm3 [place] # (Auto) 1.0 H (0.1-0.6) K/mm3 Eos # (Auto) 3.0 H (0-0.3) K/mm3 Baso # (Auto) 0.1 (0.0-0.1) K/mm3 Abs Immat Gran (auto) 0.06 H (0.00-0.031) K/mm3 Absolute Neuts (auto) 6.9 H (1.3-6.7) K/mm3 Absolute Nucleated RBC 0.000 (0.0-0.012) K/mm3 Nucleated RBC % 0.0 (0.0-0.2) % Sodium 133 L (137-145) mmol/L Potassium 5.4 H (3.4-5.0) mmol/L Chloride 109 H (98-107) mmol/L Carbon Dioxide 18 L (22-30) mmol/L Anion Gap 6 (4-12) mmol/L BUN 35 H (7-17) mg/dL Creatinine 2.31 H (0.7-1.0) mg/dL Estim Creat Clear Calc 14 ml/min Estimated GFR 20 L (59 - ) Glucose 94 (65-110) mg/dL Calcium 9.2 (8.4-10.2) mg/dL Total Bilirubin 0.9 (0.2-1.3) mg/dL AST 29 (14-36) U/L ALT 16 (6-35) U/L Alkaline Phosphatase 57 (38-126) U/L Total Protein 8.2 (6.3-8.2) g/dL Albumin 4.1 (3.5-5.1) g/dL Discharge Plan Discharge Clinical Impression: CKD (chronic kidney disease), Dehydration Patient Disposition: Home Condition: Stable Instructions: Dehydration (ED), Chronic Kidney Disease (ED) Additional Instructions: Make sure you are keeping well hydrated and follow-up with her kidney specialist. Please get repeat blood work in 2-3 days to ensure that your labs are looking better. Come back to the ER for any further issues. Patient Language: Cuban Prescriptions: No Action nitroglycerin [Nitrostat] 0.4 mg tablet, sublingual 0.4 mg SUBLINGUAL Q5M PRN (Reason: Chest Pain) Rx Instructions: until response; do not exceed 3 doses per episode ondansetron 4 mg tablet,disintegrating 4 mg PO Q8H PRN (Reason: nausea and vomiting) Qty: 14 3RF rosuvastatin 20 mg tablet 20 mg PO HS Qty: 90 1RF aspirin [Jocelyn Low Dose Aspirin] 81 mg Tablet,Delayed Release (Dr/Ec) 81 mg PO DAILY (DME) FreeStyle Lite Strips Strip See Rx Instructions .Route Qty: 100 2RF Rx Instructions: Check blood glucose once daily As directed (DME) OneTouch Verio test strips Strip See Rx Instructions .Route Qty: 100 1RF Rx Instructions: Check daily or as needed. (DME) blood-glucose meter [OneTouch Verio Flex meter] [facility] See Rx Instructions .Route Qty: 1 0RF Rx Instructions: check blood glucose 1xday As directed gabapentin 300 mg capsule 300 mg PO BID Qty: 180 1RF clopidogrel 75 mg tablet See Rx Instructions .ROUTE .COMPLEX Qty: 100 1RF Dose Instruction: TAKE 1 TABLET BY MOUTH DAILY Rx Instructions: TAKE 1 TABLET BY MOUTH DAILY metoprolol succinate 50 mg tablet extended release 24 hr See Rx Instructions .ROUTE .COMPLEX Qty: 150 1RF Dose Instruction: TAKE 1 AND 1/2 TABLETS BY MOUTH AT BEDTIME Rx Instructions: TAKE 1 AND 1/2 TABLETS BY MOUTH AT BEDTIME amlodipine 2.5 mg tablet 2.5 mg PO DAILY Qty: 90 0RF pantoprazole 40 mg tablet,delayed release (DR/EC) See Rx Instructions .ROUTE .COMPLEX Qty: 200 2RF Dose Instruction: TAKE 1 TABLET BY MOUTH TWICE DAILY Rx Instructions: TAKE 1 TABLET BY MOUTH TWICE DAILY escitalopram oxalate [Lexapro] 20 mg tablet 20 mg PO DAILY Qty: 90 0RF isosorbide mononitrate 30 mg tablet extended release 24 hr See Rx Instructions .ROUTE .COMPLEX Qty: 100 0RF Dose Instruction: TAKE 1 TABLET BY MOUTH DAILY Rx Instructions: TAKE 1 TABLET BY MOUTH DAILY metformin 1,000 mg tablet See Rx Instructions .ROUTE .COMPLEX Qty: 200 0RF Dose Instruction: TAKE 1 TABLET BY MOUTH TWICE DAILY WITH MEALS Rx Instructions: TAKE 1 TABLET BY MOUTH TWICE DAILY WITH MEALS levothyroxine 25 mcg tablet See Rx Instructions .ROUTE .COMPLEX Qty: 100 0RF Dose Instruction: TAKE 1 TABLET BY MOUTH DAILY Rx Instructions: TAKE 1 TABLET BY MOUTH DAILY sulfamethoxazole-trimethoprim [Bactrim DS] 800-160 mg tablet 1 tablet PO Q12H Qty: 10 0RF Follow-up/Referrals: Judah Jeffery MD [Primary Care Provider, Family Practice]
== END 2025-07-27 10:58 | disposition home or self-care (01) ==
PROVIDERS: Emergency Provider Emergency Medicine; PCP Family Medicine
DX: I12.9 Hypertensive chronic kidney disease with stage 1 through stage 4 chronic kidney disease, or unspecified chronic kidney disease (principal); N18.4 Chronic kidney disease, stage 4 (severe); E11.22 Type 2 diabetes mellitus with diabetic chronic kidney disease; E86.0 Dehydration; F03.90 Unspecified dementia, unspecified severity, without behavioral disturbance, psychotic disturbance, mood disturbance, and anxiety; I25.10 Atherosclerotic heart disease of native coronary artery without angina pectoris; E11.43 Type 2 diabetes mellitus with diabetic autonomic (poly)neuropathy; E03.9 Hypothyroidism, unspecified; E78.5 Hyperlipidemia, unspecified; M85.80 Other specified disorders of bone density and structure, unspecified site; Z66 Do not resuscitate; Z96.652 Presence of left artificial knee joint; Z96.642 Presence of left artificial hip joint; Z95.5 Presence of coronary angioplasty implant and graft; Z90.711 Acquired absence of uterus with remaining cervical stump; Z77.22 Contact with and (suspected) exposure to environmental tobacco smoke (acute) (chronic); Z79.82 Long term (current) use of aspirin; Z79.899 Other long term (current) drug therapy; Z79.02 Long term (current) use of antithrombotics/antiplatelets; Z79.84 Long term (current) use of oral hypoglycemic drugs
CPT/HCPCS: 36415; 80053; 85025; 96360; 96361; 99283; J7030; J7120